=== PATIENT | female | born 1940 | race Caucasian/White ===

== ENCOUNTER 2017-12-20 03:45 | Observation (INO) | payer MEDICARE, SELFPAY ==
[2017-12-20] VITALS (17 sets, daily range): BP systolic 114–174; BP diastolic 56–103; PULSE 55–133; RESP 16–21; TEMP 36.4–36.7; O2SAT 95–98; BMI 27.7; BMI 29.5
--- NOTE | 2017-12-20 03:54 | EKG12_ITS ---
Test Reason : POST CARDIOVERSION Blood Pressure : / mmHG Vent. Rate : 060 BPM Atrial Rate : 060 BPM P-R Int : 174 ms QRS Dur : 098 ms QT Int : 434 ms P-R-T Axes : 046 -29 001 degrees QTc Int : 434 ms Normal sinus rhythm Inferior infarct , age undetermined Anterior infarct , age undetermined Abnormal ECG Confirmed by ROSA MALONE, KATIANA ([id number]), editorial cartoonist GISELL MELGOZA ([id number]) on 12/21/2017 8:36:23 AM Referred By: LANCE Confirmed By:KATIANA LEE MD
[2017-12-20] MEDS: dilTIAZem 25 MG/5 ML Vial 10 MG IV BOLUS (04:13)
[2017-12-20 04:14] LABS: Absolute Lymphocyte Count 3.11 X10^3/ul (0.83-4.51); Basophil# 0.06 X10^3/uL; Basophil% 0.7 % (0-1); Eosinophil# 0.14 X10^3/uL; Eosinophils% 1.7 % (0-5); Hematocrit 41.7 % (37-47); Hemoglobin 13.6 g/dl (12.0-15.0); Lymphocyte # 3.11 X10^3/ul (4.0); Lymphocyte % 38.8 % (19-41); Mean Corp Hgb Conc 32.6 g/gl (32-36); Mean Corpuscular Hgb 28.8 pg (27.0-32.0); Mean Corpuscular Volume 88.3 fL (81-99); Mean Platelet Vol. 9.5 fl (6.2-12.0); Monocyte# 0.73 X10^3/uL; Monocyte% 9.1 % (0-10); Neutrophil # 3.96 X10^3/uL (2.7-7.7); Neutrophil % 49.6 % (47-70); Platelet Count 349 K/mm3 (150-450); RBC Distribution Width CV 13.4 % (11.6-14.6); RBC Distribution Width SD 43.3 fl (35.1-43.9); Red Blood Count 4.72 M/mm3 (4.2-5.4)
[2017-12-20 04:17] LABS: POSITIVE COUNT NO; POSITIVE DIFFERENTIAL NO; POSITIVE MORPHOLOGY NO
[2017-12-20 04:33] LABS: Anion Gap 11 (5-15); BUN 17 mg/dL (7-18); BUN/Creat Ratio 20.4 RATIO (10-20); Calcium,Total 9.5 mg/dL (8.5-10.1); Chloride 105 mmol/L (98-107); Creatinine, Serum 0.83 mg/dL (0.55-1.02); EST Glomerular Filtration Rate 70 mL/min (>60); Est Glom Filt Rate - Afr Amer 85 mL/min (>60); Estimated Creatinine Clearance 52.29 ml/min; Glucose 100 mg/dL (74-106); Magnesium 2.2 mg/dL (1.6-2.6); Sodium Level 142 mmol/L (136-145)
[2017-12-20] MEDS: Midazolam 2 MG/2 ML Syringe IV (05:59)
[2017-12-20] MEDS: fentaNYL 100 MCG/2 ML Ampul 50 MCG IV (05:59)
--- NOTE | 2017-12-20 06:04 | NURSING ---
Called ED rn hemodialysis chargekeegan to send patient to floor
--- NOTE | 2017-12-20 06:08 | ED.VISSUMM ---
- ER Visit Summary Date of Service: 12/20/17 Chief Complaint: Palpitations History of Present Illness: The patient is a 77 F sudden palpitations awakening her at 3 AM. History of paroxysmal atrial fibrillation 2 years ago. Patient is on Eliquis. Rn Critical Care is Dr. Paulson. Denies any cough or recent illness. No recent nausea, vomiting, diarrhea. No chest pains. No lightheaded symptoms. Patient states was taken off metoprolol for which she thinks was for a low heart rate. Patient states she was cardioverted a year ago. No other complaints. Physical Examination: General: Alert and oriented ?3, no acute distress HEENT: Normocephalic, atraumatic. Moist mucosa membranes Neck: supple, nontender. Cardiovascular: Irregular tachycardic and rhythm, no murmurs Respiratory: Normal breath sounds, symmetric, no distress Abdomen: Soft, nontender, nondistended Extremities: Nontender, no edema, pulses intact ?4 Neuro: no focal neurological deficits. Test Results: EKG: A. fib with RVR rate of 141, no ST or T-wave changes. Hemoglobin 13.6. Potassium 4.0. Magnesium 2.2. Troponin negative. Emergency Department Course and Treatment: Patient is on Eliquis and taking her medications. Symptoms started when awakening at 3 AM, less than 1 hour on arrival. I discussed with patient if she would like direct current cardioversion in the ED. She states she would like to avoid that and try medications. Cardizem was given. Heart rate did improve the 120s comparable. I did initially order for Cardizem drip. Labs were stable. I spoke with hospitalist, Dr. Crabtree, who evaluated patient in the ED. patient heart rate was increasing prior to the drip. He we discussed with the patient, she now agreed with cardioversion. He spoke with cardiology, Dr. Mercado who recommended an amnio bolus prior to cardioversion. After medications given, patient was cardioverted after second attempt at 200 J with AP pads. Repeat EKG obtained noting a normal sinus rhythm. Patient admitted to PCU for further management. Treatment Plan: [] Disposition: Admission Impression: 1. Atrial fibrillation with RVR status post direct current cardioversion This note was generated with Vee24ation software. It may contain incorrect words, spelling, and punctuation that were not noted in review of the chart prior to signing ED Disposition - Plan for ED Patient: Disposition: Acute Care Hospital [facility] Chief Complaint: Palpitations Diagnosis: Atrial fibrillation with RVR, Direct current cardioversion
--- NOTE | 2017-12-20 06:15 | ED.DCSUM_ITS ---
- ER Visit Summary Date of Service: 12/20/17 Chief Complaint: Palpitations History of Present Illness: The patient is a 77 F sudden palpitations awakening her at 3 AM. History of paroxysmal atrial fibrillation 2 years ago. Patient is on Eliquis. Webfocus Developer is Dr. Paulson. Denies any cough or recent illness. No recent nausea, vomiting, diarrhea. No chest pains. No lightheaded symptoms. Patient states was taken off metoprolol for which she thinks was for a low heart rate. Patient states she was cardioverted a year ago. No other complaints. Physical Examination: General: Alert and oriented ?3, no acute distress HEENT: Normocephalic, atraumatic. Moist mucosa membranes Neck: supple, nontender. Cardiovascular: Irregular tachycardic and rhythm, no murmurs Respiratory: Normal breath sounds, symmetric, no distress Abdomen: Soft, nontender, nondistended Extremities: Nontender, no edema, pulses intact ?4 Neuro: no focal neurological deficits. Test Results: EKG: A. fib with RVR rate of 141, no ST or T-wave changes. Hemoglobin 13.6. Potassium 4.0. Magnesium 2.2. Troponin negative. Emergency Department Course and Treatment: Patient is on Eliquis and taking her medications. Symptoms started when awakening at 3 AM, less than 1 hour on arrival. I discussed with patient if she would like direct current cardioversion in the ED. She states she would like to avoid that and try medications. Cardizem was given. Heart rate did improve the 120s comparable. I did initially order for Cardizem drip. Labs were stable. I spoke with hospitalist, Dr. Crabtree, who evaluated patient in the ED. patient heart rate was increasing prior to the drip. He we discussed with the patient, she now agreed with cardioversion. He spoke with cardiology, Dr. Mercado who recommended an amnio bolus prior to cardioversion. After medications given, patient was cardioverted after second attempt at 200 J with AP pads. Repeat EKG obtained noting a normal sinus rhythm. Patient admitted to PCU for further management. Treatment Plan: [] Disposition: Admission Impression: 1. Atrial fibrillation with RVR status post direct current cardioversion This note was generated with Daixeation software. It may contain incorrect words, spelling, and punctuation that were not noted in review of the chart prior to signing ED Disposition - Plan for ED Patient: Disposition: Acute Care Hospital [facility] Chief Complaint: Palpitations Diagnosis: Atrial fibrillation with RVR, Direct current cardioversion
--- NOTE | 2017-12-20 06:19 | PCM.HP.STD ---
Problem List (1) Rapid heartbeat Status: Acute History of Present Illness Date of Admission: 12/20/17 Chief Complaint: Rapid heartbeat The patient is a 77 year old F was seen in the emergency room at [facility] with a chief complaint of rapid heartbeat. Patient states when she went to bed on the evening of 12/19/17, she did not feel right, she went to sleep and awoke at 3 AM with a rapid heartbeat. Patient has a history of paroxysmal atrial fibrillation and had been taken off rate limiting agents the latter part of 2017 due to hypotension. Patient has remained in sinus rhythm as far she knows and has been taking Eliquis for approximately [address] Paulson for cardiology. Evaluation in the ER included an EKG which showed atrial fibrillation with a rapid ventricular response at approximately 141 bpm, labs obtained were unremarkable. Patient was given Cardizem IV and this lowered her heart rate somewhat but she remained rapid. I talked with the patient during my examination, initially she had refused cardioversion by the emergency room physician but after discussing this with her further she agreed to cardioversion. I contacted who is on-call for cardiology and he advised IV amiodarone bolus with no drip following the cardioversion. Patient was cardioverted twice with return to sinus bradycardia at 60, there were no complications. Patient will be admitted to PCU and she will be seen in consultation by cardiology, I will not cycle her cardiac enzymes. Past Medical History Past Medical History (Chronic Problems): Chronic Problems (Last Reviewed 07/20/17 @ 14:11 by Kike Paulson MD) Paroxysmal atrial fibrillation (Chronic) Anemia (Chronic) Hypothyroidism (Chronic) History of rheumatic fever (Chronic) GERD (gastroesophageal reflux disease) (Chronic) Gastric ulcer (Chronic) Hypertension (Chronic) Medical History: Medical History (Last Reviewed 07/20/17 @ 14:11 by Kike Paulson MD) Paroxysmal atrial fibrillation (Chronic) I48.0 Anemia (Chronic) D64.9 Hypothyroidism (Chronic) E03.9 History of rheumatic fever (Chronic) Z86.79 GERD (gastroesophageal reflux disease) (Chronic) K21.9 Gastric ulcer (Chronic) K25.9 Hypertension (Chronic) I10 Allergies metoprolol Adverse Reaction (Verified 12/20/17 03:46) Symptomatic Bradycardia Home Medications: Ambulatory Orders Medication Instructions Recorded Levothyroxine [Synthroid] 25 mcg PO DAILY@0600 #30 tab 03/13/16 amlodipine 5 mg tablet 5 mg PO DAILY #90 tab 12/10/17 apixaban 5 mg tablet 5 mg PO BID #180 tab 12/10/17 Surgical History: Surgical History (Last Reviewed 07/20/17 @ 14:11 by Kike Paulson MD) History of hysterectomy Z98.890, Z90.710 Surgical History: hysterectomy Psychiatric History: No pertinent psych hx 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 Denies: Anorexia, Chills, Fever, Night Sweats, Malaise, Weight Change Eyes: Denies: Cataracts, Conjunctivae Inflammation, Double vision, Drainage HEENT: Denies: Difficulty Swallowing, Dysphasia, Ear Pain, Eye Pain, Hearing Changes, Nasal bleeding, Nasal Congestion, Post Nasal Drip Cardiovascular: Reports: Palpitations. Denies: Chest Pain, Claudication, Chest Pressure, Chest Tightness, Edema, Heaviness Respiratory: Denies: Cough, Hemoptysis, Pleuritic Pain, Shortness of Breath, Shortness of breath at rest, Shortness of breath upon exertion, Sputum production, Wheezing Gastrointestinal: Denies: Abdominal Pain, Constipation, Diarrhea, Hematemesis, Hematochezia, Nausea, Melena, Vomiting Genitourinary: Denies: Dysuria, Frequency, Hematuria, Hesitancy, Incontinence, Nocturia, Urgency Gynecological: Denies: Breast symptoms Musculoskeletal: Denies: Foot Pain, Hand Pain, Joint Pain, Joint stiffness, Joint swelling, Joint Tenderness, Leg Pain Skin: Denies: Dryness, Jaundice, Pruritis, Rash Neurological: Denies: Blurred vision, Double vision, Slurred speech, Difficulty swallowing, Focal weakness, Headaches, Incoordination, Numbness, Tingling Psychiatric: Denies: Anxiety, Depression, Homicidal Ideations, Suicidal Ideations Endocrine: Denies: Change in Body Habitus, Heat/ Cold Intolerance, Polydipsia, Polyuria Hematologic/ Lymphatic: Denies: Adenopathy, Anemia, Easy Bruising, Easy Bleeding, Petechiae, Purpura VTE Information - Inpt Only VTE Present on Admission: No VTE Mechan Device Prophylaxis: None VTE Pharm Prophylaxis ordered?: No Reason prophylaxis not ordered:: Medical Contraindication - on Eliquis Patient Problems: Active and Suspected Problems (Last Reviewed 07/20/17 @ 14:11 by Kike Paulson MD) Atrial fibrillation with RVR (Acute) Rapid heartbeat (Acute) - Physical Exam General: Alert, Oriented x3, Cooperative, No apparent distress, Well developed, Well nourished HEENT: Atraumatic, PERRLA, EOMI, Normocephalic Oral: Moist Mucosa Neck: Supple, No JVD, Negative Carotid Bruits, No Nuchal Rigidity, Trachea Midline, Thyroid Normal Size and Texture Lungs: Clear to auscultation, Normal air movement, No rhonchi, No wheeze, No rales Cardiovascular: Regular rate, No murmurs, PMI Normal, No rub noted, Tachycardic Abdomen: Bowel Sounds Present, Soft, Non Tender, Non-Distended, No hernias noted Extremities: No clubbing, No cyanosis, No edema, Capillary Refill Less than 3 Seconds Skin: No rashes, No breakdown Musculoskeletal: No Tenderness to Palpation of Joints or Extremities Neurological: Cranial nerves II-XII grossly intact, Neuro grossly intact, Sensory exam intact to light touch and pain, Coordination normal Psych/Mental Status: Normal Affect, Appropriate, Alert and oriented to time, place, person, mood and affect Vital Signs Temp Pulse Resp BP Pulse Ox 98.0 F 61 18 129/67 H 96 12/20/17 03:48 12/20/17 06:16 12/20/17 06:16 12/20/17 06:16 12/20/17 06:16 Oxygen Flow Rate (L/min) 2 Oxygen Delivery Method [1 ( Nasal Cannula Initial Baseline)] Oxygen Delivery Method Nasal Cannula Assessment/Plan All Active Problems (Last Reviewed 07/20/17 @ 14:11 by Kike Paulson MD) Atrial fibrillation with RVR (Acute) Rapid heartbeat (Acute) #1 atrial fibrillation with rapid ventricular response-now returned to sinus bradycardia at 60 following cardioversion ?2 in the emergency room-patient will be admitted to PCU, she will be monitored and seen in consultation by cardiology #2 hypertension-patient will remain on her current medication #3 hypothyroidism Code Visit Inpatient E&M: 23724 Init Hosp L3
--- NOTE | 2017-12-20 06:27 | HP.PCM_ITS ---
Problem List (1) Rapid heartbeat Status: Acute History of Present Illness Date of Admission: 12/20/17 Chief Complaint: Rapid heartbeat The patient is a 77 year old F was seen in the emergency room at [facility] with a chief complaint of rapid heartbeat. Patient states when she went to bed on the evening of 12/19/17, she did not feel right, she went to sleep and awoke at 3 AM with a rapid heartbeat. Patient has a history of paroxysmal atrial fibrillation and had been taken off rate limiting agents the latter part of 2017 due to hypotension. Patient has remained in sinus rhythm as far she knows and has been taking Eliquis for approximately [address] Paulson for cardiology. Evaluation in the ER included an EKG which showed atrial fibrillation with a rapid ventricular response at approximately 141 bpm, labs obtained were unremarkable. Patient was given Cardizem IV and this lowered her heart rate somewhat but she remained rapid. I talked with the patient during my examination, initially she had refused cardioversion by the emergency room physician but after discussing this with her further she agreed to cardioversion. I contacted who is on-call for cardiology and he advised IV amiodarone bolus with no drip following the cardioversion. Patient was cardioverted twice with return to sinus bradycardia at 60, there were no complications. Patient will be admitted to PCU and she will be seen in consultation by cardiology, I will not cycle her cardiac enzymes. Past Medical History Past Medical History (Chronic Problems): Chronic Problems (Last Reviewed 07/20/17 @ 14:11 by Kike Paulson MD) Paroxysmal atrial fibrillation (Chronic) Anemia (Chronic) Hypothyroidism (Chronic) History of rheumatic fever (Chronic) GERD (gastroesophageal reflux disease) (Chronic) Gastric ulcer (Chronic) Hypertension (Chronic) Medical History: Medical History (Last Reviewed 07/20/17 @ 14:11 by Kike Paulson MD) Paroxysmal atrial fibrillation (Chronic) I48.0 Anemia (Chronic) D64.9 Hypothyroidism (Chronic) E03.9 History of rheumatic fever (Chronic) Z86.79 GERD (gastroesophageal reflux disease) (Chronic) K21.9 Gastric ulcer (Chronic) K25.9 Hypertension (Chronic) I10 Allergies metoprolol Adverse Reaction (Verified 12/20/17 03:46) Symptomatic Bradycardia Home Medications: Ambulatory Orders Medication Instructions Recorded Levothyroxine [Synthroid] 25 mcg PO DAILY@0600 #30 tab 03/13/16 amlodipine 5 mg tablet 5 mg PO DAILY #90 tab 12/10/17 apixaban 5 mg tablet 5 mg PO BID #180 tab 12/10/17 Surgical History: Surgical History (Last Reviewed 07/20/17 @ 14:11 by Kike Paulson MD) History of hysterectomy Z98.890, Z90.710 Surgical History: hysterectomy Psychiatric History: No pertinent psych hx 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 Denies: Anorexia, Chills, Fever, Night Sweats, Malaise, Weight Change Eyes: Denies: Cataracts, Conjunctivae Inflammation, Double vision, Drainage HEENT: Denies: Difficulty Swallowing, Dysphasia, Ear Pain, Eye Pain, Hearing Changes, Nasal bleeding, Nasal Congestion, Post Nasal Drip Cardiovascular: Reports: Palpitations. Denies: Chest Pain, Claudication, Chest Pressure, Chest Tightness, Edema, Heaviness Respiratory: Denies: Cough, Hemoptysis, Pleuritic Pain, Shortness of Breath, Shortness of breath at rest, Shortness of breath upon exertion, Sputum production, Wheezing Gastrointestinal: Denies: Abdominal Pain, Constipation, Diarrhea, Hematemesis, Hematochezia, Nausea, Melena, Vomiting Genitourinary: Denies: Dysuria, Frequency, Hematuria, Hesitancy, Incontinence, Nocturia, Urgency Gynecological: Denies: Breast symptoms Musculoskeletal: Denies: Foot Pain, Hand Pain, Joint Pain, Joint stiffness, Joint swelling, Joint Tenderness, Leg Pain Skin: Denies: Dryness, Jaundice, Pruritis, Rash Neurological: Denies: Blurred vision, Double vision, Slurred speech, Difficulty swallowing, Focal weakness, Headaches, Incoordination, Numbness, Tingling Psychiatric: Denies: Anxiety, Depression, Homicidal Ideations, Suicidal Ideations Endocrine: Denies: Change in Body Habitus, Heat/ Cold Intolerance, Polydipsia, Polyuria Hematologic/ Lymphatic: Denies: Adenopathy, Anemia, Easy Bruising, Easy Bleeding , Petechiae, Purpura VTE Information - Inpt Only VTE Present on Admission: No VTE Mechan Device Prophylaxis: None VTE Pharm Prophylaxis ordered?: No Reason prophylaxis not ordered:: Medical Contraindication - on Eliquis Patient Problems: Active and Suspected Problems (Last Reviewed 07/20/17 @ 14:11 by Kike Paulson MD ) Atrial fibrillation with RVR (Acute) Rapid heartbeat (Acute) - Physical Exam General: Alert, Oriented x3, Cooperative, No apparent distress, Well developed, Well nourished HEENT: Atraumatic, PERRLA, EOMI, Normocephalic Oral: Moist Mucosa Neck: Supple, No JVD, Negative Carotid Bruits, No Nuchal Rigidity, Trachea Midline, Thyroid Normal Size and Texture Lungs: Clear to auscultation, Normal air movement, No rhonchi, No wheeze, No rales Cardiovascular: Regular rate, No murmurs, PMI Normal, No rub noted, Tachycardic Abdomen: Bowel Sounds Present, Soft, Non Tender, Non-Distended, No hernias noted Extremities: No clubbing, No cyanosis, No edema, Capillary Refill Less than 3 Seconds Skin: No rashes, No breakdown Musculoskeletal: No Tenderness to Palpation of Joints or Extremities Neurological: Cranial nerves II-XII grossly intact, Neuro grossly intact, Sensory exam intact to light touch and pain, Coordination normal Psych/Mental Status: Normal Affect, Appropriate, Alert and oriented to time, place, person, mood and affect Vital Signs Temp Pulse Resp BP Pulse Ox 98.0 F 61 18 129/67 H 96 12/20/17 03:48 12/20/17 06:16 12/20/17 06:16 12/20/17 06:16 12/20/17 06:16 Oxygen Flow Rate (L/min) 2 Oxygen Delivery Method [1 ( Nasal Cannula Initial Baseline)] Oxygen Delivery Method Nasal Cannula Assessment/Plan All Active Problems (Last Reviewed 07/20/17 @ 14:11 by Kike Paulson MD) Atrial fibrillation with RVR (Acute) Rapid heartbeat (Acute) #1 atrial fibrillation with rapid ventricular response-now returned to sinus bradycardia at 60 following cardioversion ?2 in the emergency room-patient will be admitted to PCU, she will be monitored and seen in consultation by cardiology #2 hypertension-patient will remain on her current medication #3 hypothyroidism Code Visit Inpatient E&M: 41766 Init Hosp L3
[2017-12-20] MEDS: Levothyroxine 25 MCG TABLET PO (08:00)
[2017-12-20] MEDS: APIXABAN 5 MG TABLET PO (09:42)
[2017-12-20] MEDS: amLODIPine 5 MG Tablet PO (09:42)
[2017-12-20 10:38] LABS: Thyroid Stim Hormone (TSH) 7.14 uIU/mL (0.358-3.74)
--- NOTE | 2017-12-20 13:27 | PCM.CONS.C ---
Reason for Consult Date of Consultation: 12/20/17 Reason for Consultation: Fast heart rate. History of Present Illness: YOSHI MARTINS, is a 77 F who presents to the emergency room yesterday with palpitations. She was noted to be in atrial fibrillation with rapid ventricular response rate.. She is a pleasant lady with a history of paroxysmal atrial fibrillation hypertension diabetes mellitus . Since her last visit in November she has been doing quite well from the cardiac standpoint she has not had any more episodes of atrial fibrillation. She however has had some heartburn and has been taking pantoprazole with some relief. She is also taking some other antacid. She says she cannot remember the last time she underwent an upper GI evaluation. She has had no dizziness or diaphoresis no near syncope or syncope no neck arm or jaw discomfort suggest angina. You do remember that her last echocardiogram had demonstrated ejection fraction of 60%. The heartburn does not appear to occur with exertion either. In the emergency room she was noted to be in atrial for ablation with rapid ventricular response rate she was given a bolus of intravenous amiodarone and then underwent DC cardioversion. She was admitted to the telemetry unit for further evaluation. She appears to be doing well at this time and has not had any neck arm or jaw discomfort suggest angina. Past Medical History Allergies/Adverse Reactions: Allergies metoprolol Adverse Reaction (Verified 12/20/17 03:46) Symptomatic Bradycardia Home Medications: Ambulatory Orders Medication Instructions Recorded Levothyroxine [Synthroid] 25 mcg PO DAILY@0600 #30 tab 03/13/16 amlodipine 5 mg tablet 5 mg PO DAILY #90 tab 12/10/17 apixaban 5 mg tablet 5 mg PO BID #180 tab 12/10/17 Past Medical History (Chronic Problems): Chronic Problems (Last Reviewed 07/20/17 @ 14:11 by Kike Paulson MD) Paroxysmal atrial fibrillation (Chronic) Anemia (Chronic) Hypothyroidism (Chronic) History of rheumatic fever (Chronic) GERD (gastroesophageal reflux disease) (Chronic) Gastric ulcer (Chronic) Hypertension (Chronic) Surgical History: hysterectomy Psychiatric History: No pertinent psych hx 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 Denies: Chest Discomfort, Shortness of Breath, Orthopnea, PND, Peripheral Edema, Lightheadedness, Dizziness, Near Syncope, Syncope Respiratory: Denies: Cough, Sputum Production, Hemoptysis Gastrointestinal: Denies: Hematemesis, Hematochezia, Melena Genitourinary: Denies: Dysuria, Hematuria Skin: Denies: Rash Subjectve: Pleasant lady in no distress. Objective: Vital Signs Temp Pulse Resp BP Pulse Ox 97.5 F L 55 L 18 126/73 H 95 12/20/17 09:45 12/20/17 11:06 12/20/17 09:45 12/20/17 09:45 12/20/17 12:55 Oxygen Flow Rate (L/min) 2 Oxygen Delivery Method [1 ( Nasal Cannula Initial Baseline)] Oxygen Delivery Method Room Air Weight: 183 lb 13.848 oz Body Mass Index (BMI) 29.5 Intake and Output for Last 24 Hours 12/18/17 12/19/17 12/20/17 23:59 23:59 23:59 Intake Total 150 / 150 Balance 150 / 150 General: Awake, Alert, Oriented x 3 HEENT: PERRL, EOMI, Sclera Non Icteric Neck: Supple, Good ROM, No Lymph Node Enlargement Lungs: Clear to auscultation Cardiovascular: Regular Rhythm, Normal S1, Normal S2, No Murmurs, No Rubs, No Gallops Vascular: No Carotid Bruits, Normal Femoral Pulses, Normal Radial Pulses, Normal Dorsalis Pedal Pulse, Normal Posterior Tibial Pulses Abdomen: Bowel Sounds Present, Soft, Non Tender, No HSM, No Organomegaly Extremities: No Cyanosis, No Clubbing, No edema Neurological: No Focal Motor or Sensory Deficit Rhythm: EKG: Normal sinus rhythm with no acute changes. Assessment/Plan 1. Paroxysmal atrial fibrillation. The patient presents with a paroxysmal atrial fibrillation. My recommendation at this time as she has been cardioverted is to continue with anticoagulation and to place her on a beta-lance as well as daily 200 mg dose of amiodarone. She can be seen in the office for follow-up visit within the next 2-4 weeks. 2. Hypertension Patient is noted to be hypertensive on amlodipine. But with a history of paroxysmal atrial fibrillation it may be prudent to discontinue the above and use a beta-lance instead. Thank you for allowing me to participate in the care of your patient. Please don't hesitate to call if any issues arise
[2017-12-20 13:58] LABS: T4 Free Direct 1.23 ng/dL (0.76-1.46)
[2017-12-20 14:08] LABS: Free T3 2.3 pg/mL (2.18-3.98)
--- NOTE | 2017-12-20 14:59 | PCM.DC ---
- Discharge Diagnoses Current Active Problems: Current Active and Chronic Problems (Last Reviewed 07/20/17 @ 14:11 by Kike Paulson MD) Atrial fibrillation with RVR (Acute) Rapid heartbeat (Acute) You will use the following diet at home:: Cardiac Your food should be the consistency of: Regular Your liquids should be the consistency of: Regular/Thin Discharge Activity: Return to Normal Activity Allergies/Adverse Reactions: Allergies metoprolol Adverse Reaction (Verified 12/20/17 03:46) Symptomatic Bradycardia Medications to take at Discharge Levothyroxine [Synthroid] 25 mcg PO DAILY@0600 #30 tab 03/13/16 apixaban 5 mg tablet 5 mg PO BID #180 tab 12/10/17 Amiodarone HCl [Cordarone] 200 mg PO DAILY #30 tab 12/20/17 Metoprolol(XL)Succ [Toprol Xl (Beta Nusrat)] 50 mg PO DAILY #30 tab 12/20/17 The following prescriptions were given: Amiodarone HCl [Cordarone] 200 mg PO DAILY #30 tab Metoprolol(XL)Succ [Toprol Xl (Beta Nusrat)] 50 mg PO DAILY #30 tab Primary Care Physician: Veronika Paiz DO [Primary Care Provider] - Please follow up with your Primary Care Physician in: 2 weeks Please Follow Up With: Kike Paulson MD When: 2-4 weeks Proposed Discharge Date: 12/20/17
--- NOTE | 2017-12-20 15:00 | PCM.DC.SUM ---
<Chente Redding - Last Filed: 12/20/17 15:00> Discharge Date and Diagnosis - Problem List Patient Problems: Active and Suspected Problems (Last Reviewed 07/20/17 @ 14:11 by Kike Paulson MD) Atrial fibrillation with RVR (Acute) Rapid heartbeat (Acute) Date of Admission: 12/20/17 Date of Discharge: 12/20/17 - Primary Discharge Diagnosis Active and Suspected Problems (Last Reviewed 07/20/17 @ 14:11 by Kike Paulson MD) Paroxysmal Atrial fibrillation with RVR (Acute) HTN Hypothyroidism GERD Gastric ulcer Sciatica - Secondary Discharge Diagnosis Chronic Problems (Last Reviewed 07/20/17 @ 14:11 by Kike Paulson MD) Paroxysmal atrial fibrillation (Chronic) Anemia (Chronic) Hypothyroidism (Chronic) History of rheumatic fever (Chronic) GERD (gastroesophageal reflux disease) (Chronic) Gastric ulcer (Chronic) Hypertension (Chronic) Hospital Course and Treatment Consults: Khurram -cardiology Operations: None Procedures: None Summary of Care Provided: Physical exam on day of discharge: General: Resting comfortably NAD Psych: A/Ox3 normal affect HEENT: PEARRLA AT NC Neck: Supple NT CV: RRR no m/t/r/g/h Resp: CTA Abd: [id number] Soft NT no guarding or rigidity Ext: DP2+= no edema Skin: W/D normal turgor Lymph/Heme: No active bleeding or adenopathy Neuro: CN2-12 intact Hospital course: The patient is a 77 year old F who presented to the emergency room with rapid heart rate and not feeling well. She has a history of paroxysmal atrial fibrillation for which she follows Dr. Paulson and is on Eliquis. She is found to be in A. fib with RVR and was given a Cardizem bolus and then subsequently was cardioverted twice in the emergency room with success on the second attempt. Her blood work was unremarkable except for a somewhat elevated TSH however T4 and T3 were normal. She was placed in the PCU on telemetry overnight and remained stable. She was seen by her melter helper Dr. Paulson in the morning. He recommended no further intervention. Her Norvasc was discontinued and she was started on once daily metoprolol and amiodarone for better rate control. She was advised to continue Eliquis. Also of note the patient admitted that she has been taking heavy doses of Aleve for her sciatica despite her concurrent Eliquis therapy and despite having a history of acid reflux and peptic ulcer. I advised strict discontinuation of these. She is following Dr. Cota as an outpatient for this. She has no black stools and no decrease in her hemoglobin. I advised her to discuss alternative pain options for sciatica with her PCP at follow up. Please follow-up with your PCP in 1-2 weeks, and with cardiology in 2-4 weeks. This patient was seen by Chente Redding PA-C under the supervision of Doctor Hussain. [] Discharge Diet: Low fat/ Low Cholesterol, 4000 mg Sodium Diet Discharge Activity: Return to Normal Activity Home Medications: Medications to take at Discharge Levothyroxine [Synthroid] 25 mcg PO DAILY@0600 #30 tab 03/13/16 apixaban 5 mg tablet 5 mg PO BID #180 tab 12/10/17 Amiodarone HCl [Cordarone] 200 mg PO DAILY #30 tab 12/20/17 Metoprolol(XL)Succ [Toprol Xl (Beta Nusrat)] 50 mg PO DAILY #30 tab 12/20/17 Following Prescrptions Were Given to Patient: Amiodarone HCl [Cordarone] 200 mg PO DAILY #30 tab Metoprolol(XL)Succ [Toprol Xl (Beta Nusrat)] 50 mg PO DAILY #30 tab Primary Care Physician: Veronika Paiz DO [Primary Care Provider] - Please follow up with your Primary Care Physician in: 2 weeks Please Follow Up With: Kike Paulson MD When: 2-4 weeks Disposition: Home Minutes spent on discharge:: 35 Patient Condition:: Stable Medical Necessity - Tobacco Use Smoking Status: Never smoker Tobacco Use: Non-smoker Meaningful Use Info Meaningful Use Diagnoses (Choose all that apply): None applicable <Kem Nixon - Last Filed: 12/20/17 15:23> Discharge Date and Diagnosis - Primary Discharge Diagnosis Active and Suspected Problems (Last Reviewed 07/20/17 @ 14:11 by Kike Paulson MD) Atrial fibrillation with RVR (Acute) Rapid heartbeat (Acute) - Secondary Discharge Diagnosis Chronic Problems (Last Reviewed 07/20/17 @ 14:11 by Kike Paulson MD) Paroxysmal atrial fibrillation (Chronic) Anemia (Chronic) Hypothyroidism (Chronic) History of rheumatic fever (Chronic) GERD (gastroesophageal reflux disease) (Chronic) Gastric ulcer (Chronic) Hypertension (Chronic) Hospital Course and Treatment Operations: None Procedures: None Summary of Care Provided: Patient seen and examined independently. Data reviewed. I agree with the above note by the physician embroidery assistant. The patient is a 77 year old F patient was found to be in atrial fibrillation with RVR. Patient was started on Cardizem and cardioverted twice. Patient remained stable. Patient was started on metoprolol as well. Patient will follow up with cardiology as outpatient. [] Discharge Diet: Low fat/ Low Cholesterol, 4000 mg Sodium Diet Discharge Activity: Return to Normal Activity Disposition: Home Minutes spent on discharge:: 35 Patient Condition:: Stable Meaningful Use Info Meaningful Use Diagnoses (Choose all that apply): None applicable Code Visit OBSV E&M: 56991 Observation care discharge
--- NOTE | 2017-12-20 15:06 | DS.PCM_ITS ---
<Chente Redding - Last Filed: 12/20/17 15:00> Discharge Date and Diagnosis - Problem List Patient Problems: Active and Suspected Problems (Last Reviewed 07/20/17 @ 14:11 by Kike Paulson MD ) Atrial fibrillation with RVR (Acute) Rapid heartbeat (Acute) Date of Admission: 12/20/17 Date of Discharge: 12/20/17 - Primary Discharge Diagnosis Active and Suspected Problems (Last Reviewed 07/20/17 @ 14:11 by Kike Paulson MD ) Paroxysmal Atrial fibrillation with RVR (Acute) HTN Hypothyroidism GERD Gastric ulcer Sciatica - Secondary Discharge Diagnosis Chronic Problems (Last Reviewed 07/20/17 @ 14:11 by Kike Paulson MD) Paroxysmal atrial fibrillation (Chronic) Anemia (Chronic) Hypothyroidism (Chronic) History of rheumatic fever (Chronic) GERD (gastroesophageal reflux disease) (Chronic) Gastric ulcer (Chronic) Hypertension (Chronic) Hospital Course and Treatment Consults: Khurram -cardiology Operations: None Procedures: None Summary of Care Provided: Physical exam on day of discharge: General: Resting comfortably NAD Psych: A/Ox3 normal affect HEENT: PEARRLA AT NC Neck: Supple NT CV: RRR no m/t/r/g/h Resp: CTA Abd: [id number] Soft NT no guarding or rigidity Ext: DP2+= no edema Skin: W/D normal turgor Lymph/Heme: No active bleeding or adenopathy Neuro: CN2-12 intact Hospital course: The patient is a 77 year old F who presented to the emergency room with rapid heart rate and not feeling well. She has a history of paroxysmal atrial fibrillation for which she follows Dr. Paulson and is on Eliquis. She is found to be in A. fib with RVR and was given a Cardizem bolus and then subsequently was cardioverted twice in the emergency room with success on the second attempt. Her blood work was unremarkable except for a somewhat elevated TSH however T4 and T3 were normal. She was placed in the PCU on telemetry overnight and remained stable. She was seen by her family resource management professor Dr. Paulson in the morning. He recommended no further intervention. Her Norvasc was discontinued and she was started on once daily metoprolol and amiodarone for better rate control. She was advised to continue Eliquis. Also of note the patient admitted that she has been taking heavy doses of Aleve for her sciatica despite her concurrent Eliquis therapy and despite having a history of acid reflux and peptic ulcer. I advised strict discontinuation of these. She is following Dr. Cota as an outpatient for this. She has no black stools and no decrease in her hemoglobin. I advised her to discuss alternative pain options for sciatica with her PCP at follow up. Please follow-up with your PCP in 1-2 weeks, and with cardiology in 2-4 weeks. This patient was seen by Chente Redding PA-C under the supervision of Doctor Hussain. [] Discharge Diet: Low fat/ Low Cholesterol, 4000 mg Sodium Diet Discharge Activity: Return to Normal Activity Home Medications: Medications to take at Discharge Levothyroxine [Synthroid] 25 mcg PO DAILY@0600 #30 tab 03/13/16 apixaban 5 mg tablet 5 mg PO BID #180 tab 12/10/17 Amiodarone HCl [Cordarone] 200 mg PO DAILY #30 tab 12/20/17 Metoprolol(XL)Succ [Toprol Xl (Beta Nusrat)] 50 mg PO DAILY #30 tab 12/20/17 Following Prescrptions Were Given to Patient: Amiodarone HCl [Cordarone] 200 mg PO DAILY #30 tab Metoprolol(XL)Succ [Toprol Xl (Beta Nusrat)] 50 mg PO DAILY #30 tab Primary Care Physician: Veronika Paiz DO [Primary Care Provider] - Please follow up with your Primary Care Physician in: 2 weeks Please Follow Up With: Kike Paulson MD When: 2-4 weeks Disposition: Home Minutes spent on discharge:: 35 Patient Condition:: Stable Medical Necessity - Tobacco Use Smoking Status: Never smoker Tobacco Use: Non-smoker Meaningful Use Info Meaningful Use Diagnoses (Choose all that apply): None applicable <Kem Nixon - Last Filed: 12/20/17 15:23> Discharge Date and Diagnosis - Primary Discharge Diagnosis Active and Suspected Problems (Last Reviewed 07/20/17 @ 14:11 by Kike Paulson MD ) Atrial fibrillation with RVR (Acute) Rapid heartbeat (Acute) - Secondary Discharge Diagnosis Chronic Problems (Last Reviewed 07/20/17 @ 14:11 by Kike Paulson MD) Paroxysmal atrial fibrillation (Chronic) Anemia (Chronic) Hypothyroidism (Chronic) History of rheumatic fever (Chronic) GERD (gastroesophageal reflux disease) (Chronic) Gastric ulcer (Chronic) Hypertension (Chronic) Hospital Course and Treatment Operations: None Procedures: None Summary of Care Provided: Patient seen and examined independently. Data reviewed. I agree with the above note by the physician certified pathology assistant. The patient is a 77 year old F patient was found to be in atrial fibrillation with RVR. Patient was started on Cardizem and cardioverted twice. Patient remained stable. Patient was started on metoprolol as well. Patient will follow up with cardiology as outpatient. [] Discharge Diet: Low fat/ Low Cholesterol, 4000 mg Sodium Diet Discharge Activity: Return to Normal Activity Disposition: Home Minutes spent on discharge:: 35 Patient Condition:: Stable Meaningful Use Info Meaningful Use Diagnoses (Choose all that apply): None applicable Code Visit OBSV E&M: 40585 Observation care discharge
== END 2017-12-20 18:14 | disposition home or self-care (01) ==
LOC: ED 04:11 → PCU 06:06
PROVIDERS: Physician Assistant; Admitting Provider Internal Medicine; Emergency Provider Emergency Medicine; Family Provider Internal Medicine; PCP Internal Medicine
DX: I48.0 Paroxysmal atrial fibrillation (principal); I10 Essential (primary) hypertension; E03.9 Hypothyroidism, unspecified; K21.9 Gastro-esophageal reflux disease without esophagitis; Z87.11 Personal history of peptic ulcer disease; Z79.899 Other long term (current) drug therapy; Z79.01 Long term (current) use of anticoagulants; M54.30 Sciatica, unspecified side; E11.9 Type 2 diabetes mellitus without complications
CPT/HCPCS: 80048; 83735; 84439; 84443; 84481; 84484; 85025; 92960; 93005; 96374; 96375; 97161; 99218; 99284; J7030; A4216; G0378; G8978; G8979; G8980

== ENCOUNTER → 2018-01-17 14:12 | Outpatient (CLI) | payer MEDICARE, SELFPAY ==
--- NOTE | 2018-01-17 14:15 | RAD_ITS ---
STUDY: X-RAY CHEST REASON FOR EXAM: Female, 77 years old. Persistent cough TECHNIQUE: PA and lateral views of the chest. COMPARISON: 12/04/2016 FINDINGS: The lungs are clear and expanded. There is no demonstrated pleural abnormality. Normal size heart. Normal mediastinum and moi. Normal visualized pulmonary arteries. Normal visualized aortic arch and descending thoracic aorta. There are diffuse degenerative changes of the visualized thoracic spine. Normal visualized ribs, clavicles, and shoulders. There is no demonstrated abnormality of the visualized soft tissue structures of the upper abdomen. RAD/Chest PA and Lateral IMPRESSION: No acute pulmonary process Electronically Signed: Suraj Chávez MD at 15:20 EDT , Service support ,
== END ==
PROVIDERS: Family Provider Internal Medicine; PCP Internal Medicine; Visit Provider Internal Medicine
DX: R05 Cough (principal)
CPT/HCPCS: 71046

== ENCOUNTER → 2018-07-16 15:15 | Outpatient (CLI) | payer MEDICARE, SELFPAY ==
[2018-07-16 14:19] VITALS: BMI 28.8
--- NOTE | 2018-07-16 15:33 | CT_ITS ---
STUDY: CT BRAIN WITHOUT CONTRAST REASON FOR EXAM: Female, 77 years old. Injury to the back of the head following a fall. RADIATION DOSAGE (If Supplied By Facility): CTDIvol = ( 60.81 ) mGy, DLP = ( 1044.28 ) mGycm TECHNIQUE: Transaxial CT imaging of the brain was performed without administration of intravenous contrast material. Individualized dose optimization techniques were used for this CT. COMPARISON: None. FINDINGS: Small scalp hematoma overlying the posterior medial aspect of the left parietal occipital bone. Normal calvarium. There is mild cerebral atrophy with widening of the extra-axial spaces and ventricular dilatation. Normal white matter tracts of the cerebral hemispheres. Normal basal ganglia and thalami. Normal brainstem. Normal cerebellum. There is no intracranial hemorrhage. There are no findings of an acute ischemic infarction. Normal visualized paranasal sinuses. CT/Brain/Head without Contrast IMPRESSION: Chronic involutional changes of the brain. Small scalp hematoma overlying the medial posterior aspect of the left parietal occipital bone. Electronically Signed: Alexis Hickman MD at 16:00 EST Tel [phone], Service support ,
--- OUTSIDE RECORDS SUMMARY | 2018-09-17 21:32 | XMS RPT_ITS ---
:1940 Author Organization OHIP Care Team Providers Name Role Phone Veronika Paiz DO Attending Unavailable Izabel Veronika CASTAÑEDA Referring Unavailable Izabel DOVeronika Consulting Unavailable Khurram, Kike Attending Unavailable Izabel, Veronika Referring Unavailable Khurram, Battiest Attending Unavailable Khurram, Kike Referring Unavailable Izabel, Veronika Primary Care Unavailable Izabel, Veronika Primary Care Unavailable IkeeletsJulio C leonardo Admitting Unavailable Kem Nixon Attending Unavailable Khurram, Kike Consulting Unavailable Ikeeletsky, Julio C Admitting Unavailable Bro Julio C Attending Unavailable Izabel, Veronika Primary Care Unavailable Julio C Crabtree Consulting Unavailable Khurram, Kike Attending Unavailable Izabel, Veronika Referring Unavailable Izabel, Veronika Primary Care Unavailable IzabelAnkitaVeronika Attending Unavailable Izabel, Veronika Referring Unavailable Veronika Paiz Primary Care Unavailable Jefferson Batista Attending Unavailable Izabel Veronika Referring Unavailable Kike Paulson Attending Unavailable Kem Nixon Referring Unavailable PROBLEMS PROBLEMS DATE TYPE CONDITION / CODE ATTENDING STATUS SOURCE 07/16/2018 Unknown I48.0 - Paroxysmal Khurram, Kike Active [place] [facility] fibrillation / Hospital I48.0(ICD-10) Repository 07/16/2018 Unknown I10 - Essential Khurram, Kike Active [facility] ([facility] hypertension / Hospital I10(ICD-10) Repository 12/28/2017 Unknown D64.9 - Anemia, Khurram, Kike Active [place] unspecified / Community D64.9(ICD-10) Hospital Repository 12/28/2017 Unknown E03.9 - Khurram, Kike Active [place] Hypothyroidism, [facility] unspecified / Hospital E03.9(ICD-10) Repository PROCEDURES PROCEDURES No Procedure Records FoundRESULTS RESULTS BRAIN/HEAD WITHOUT Observed: 07/16/2018 Status: F Source: [place] CONTRAST 3:34 PM [facility] REPOSITORY [facility] Imaging Services [address] [place] [address] Brain/Head without Contrast MR#: [id number] Acct: [id number] Name: LIZA MARTINS Rep #: [id number] : 1940 F 77 From: Alexis Hickman MD PCP: Veronika Paiz DO Status: REG CLI Study: Brain/Head without Contrast Date of Exam: 07/16/18 Exam# [id number] Ordering Dr: Kike Paulson MD STUDY: CT BRAIN WITHOUT CONTRAST REASON FOR EXAM: Female, 77 years old. Injury to the back of the head following a fall. RADIATION DOSAGE (If Supplied By Facility): CTDIvol = ( 60.81 ) mGy, DLP = ( 1044.28 ) mGycm TECHNIQUE: Transaxial CT imaging of the brain was performed without administration of intravenous contrast material. Individualized dose optimization techniques were used for this CT. COMPARISON: None. FINDINGS: Small scalp hematoma overlying the posterior medial aspect of the left parietal occipital bone. Normal calvarium. There is mild cerebral atrophy with widening of the extra- axial spaces and ventricular dilatation. Normal white matter tracts of the cerebral hemispheres. Normal basal ganglia and thalami. Normal brainstem. Normal cerebellum. There is no intracranial hemorrhage. There are no findings of an acute ischemic infarction. Normal visualized paranasal sinuses. CT/Brain/Head without Contrast IMPRESSION: Chronic involutional changes of the brain. Small scalp hematoma overlying the medial posterior aspect of the left parietal occipital bone. Electronically Signed: Alexis Hickman MD at 16:00 EST Tel [phone], Service support , CC: Kike Paulson MD; Veronika Paiz DO Solar Sales Specialist: Signed CARDIOLOGY VISIT Observed: 07/16/2018 Status: F Source: [place] REPORT 2:51 PM [facility] REPOSITORY [facility] [place] [address] OFFICE VISIT Date of Service: 07/16/18 MR#: [id number] Acct: [id number] Name: LIZA MARTINS Rep #: [id number] : 1940 Provider: Kike Paulson MD Age/Sex: 77/F Location: [facility] Status: Signed HPI HPI Chief Complaint: Follow up Details: LIZA MARTINS, is a 77 F who presents to the office today for a follow-up visit. She is a lady with a history of paroxysmal atrial fibrillation, status post DC cardioversion in November 2017. She also has a history of hypertension and diabetes mellitus. She says that a few days ago she was going out in the snow she thinks she slipped and fell and hit the back of her head. She did not go to the emergency room. She has not had any chest pain or paroxysmal nocturnal dyspnea, palpitations lightheadedness near syncope or syncope. She has not had any orthopnea. She has been compliant with all her medications. Her physical exam today demonstrates clear lung weaver regular rate and rhythm with occasional irregularities and no pedal edema. You do remember her last echocardiogram had demonstrated preserved ejection fraction of 60%. Intake Vital Signs07/16/18 Height 5 ft 6 in 07/16/18 Weight: 179 lb 07/16/18 Body Mass Index (BMI) 28.8 07/16/18 Blood Pressure 128/80 H 07/16/18 Blood Pressure Location Lt brachial Intake Visit Reasons: 6 M FU Letter Carrier Required: No Is patient in pain?: No Allergies metoprolol Adverse Reaction (Verified 07/16/18 14:19) Symptomatic Bradycardia Medications apixaban 5 mg tablet 5 mg PO BID #180 tab 12/10/17 [Rx Confirmed 07/16/18] amlodipine 2.5 mg tablet 2.5 mg PO QDAY #30 tab 12/31/17 [Rx Confirmed 07/16/18] sucralfate 1 gram tablet 1 g PO BID tab 01/21/18 [History Confirmed 07/16/18] levothyroxine 25 mcg tablet 50 mcg PO DAILY@0600 tab 07/16/18 [History] [facility] Medical History Atrial fibrillation with RVR (Acute) Rapid heartbeat (Acute) Fatigue (Chronic) Paroxysmal atrial fibrillation (Chronic) Anemia (Chronic) Hypothyroidism (Chronic) History of rheumatic fever (Chronic) GERD (gastroesophageal reflux disease) (Chronic) Gastric ulcer (Chronic) Hypertension (Chronic) History of hysterectomy (Chronic) Social History Smoking Status: Never smoker ROS Const Const: Negative for fatigue, weakness, night sweats, excessive sweating, frequent falls, headache(s) or daytime sleepiness Eyes Eyes: Negative for loss of peripheral vision, transient loss of vision, blind spots, double vision or blurry vision ENT ENT: Negative for headache(s), dizziness, balance problems, Nosebleed/epistaxis, tongue swelling or lip swelling Cardio Chest Pain: No Palpitations: No Edema: None Muscle aches with walking: None Resp Respiratory: Negative for SOB at rest, SOB orthopnea\SOB lying down, Cough, paroxysmal nocturnal dyspnea or SOB with activity GI GI: Negative nausea, vomiting, heartburn, black,tarry stools or bright, red blood in stools : Negative for hematuria Musc Musc: Negative for balance problems, muscle aches/ myalgia, muscle weakness or joint pain Skin Skin: Negative non-healing lesions, unusual bruising or rash Neuro Neuro: Negative for weakness, frequent falls, headache(s), double vision, dizziness, lightheadedness, orthostatic symptoms, blurry vision or lack of coordination Joseluis Hematologic/Lymphatic: Negative for easy bruising or easy bleeding Endo Endo: Negative for fatigue, excessive sweating, cold intolerance, heat intolerance, increased thirst/drinking or hair loss Psych Psych: Negative for anxiety or depression Allergy Allergy/Immunology: Negative for throat swelling, Negative for tongue swelling, Negative for hives, Negative for rash, Negative for lip swelling Cardiology Exam Const Appearance: cooperative, healthy appearing, well developed, well groomed and no acute distress Nutritional Appearance: well nourished and average body habitus Orientation: alert, awake and oriented x3 Head Head: normal to inspection, normocephalic and atraumatic Ears: hearing grossly normal bilaterally and external ears normal Nose: external nose normal, nasal mucous membranes and turbinates normal, nares normal, septum normal, no nasal discharge Face and Sinus: face symmetric Mouth: oral mucosae normal, tongue normal, oropharynx normal and moist mucous membranes Teeth and gingiva: dentition normal Throat: posterior oropharynx normal, tonsils normal and uvula midline Eyes General: appearance normal, both eyes and all related structures Eyelids: eyelids normal Conjunctivae: conjunctivae normal Pupils: PERRL, normal by confrontation and accommodation normal EOM: EOM intact bilaterally Neck Neck: normal visual inspection, trachea midline and no JVD JVD: +5 Carotids: normal carotid upstroke and bounding pulses Chest Chest inspection: normal inspection of the chest, symmetric chest movement and normal respiratory effort Auscultation: Bilateral: Clear to Auscultation Cardio Palpation: normal PMI Rate: regular rate Rhythm: regular rhythm Heart sounds: S1 normal, S2 normal and normal, physiologic split S2; negative rub, gallop or murmur GI GI: normal to inspection, soft, no hepatosplenomegaly and bowel sounds present Neuro General: alert, awake, oriented x3, no focal sensory deficit, gait normal and moves all extremities Skin Skin: no rashes or lesions noted Extremities Pulses: Normal: Right Femoral Pulse, Left Femoral Pulse, Right Dorsalis Pedis Pulse, Left Dorsalis Pedis Pulse, Right Posterior Tibial Pulse, Left Posterior Tibial Pulse, Right Radial Pulse, Left Radial Pulse Lower Extremity Edema: None: Bilateral Musculoskel Musculoskeletal: No joint tenderness Psych Psychological: normal affect Assessment AND Plan 1. Paroxysmal atrial fibrillation I48.0 Plan She does have a history of paroxysmal atrial fibrillation and is maintaining sinus rhythm at this time she is on apixaban and with her recent fall I would recommend that we obtain a CAT scan of the head to make sure that there is been no internal bleeding. Even though she feels well. Depending on the findings further recommendations will be made. Orders Orders: 2. Essential hypertension I10 Plan Her blood pressure is under good control on the current medical therapy I would not recommend that we make any changes. Her last echocardiogram was as noted above. Thank you for allowing me to participate in the care of your patient. Please don't hesitate to call if any issues arise Plan Detail Follow Up 6 Months (mmm) Coding Level of Care Code Off vis,est,level 3 Diagnoses Paroxysmal atrial fibrillation I48.0 Essential hypertension I10 Hypertension type: essential hypertension Coding Level of Care Code Off vis,est,level 3 Diagnoses Paroxysmal atrial fibrillation I48.0 Essential hypertension I10 Hypertension type: essential hypertension Supplemental Info Supplemental Information Labs LDL Cholesterol 109 mg/dL (0-130) 03/12/16 HDL Cholesterol 61 mg/dL (40-) 03/12/16 Triglycerides 274 mg/dL (-199) H 03/12/16 VLDL Cholesterol 55 mg/dL (5-40) H 03/12/16 Diagnostics Electrocardiogram 12/20/17 Chest X-Ray 01/17/18 07/16/18 1451 <Electronically signed by Kike Paulson MD> Date Kike Paulson MD Cosigner Signature: Date (if applicable) CC: Veronika Paiz DO CARDIOLOGY VISIT Observed: 01/23/2018 Status: F Source: [place] REPORT 4:34 PM [facility] REPOSIT[facility] [address] [place] [address] [address] [place] [address] OFFICE VISIT Date of Service: 01/21/18 MR#: [id number] Acct: [id number] Name: LIZA MARTINS Rep #: [id number] : 1940 Provider: EMILY Batista Age/Sex: 77/F Location: [facility] Status: Signed HPI HPI Details: LIZA MARTINS, is a 77 F who presents to the office today for [place] a cardiovascular outpatient follow-up. She has a history of paroxysmal atrial fibrillation status post DCCV in November 2017, hypertension, and diabetes mellitus. She presented to [facility] emergency department in November 2017 with palpitations. She was noted to be in atrial fibrillation with rapid ventricular response rate. She was given a bolus of intravenous amiodarone and underwent a DC cardioversion. She was started on oral amiodarone and beta-nusrat and discharged home. Pt denies chest, arm, jaw, or neck discomfort. Her exercise tolerance is stable. Pt denies symptoms of palpitations, lightheadedness, near syncopal or syncopal episodes. Pt denies edema or claudication issues. Pt. denies orthopnea, PND, fever, chills, blood in urine, blood in stool, myalgia, or unexplainable fatigue. Pt. states feeling fatigued and moments of dizziness. She states having some congestion that was relieved with antibiotic. She states her breathing is improving. She recently stating sucralfate by Dr. Cota. Intake Vital Signs01/21/18 Height 5 ft 6 in 01/21/18 Blood Pressure 142/72 01/21/18 Blood Pressure Location Lt brachial Intake Visit Reasons: 6 M FU Letter Carrier Required: No Is patient in pain?: No Allergies metoprolol Adverse Reaction (Verified 01/21/18 09:29) Symptomatic Bradycardia Medications Levothyroxine [Synthroid] 25 mcg PO DAILY@0600 #30 tab 03/13/16 [Rx Confirmed 01/21/18] apixaban 5 mg tablet 5 mg PO BID #180 tab 12/10/17 [Rx Confirmed 01/21/18] amlodipine 2.5 mg tablet 2.5 mg PO QDAY #30 tab 12/31/17 [Rx Confirmed 01/21/18] sucralfate 1 gram tablet 1 g PO BID tab 01/21/18 [History Confirmed 01/21/18] Ejection fraction %: 60 to 64 [facility] Medical History Atrial fibrillation with RVR (Acute) Rapid heartbeat (Acute) Fatigue (Chronic) Paroxysmal atrial fibrillation (Chronic) Anemia (Chronic) Hypothyroidism (Chronic) History of rheumatic fever (Chronic) GERD (gastroesophageal reflux disease) (Chronic) Gastric ulcer (Chronic) Hypertension (Chronic) Surgical History History of hysterectomy (Chronic) Social History Smoking Status: Never smoker ROS Const Const: Negative for weakness, body ache, fever(s), chills or fatigue ENT ENT: Negative for dizziness Cardio Chest Pain: No Palpitations: No Edema: None Muscle aches with walking: None Resp Respiratory: Negative for SOB with activity, SOB at rest, SOB orthopnea\SOB lying down or paroxysmal nocturnal dyspnea GI GI: Negative nausea, black,tarry stools, bright, red blood in stools or vomiting blood/hematemesis : Negative for hematuria or frequent nighttime urination/ nocturia Musc Musc: Negative for muscle aches/ myalgia Skin Skin: Negative non-healing lesions or rash Neuro Neuro: Negative for lightheadedness, near syncope, syncope, orthostatic symptoms, weakness or dizziness Endo Endo: Negative for fatigue Allergy Allergy/Immunology: Negative for rash Cardiology Exam Const Appearance: cooperative, healthy appearing, well developed, well groomed and no acute distress Nutritional Appearance: well nourished and average body habitus Orientation: alert, awake and oriented x3 Head Head: normal to inspection, normocephalic and atraumatic Ears: hearing grossly normal bilaterally and external ears normal Nose: external nose normal, nasal mucous membranes and turbinates normal, nares normal, septum normal, no nasal discharge Face and Sinus: face symmetric Mouth: oral mucosae normal, tongue normal, oropharynx normal and moist mucous membranes Teeth and gingiva: dentition normal Throat: posterior oropharynx normal, tonsils normal and uvula midline Eyes General: appearance normal, both eyes and all related structures Eyelids: eyelids normal Conjunctivae: conjunctivae normal Pupils: PERRL, normal by confrontation and accommodation normal EOM: EOM intact bilaterally Neck Neck: normal visual inspection, trachea midline and no JVD JVD: +5 Carotids: normal carotid upstroke and bounding pulses Chest Chest inspection: normal inspection of the chest, symmetric chest movement and normal respiratory effort Auscultation: Bilateral: Clear to Auscultation Cardio Palpation: normal PMI Rate: regular rate Rhythm: regular rhythm Heart sounds: S1 normal, S2 normal and normal, physiologic split S2; negative rub, gallop or murmur GI GI: normal to inspection, soft, no hepatosplenomegaly and bowel sounds present Neuro General: alert, awake, oriented x3, no focal sensory deficit, gait normal and moves all extremities Skin Skin: no rashes or lesions noted Extremities Pulses: Normal: Right Femoral Pulse, Left Femoral Pulse, Right Dorsalis Pedis Pulse, Left Dorsalis Pedis Pulse, Right Posterior Tibial Pulse, Left Posterior Tibial Pulse, Right Radial Pulse, Left Radial Pulse Lower Extremity Edema: None: Bilateral Musculoskel Musculoskeletal: No joint tenderness Psych Psychological: normal affect Supplemental Info Echocardiogram from February 2016 showed normal LV size, mild concentric LVH, estimated ejection fraction of 60%, and structurally normal valves. Assessment AND Plan 1. Paroxysmal atrial fibrillation I48.0 Plan - ADWOA De La Rosa Patient appears to maintain regular rhythm. She states she has been off of amiodarone for some time now. Her heart rate is well-controlled. Her beta-nusrat is being discontinued due to low heart rate and fatigue. She will continue with factor Xa inhibitor. 2. Fatigue R53.83 Plan - ADWOA De La Rosa This is patient's main concern. Her beta-nusrat will be discontinued due to heart rate being 40 in our office and patient claiming that it has been in the 30s at home. She understands that this may increase her risk of atrial fibrillation with RVR. Her TSH was noted to be elevated during her most recent hospitalization. She does not believe this was addressed with primary care physician. Dr. Paiz's office was contacted regarding this and the report was faxed to their office. It is possible that her hypothyroidism may be causing her to feel fatigued. If this is the cause, perhaps she is able to reinitiate beta nusrat. 3. Essential hypertension I10 Plan - ADWOA De La Rosa Patient's blood pressure is slightly elevated today in office. She states she has not taken her blood pressure medication yet. She will continue with low-dose amlodipine and we will continue to monitor. Plan Detail Additional Comments - ADWOA De La Rosa Discussed the above patient with Dr. Paulson, he agrees with the plan of care. Thank you for allowing us to participate in the patients plan of care, if you have any questions please do not hesitate to call. This note was generated using a voice recognition system and there may be incorrect words, spelling or punctuation that were not noted when reviewing the office note prior to saving. 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) Coding Level of Care Code Off vis,est,level 3 Diagnoses Paroxysmal atrial fibrillation I48.0 Fatigue R53.83 Essential hypertension I10 Hypertension type: essential hypertension Coding Level of Care Code Off vis,est,level 3 Diagnoses Paroxysmal atrial fibrillation I48.0 Fatigue R53.83 Essential hypertension I10 Hypertension type: essential hypertension 01/21/18 1546 <Electronically signed by Jefferson Batista AWS DEVELOPER-C> Date Jefferson Batista AWS DEVELOPER-C 01/23/18 1634<Electronically signed by Kike Paulson MD> Cosigner Signature: Date (if applicable) Kike Paulson MD CC: Veronika Paiz DO CHEST PA AND LATERAL Observed: 01/17/2018 Status: F Source: [place] 2:15 PM [facility] REPOSITORY [facility] Imaging Services [address] [place] [id number] Chest PA and Lateral MR#: [id number] Acct: [id number] Name: LIZA MARTINS Rep #: [id number] : 1940 F 77 From: Christiano Chávez MD PCP: Veronika Paiz DO Status: REG CLI Study: Chest PA and Lateral Date of Exam: 01/17/18 Exam# [id number] Ordering Dr: Veronika Paiz DO STUDY: X-RAY CHEST REASON FOR EXAM: Female, 77 years old. Persistent cough TECHNIQUE: PA and lateral views of the chest. COMPARISON: 12/04/2016 FINDINGS: The lungs are clear and expanded. There is no demonstrated pleural abnormality. Normal size heart. Normal mediastinum and moi. Normal visualized pulmonary arteries. Normal visualized aortic arch and descending thoracic aorta. There are diffuse degenerative changes of the visualized thoracic spine. Normal visualized ribs, clavicles, and shoulders. There is no demonstrated abnormality of the visualized soft tissue structures of the upper abdomen. RAD/Chest PA and Lateral IMPRESSION: No acute pulmonary process Electronically Signed: Suraj Chávez MD at 15:20 EDT , Service support , CC: Veronika Paiz DO Solar Sales Specialist: Signed CONSULTATION Observed: 12/21/2017 Status: F Source: IRV[place] 4:14 PM [facility] REPOSITORY [facility] Medical Records Department [address] [place] [id number] Consultation 12/20/17 1327 MR#: [id number] Acct: [id number] Name: LIZA MARTINS Rep #: [id number] : 1940 77 From: Kike Paulson MD PCP: Veronika Paiz DO Status: DIS MARYBETH Y Location: [place] [address] Reason for Consult Date of Consultation: 12/20/17 Reason for Consultation: Fast heart rate. History of Present Illness: LIZA MARTINS, is a 77 F who presents to the emergency room yesterday with palpitations. She was noted to be in atrial fibrillation with rapid ventricular response rate.. She is a pleasant lady with a history of paroxysmal atrial fibrillation hypertension diabetes mellitus . Since her last visit in November she has been doing quite well from the cardiac standpoint she has not had any more episodes of atrial fibrillation. She however has had some heartburn and has been taking pantoprazole with some relief. She is also taking some other antacid. She says she cannot remember the last time she underwent an upper GI evaluation. She has had no dizziness or diaphoresis no near syncope or syncope no neck arm or jaw discomfort suggest angina. You do remember that her last echocardiogram had demonstrated ejection fraction of 60%. The heartburn does not appear to occur with exertion either. In the emergency room she was noted to be in atrial for ablation with rapid ventricular response rate she was given a bolus of intravenous amiodarone and then underwent DC cardioversion. She was admitted to the telemetry unit for further evaluation. She appears to be doing well at this time and has not had any neck arm or jaw discomfort suggest angina. Past Medical History Allergies/Adverse Reactions: Allergies metoprolol Adverse Reaction (Verified 12/20/17 03:46) Symptomatic Bradycardia Home Medications: Ambulatory Orders Medication Instructions Recorded Past Medical History (Chronic Problems): Chronic Problems (Last Reviewed 07/20/17 @ 14:11 by Kike Paulson MD) Paroxysmal atrial fibrillation (Chronic) Anemia (Chronic) Hypothyroidism (Chronic) History of rheumatic fever (Chronic) GERD (gastroesophageal reflux disease) (Chronic) Gastric ulcer (Chronic) Hypertension (Chronic) Surgical History: hysterectomy Psychiatric History: No pertinent psych hx REMOVABLE PROSTHODONTIST History: No pertinent REMOVABLE PROSTHODONTIST 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 Denies: Chest Discomfort, Shortness of Breath, Orthopnea, PND, Peripheral Edema, Lightheadedness, Dizziness, Near Syncope, Syncope Respiratory: Denies: Cough, Sputum Production, Hemoptysis Gastrointestinal: Denies: Hematemesis, Hematochezia, Melena Genitourinary: Denies: Dysuria, Hematuria Skin: Denies: Rash Subjectve: Pleasant lady in no distress. Objective: Vital Signs Temp Pulse Resp BP Pulse Ox 97.5 F L 55 L 18 126/73 H 95 12/20/17 09:45 12/20/17 11:06 12/20/17 09:45 12/20/17 09:45 12/20/17 12:55 Oxygen Flow Rate (L/min) 2 Oxygen Delivery Method [1 ( Nasal Cannula Initial Baseline)] Oxygen Delivery Method Room Air Weight: 183 lb 13.848 oz Body Mass Index (BMI) 29.5 Intake and Output for Last 24 Hours Intake Total 150 / 150 Balance 150 / 150 General: Awake, Alert, Oriented x 3 HEENT: PERRL, EOMI, Sclera Non Icteric Neck: Supple, Good ROM, No Lymph Node Enlargement Lungs: Clear to auscultation Cardiovascular: Regular Rhythm, Normal S1, Normal S2, No Murmurs, No Rubs, No Gallops Vascular: No Carotid Bruits, Normal Femoral Pulses, Normal Radial Pulses, Normal Dorsalis Pedal Pulse, Normal Posterior Tibial Pulses Abdomen: Bowel Sounds Present, Soft, Non Tender, No HSM, No Organomegaly Extremities: No Cyanosis, No Clubbing, No edema Neurological: No Focal Motor or Sensory Deficit Rhythm: EKG: Normal sinus rhythm with no acute changes. Assessment/Plan 1. Paroxysmal atrial fibrillation. The patient presents with a paroxysmal atrial fibrillation. My recommendation at this time as she has been cardioverted is to continue with anticoagulation and to place her on a beta-nusrat as well as daily 200 mg dose of amiodarone. She can be seen in the office for follow-up visit within the next 2-4 weeks. 2. Hypertension Patient is noted to be hypertensive on amlodipine. But with a history of paroxysmal atrial fibrillation it may be prudent to discontinue the above and use a beta-nusrat instead. Thank you for allowing me to participate in the care of your patient. Please don't hesitate to call if any issues arise 12/21/17 1614 <Electronically signed by Kike Paulson MD> Date Kike Paulson MD Cosigner Signature (if applicable): Date CC: Kike Paulson MD; Veronika Paiz DO Signed 12 LEAD ELECTROCARDIOGRAM Observed: 12/21/2017 Status: F Source: [place] 8:36 AM [facility] Cardiovascular Services [address] [place] [address] 12 Lead EKG 12/20/17 0617 MR#: [id number] Acct: [id number] Name: LIZA MARTINS Rep #: [id number] : 1940 77 From: iKke Paulson MD Attending Dr: Kem Nixon DO Status: DIS MARYBETH Ordering Dr: Lm Dixon DO Date: 12/20/17 Location: [facility] Sex: F C Admitted: 12/20/17 Test Reason : POST CARDIOVERSION Blood Pressure : / mmHG Vent. Rate : 060 BPM Atrial Rate : 060 BPM P-R Int : 174 ms QRS Dur : 098 ms QT Int : 434 ms P-R-T Axes : 046 -29 001 degrees QTc Int : 434 ms Normal sinus rhythm Inferior infarct , age undetermined Anterior infarct , age undetermined Abnormal ECG Confirmed by KIKE PAULSON MD ([id number]), acquisition editor GISELL MELGOZA ([id number]) on 12/21/2017 8:36:23 AM Referred By: LANCE Confirmed By:KIKE PAULSON MD 12/21/17 0836 Date Kike Paulson MD CC: Kem Nixon DO; Veronika Paiz DO; Lm Dixon Signed DISCHARGE SUMMARY Observed: 12/20/2017 Status: F Source: [place] 3:24 PM [facility] REPOSITORY [facility] Medical Records Department [address] [place] [address] Discharge Summary 12/20/17 1500 MR#: [id number] Acct: [id number] Name: LIZA MARTINS Amina Rep #: [id number] : 1940 77 From: Chente SELF PCP: Veronika Paiz DO Status: ADM MARYBETH Y Location: [place] [address]-1 <Chente Redding - Last Filed: 12/20/17 15:00> Discharge Date and Diagnosis - Problem List Patient Problems: Active and Suspected Problems (Last Reviewed 07/20/17 @ 14:11 by Kike Paulson MD) Atrial fibrillation with RVR (Acute) Rapid heartbeat (Acute) Date of Admission: 12/20/17 Date of Discharge: 12/20/17 - Primary Discharge Diagnosis Active and Suspected Problems (Last Reviewed 07/20/17 @ 14:11 by Kike Paulson MD) Paroxysmal Atrial fibrillation with RVR (Acute) HTN Hypothyroidism GERD Gastric ulcer Sciatica - Secondary Discharge Diagnosis Chronic Problems (Last Reviewed 07/20/17 @ 14:11 by Kike Paulson MD) Paroxysmal atrial fibrillation (Chronic) Anemia (Chronic) Hypothyroidism (Chronic) History of rheumatic fever (Chronic) GERD (gastroesophageal reflux disease) (Chronic) Gastric ulcer (Chronic) Hypertension (Chronic) Hospital Course and Treatment Consults: Khurram -cardiology Operations: None Procedures: None Summary of Care Provided: Physical exam on day of discharge: General: Resting comfortably NAD Psych: A/Ox3 normal affect HEENT: PEARRLA AT NC Neck: Supple NT CV: RRR no m/t/r/g/h Resp: CTA Abd: [id number] Soft NT no guarding or rigidity Ext: DP2+= no edema Skin: W/D normal turgor Lymph/Heme: No active bleeding or adenopathy Neuro: CN2-12 intact Hospital course: The patient is a 77 year old F who presented to the emergency room with rapid heart rate and not feeling well. She has a history of paroxysmal atrial fibrillation for which she follows Dr. Paulson and is on Eliquis. She is found to be in A. fib with RVR and was given a Cardizem bolus and then subsequently was cardioverted twice in the emergency room with success on the second attempt. Her blood work was unremarkable except for a somewhat elevated TSH however T4 and T3 were normal. She was placed in the PCU on telemetry overnight and remained stable. She was seen by her road machinery inspector Dr. Paulson in the morning. He recommended no further intervention. Her Norvasc was discontinued and she was started on once daily metoprolol and amiodarone for better rate control. She was advised to continue Eliquis. Also of note the patient admitted that she has been taking heavy doses of Aleve for her sciatica despite her concurrent Eliquis therapy and despite having a history of acid reflux and peptic ulcer. I advised strict discontinuation of these. She is following Dr. Cota as an outpatient for this. She has no black stools and no decrease in her hemoglobin. I advised her to discuss alternative pain options for sciatica with her PCP at follow up. Please follow- up with your PCP in 1-2 weeks, and with cardiology in 2-4 weeks. This patient was seen by Chente Redding PA-C under the supervision of Doctor Hussain. [] Discharge Diet: Low fat/ Low Cholesterol, 4000 mg Sodium Diet Discharge Activity: Return to Normal Activity Home Medications: Medications to take at Discharge Levothyroxine [Synthroid] 25 mcg PO DAILY@0600 #30 tab 03/13/16 apixaban 5 mg tablet 5 mg PO BID #180 tab 12/10/17 Amiodarone HCl [Cordarone] 200 mg PO DAILY #30 tab 12/20/17 Metoprolol(XL)Succ [Toprol Xl (Beta Nusrat)] 50 mg PO DAILY #30 tab 12/20/17 Following Prescrptions Were Given to Patient: Amiodarone HCl [Cordarone] 200 mg PO DAILY #30 tab Metoprolol(XL)Succ [Toprol Xl (Beta Nusrat)] 50 mg PO DAILY #30 tab Primary Care Physician: Veronika Paiz DO [Primary Care Provider] - Please follow up with your Primary Care Physician in: 2 weeks Please Follow Up With: Kike Paulson MD When: 2-4 weeks Disposition: Home Minutes spent on discharge:: 35 Patient Condition:: Stable Medical Necessity - Tobacco Use Smoking Status: Never smoker Tobacco Use: Non-smoker Meaningful Use Info Meaningful Use Diagnoses (Choose all that apply): None applicable <Kem Nixon - Last Filed: 12/20/17 15:23> Discharge Date and Diagnosis - Primary Discharge Diagnosis Active and Suspected Problems (Last Reviewed 07/20/17 @ 14:11 by Kike Paulson MD) Atrial fibrillation with RVR (Acute) Rapid heartbeat (Acute) - Secondary Discharge Diagnosis Chronic Problems (Last Reviewed 07/20/17 @ 14:11 by Kike Paulson MD) Paroxysmal atrial fibrillation (Chronic) Anemia (Chronic) Hypothyroidism (Chronic) History of rheumatic fever (Chronic) GERD (gastroesophageal reflux disease) (Chronic) Gastric ulcer (Chronic) Hypertension (Chronic) Hospital Course and Treatment Operations: None Procedures: None Summary of Care Provided: Patient seen and examined independently. Data reviewed. I agree with the above note by the physician residential assistant. The patient is a 77 year old F patient was found to be in atrial fibrillation with RVR. Patient was started on Cardizem and cardioverted twice. Patient remained stable. Patient was started on metoprolol as well. Patient will follow up with cardiology as outpatient. [] Discharge Diet: Low fat/ Low Cholesterol, 4000 mg Sodium Diet Discharge Activity: Return to Normal Activity Disposition: Home Minutes spent on discharge:: 35 Patient Condition:: Stable Meaningful Use Info Meaningful Use Diagnoses (Choose all that apply): None applicable Code Visit OBSV E AND M: 46026 Observation care discharge 12/20/17 1506 <Electronically signed by Chente SELF> Date Chente SELF 12/20/17 1524<Electronically signed by Kem Nixon DO> Cosigner Signature (if applicable): Date Kem Nixon DO CC: ARAMIS Redding; Kem Nixon DO; Veronika Paiz DO; Cesia Benson MD Signed DISCHARGE INSTRUCTION Observed: 12/20/2017 Status: F Source: [place] 3:00 PM [facility] Medical Records Department [address] [place] [address] Instructions for Home/Discharge Instructions 12/20/17 1459 MR#: [id number] Acct: [id number] Name: LIZA MARTINS Rep #: [id number] : 1940 77 From: Chente SELF PCP: Veronika Paiz DO Status: ADM IN - Discharge Diagnoses Current Active Problems: Current Active and Chronic Problems (Last Reviewed 07/20/17 @ 14:11 by Kike Paulson MD) Atrial fibrillation with RVR (Acute) Rapid heartbeat (Acute) You will use the following diet at home:: Cardiac Your food should be the consistency of: Regular Your liquids should be the consistency of: Regular/Thin Discharge Activity: Return to Normal Activity Allergies/Adverse Reactions: Allergies metoprolol Adverse Reaction (Verified 12/20/17 03:46) Symptomatic Bradycardia Medications to take at Discharge Levothyroxine [Synthroid] 25 mcg PO DAILY@0600 #30 tab 03/13/16 apixaban 5 mg tablet 5 mg PO BID #180 tab 12/10/17 Amiodarone HCl [Cordarone] 200 mg PO DAILY #30 tab 12/20/17 Metoprolol(XL)Succ [Toprol Xl (Beta Nusrat)] 50 mg PO DAILY #30 tab 12/20/17 The following prescriptions were given: Amiodarone HCl [Cordarone] 200 mg PO DAILY #30 tab Metoprolol(XL)Succ [Toprol Xl (Beta Nusrat)] 50 mg PO DAILY #30 tab Primary Care Physician: Veronika Paiz DO [Primary Care Provider] - Please follow up with your Primary Care Physician in: 2 weeks Please Follow Up With: Kike Paulson MD When: 2-4 weeks Proposed Discharge Date: 12/20/17 12/20/17 1500 <Electronically signed by Chente SELF> Date Chente SELF CC: Kike Paulson MD; Veronika Paiz DO EMERGENCY DEPARTMENT Observed: 12/20/2017 Status: F Source: [place] SUMMARY 7:46 AM [facility] Medical Records Department [address] [place] [address] Emergency Department Summary 12/20/17 0608 MR#: [id number] Acct: [id number] Name: LIZA MARTINS Rep #: [id number] : 1940 77 From: Lm Saavedra PCP: Veronika Paiz DO Status: ADM IN - ER Visit Summary Date of Service: 12/20/17 Chief Complaint: Palpitations History of Present Illness: The patient is a 77 F sudden palpitations awakening her at 3 AM. History of paroxysmal atrial fibrillation 2 years ago. Patient is on Eliquis. 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 Denies any cough or recent illness. No recent nausea, vomiting, diarrhea. No chest pains. No lightheaded symptoms. Patient states was taken off metoprolol for which she thinks was for a low heart rate. Patient states she was cardioverted a year ago. No other complaints. Physical Examination: General: Alert and oriented 3, no acute distress HEENT: Normocephalic, atraumatic. Moist mucosa membranes Neck: supple, nontender. Cardiovascular: Irregular tachycardic and rhythm, no murmurs Respiratory: Normal breath sounds, symmetric, no distress Abdomen: Soft, nontender, nondistended Extremities: Nontender, no edema, pulses intact 4 Neuro: no focal neurological deficits. Test Results: EKG: A. fib with RVR rate of 141, no ST or T- wave changes. Hemoglobin 13.6. Potassium 4.0. Magnesium 2.2. Troponin negative. Emergency Department Course and Treatment: Patient is on Eliquis and taking her medications. Symptoms started when awakening at 3 AM, less than 1 hour on arrival. I discussed with patient if she would like direct current cardioversion in the ED. She states she would like to avoid that and try medications. Cardizem was given. Heart rate did improve the 120s comparable. I did initially order for Cardizem drip. Labs were stable. I spoke with hospitalist, Dr. Crabtree, who evaluated patient in the ED. patient heart rate was increasing prior to the drip. He we discussed with the patient, she now agreed with cardioversion. He spoke with cardiology, Dr. Mercado who recommended an amnio bolus prior to cardioversion. After medications given, patient was cardioverted after second attempt at 200 J with AP pads. Repeat EKG obtained noting a normal sinus rhythm. Patient admitted to PCU for further management. Treatment Plan: [] Disposition: Admission Impression: 1. Atrial fibrillation with RVR status post direct current cardioversion This note was generated with [employer] dictation software. It may contain incorrect words, spelling, and punctuation that were not noted in review of the chart prior to signing ED Disposition - Plan for ED Patient: Disposition: Acute Care Hospital [facility] Chief Complaint: Palpitations Diagnosis: Atrial fibrillation with RVR, Direct current cardioversion What to do if you have Problems For any increased pain, shortness of breath, bleeding, nausea or vomiting, chest pain, or any unexpected problems, contact your Primary Care Provider. Call [employer] [facility] ([phone]) or report to the closest Emergency Room. Call 911 if necessary. 12/20/17 7844 <Electronically signed by Lm Saavedra> Date Lm Saavedra Cosigner Signature (If Indicated): Date CC: Veronika Paiz DO HISTORY AND PHYSICAL Observed: 12/20/2017 Status: F Source: [place] EXAM 6:27 AM [facility] Medical Records Department [address] [place] [address] History and Physical 12/20/1719 MR#: [id number] Acct: [id number] Name: LIZA MARTINS Rep #: [id number] : 1940 77 From: Julio C Crabtree DO PCP: Veronika Paiz DO Status: ADM IN Y Location: [facility] [id number] Problem List (1) Rapid heartbeat Status: Acute History of Present Illness Date of Admission: 12/20/17 Chief Complaint: Rapid heartbeat The patient is a 77 year old F was seen in the emergency room at [facility] with a chief complaint of rapid heartbeat. Patient states when she went to bed on the evening of 12/19/17, she did not feel right, she went to sleep and awoke at 3 AM with a rapid heartbeat. Patient has a history of paroxysmal atrial fibrillation and had been taken off rate limiting agents the latter part of 2016 due to hypotension. Patient has remained in sinus rhythm as far she knows and has been taking Eliquis for approximately [address] Paulson for cardiology. Evaluation in the ER included an EKG which showed atrial fibrillation with a rapid ventricular response at approximately 141 bpm, labs obtained were unremarkable. Patient was given Cardizem IV and this lowered her heart rate somewhat but she remained rapid. I talked with the patient during my examination, initially she had refused cardioversion by the emergency room physician but after discussing this with her further she agreed to cardioversion. I contacted who is on-call for cardiology and he advised IV amiodarone bolus with no drip following the cardioversion. Patient was cardioverted twice with return to sinus bradycardia at 60, there were no complications. Patient will be admitted to PCU and she will be seen in consultation by cardiology, I will not cycle her cardiac enzymes. Past Medical History Past Medical History (Chronic Problems): Chronic Problems (Last Reviewed 07/20/17 @ 14:11 by Kike Paulson MD) Paroxysmal atrial fibrillation (Chronic) Anemia (Chronic) Hypothyroidism (Chronic) History of rheumatic fever (Chronic) GERD (gastroesophageal reflux disease) (Chronic) Gastric ulcer (Chronic) Hypertension (Chronic) Medical History: Medical History (Last Reviewed 07/20/17 @ 14:11 by Kike Paulson MD) Paroxysmal atrial fibrillation (Chronic) I48.0 Anemia (Chronic) D64.9 Hypothyroidism (Chronic) E03.9 History of rheumatic fever (Chronic) Z86.79 GERD (gastroesophageal reflux disease) (Chronic) K21.9 Gastric ulcer (Chronic) K25.9 Hypertension (Chronic) I10 Allergies metoprolol Adverse Reaction (Verified 12/20/17 03:46) Symptomatic Bradycardia Home Medications: Ambulatory Orders Medication Instructions Recorded Surgical History: Surgical History (Last Reviewed 07/20/17 @ 14:11 by Kike Paulson MD) History of hysterectomy Z98.890, Z90.710 Surgical History: hysterectomy Psychiatric History: No pertinent psych hx 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 Denies: Anorexia, Chills, Fever, Night Sweats, Malaise, Weight Change Eyes: Denies: Cataracts, Conjunctivae Inflammation, Double vision, Drainage HEENT: Denies: Difficulty Swallowing, Dysphasia, Ear Pain, Eye Pain, Hearing Changes, Nasal bleeding, Nasal Congestion, Post Nasal Drip Cardiovascular: Reports: Palpitations. Denies: Chest Pain, Claudication, Chest Pressure, Chest Tightness, Edema, Heaviness Respiratory: Denies: Cough, Hemoptysis, Pleuritic Pain, Shortness of Breath, Shortness of breath at rest, Shortness of breath upon exertion, Sputum production, Wheezing Gastrointestinal: Denies: Abdominal Pain, Constipation, Diarrhea, Hematemesis, Hematochezia, Nausea, Melena, Vomiting Genitourinary: Denies: Dysuria, Frequency, Hematuria, Hesitancy, Incontinence, Nocturia, Urgency Gynecological: Denies: Breast symptoms Musculoskeletal: Denies: Foot Pain, Hand Pain, Joint Pain, Joint stiffness, Joint swelling, Joint Tenderness, Leg Pain Skin: Denies: Dryness, Jaundice, Pruritis, Rash Neurological: Denies: Blurred vision, Double vision, Slurred speech, Difficulty swallowing, Focal weakness, Headaches, Incoordination, Numbness, Tingling Psychiatric: Denies: Anxiety, Depression, Homicidal Ideations, Suicidal Ideations Endocrine: Denies: Change in Body Habitus, Heat/ Cold Intolerance, Polydipsia, Polyuria Hematologic/ Lymphatic: Denies: Adenopathy, Anemia, Easy Bruising, Easy Bleeding, Petechiae, Purpura VTE Information - Inpt Only VTE Present on Admission: No VTE Mechan Device Prophylaxis: None VTE Pharm Prophylaxis ordered?: No Reason prophylaxis not ordered:: Medical Contraindication - on Eliquis Patient Problems: Active and Suspected Problems (Last Reviewed 07/20/17 @ 14:11 by Kike Paulson MD) Atrial fibrillation with RVR (Acute) Rapid heartbeat (Acute) - Physical Exam General: Alert, Oriented x3, Cooperative, No apparent distress, Well developed, Well nourished HEENT: Atraumatic, PERRLA, EOMI, Normocephalic Oral: Moist Mucosa Neck: Supple, No JVD, Negative Carotid Bruits, No Nuchal Rigidity, Trachea Midline, Thyroid Normal Size and Texture Lungs: Clear to auscultation, Normal air movement, No rhonchi, No wheeze, No rales Cardiovascular: Regular rate, No murmurs, PMI Normal, No rub noted, Tachycardic Abdomen: Bowel Sounds Present, Soft, Non Tender, Non-Distended, No hernias noted Extremities: No clubbing, No cyanosis, No edema, Capillary Refill Less than 3 Seconds Skin: No rashes, No breakdown Musculoskeletal: No Tenderness to Palpation of Joints or Extremities Neurological: Cranial nerves II-XII grossly intact, Neuro grossly intact, Sensory exam intact to light touch and pain, Coordination normal Psych/Mental Status: Normal Affect, Appropriate, Alert and oriented to time, place, person, mood and affect Vital Signs Temp Pulse Resp BP Pulse Ox 98.0 F 61 18 129/67 H 96 12/20/17 03:48 12/20/17 06:16 12/20/17 06:16 12/20/17 06:16 12/20/17 06:16 Oxygen Flow Rate (L/min) 2 Oxygen Delivery Method [1 ( Nasal Cannula Initial Baseline)] Oxygen Delivery Method Nasal Cannula Assessment/Plan All Active Problems (Last Reviewed 07/20/17 @ 14:11 by Kike Paulson MD) Atrial fibrillation with RVR (Acute) Rapid heartbeat (Acute) #1 atrial fibrillation with rapid ventricular response-now returned to sinus bradycardia at 60 following cardioversion 2 in the emergency room-patient will be admitted to PCU, she will be monitored and seen in consultation by cardiology #2 hypertension-patient will remain on her current medication #3 hypothyroidism Code Visit Inpatient E AND M: 77534 Init Hosp L3 12/20/17626 <Electronically signed by Julio C Crabtree DO> Date Julio C Crabtree DO Cosigner Signature: Date (if applicable) CC: Veronika Paiz DO; Julio C Crabtree DO Signed CBC W/DIFF, AUTOMATED Collected: 12/20/2017 Status: F Source: [place] 3:50 AM [facility] REPOSITORY TYPE CODE TESTS RESULT OUT OF RANGE REFERENCE UNITS LAB L100.1000 4.4-11.0 K/mm3 Normal WBC 8.0 LAB L100.1200 4.2-5.4 M/mm3 Normal RBC 4.72 LAB L100.1300 12.0-15.0 g/dl Normal HGB 13.6 LAB L100.1400 37-47 % Normal HCT 41.7 LAB L100.1500 81-99 fL Normal MCV 88.3 LAB L100.1600 27.0-32.0 pg Normal MCH 28.8 LAB L100.1700 32-36 g/gl Normal MCHC 32.6 LAB L100.1810 11.6-14.6 % Normal RDW CV 13.4 LAB L100.1820 35.1-43.9 fl Normal RDW SD 43.3 LAB L100.1900 150-450 K/mm3 Normal PLT 349 LAB L100.2000 6.2-12.0 fl Normal MPV 9.5 LAB L100.2100 47-70 % Normal NEUT% 49.6 LAB L100.2200 19-41 % Normal LY% 38.8 LAB L100.2300 0-10 % Normal MONO% 9.1 LAB L100.2400 0-5 % Normal EO% 1.7 LAB L100.2500 0-1 % Normal BASO% 0.7 LAB L100.2550 0.0-0.9 % Normal IM GRAN % 0.100 Result Comment: IG% - Immature Granulocytes (promyelocytes, myelocytes and metamyelocytes) > 1% indicates that a LEFT SHIFT is Present. LAB L100.2620 2.0-7.7 X10 3/uL Normal Absolute Neut 4.0 LAB L100.2720 0.83-4.51 X10 3/ul Normal Absolute Lymph 3.11 Performed By: #### L100.0100 #### [facility] [address] [place], [place], [address] BASIC METABOLIC Collected: 12/20/2017 Status: F Source: [place] PROFILE (BMP) 3:50 AM [facility] REPOSITORY TYPE CODE TESTS RESULT OUT OF RANGE REFERENCE UNITS LAB L501.0100 74-106 mg/dL Normal GLU 100 Result Comment: Fasting Glucose result from 100 to 125 mg/dL suggests IMPAIRED HOMEOSTASIS per A.D.A. criteria. Please note revised GLUCOSE reference range effective 2017. LAB L501.1000 7-18 mg/dL Normal BUN 17 LAB L501.1100 0.55-1.02 mg/dL Normal CREAT,SERUM 0.83 Result Comment: The validity of the calculated GFR AND GFRAA in patients over 70 years has not been determined. Clinical correlation is essential. LAB L501.1110 >60 mL/min Normal EST GFR 70 Result Comment: Non- GFR Calc LAB L501.1115 >60 mL/min Normal EST GFR - AA 85 Result Comment: GFR Calc LAB L501.1255 ml/min Normal Estimated CRCL 52.29 LAB L501.1300 10-20 RATIO High BUN/CRE 20.4 LAB L501.2200 8.5-10 mg/dL Normal .1 CA 9.5 LAB L501.5300 136-14 mmol/L Normal 5 NA 142 LAB L501.5600 3.5-5. mmol/L Normal 1 K 4.0 Result Comment: Slight Hemolysis, Result may be falsely increased. LAB L501.5900 98-107 mmol/L Normal CL 105 LAB L501.6100 21.0-32.0 mmol/L Normal CO2 26.0 LAB L501.6200 5-15 Normal GAP 11 Performed By: #### L500.2500, L501.4010, L501.5200 #### [facility] [address] [facility] [address] [place], [address] TROPONIN-I Collected: 12/20/2017 Status: F Source: [place] 3:50 AM [facility] REPOSITORY TYPE CODE TESTS RESULT OUT OF RANGE REFERENCE UNITS LAB L501.4010 <0.045 ng/mL Normal < 0.015 TROPONIN-I Result Comment: TROPONIN-I EXPECTED VALUES <0.045 Negative 0.045 - 0.590 Consistent with Cardiac Damage > OR = 0.600 Critical Value Not every elevated troponin is indicative of MT. These values should be used with clinical judgement in examining the patient's clinical picture for diagnosis. To establish a diagnosis of MT versus myocardial injury, there must be a demonstrated rise and/or fall in the troponin values, in addition to ischemic symptoms, EKG changes, new regional wall motion abnormality, and/or angiographical evidence. PLEASE NOTE: REFERENCE RANGES EDITED 17 Performed By: #### L500.2500, L501.4010, L501.5200 #### [facility] [address] [facility] [address] [place], [place], [id number] MAGNESIUM Collected: 12/20/2017 Status: F Source: [place] 3:50 AM [facility] REPOSITORY TYPE CODE TESTS RESULT OUT OF RANGE REFERENCE UNITS LAB L501.5200 1.6-2.6 mg/dL Normal MG 2.2 Result Comment: Slight Hemolysis, Result may be falsely increased. Performed By: #### L500.2500, L501.4010, L501.5200 #### [facility] [address] [place], [address] THYROID STIM HORMONE Collected: 12/20/2017 Status: F Source: [place] (TSH) 3:50 AM [facility] REPOSITORY Order Comment: Comments: ok to add on TYPE CODE TESTS RESULT OUT OF RANGE REFERENCE UNITS LAB L501.9520 0.358-3.74 uIU/mL High TSH 7.14 Performed By: #### L501.9520 #### [facility] [address] [place], [address] T4 FREE DIRECT Collected: 12/20/2017 Status: F Source: [place] 3:50 AM [facility] REPOSITORY Order Comment: Comments: ok to add on TYPE CODE TESTS RESULT OUT OF RANGE REFERENCE UNITS LAB L506.0400 0.76-1.46 ng/dL Normal T4 FREE 1.23 DIRECT Performed By: #### L506.0400 #### [facility] [address] [place], [address] FREE T3 Collected: 12/20/2017 Status: F Source: [place] 3:50 AM [facility] REPOSITORY TYPE CODE TESTS RESULT OUT OF RANGE REFERENCE UNITS LAB [id number] 2.18-3.98 pg/mL Normal FREE T3 2.3 Performed By: #### L501.81256 #### [facility] [address] [place], [address] ALLERGIES ALLERGIES DATE TYPE / CODE NAME / CODE REACTION SEVERITY SOURCE 07/16/2018 Drug metoprolol/ Symptomatic Unknown [facility] Allergy/4160 [id number]( [facility] 11163(SNOMED RXNORM) Repository CT) ENCOUNTERS ENCOUNTERS ADMIT/DISCHARGE ACCOUNT ADMITTING ENCOUNTER LOCATION SOURCE NUMBER CLASS 07/16/2018 [id number] Ambulatory [place] [address] [facility] ing:CT Repository 07/16/2018/ [id number] Ambulatory BMSBuilding:B [place] 9 7 [facility] Repository 06/27/2018 2593 Ambulatory Building:[facility] Repository 01/21/2018/ [id number] Ambulatory BMSBuilding:B [place] 8 3 MS.[facility] Repository 01/17/2018 [id number] Ambulatory [place] [address] [facility] ing:HPRAD Repository 12/27/2017/ [id number] Ambulatory BMSBuilding:B [place] 8 3 [facility] Repository 12/20/2017/ [id number] Tereletsky, Ambulatory [place] [address] [facility] ing:PCURoom: Repository [id number]: 1 12/20/2017 [id number] Tere[place]sky, Ambulatory BMSBuilding:B [place] 4 Julio C MS.[facility] Repository 12/20/2017/ [id number] Ambulatory BMSBuilding:W [place] 8 5 [facility] Repository PAYERS PAYERS ENCOUNTER GUARANTOR PAYER SUBSCRIBER SOURCE 07/16/2018 LIZA A Primary LIZA A [place] [id number] [facility] [place] [facility] Number: [id number] Health/[id number] Repository [address]Pir: (330) Date:9181-93-65NS [phone] () [place], [place] [address]IN: 07/16/2018 Secondary NOT GIVENUNK [place] Insurance:SELF PAY [facility] Number: Effective Repository Date:2018-07-16 07/16/2018 LIZA A Primary LIZA A [place] [id number] Insurance:[facility] [place]: [facility], [facility] Number: [id number] Health/[id number] Repository [address]Uup: (330) Date:3180-60-74SB [phone] () [place], [place] [address]MJ: 07/16/2018 Secondary NOT GIVENUNK [place] Insurance:SELF PAY [facility] Number: Effective Repository Date:2018-07-15 06/27/2018 Liza A Primary Liza A OHIP Practices SmuckerDOB: Insurance:[employer] SmuckerDOB: Repository [id number] Ins/MedicarePolicy [id number] [place] Number: [address] [place], [place] [id number] [place], [place] [address]Cqj: (330) Date:7340-16-82Swyh 397[address]Xtm: (HP) Name: [phone] () [place] [phone]: 06/27/2018 Secondary Liza A OHIP Practices Insurance:Medical SmuckerDOB: Repository [facility] [id number] Number: [address] [id number] [place] Date:2003-06-[birth year] - [address]Udn: (330) 0312-72-64Aspu [phone] (HP) Name:[address], [place] [phone]: 01/21/2018 LIZA A Primary LIZA A [place] [id number] Insurance:AETNA SMUCKERDOB: [facility] Number: [id number] [id number] Repository [address]Dld: (330) Date:6331-63-59CD [phone] (HP) [place], [place] [address]OY: 01/21/2018 Secondary NOT GIVENUNK [place] Insurance:SELF PAY [facility] Number: Effective Repository Date:2018-01-21 01/17/2018 LIZA A Primary LIZA A [place] [id number] Insurance:AETNA SMUCKERDOB: [facility] SCHELLIN [facility] Number: [id number] [place], [place] [id number] Repository [address]Dyn: (330) Date:7568-46-52XM [phone] (HP) [id number] [facility] [place] [address]OX: 01/17/2018 Secondary NOT GIVENUNK [place] Insurance:SELF PAY [facility] Number: Effective Repository Date:2018-01-17 12/27/2017 LIZA A Primary LIZA A [place] [id number] Insurance:AETNA SMUCKERDOB: Community [place]LL[place] MCRPolicy Number: [id number] [place], [place] [id number] Repository [address]Rzh: (330) Date:4908-33-31YM [phone] (HP) [id number] [facility] [place] [address]SN: 12/27/2017 Secondary NOT GIVENUNK [place] Insurance:SELF PAY [facility] Number: Effective Repository Date:2017-12-27 12/20/2017 LIZA A Primary LIZA A [place] [id number] Insurance:AETNA SMUCKERDOB: Community [facility]IN [facility] Number: [id number] [place], [place] [id number] Repository [address]Oyt: (330) Date:5856-64-56MS [phone] (HP) [id number] [facility] [place] [address]DE: 12/20/2017 Secondary NOT GIVENUNK [place] Insurance:SELF PAY [facility] Number: Effective Repository Date:2017-12-20 12/20/2017 LIZA A Primary LIZA A [place] [id number] Insurance:AETNA SMUCKERDOB: Community SCHELL[place] MCRPolicy Number: [id number] [place] [id number] Repository [address]Qpx: (330) Date:5034-52-91RV [phone] (HP) [id number] [facility] [place] [address]YS: 12/20/2017 Secondary NOT GIVENUNK [place] Insurance:SELF PAY [facility] Number: Effective Repository Date:2017-12-20 12/20/2017 LIZA A Primary LIZA A [place] [id number] Insurance:KAMILA SAGASTUMEB: [facility] Number: [id number] [place], [place] [id number] Repository [address]Sbd: 330) Date:1120-15-39OA [phone] (LF) [id number] TALA VILLATORO [address]ZO: 12/20/2017 Secondary NOT GIVENUNK [place] Insurance:SELF PAY [facility] Number: Effective Repository Date:2017-12-20
== END ==
PROVIDERS: Family Provider Internal Medicine; PCP Internal Medicine; Referring Provider Internal Medicine Cardiovascular Disease; Visit Provider Internal Medicine Cardiovascular Disease
DX: I48.0 Paroxysmal atrial fibrillation (principal)
CPT/HCPCS: 70450

== ENCOUNTER → 2018-11-13 | Outpatient (CLI) | payer MEDICARE, SELFPAY ==
[2018-07-16 14:19] VITALS: BMI 28.8
--- NOTE | 2018-11-13 08:52 | US_ITS ---
HISTORY: BILIRUBINURIA BURNING AND PAIN IN ABDOMEN TECHNIQUE: Transabdominal ultrasound was performed with real-time and static wang-scale imaging. COMPARISON: None FINDINGS: # of images incl. paperwork: 180 Liver: There is normal echogenicity of the liver. The bile ducts are within normal limits. There is no demonstrated mass lesion. Gallbladder: Solitary mobile gallbladder stone, 2.6 cm in greatest dimension. The gallbladder wall measures 2 mm. There is a negative sonographic Pierce's sign. There is no pericholecystic fluid. Common Bile Duct: The common bile duct measures 4 mm. Spleen: Normal size of the spleen. The spleen measures 9.9 cm. Pancreas: There is normal echogenicity of the pancreas. There is no demonstrated pancreatic mass or cyst. Right Kidney: Normal size of the right kidney. The right kidney measures 11.0 x 6.7 x 4.8 cm. Normal renal cortex. Several renal pelvis cysts. There is no right hydronephrosis. Left Kidney: Normal size of the left kidney. The left kidney measures 11.0 x 5.2 x 5.3 cm. Normal renal cortex. Several renal pelvis cysts. There is no left hydronephrosis. Aorta: Normal caliber. IVC: The IVC is patent. There is no ascites. US/Abdomen Complete IMPRESSION: No acute findings. Single mobile 2.6 cm diameter gallstone in the gallbladder. Bilateral renal pelvic cysts. at 0850 Reported and signed by: Karan Ac MD Electronically Signed: Karan Ac, at 4:27 EDT Tel , Service support ,
== END | disposition home or self-care (01) ==
LOC: US 08:49
PROVIDERS: Family Provider Internal Medicine; PCP Internal Medicine; Referring Provider Nurse Practitioner; Visit Provider Nurse Practitioner
DX: R82.2 Biliuria (principal)
CPT/HCPCS: 76700

== ENCOUNTER → 2018-12-04 12:01 | Outpatient (CLI) | payer MEDICARE, SELFPAY ==
[2018-12-04 11:43] VITALS: BMI 28.8
[2018-12-04 13:46] LABS: T4 Total, Thyroxin 11.5 ug/dL (4.8-13.9); Thyroid Stim Hormone (TSH) 3.08 uIU/mL (0.358-3.74)
== END ==
PROVIDERS: Family Provider Internal Medicine; PCP Internal Medicine; Referring Provider Internal Medicine Cardiovascular Disease; Visit Provider Internal Medicine Cardiovascular Disease
DX: I10 Essential (primary) hypertension (principal)
CPT/HCPCS: 36415; 84436; 84443

== ENCOUNTER → 2019-02-21 16:12 | Outpatient (CLI) | payer MEDICARE, SELFPAY ==
[2019-01-13 09:34] VITALS: BMI 29.3
[2019-02-21 17:04] LABS: Hematocrit 37.4 % (37-47); Mean Corp Hgb Conc 32.1 g/dL (32-36); Mean Corpuscular Hgb 29.2 pg (27.0-32.0); Mean Platelet Vol. 9.8 fl (6.2-12.0); Platelet Count 337 K/mm3 (150-450); RBC Distribution Width CV 13.5 % (11.6-14.6); RBC Distribution Width SD 45.5 fl (35.1-43.9); Red Blood Count 4.11 M/mm3 (4.2-5.4); White Blood Count 7.3 K/mm3 (4.4-11.0)
[2019-02-21 17:53] LABS: BNP,B-Type NATRIURETIC PEPTIDE 62.5 pg/mL (0-100)
== END ==
PROVIDERS: Family Provider Internal Medicine; PCP Internal Medicine; Referring Provider Internal Medicine Cardiovascular Disease; Visit Provider Internal Medicine Cardiovascular Disease
DX: I48.91 Unspecified atrial fibrillation (principal); I50.9 Heart failure, unspecified
CPT/HCPCS: 36415; 83880; 85027

== ENCOUNTER → 2019-03-25 16:05 | Outpatient (CLI) | payer MEDICARE, SELFPAY ==
[2019-01-13 09:34] VITALS: BMI 29.3
--- NOTE | 2019-03-25 16:19 | CT_ITS ---
STUDY: CT ABDOMEN AND PELVIS WITH CONTRAST REASON FOR EXAM: Female, 78 years old. Pain RADIATION DOSAGE (If Supplied By Facility): DLP = ( 954.63 ) mGycm TECHNIQUE: Transaxial images were obtained from the dome of the diaphragm to the symphysis pubis with oral contrast. 100 ml of Isovue 300 contrast was administered. Sagittal and coronal images were reconstructed. Individualized dose optimization techniques were used for this CT. COMPARISON: None. FINDINGS: The visualized lung bases are clear. The visualized portions of the heart and pericardium are within normal limits. There are no calcified gallstones present. The liver is within normal limits. There are no suspicious hepatic lesions. The spleen is normal in size. The pancreas is within normal limits. The adrenal glands are within normal limits. There are no obstructing renal stones. Mild bilateral hydronephrosis is present. There are no focal renal lesions. Normal visualized stomach. There is prominent thickening of the mid sigmoid colon in a region of multiple colonic diverticula. There are adjacent inflammatory changes of the fat with trace free fluid. There is no free air to suggest perforation. There is no evidence of bowel obstruction. The aorta is normal in caliber. There is no abdominal or pelvic free air, fluid collection or lymphadenopathy. There are no destructive osseous lesions. CT/Abdomen/Pelvis WITH Contrast IMPRESSION: Acute sigmoid colonic diverticulitis. Sigmoidoscopy/colonoscopy is recommended following acute episode to exclude underlying lesion. Mild bilateral hydronephrosis. Electronically Signed: Dejuan Ascencio, at 18:51 EDT Tel , Service support ,
--- NOTE | 2019-03-25 16:19 | RAD_ITS ---
HISTORY: LOW BACK PAIN, SCIATICA TECHNIQUE: Lumbar spine 5 views Number of images including paperwork: 5 COMPARISON: None FINDINGS: VERTEBRAE: No acute fracture. VERTEBRAL ALIGNMENT: No traumatic subluxation. Mild left convex scoliosis of the thoracolumbar junction. Approximate 4 mm of retrolisthesis of L5 on S1. DISKS AND JOINTS: Multilevel moderate to severe severe discogenic degenerative changes with disc space narrowing, endplate sclerosis and osteophyte formation. Facet arthropathy. SOFT TISSUES: Vascular calcifications. RAD/L/S Spine Min 4 Views IMPRESSION: 1. No acute findings. 2. Lumbar spondylosis. at 2235 Reported and signed by: Kat Pitts MD Electronically Signed: Kat Pitts MD at 22:35 EDT Tel , Service support ,
[2019-03-25 16:29] LABS: Absolute Lymphocyte Count 1.51 X10^3/uL (0.83-4.51); Absolute Neutrophil Count 9.4 X10^3/uL (2.0-7.7); Basophil# 0.06 X10^3/uL; Basophil% 0.5 % (0-1); Eosinophil# 0.03 X10^3/uL; Eosinophils% 0.3 % (0-5); Hematocrit 40.8 % (37-47); Hemoglobin 12.9 g/dL (12.0-15.0); Lymphocyte # 1.51 X10^3/ul (4.0); Lymphocyte % 12.6 % (19-41); Mean Corp Hgb Conc 31.6 g/dL (32-36); Mean Corpuscular Volume 88.7 fL (81-99); Mean Platelet Vol. 9.5 fl (6.2-12.0); Monocyte% 7.5 % (0-10); NRBC Flagged by Analyzer 0 % (0-5); Neutrophil # 9.44 X10^3/uL (2.7-7.7); Neutrophil % 78.8 % (47-70); Platelet Count 364 K/mm3 (150-450); RBC Distribution Width CV 13.5 % (11.6-14.6); RBC Distribution Width SD 43.8 fl (35.1-43.9)
[2019-03-25 16:53] LABS: ALB/GLOB Ratio 0.9 RATIO (0.9-2.4); AST(SGOT) 12 U/L (15-37); Alanine Aminotransfer ALT/SGPT 17 U/L (13-56); Albumin, Serum 3.5 g/dL (3.2-5.0); Alkaline Phosphatase 81 U/L (45-117); Anion Gap 9 (5-15); BUN 17 mg/dL (7-18); BUN/Creat Ratio 19.1 RATIO (10-20); Calcium,Total 9.1 mg/dL (8.5-10.1); Chloride 106 mmol/L (98-107); Creatinine, Serum 0.89 mg/dL (0.55-1.02); EST Glomerular Filtration Rate 65 mL/min (>60); Est Glom Filt Rate - Afr Amer 79 mL/min (>60); Globulin 3.7 g/dL (2.2-4.2); Glucose 105 mg/dL (74-106); Protein, Total 7.2 g/dL (6.4-8.2); Sodium Level 139 mmol/L (136-145)
== END ==
PROVIDERS: Family Provider Internal Medicine; PCP Internal Medicine; Referring Provider Nurse Practitioner; Visit Provider Nurse Practitioner
DX: M54.5 Low back pain (principal); R10.9 Unspecified abdominal pain; R10.30 Lower abdominal pain, unspecified
CPT/HCPCS: 36415; 72110; 74177; 80053; 85025; 87086; 87088; Q9967

== ENCOUNTER → 2019-04-21 11:51 | Outpatient (CLI) | payer MEDICARE, SELFPAY ==
[2019-01-13 09:34] VITALS: BMI 29.3
[2019-04-21 12:20] LABS: Erythrocyte Sedimentation Rate 32 mm/hr (0-30)
[2019-04-21 12:24] LABS: Absolute Lymphocyte Count 1.64 X10^3/uL (0.83-4.51); Absolute Neutrophil Count 5.1 X10^3/uL (2.0-7.7); Basophil# 0.09 X10^3/uL; Basophil% 1.2 % (0-1); Eosinophil# 0.08 X10^3/uL; Eosinophils% 1.1 % (0-5); Hematocrit 41.1 % (37-47); Hemoglobin 13.1 g/dL (12.0-15.0); Lymphocyte # 1.64 X10^3/ul (4.0); Lymphocyte % 21.9 % (19-41); Mean Corp Hgb Conc 31.9 g/dL (32-36); Mean Corpuscular Hgb 28.4 pg (27.0-32.0); Mean Platelet Vol. 9.6 fl (6.2-12.0); Monocyte# 0.49 X10^3/uL; Monocyte% 6.6 % (0-10); NRBC Flagged by Analyzer 0 % (0-5); Neutrophil # 5.14 X10^3/uL (2.7-7.7); Neutrophil % 68.7 % (47-70); Platelet Count 360 K/mm3 (150-450); RBC Distribution Width CV 14.2 % (11.6-14.6); RBC Distribution Width SD 46.3 fl (35.1-43.9); Red Blood Count 4.62 M/mm3 (4.2-5.4); White Blood Count 7.5 K/mm3 (4.4-11.0)
== END ==
PROVIDERS: Family Provider Internal Medicine; PCP Internal Medicine; Referring Provider Surgery; Visit Provider Surgery
DX: R10.9 Unspecified abdominal pain (principal)
CPT/HCPCS: 36415; 85025; 85652

== ENCOUNTER 2019-05-02 05:25 | Day surgery (SDC) | payer MEDICARE, SELFPAY ==
--- NOTE | 2019-04-29 06:08 | HP_ITS ---
Intake Vital Signs 04/29/19 Body Mass Index (BMI) 29.3 04/29/19 Height 5 ft 6 in 04/29/19 Weight: 170 lb 04/29/19 Body Mass Index (BMI) 27.4 04/29/19 Blood Pressure 150/71 H 04/29/19 Blood Pressure Location Rt brachial 04/29/19 Blood Pressure Position Sitting 04/29/19 Respiratory Rate 16 04/29/19 Pulse Rate 58 L 04/29/19 Pulse Source Monitor 04/29/19 Temperature 98.5 F 04/29/19 Temperature Source Oral 04/29/19 Pulse Ox 96 04/29/19 Oxygen Delivery Method room air Intake Visit Reasons: discuss colectomy Desk Assistant Required: No Is patient in pain?: No (LLQ abdomen ) Allergies metoprolol Adverse Reaction (Verified 04/29/19 14:44) Symptomatic Bradycardia Medications apixaban 5 mg tablet See Rx Instructions .ROUTE .COMPLEX #180 tablet 12/12/18 [Rx Confirmed 04/29/19] diltiazem CD 240 mg capsule,extended release 24 hr 240 mg PO DAILY #90 cap 01/13/19 [Rx Confirmed 04/29/19] ciprofloxacin 500 mg tablet 500 mg PO BID #28 tab 04/21/19 [Rx Confirmed 04/29/19] metronidazole 500 mg tablet 500 mg PO TID 14 Days #42 tab 04/21/19 [Rx Confirmed 04/29/19] levothyroxine 50 mcg tablet 50 mcg PO DAILY 04/29/19 [History Confirmed 04/29/19] PFSH Medical History History of rheumatic fever (Resolved) Gastric ulcer (Chronic) GERD (gastroesophageal reflux disease) (Chronic) Hypothyroidism (Chronic) Anemia (Chronic) Essential (primary) hypertension (Resolved) Paroxysmal atrial fibrillation (Chronic) Atrial fibrillation with RVR (Resolved) Fatigue (Inactive) Rapid heartbeat (Inactive) Surgical History Hx of tonsillectomy (Acute) Hx of colonoscopy (Acute) History of cardioversion (Resolved 11/2017) History of hysterectomy (Chronic) Family History Mother Hypertension Father Colon cancer Social History (Updated 04/29/19 @ 18:14 by Jm Jett MD) Smoking Status: Never smoker second hand exposure: No alcohol intake: current alcohol intake frequency: holidays/special occasions only substance use type: does not use caffeine: Yes what type of physical activity do you participate in: none frequency: does not exercise HPI HPI HPI: YOSHI MARTINS is a 78 F who presents to the office today for HPI HPI Surgical H&P: Yes HPI: YOSHI MARTINS is a 78 F who presents to the office today for surgical consultation regarding abdominal pain. The patient is referred by BHUPENDRA Myers and a written copy of my surgical consult recommendations will be returned to her. This actually is a very complex patient. She presented with complaint of burning throughout her mid abdomen. She states that she thinks her father had colon cancer. She has had her screening/surveillance colonoscopies performed by Dr. Eyal Cota. She states she had one done just a couple months ago demonstrating benign colon polyps. At that time however there was concern regarding recurrent sigmoid diverticulitis. It was offered to the patient for consideration of a sigmoid colectomy and was recommended to her that she be referred out to [facility]. The patient is unclear as to exactly how many bouts of sigmoid diverticulitis she has had. I have evidence in 2014 of sigmoid diverticulitis. Her most recent CT scan performed at the [facility] on March 25, 2019 demonstrates multiple findings. There is prominent thickening of the mid sigmoid colon and a region of multiple colonic diverticula with adjacent inflammatory changes with fat and free fluid. There may actually be a perforation in this area. There is no free air however in the pelvis. There is mild bilateral hydronephrosis. No gallstones are identified however on a previous ultrasound that was performed at the [facility] on November 13, 2018 because of bilirubinuria and burning pain in the abdomen a 2.6 cm diameter mobile gallbladder gallstone was identified. As of March 25, 2019 her white blood cell count was 12 with a hemoglobin 12.9 40.8 platelet count 364,000. As of April 21, 2019 white blood cell count was 7.5 with a hemo-13.1 hematocrit 41.1 and platelet count of 360,000. The patient went through 2 courses of metronidazole and ciprofloxacin. It is pertinent that despite treatment now for a month she still has soreness in the left lower quadrant and feeling unwell. In addition she has a diffuse burning sensation throughout her abdomen. She states that she takes Tums and large quantity to try to help with the burning sensation. She has been on Nexium in the past. She does not think that any if this resolves her issue. Upon further discussing features with her at its apparent that she has had a remote history of peptic ulcer disease with H. pylori. She thinks that she was treated for H. pylori but does not recall that she was ever checked to see if it resolved. She denies bright red blood per rectum or melena. She currently has pre-much resumed her normal diet. It is pertinent that she has had a remote total abdominal hysterectomy for benign disease ROS General General: Yes fatigue; no weight change, appetite, colon cancer, breast cancer or weakness HEENT HEENT: No difficulty swallowing, eye injury, eye surgery, swollen glands or hoarseness Endo Endocrine: Yes thyroid disease; no diabetes mellitus, thyroid cancer, Hair loss, heat intolerance or cold intolerance Skin Skin: No rash or changing moles Musc Musculoskeletal: No back problems, arthritis, rheumatoid arthritis, gout or joint pain Cardio Cardiovascular: Yes murmur, atrial fibrillation and high blood pressure; no pacemaker, heart disease, heart attack, heart stent, palpitations, shortness of breat with exertion or chest pain Psych Psychiatric: No depression, anxiety or hearing voices Resp Respiratory: No shortness of breath, No sleep apnea, No cough, No COPD, No asthma, No emphysema, No wheezing Gastro Gastrointestinal: Yes abdominal pain, No nausea or vomiting, No diarrhea, No constipation, No blood in stool, No acid reflux, No hemorrhoids, No ulcers, No gallbladder problem, No black,tarry stools Joseluis Hematologic: Yes blood thinners, No blood disorders, No bleeding, Yes anemia, No blood clots Neuro Neurologic: No system reviewed and no additional complaints, except as docu, No as per HPI, No abnormal walking, No abnormal hearing, No abnormal movements, No abnormal speech, No behavioral changes, No burning sensations, No confusion, No seizure-like activity, No unsteadiness, No dizziness, No localized weakness, No frequent falls, No headache(s), No lack of coordination, No loss of vision, No memory loss, No numbness, No other visual disturbances, No radiating pain, No restless legs, No sensory deficit, No fainting, No tingling, No tremor(s), No weakness, No other Exam Const General: cooperative, healthy appearing, comfortable, no acute distress Nutritional Appearance: overweight Orientation: alert, awake [facility] Head: normal to inspection Eyes General: appearance normal, both eyes and all related structures Chest Chest palpation & inspection: normal inspection of the chest Resp Effort & Inspection: normal respiratory effort Auscultation: clear to auscultation bilaterally Cardio Rate: regular rate Rhythm: regular rhythm Heart Sounds: murmur Other: 2/6 systolic ejection murmur GI Other: Small incisional umbilical hernia related to what appears to be tubal ligation site. Fibrofatty tissue tender to palpation. Partially reducible. Mild tenderness palpation left lower quadrant without mass rebound or guarding Normal bowel sounds Well-healed Pfannenstiel incision Skin General: no rashes or lesions noted Neuro Cognition: normal cognition Extrem General: no calf tenderness bilaterally Psych Affect: normal affect Assessment & Plan Problems 1. Sigmoid diverticulitis K57.32 2. Generalized abdominal pain R10.84 3. Ventral incisional hernia without obstruction or gangrene K43.2 4. 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 History of Helicobacter pylori infection Z86.19 6. Hydronephrosis, unspecified hydronephrosis type N13.30 7. Paroxysmal atrial fibrillation I48.0 8. Chronic anticoagulation Z79.01 Plan 78-year-old female who still has complaints of soreness in the left lower quadrant is tender on exam. On my personal review of her CT scan of March 25 there is significant pericolonic inflammation and I suspect that she likely had a localized perforation at that site. She clearly has not resolved despite 2 courses of antibiotics. In detail with her Mr. Monroe I have recommended to the patient a laparoscopic sigmoid colectomy. The patient has a previous Pfannenstiel incision and hopefully can utilize that. They are aware of the potential need to convert to a hand-assisted or open approach. They are aware of the potential need for diverting colostomy. The patient has mild bilateral hydronephrosis. I recommend a left ureteral catheter be placed at surgery. I recommend preoperative consultation with Dr. Kwong urology because of the hydronephrosis. The patient and are aware of the technique, benefits, risks and alternatives. No guarantees of success were offered. Because of the patient's burning abdominal pain and history of H. pylori. The is convinced she has active peptic ulcer disease. I recommend a esophagogastroduodenoscopy with anticipated biopsy. She is also aware of the technique, benefits, risks, alternatives. Because the patient has paroxysmal atrial fibrillation is on chronic anticoagulation the anticoagulation Eliquis will need to be held prior to her upper endoscopy and prior to her laparoscopic sigmoid colectomy She has a ventral incisional hernia located at the umbilicus related to a previous tubal ligation incision. I do not anticipate repairing that at this time unless an incision ends up in that area and that I would anticipate a suture repair The patient's symptoms are very difficult to decipher and she may very well have a component of chronic cholecystitis cholelithiasis. She certainly has a very large gallstone. I have offered the patient that if the laparoscopic sigmoid colectomy proceeds without difficulty to consider at the same setting adding what ever additional port sites are required and performing a laparoscopic cholecystectomy at the same setting. The patient and are aware that if the lap scopic sigmoid colectomy is complicated then the cholecystectomy would not be pursued. They have had an opportunity to ask and have questions answered. Clearly she is a more complex patient. I believe that her surgical care can be well managed locally. I appreciate the opportunity of assisting with her surgical care. CC: Courtney Vivas, ADY Jett M.D., F.A.C.S. Orders Referrals: Urology N13.30 Coding Level of Care Code Comprehensive,High Diagnoses Sigmoid diverticulitis K57.32 Generalized abdominal pain R10.84 ??Abdominal location: generalized Ventral incisional hernia without obstruction or gangrene K43.2 Calculus of gallbladder with chronic cholecystitis without obstruction K80.10 ??Cholelithiasis location: gallbladder ??Biliary obstruction: without biliary obstruction History of Helicobacter pylori infection Z86.19 Hydronephrosis, unspecified hydronephrosis type N13.30 ??Hydronephrosis type: unspecified Paroxysmal atrial fibrillation I48.0 Chronic anticoagulation Z79.01 Time Spent (min) 70 04/29/19 1026 <Electronically signed by Jm castanon MD> Date _ Jm Jett MD I have re-examined the patient. There are no clinical changes since date of exam.
[2019-04-29 14:47] VITALS: BMI 29.3
[2019-05-02] VITALS (11 sets, daily range): BP systolic 137–181; BP diastolic 62–86; PULSE 48–58; RESP 16; TEMP 36.4–36.7; O2SAT 97–100; BMI 25.8
--- NOTE | 2019-05-02 | IMM_PTH ---
PATIENT: YOSHI CAROLINA LOC: EN U#:[id number] AGE/SX: 78/F ROOM: RE05/02/[address]: Dr. Jm Jett MD : 1940 BED: DIS: 05/02/2019 SPEC #: [id number] RECD: 05/05/19 12:58 STATUS: AMANDA REQ #: [id number] DEL: 05/02/19 00:[address]: Jm Jett DEPT: IMMUNOHISTOCHEMISTRY RECD BY: Paula Roth ENTERED: 05/05/19 12:58 SP TYPE: IMMUNO OTHR DR: Courtney Vivas, SCIENCE LIAISON-C Tissues: B - Stomach, NOS Procedures: H Pylori (initial) PHYSICIAN & INSTITUTION [place] [address] SPECIMEN INFORMATION: Tissue Source: B - Antrum biopsy Clinical Info: Abdomen pain Specimen Number: [id number] CPT code: 10757 METHODOLOGY: Deparaffinized sections of prefer/formalin-fixed tissue or PAP/DQ stained slides are incubated with monoclonal/polyclonal antibodies/oligonucleotide probes. Localization is made via biotin free immunoperoxidase method. Appropriate controls are performed and reacted as expected. Results on target cell population are indicated in the following table: RESULTS: ANTIBODY / CLONE RESULT Block B H Pylori (polyclonal) negative These tests were developed and their performance characteristics determined by [facility]. They may not have been cleared or approved by the U.S. Food and Drug Administration. The FDA has determined that such clearance or approval is not necessary. The above immunohistochemical/dualISH markers are ordered and reviewed by the Pathologist. INTERPRETATION: B. Antrum biopsy: Negative for Helicobacter pylori organisms. SJ:fernando 05/06/19
--- NOTE | 2019-05-02 06:30 | EGD_PTH ---
PATIENT: YOSHI CAROLINA LOC: EN U#:[id number] AGE/SX: 78/F ROOM: RE05/02/[address]: Dr. Jm Jett MD : 1940 BED: DIS: 05/02/2019 SPEC #: [id number] RECD: 05/02/19 10:08 STATUS: AMANDA MANJINDER #: [id number] DEL: 05/02/19 06:[address]: Jm Jett DEPT: SURGICAL PATHOLOGY RECD BY: Santiago Rodarte ENTERED: 05/02/19 11:38 SP TYPE: EGD BIOPSY OTHR DR: Courtney Vivas, ADWOA Tissues: A - Duodenum, NOS B - Gastric mucous membrane C - Esophageal mucous membrane D - Esophageal mucous membrane Procedures: Special Stain Group II Surgery Specimen Level IV Alcian Blue/PAS (control) HEADER OPERATION: EGD (MOD) PRE-OP DIAGNOSIS: Abdomen pain TISSUE SUBMITTED: A - Duodenum biopsy, B - Antrum biopsy, C - Distal esophagus biopsy, D - Mid esophagus biopsy MICROSCOPIC DIAGNOSIS A. Duodenum biopsy: Fragments of small intestinal mucosa, no pathologic diagnosis. B. Antrum biopsy: Mild gastritis. See microscopic description and comment. C. Distal esophagus, biopsy: A fragments of gastroesophageal mucosa with mild to moderate chronic inflammation. Intestinal metaplasia (goblet cell metaplasia) is not identified. See comment. D. Mid esophagus, biopsy: Fragments of squamous epithelium with minimal chronic inflammation and congestion. SJ:fernando 05/05/19 COMMENT B. The results of immunohistochemistry for Helicobacter pylori will be reported separately ([id number]). C. Alcian blue/PAS stain with matched control is used in the evaluation of the specimen. The specimen predominantly consists of squamous mucosa. MICROSCOPIC DESCRIPTION Slides are reviewed. GROSS DESCRIPTION A - Received in fixative is one container labeled with the patient's name and designated duodenum biopsy. The specimen consists of multiple irregular fragments of light hunt soft tissue that in aggregate measure 0.6 x 0.2 x 0.1 cm. The specimen is totally submitted in one cassette. B - Received in fixative is one container labeled with the patient's name and designated antrum biopsy. The specimen consists of one irregular fragment of light hunt soft tissue that measures 0.3 x 0.3 x 0.1 cm. The specimen is totally submitted in one cassette. C - Received in fixative is one container labeled with the patient's name and designated distal esophagus biopsy. The specimen consists of one irregular fragment of light hunt soft tissue that measures 0.6 x 0.3 x 0.1 cm. The specimen is totally submitted in one cassette. D - Received in fixative is one container labeled with the patient's name and designated mid esophagus biopsy. The specimen consists of two irregular fragments of light hunt soft tissue that in aggregate measure 0.5 x 0.3 x 0.1 cm. The specimen is totally submitted in one cassette. / SJ:rg 05/02/19 TC:3 CPT: 30571 x4, 38178
--- NOTE | 2019-05-02 08:44 | OP.EGD_ITS ---
Patient Name: Liza Monroe Procedure Date: 05/02/2019 6:06 AM Date of : 1940 Age: 78 Procedure: Upper GI endoscopy Indications: Epigastric abdominal pain Providers: Jm Jett MD Medicines: Midazolam 3 mg IV, Meperidine 75 mg IV Complications: No immediate complications. Procedure: Pre-Anesthesia Assessment: - Prior to the procedure, a History and Physical was performed, and patient medications and allergies were reviewed. The patient's tolerance of previous anesthesia was also reviewed. The risks and benefits of the procedure and the sedation options and risks were discussed with the patient. All questions were answered, and informed consent was obtained. Prior Anticoagulants: The patient has taken Eliquis (apixaban), last dose was 1 day prior to procedure. ASA Grade Assessment: II - A patient with mild systemic disease. After reviewing the risks and benefits, the patient was deemed in satisfactory condition to undergo the procedure. After obtaining informed consent, the endoscope was passed under direct vision. Throughout the procedure, the patient's blood pressure, pulse, and oxygen saturations were monitored continuously. The gastroscope was introduced through the mouth, and advanced to the second part of duodenum. The upper GI endoscopy was accomplished without difficulty. The patient tolerated the procedure well. Moderate Sedation: Moderate (conscious) sedation was personally administered by the endoscopist. The following parameters were monitored: oxygen saturation, heart rate, blood pressure, and response to care. Total physician intraservice time was 11 minutes. Scope In: 6:34:36 AM Scope Out: 6:39:29 AM Total Procedure Duration Time 0 hours 4 minutes 53 seconds Findings: The Z-line was variable and was found 42 cm from the incisors. A small hiatal hernia was present. Biopsies were taken with a cold forceps for histology of the GE junction Mid esophagus normal, biopsies obtained Diffuse minimal inflammation characterized by erythema was found in the gastric antrum. Biopsies were taken with a cold forceps for histology. The examined duodenum was normal. Biopsies were taken with a cold forceps for histology. Impression: - Z-line variable, 42 cm from the incisors. - Small hiatal hernia. Biopsied at GE junction Mid esophagus normal, Biopsied - Chronic gastritis. Biopsied. - Normal examined duodenum. Biopsied. Recommendation: - Discharge patient to home. - Resume previous diet. - Continue present medications. - Use Prilosec (omeprazole) 40 mg PO daily. - Telephone my office for pathology results in 1 week. Procedure Code(s): --- Professional --- 45525, Esophagogastroduodenoscopy, flexible, transoral; with biopsy, single or multiple 03666, 59, Moderate sedation services provided by the same physician or other qualified health care mgr performing the diagnostic or therapeutic service that the sedation supports, requiring the presence of an independent trained observer to assist in the monitoring of the patient's level of consciousness and physiological status; initial 15 minutes of intraservice time, patient age 5 years or older Diagnosis Code(s): --- Professional --- K22.8, Other specified diseases of esophagus K44.9, Diaphragmatic hernia without obstruction or gangrene R10.13, Epigastric pain CPT copyright 2017 [employer]. All rights reserved. The codes documented in this report are preliminary and upon icd 9 coder review may be revised to meet current compliance requirements. Jm Jett MD 05/02/2019 6:48:37 AM This report has been signed electronically. Number of Addenda: 0 Note Initiated On: 05/02/2019 6:06 AM
== END 2019-05-02 08:20 | disposition home or self-care (01) ==
LOC: EN 05:27 → AC 05:29
PROVIDERS: Family Provider Nurse Practitioner; PCP Nurse Practitioner; Referring Provider Nurse Practitioner; Visit Provider Surgery
PROC: (CPT 43239; principal; 2019-05-02 06:25)
DX: K22.8 Other specified diseases of esophagus (principal); K44.9 Diaphragmatic hernia without obstruction or gangrene; R10.13 Epigastric pain; K29.50 Unspecified chronic gastritis without bleeding; E03.9 Hypothyroidism, unspecified; I48.0 Paroxysmal atrial fibrillation; Z79.01 Long term (current) use of anticoagulants; Z80.0 Family history of malignant neoplasm of digestive organs; Z86.19 Personal history of other infectious and parasitic diseases; Z87.11 Personal history of peptic ulcer disease; Z98.51 Tubal ligation status; K57.32 Diverticulitis of large intestine without perforation or abscess without bleeding; K43.2 Incisional hernia without obstruction or gangrene; K80.10 Calculus of gallbladder with chronic cholecystitis without obstruction; N13.30 Unspecified hydronephrosis
CPT/HCPCS: 43239; 88305; 88313; 88342; 99152; 99153; J7120

== ENCOUNTER 2019-05-26 05:25 | Inpatient (IN) | payer MEDICARE, SELFPAY ==
--- NOTE | 2019-04-29 06:08 | HP_ITS ---
Intake Vital Signs 04/29/19 Body Mass Index (BMI) 29.3 04/29/19 Height 5 ft 6 in 04/29/19 Weight: 170 lb 04/29/19 Body Mass Index (BMI) 27.4 04/29/19 Blood Pressure 150/71 H 04/29/19 Blood Pressure Location Rt brachial 04/29/19 Blood Pressure Position Sitting 04/29/19 Respiratory Rate 16 04/29/19 Pulse Rate 58 L 04/29/19 Pulse Source Monitor 04/29/19 Temperature 98.5 F 04/29/19 Temperature Source Oral 04/29/19 Pulse Ox 96 04/29/19 Oxygen Delivery Method room air Intake Visit Reasons: discuss colectomy Band Sawyer Required: No Is patient in pain?: No (LLQ abdomen ) Allergies metoprolol Adverse Reaction (Verified 04/29/19 14:44) Symptomatic Bradycardia Medications apixaban 5 mg tablet See Rx Instructions .ROUTE .COMPLEX #180 tablet 12/12/18 [Rx Confirmed 04/29/19] diltiazem CD 240 mg capsule,extended release 24 hr 240 mg PO DAILY #90 cap 01/13/19 [Rx Confirmed 04/29/19] ciprofloxacin 500 mg tablet 500 mg PO BID #28 tab 04/21/19 [Rx Confirmed 04/29/19] metronidazole 500 mg tablet 500 mg PO TID 14 Days #42 tab 04/21/19 [Rx Confirmed 04/29/19] levothyroxine 50 mcg tablet 50 mcg PO DAILY 04/29/19 [History Confirmed 04/29/19] PFSH Medical History History of rheumatic fever (Resolved) Gastric ulcer (Chronic) GERD (gastroesophageal reflux disease) (Chronic) Hypothyroidism (Chronic) Anemia (Chronic) Essential (primary) hypertension (Resolved) Paroxysmal atrial fibrillation (Chronic) Atrial fibrillation with RVR (Resolved) Fatigue (Inactive) Rapid heartbeat (Inactive) Surgical History Hx of tonsillectomy (Acute) Hx of colonoscopy (Acute) History of cardioversion (Resolved 11/2017) History of hysterectomy (Chronic) Family History Mother Hypertension Father Colon cancer Social History (Updated 04/29/19 @ 18:14 by Jm Jett MD) Smoking Status: Never smoker second hand exposure: No alcohol intake: current alcohol intake frequency: holidays/special occasions only substance use type: does not use caffeine: Yes what type of physical activity do you participate in: none frequency: does not exercise HPI HPI Surgical H&P: Yes HPI: YOSHI MARTINS, is a 78 F who presents to the office today for surgical consultation regarding abdominal pain. The patient is referred by BHUPENDRA Myers and a written copy of my surgical consult recommendations will be returned to her. This actually is a very complex patient. She presented with complaint of burning throughout her mid abdomen. She states that she thinks her father had colon cancer. She has had her screening/surveillance colonoscopies performed by Dr. Eyal Cota. She states she had one done just a couple months ago demonstrating benign colon polyps. At that time however there was concern regarding recurrent sigmoid diverticulitis. It was offered to the patient for consideration of a sigmoid colectomy and was recommended to her that she be referred out to [facility]. The patient is unclear as to exactly how many bouts of sigmoid diverticulitis she has had. I have evidence in 2014 of sigmoid diverticulitis. Her most recent CT scan performed at the [facility] on March 25, 2019 demonstrates multiple findings. There is prominent thickening of the mid sigmoid colon and a region of multiple colonic diverticula with adjacent inflammatory changes with fat and free fluid. There may actually be a perforation in this area. There is no free air however in the pelvis. There is mild bilateral hydronephrosis. No gallstones are identified however on a previous ultrasound that was performed at the [facility] on November 13, 2018 because of bilirubinuria and burning pain in the abdomen a 2.6 cm diameter mobile gallbladder gallstone was identified. As of March 25, 2019 her white blood cell count was 12 with a hemoglobin 12.9 40.8 platelet count 364,000. As of April 21, 2019 white blood cell count was 7.5 with a hemo-13.1 hematocrit 41.1 and platelet count of 360,000. The patient went through 2 courses of metronidazole and ciprofloxacin. It is pertinent that despite treatment now for a month she still has soreness in the left lower quadrant and feeling unwell. In addition she has a diffuse burning sensation throughout her abdomen. She states that she takes Tums and large quantity to try to help with the burning sensation. She has been on Nexium in the past. She does not think that any if this resolves her issue. Upon further discussing features with her at its apparent that she has had a remote history of peptic ulcer disease with H. pylori. She thinks that she was treated for H. pylori but does not recall that she was ever checked to see if it resolved. She denies bright red blood per rectum or melena. She currently has pre-much resumed her normal diet. It is pertinent that she has had a remote total abdominal hysterectomy for benign disease ROS General General: Yes fatigue; no weight change, appetite, colon cancer, breast cancer or weakness HEENT HEENT: No difficulty swallowing, eye injury, eye surgery, swollen glands or hoarseness Endo Endocrine: Yes thyroid disease; no diabetes mellitus, thyroid cancer, Hair loss, heat intolerance or cold intolerance Skin Skin: No rash or changing moles Musc Musculoskeletal: No back problems, arthritis, rheumatoid arthritis, gout or joint pain Cardio Cardiovascular: Yes murmur, atrial fibrillation and high blood pressure; no pacemaker, heart disease, heart attack, heart stent, palpitations, shortness of breat with exertion or chest pain Psych Psychiatric: No depression, anxiety or hearing voices Resp Respiratory: No shortness of breath, No sleep apnea, No cough, No COPD, No asthma, No emphysema, No wheezing Gastro Gastrointestinal: Yes abdominal pain, No nausea or vomiting, No diarrhea, No constipation, No blood in stool, No acid reflux, No hemorrhoids, No ulcers, No gallbladder problem, No black,tarry stools Joseluis Hematologic: Yes blood thinners, No blood disorders, No bleeding, Yes anemia, No blood clots Neuro Neurologic: No system reviewed and no additional complaints, except as docu, No as per HPI, No abnormal walking, No abnormal hearing, No abnormal movements, No abnormal speech, No behavioral changes, No burning sensations, No confusion, No seizure-like activity, No unsteadiness, No dizziness, No localized weakness, No frequent falls, No headache(s), No lack of coordination, No loss of vision, No memory loss, No numbness, No other visual disturbances, No radiating pain, No restless legs, No sensory deficit, No fainting, No tingling, No tremor(s), No weakness, No other Exam Const General: cooperative, healthy appearing, comfortable, no acute distress Nutritional Appearance: overweight Orientation: alert, awake [facility] Head: normal to inspection Eyes General: appearance normal, both eyes and all related structures Chest Chest palpation & inspection: normal inspection of the chest Resp Effort & Inspection: normal respiratory effort Auscultation: clear to auscultation bilaterally Cardio Rate: regular rate Rhythm: regular rhythm Heart Sounds: murmur Other: 2/6 systolic ejection murmur GI Other: Small incisional umbilical hernia related to what appears to be tubal ligation site. Fibrofatty tissue tender to palpation. Partially reducible. Mild tenderness palpation left lower quadrant without mass rebound or guarding Normal bowel sounds Well-healed Pfannenstiel incision Skin General: no rashes or lesions noted Neuro Cognition: normal cognition Extrem General: no calf tenderness bilaterally Psych Affect: normal affect Assessment & Plan Problems 1. Sigmoid diverticulitis K57.32 2. Generalized abdominal pain R10.84 3. Ventral incisional hernia without obstruction or gangrene K43.2 4. 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 History of Helicobacter pylori infection Z86.19 6. Hydronephrosis, unspecified hydronephrosis type N13.30 7. Paroxysmal atrial fibrillation I48.0 8. Chronic anticoagulation Z79.01 Plan 78-year-old female who still has complaints of soreness in the left lower quadrant is tender on exam. On my personal review of her CT scan of March 25 there is significant pericolonic inflammation and I suspect that she likely had a localized perforation at that site. She clearly has not resolved despite 2 courses of antibiotics. In detail with her Mr. Monroe I have recommended to the patient a laparoscopic sigmoid colectomy. The patient has a previous Pfannenstiel incision and hopefully can utilize that. They are aware of the potential need to convert to a hand-assisted or open approach. They are aware of the potential need for diverting colostomy. The patient has mild bilateral hydronephrosis. I recommend a left ureteral catheter be placed at surgery. I recommend preoperative consultation with Dr. Kwong urology because of the hydronephrosis. The patient and are aware of the technique, benefits, risks and alternatives. No guarantees of success were offered. Because of the patient's burning abdominal pain and history of H. pylori. The is convinced she has active peptic ulcer disease. I recommend a esophagogastroduodenoscopy with anticipated biopsy. She is also aware of the technique, benefits, risks, alternatives. Because the patient has paroxysmal atrial fibrillation is on chronic anticoagulation the anticoagulation Eliquis will need to be held prior to her upper endoscopy and prior to her laparoscopic sigmoid colectomy She has a ventral incisional hernia located at the umbilicus related to a previous tubal ligation incision. I do not anticipate repairing that at this time unless an incision ends up in that area and that I would anticipate a suture repair The patient's symptoms are very difficult to decipher and she may very well have a component of chronic cholecystitis cholelithiasis. She certainly has a very large gallstone. I have offered the patient that if the laparoscopic sigmoid colectomy proceeds without difficulty to consider at the same setting adding what ever additional port sites are required and performing a laparoscopic cholecystectomy at the same setting. The patient and are aware that if the lap scopic sigmoid colectomy is complicated then the cholecystectomy would not be pursued. They have had an opportunity to ask and have questions answered. Clearly she is a more complex patient. I believe that her surgical care can be well managed locally. I appreciate the opportunity of assisting with her surgical care. CC: Courtney Vivas, ADY Jett M.D., F.A.C.S. Orders Referrals: Urology N13.30 Coding Level of Care Code Comprehensive,High Diagnoses Sigmoid diverticulitis K57.32 Generalized abdominal pain R10.84 ??Abdominal location: generalized Ventral incisional hernia without obstruction or gangrene K43.2 Calculus of gallbladder with chronic cholecystitis without obstruction K80.10 ??Cholelithiasis location: gallbladder ??Biliary obstruction: without biliary obstruction History of Helicobacter pylori infection Z86.19 Hydronephrosis, unspecified hydronephrosis type N13.30 ??Hydronephrosis type: unspecified Paroxysmal atrial fibrillation I48.0 Chronic anticoagulation Z79.01 Time Spent (min) 70 04/29/19 5895 <Electronically signed by Jm castanon MD> Date _ Jm Jett MD I have re-examined the patient. There are no clinical changes since date of exam.
[2019-05-02 05:58] VITALS: BMI 25.8
[2019-05-19 15:20] VITALS: BP 131/54; PULSE 53; RESP 17; TEMP 37; O2SAT 96; BMI 28.3
[2019-05-19 16:15] LABS: Hematocrit 39.3 % (37-47); Hemoglobin 12.6 g/dL (12.0-15.0); Mean Corp Hgb Conc 32.1 g/dL (32-36); Mean Corpuscular Hgb 28.5 pg (27.0-32.0); Mean Corpuscular Volume 88.9 fL (81-99); Mean Platelet Vol. 9.4 fl (6.2-12.0); Platelet Count 356 K/mm3 (150-450); RBC Distribution Width CV 14.1 % (11.6-14.6); Red Blood Count 4.42 M/mm3 (4.2-5.4); White Blood Count 6.8 K/mm3 (4.4-11.0)
[2019-05-19 16:42] LABS: Anion Gap 6 (5-15); BUN 20 mg/dL (7-18); BUN/Creat Ratio 22.8 RATIO (10-20); Calcium,Total 9.7 mg/dL (8.5-10.1); Chloride 107 mmol/L (98-107); Creatinine, Serum 0.88 mg/dL (0.55-1.02); EST Glomerular Filtration Rate 66 mL/min (>60); Est Glom Filt Rate - Afr Amer 80 mL/min (>60); Estimated Creatinine Clearance 48.53 ml/min; Glucose 98 mg/dL (74-106); Potassium 4.2 mmol/L (3.5-5.1); Sodium Level 139 mmol/L (136-145); Thyroid Stim Hormone (TSH) 2.29 uIU/mL (0.358-3.74)
[2019-05-26] VITALS (13 sets, daily range): BP systolic 118–154; BP diastolic 55–76; PULSE 46–98; RESP 14–16; TEMP 36.4–36.9; O2SAT 93–100; BMI 28.0; BMI 28.6
[2019-05-26] MEDS: Lactated Ringers 1,000 ML 40 ML IV ×3 (06:18→17:22)
[2019-05-26] MEDS: Magnesium Sulfate 4gm/100mL 4 GM/100 ML IV.SOLN. IV (06:19)
[2019-05-26] MEDS: Acetaminophen 500 MG Tablet 1000 MG PO ×3 (06:39→19:05)
[2019-05-26] MEDS: Gabapentin 600 MG Tablet PO (06:39)
[2019-05-26 06:41] LABS: Bedside Glucose 98 mg/dL (70-110)
--- NOTE | 2019-05-26 07:15 | COL_PTH ---
PATIENT: YOSHI CAROLINA LOC: MS3 U#:[id number] AGE/SX: 78/F ROOM: MS314 RE05/26/[address]: Dr. Joby Kwong MD : 1940 BED: 1 DIS: 05/30/2019 SPEC #: [id number] RECD: 05/26/19 13:22 STATUS: AMANDA MANJINDER #: [id number] DEL: 05/26/19 07:[address]: Joby Kwong DEPT: SURGICAL PATHOLOGY RECD BY: Santiago Rodarte ENTERED: 05/26/19 13:56 SP TYPE: COLON OTHR DR: MD Courtney Morris, WHITE KID BUFFER-C Tissues: A - Colon, NOS B - Sigmoid colon biopsy C - Sigmoid colon biopsy D - Gallbladder, NOS Procedures: Surgery Specimen Level III Surgery Specimen Level V HEADER OPERATION: ERAS, laparoscopic sigmoid colectomy PRE-OP DIAGNOSIS: Sigmoid diverticulitis; generalized abdominal pain TISSUE SUBMITTED: A - Sigmoid colon, B - Distal sigmoid colon, C - Proximal sigmoid colon, D - Gallbladder MICROSCOPIC DIAGNOSIS A. Sigmoid colon, segmental colectomy: Diverticular disease. Margins of excision with no pathologic change. Two out of two lymph nodes with no pathologic change. B. Distal sigmoid colon, biopsy: Fragment of colonic mucosa with no pathologic change. C. Proximal sigmoid colon, biopsy: Fragment of colonic mucosa with no pathologic change. D. Gallbladder, cholecystectomy: Chronic cholecystitis and cholelithiasis. AM:fernando 05/28/19 MICROSCOPIC DESCRIPTION Slides are reviewed. GROSS DESCRIPTION A - Received in fixative is one container labeled with the patient's name and designated sigmoid colon. The specimen consists of a segment of colon measuring 16.5 cm in length with attached pericolonic adipose tissue. One resection margin has a staple line and one resection margin is opened. No mucosal lesion is identified. Sections reveal multiple diverticula. There is a small amount of fecal material. More dictation will follow after overnight fixation. / SJ:fernando 05/26/19 Sections do not reveal any obviously ruptured diverticula. Sections of the pericolonic adipose tissue do?not reveal any obviously enlarged lymph node. [employer] sections are submitted in five cassettes as follows: 1 - resection margin is stapled, resection margin is inked black, 2-4 - diverticula, 5??pericolonic adipose tissue. / SJ:fernando 05/27/19 B - Received in fixative is one container labeled with the patient's name and designated distal sigmoid colon. The specimen consists of a donut-shaped piece of colonic tissue measuring 2.5 x 2 x 1 cm. Sections reveal unremarkable cut surfaces. [employer] sections are submitted in one cassette. / SJ:fernando 05/26/19 C - Received in fixative is one container labeled with the patient's name and designated proximal sigmoid colon. The specimen consists of a donut-shaped piece of colonic tissue measuring 2 x 1.5 x 1 cm. Multiple sutures are noted. [employer] sections are submitted in one cassette. / SJ: 05/26/19 D - Received is one container labeled with the patient's name and designated gallbladder. The specimen consists of a gallbladder measuring 12 cm in length and 6 cm in diameter. The external surface is pink-hunt, smooth and glistening for the most part. Focally it is granular, hemorrhagic and contains cautery artifact. The gallbladder contains green-yellow mucoid bile and one ovoid hutn-brown stone measuring 3 x 2.5 x 2 cm. The mucosa is bile-stained and without any mass lesions. The gallbladder wall measures up to 0.2 cm in thickness. [employer] sections from the gallbladder and the cystic duct are submitted in one cassette. / SJ:fernando 05/26/19 TC:3 CPT: 82512, 23802 x3
--- NOTE | 2019-05-26 07:22 | PCM.DC.GS ---
Discharge Diet: Light diet - advance as tolerated - if you have questions about your diet instructions, please talk to you doctor. Discharge Activity: May Not Drive - for 3-5 days or while taking narcotic pain medicine. May shower in (days): 0 - Shower now Lifting Restrictions: 10 pounds Call your doctor if your incision/area has: Continuous Slow Oozing, Sudden Increased Bleeding, Increased Pain/ Swelling, Increased Redness, Foul Smelling Discharge Call your doctor if you observe: Fever of 101 or Higher Suture Line Care: Avoid Pulling/Pushing, Avoid Pinching/Bending Additional Dressing/Incision Instructions:: Change or remove dressing in 2 days. Leave steri-strips in place for 1 week. Additional Instructions: You may resume your Eliquis today Acetaminophen or Tylenol is the safest pain medication and you may use as needed. Please continue with your omeprazole therapy When you have your office surgical follow-up we will then assure that you have an additional planned visit with Dr. Lm Zuleta for removal of your biliary stent Allergies/Adverse Reactions: Allergies metoprolol Adverse Reaction (Verified 05/26/19 06:03) Symptomatic Bradycardia Medications to take at Discharge levothyroxine 50 mcg tablet 50 mcg PO DAILY 04/29/19 Apixaban [Eliquis] 1 tab PO BID 05/19/19 Diltiazem HCl [Diltiazem 24Hr ER (Cd)] 240 mg PO DAILY 05/19/19 Omeprazole 40 mg PO DAILY 05/19/19 neomycin 500 mg tablet 500 mg PO .COMPLEX #6 tab 05/21/19 Metronidazole 500 mg PO .COMPLEX 05/26/19 Hydrocodone Bitart/Apap 5-325 [Moosic 5MG-325MG] 1 tab PO Q6H PRN PRN 2 Days #5 tab 05/30/19 The following prescriptions were given: Hydrocodone Bitart/Apap 5-325 [Moosic 5MG-325MG] 1 tab PO Q6H PRN PRN 2 Days #5 tab PRN Reason: Pain Transmission Status: Sent to [facility] Primary Care Physician: Courtney Vivas NP-C [Primary Care Provider] - Test Results: Test results from this visit will be discussed in further detail at your follow-up appointment, if applicable. Please Follow Up With: Jm Jett MD - [phone] When: Call to make an appointment to be seen in about 10 days.
--- NOTE | 2019-05-26 07:46 | PCM.OPRPT ---
Report of Operation Date of Procedure: 05/26/19 Pre-Operative Diagnosis: Recurrent sigmoid diverticulitis Post-Operative Diagnosis: The same, surgeon requested stent ureteral catheter. Surgery/Procedure Performed:: Cystoscopy and insertion of left ureteral catheter Description of Surgical Findings:: 78-year-old female was taken back to the operating room after smooth induction of general anesthesia she was placed supine on the table in dorsolithotomy position, urethra vaginal area prepped and draped in usual sterile fashion, went to the urethra with a 21 English rigid cystourethroscope, the urethra was normal, the bladder was slightly tilted with slight cystocele, the left and right ureter orifice were little difficult to see behind a ridge in the trigone but is able to identify these I think cannulated the left ureteral orifice with a Glidewire and a Pollack catheter but I then advanced the Pollack catheter all the way up into the kidney is a 5 English open-ended catheter. Rest of the bladder was normal normal no tumors stones seen within the bladder I left the ureteral catheter in place in the left ureter drained the bladder and the put a catheter into the bladder. Patient was then turned over to continue with his surgical procedure. Type of Anesthesia:: General Drains: 5 fr u cath - Admit VTE Documentation VTE Present on Admission: No VTE Mechan Device Prophylaxis: SCD's
[2019-05-26] MEDS: BUPIVACAINE LIPOSOME/PF 20 ML VIAL OPERA.SITE (08:37)
[2019-05-26] MEDS: Lubricating Jelly 60 GM Tube 30 GM TOPICAL (08:37)
[2019-05-26] MEDS: Bupivacaine 0.25% 30 ML Vial (08:38)
[2019-05-26] MEDS: 0.9% Normal Saline (Pres. free 10 ML Vial (08:39)
--- NOTE | 2019-05-26 11:56 | PCM.OPRPT ---
Problem List (1) Cholelithiasis with chronic cholecystitis Status: Chronic Qualifiers: Cholelithiasis location: gallbladder Biliary obstruction: without biliary obstruction Qualified Code(s): K80.10 - Calculus of gallbladder with chronic cholecystitis without obstruction (2) Sigmoid diverticulitis Status: Acute Report of Operation Date of Procedure: 05/26/19 Pre-Operative Diagnosis: Chronic sigmoid diverticulitis, chronic cholecystitis cholelithiasis Post-Operative Diagnosis: Same Surgery/Procedure Performed:: Laparoscopic sigmoid colectomy, laparoscopic cholecystectomy, bilateral tap block Description of Surgical Findings:: Timeout and informed consent was obtained. 78-year-old female was taken the operative placement table underwent general tracheal intubation anesthesia. She was placed on a beanbag in a low lithotomy position. She was carefully padded and the beanbag was inflated. The beanbag was carefully secured to the table. Dr. Kwong performed a cystoscopy and left ureteral stent placement. Subsequently the abdomen and perineum were sterilely prepped and draped. To the right of the umbilicus I used a 5 mm Visiport technology to gain access to the abdomen. This was achieved safely. The abdomen was insufflated with CO2 to a pressure of 10 minutes mercury pressure. 5 Park port was placed in the right lower quadrant 5 Park port was placed in the right anterior iliac crest area and then additional right 5 Park port was placed laterally when it became apparent that the small bowel had to be retracted. Having achieved port placements inspected the abdomen there were adhesions of omentum to the gallbladder the gallbladder appeared distended. The sigmoid was densely adherent to the left pelvic sidewall and appeared indurated consistent with chronic inflammation. The small bowel was evacuated from the pelvis adhesions to the left pelvic sidewall were carefully dissected free using the Enseal device blunt dissection sharp dissection and aqua dissection. Having achieved that it was apparent at the sigmoid mesentery is markedly indurated beneath that area of inflammation. I used the Enseal device to tediously and carefully transected the mid sigmoid distally down to the pelvic reflection. I then was able to get cervical control of the distal sigmoid at that location I switched of 5 Park port in the right lower quadrant to a telemeter port and inserted a 60 mm Buchtel gold load. I then transected the distal sigmoid at the peritoneal reflection with one smooth staple line. I further freed up the white line of Toldt to allow for mobilization of the sigmoid colon. Noted small transverse supra pubic incision. Because of location of previous Pfannenstiel incision I had to go several centimeters more distally to get exposure to the degree that I wanted. Made a small 5 cm incision dissected down through the subcutaneous fat. Then identified the rectus fascia incised transversely elevated the fascia split the muscles vertically gain access to the peritoneum for the small wound protector. Sigmoid colon was exited through that wound and finished transecting the mesentery using the Enseal device and 4-0 silk suture ligature for hemostasis. I placed a Little across the mid to proximal sigmoid transected it sharply and then placed a whip suture of 2-0 Prolene. I placed a 33 mm circular anastomotic anvil and secured the pursestring. I dabbed that with sterile Betadine drop that back within the abdomen. The rectum was irrigated with dilute Betadine solution. Then dilators were gently inserted. The 33 mm circular anastomotic stapler was inserted and upon manipulating it became apparent that the staple line had rotated somewhat more posteriorly and it was good to get the stapler exactly at the location so I elected to come out anteriorly several centimeters back from the staple line. Exited a true trocar then needed that with the handle approximately 2 making sure there is no fibrofatty tissue in between. The device was secured and it was fired there was removed the donuts were inspected noted to be completely intact. Rigid sigmoidoscopy was performed demonstrating absolutely airtight seal. The pelvis was irrigated and aspirated free. There is small bit of mesenteric oozing secured with a hemo-lock clip I placed powdered snow simply on that keeping the snow away from the anastomosis. Having achieved that I now placed the patient in reverse Trendelenburg position. The gallbladder had multiple adhesions of omentum these were transected using the Enseal I then bluntly dissected free the cystic duct cystic artery until clearly had the cystic duct and cystic artery identified the critical view. I placed 2 hemo-lock clips more proximally on the cystic duct one distally prior to transecting it I secured the cystic artery proximally distally with hemo-lock clip I transected the very base of the gallbladder with the Enseal device and took the remainder of the gallbladder off the liver bed with electrocautery and a hook. Further achieved hemostasis with electrocautery and I did put the powdered snow in the liver bed area as well. This is because the patient is on chronic anticoagulation for atrial fibrillation. The right upper quadrant was irrigated free of excess fluid. Both sites were inspected the subhepatic space and the pelvic space both appear to be nicely intact. The gallbladder was placed in a retrieval bag. I then placed the patient again in reverse Trendelenburg position and a bilateral tap block was performed using lap scopic visualization I used a mixture of 20 cc of Exparel mixed with 40 cc of 0.25% Marcaine with saline 200 cc. This was injected in the transabdominal plane. This was performed bilaterally. I felt that I had good injection. I then did was reserve some of local for the Pfannenstiel type incision. Hemostasis nicely intact the greater omentum was placed overlying the small bowel trochars removed. The peritoneum at the suprapubic site was closed with a running 0 Vicryl. The fascia was closed with a running #1 PDS. Skin edges approximated with interrupted or running septic or 4-0 Monocryl. Steri-Strips Telfa and OpSite dressings applied. Sponge and instrument and needle counts reported the surgeon be correct. Blood loss 100 cc. Specimen sigmoid colon and gallbladder. Drains none. Blood loss 100 cc. The patient was taken to the recovery area in satisfactory condition without apparent complication Jm Jett M.D., F.A.C.S. Type of Anesthesia:: General Anesthesiologist: Bobby Maki
--- NOTE | 2019-05-26 15:21 | NURSING ---
pt to room and drowsy. awakens to verbal stimuli. eras protocol of o2 mask dc'd and pt placed on 2l d/t drowsiness.
--- NOTE | 2019-05-26 18:28 | PCM.PN.BLA ---
Progress Note Pt is lethargic but otherwise comfortable Urinary stent with some hematuria Will supplement with IV bolus and mobilize pt. STROKE Vital Signs/Narrative: Vital Signs Temp Pulse Resp BP Pulse Ox 05/26/19 17:05 97.9 F 61 16 154/76 H 100 05/26/19 15:05 97.6 F L 58 L 16 153/69 H 98
[2019-05-26] MEDS: Pantoprazole Sodium 40 MG Tablet PO (20:13)
[2019-05-26] MEDS: oxyCODONE 5 MG Tablet PO (20:27)
[2019-05-26] MEDS: Docusate Sodium 100 MG Capsule PO (22:23)
[2019-05-27] VITALS (7 sets, daily range): BP systolic 128–144; BP diastolic 54–68; PULSE 63–66; RESP 16–18; TEMP 36.7–37.4; O2SAT 90–99
[2019-05-27] MEDS: Acetaminophen 500 MG Tablet 1000 MG PO ×3 (00:12→18:22)
--- NOTE | 2019-05-27 06:01 | PCM.PN.SRG ---
Subjective: Pt feeling better than last night, sore on right. No nausea, no flatus - Physical Exam Vitals/I&O's: Vital Signs Temp Pulse Resp BP Pulse Ox 98.1 F 66 18 138/59 H 93 05/27/19 03:35 05/27/19 03:35 05/27/19 03:35 05/27/19 03:35 05/27/19 03:35 Oxygen Flow Rate (L/min) 2 Oxygen Delivery Method Room Air Weight: 177 lb 8.061 oz Body Mass Index (BMI) 28.6 Intake and Output for Last 24 Hours 05/25/19 05/26/19 05/27/19 23:59 23:59 23:59 Intake Total 2507.388 / 2507.388 150 / 150 Output Total 770 / 770 175 / 175 Balance 1737.388 / 1737.388 -25 / -25 Lungs: Clear to auscultation, - - diminished in bases Abdomen: Soft, Hypoactive Bowel Sounds - dressing clean and dry, - - mild tenderness Laboratory Results 05/26/19 06:29: POC Glucose 98 Current Medications Acetaminophen (Tylenol) 1,000 mg PO Q6 [facility] Last Admin: 05/27/19 00:12 Dose: 1,000 mg Documented by: Diltiazem HCl (Cardizem Cd) 240 mg PO DAILY [facility] Docusate Sodium (Colace) 100 mg PO BID [facility] Last Admin: 05/26/19 22:23 Dose: 100 mg Documented by: Enoxaparin Sodium (Lovenox) 40 mg SC DAILY [facility] Hydromorphone HCl (Dilaudid Inj) 0.5 mg IV Q3H PRN PRN PRN Reason: Pain Score 6-10/10 Lactated Ringer's () 1,000 mls @ 40 mls/hr IV .Q25H [facility] Last Infusion: 05/26/19 20:55 Dose: 40 mls/hr Documented by: Influenza Virus Vaccine Quadrival (Flucelvax /Fluzone ) 0.5 ml IM .ONCE ONE Stop: 05/27/19 10:01 Levothyroxine Sodium (Synthroid) 50 mcg PO DAILY@0600 [facility] Magnesium Oxide (Mag-Ox 400) 400 mg PO DAILY PRN PRN PRN Reason: Constipation Nutritional Formula (Lactose Free) (Ensure Enlive) 120 ml PO 4X/DAY [facility] Last Admin: 05/26/19 22:23 Dose: Not Given Documented by: Ondansetron HCl (Zofran Odt) 4 mg PO Q6H PRN PRN PRN Reason: NAUSEA Ondansetron HCl (Zofran) 4 mg IV Q8H PRN PRN PRN Reason: nausea Oxycodone HCl (Oxyir) 5 mg PO Q6H PRN PRN PRN Reason: Pain Score 6-10/10 Last Admin: 05/26/19 20:27 Dose: 5 mg Documented by: Pantoprazole Sodium (Protonix) 40 mg PO DAILY [facility] Last Admin: 05/26/19 20:13 Dose: 40 mg Documented by: Sodium Chloride () 10 - 40 ml IV UD PRN PRN Reason: SALINE FLUSH Medical Necessity - Tobacco Use Smoking Status: Never smoker Assessment/Plan All Active Problems (Last Reviewed 04/29/19 @ 14:38 by Jackie Mayo) Hydronephrosis (Acute) History of Helicobacter pylori infection (Acute) Ventral incisional hernia without obstruction or gangrene (Acute) Abdominal pain (Acute) Sigmoid diverticulitis (Acute) Hx of tonsillectomy (Acute) Hx of colonoscopy (Acute) History of cardioversion (Resolved 11/2017) History of rheumatic fever (Resolved) Essential (primary) hypertension (Resolved) Atrial fibrillation with RVR (Resolved) Mobilize pt DC keller
[2019-05-27] MEDS: Levothyroxine 50 MCG Tablet PO (06:21)
[2019-05-27 06:56] LABS: Hematocrit 33.9 % (37-47); Hemoglobin 10.7 g/dL (12.0-15.0); Mean Corp Hgb Conc 31.6 g/dL (32-36); Mean Corpuscular Hgb 28.5 pg (27.0-32.0); Mean Corpuscular Volume 90.2 fL (81-99); Mean Platelet Vol. 9.9 fl (6.2-12.0); Platelet Count 311 K/mm3 (150-450); RBC Distribution Width CV 14.6 % (11.6-14.6); RBC Distribution Width SD 48.4 fl (35.1-43.9); Red Blood Count 3.76 M/mm3 (4.2-5.4); White Blood Count 8.5 K/mm3 (4.4-11.0)
[2019-05-27 08:13] LABS: Anion Gap 5 (5-15); BUN 10 mg/dL (7-18); BUN/Creat Ratio 11.7 RATIO (10-20); Calcium,Total 8.3 mg/dL (8.5-10.1); Chloride 106 mmol/L (98-107); Creatinine, Serum 0.85 mg/dL (0.55-1.02); EST Glomerular Filtration Rate 68 mL/min (>60); Est Glom Filt Rate - Afr Amer 82 mL/min (>60); Estimated Creatinine Clearance 50.24 ml/min; Glucose 97 mg/dL (74-106); Potassium 3.8 mmol/L (3.5-5.1); Sodium Level 139 mmol/L (136-145)
[2019-05-27] MEDS: Ondansetron ODT 4 MG Tablet PO ×2 (09:50→16:30)
[2019-05-27] MEDS: Enoxaparin 40 MG/0.4 ML Syringe SC (09:59)
[2019-05-27] MEDS: dilTIAZem CD 240 MG Capsule PO (10:00)
[2019-05-27] MEDS: Docusate Sodium 100 MG Capsule PO ×2 (10:01→21:08)
[2019-05-27] MEDS: Pantoprazole Sodium 40 MG Tablet PO (10:01)
[2019-05-27] MEDS: oxyCODONE 5 MG Tablet PO ×2 (10:34→18:22)
--- NOTE | 2019-05-27 12:17 | CASEMGMT ---
RN CM Assessment Patient sleeping, ,easily aroused to verbal stimuli. Introduced role of RN CM to patient.? Patient is alert, oriented and able?to participate in RN CM Assessment. ?Care providers, pharmacy, and demographics verified. Presentation: Scheduled surgery for sigmoid diverticulitis, chronic cholecystitis, cholelithiasis. POD#1 Lap sigmoid colectomy, lap cholecystectomy, Bilt tap block. Admit Dx: Sigmoid Diverticulitis, Chronic Cholecystitis, Cholelithiasis Re-Admit: No Barriers/Issues: None, states just wants pain to be controlled and get better, stay another day before returning home. PCP: Courtney Vivas Specialists: None Preferred Pharmacy: [facility] Insurance: [employer] Rx Benefit:?Yes ?LNOK: Saravanan Monroe LW/HPOA: None, declines offered information or services on this admission. Made aware can return as an outpatient to complete with dept. Living Arrangements:?Lives with her in a [facility], 1 step to enter home. ADL?s: Independent with ambulation and ADLs Transportation: Both patient and drive, denies any transportation issues. DME: None HHC: None SNF: None Goal: Return home after feeling better, does not think will have any needs. Denies any issues, concerns, or questions with DC planning at this time. Aware CM remains available for any emerging needs. DC PLAN: Home with no anticipated needs identified at this time. CELSA Soto
[2019-05-27] MEDS: Ensure Clear 120 ML Liquid PO (15:10)
--- NOTE | 2019-05-27 19:42 | PCM.PN.BLA ---
Progress Note c/o soreness RLQ c/o nausea no flatus voiding without keller Encouragement given
[2019-05-28] MEDS: Acetaminophen 500 MG Tablet 1000 MG PO ×3 (00:25→17:59)
[2019-05-28] MEDS: oxyCODONE 5 MG Tablet PO ×3 (00:25→18:03)
[2019-05-28] MEDS: Ondansetron 4 MG/2 ML Vial IV (00:25)
[2019-05-28] MEDS: Ibuprofen 600 MG Tablet PO (02:23)
[2019-05-28 03:30] VITALS: BP 152/85; PULSE 84; RESP 16; TEMP 36.9; O2SAT 95
--- NOTE | 2019-05-28 05:52 | RAD_ITS ---
STUDY: X-RAY - ABDOMEN/PELVIS REASON FOR EXAM: Female, 78 years old. Postop. Abdominal distention. TECHNIQUE: AP supine and upright views of the abdomen and pelvis. COMPARISON: CT scan abdomen and pelvis 03/25/2019. FINDINGS: Normal visualized lung bases. There is prominent large and small bowel gas. There is no significant paucity of gas in the rectum. Air fluid levels are seen on the erect view without a stairstep pattern. These findings suggest ileus rather than mechanical bowel obstruction. There is no demonstrated free abdominal air. The visualized liver, spleen and kidneys are grossly normal in size and morphology. Normal soft tissue structures. There are diffuse degenerative changes of the visualized lumbar spine. RAD/Abd Inc Decub and/or Erect IMPRESSION: Large and small bowel ileus. Electronically Signed: Dell Petty MD at 7:18 EST , Service support ,
--- NOTE | 2019-05-28 05:56 | PCM.PN.SRG ---
Subjective: Pt poor night, nausea, felt very hot, pain RUQ and RLQ, sweaty - Physical Exam Vitals/I&O's: Vital Signs Temp Pulse Resp BP Pulse Ox 98.4 F 84 16 152/85 H 95 05/28/19 03:30 05/28/19 03:30 05/28/19 03:30 05/28/19 03:30 05/28/19 03:30 Oxygen Flow Rate (L/min) 2 Oxygen Delivery Method Room Air Weight: 177 lb 8.061 oz Body Mass Index (BMI) 28.6 Intake and Output for Last 24 Hours 05/26/19 05/27/19 05/28/19 23:59 23:59 23:59 Intake Total 2507.388 / 2507.388 2723 / 2748 175 / 175 Output Total 770 / 770 1585 / 1585 150 / 150 Balance 1737.388 / 9590.313 1931 / 1163 25 / 25 Lungs: Clear to auscultation, - - diminished in bases Abdomen: Bowel Sounds Not Present, Distended, Tender Laboratory Results 05/27/19 05:45: Sodium 139, Potassium 3.8, Chloride 106, Carbon Dioxide 28.0, Anion Gap 5, BUN 10, Creatinine 0.85, Estim Creat Clear Calc 50.24, Est GFR (MDRD) Af Amer 82, Est GFR (MDRD) Non-Af 68, BUN/Creatinine Ratio 11.7, Glucose 97, Calcium 8.3 L 05/27/19 05:45: WBC 8.5, RBC 3.76 L, Hgb 10.7 L, Hct 33.9 L, MCV 90.2, MCH 28.5, MCHC 31.6 L, RDW Std Deviation 48.4 H, RDW Coeff of Loan 14.6, Plt Count 311, MPV 9.9 Current Medications Acetaminophen (Tylenol) 1,000 mg PO Q6 [facility] Last Admin: 05/28/19 00:25 Dose: 1,000 mg Documented by: Diltiazem HCl (Cardizem Cd) 240 mg PO DAILY [facility] Last Admin: 05/27/19 10:00 Dose: 240 mg Documented by: Docusate Sodium (Colace) 100 mg PO BID [facility] Last Admin: 05/27/19 21:08 Dose: 100 mg Documented by: Enoxaparin Sodium (Lovenox) 40 mg SC DAILY [facility] Last Admin: 05/27/19 09:59 Dose: 40 mg Documented by: Hydromorphone HCl (Dilaudid Inj) 0.5 mg IV Q3H PRN PRN PRN Reason: Pain Score 6-10/10 Lactated Ringer's () 1,000 mls @ 80 mls/hr IV .[id number] [facility] Last Infusion: 05/27/19 21:10 Dose: Infused Documented by: Ibuprofen (Motrin) 600 mg PO Q8H PRN PRN Reason: Pain Score 1-10/10 Last Admin: 05/28/19 02:23 Dose: 600 mg Documented by: Levothyroxine Sodium (Synthroid) 50 mcg PO DAILY@0600 [facility] Last Admin: 05/27/19 06:21 Dose: 50 mcg Documented by: Magnesium Oxide (Mag-Ox 400) 400 mg PO DAILY PRN PRN PRN Reason: Constipation Nutritional Formula (Lactose Free) (Ensure Clear) 120 ml PO 4X/DAY [facility] Last Admin: 05/27/19 21:08 Dose: Not Given Documented by: Ondansetron HCl (Zofran Odt) 4 mg PO Q6H PRN PRN PRN Reason: NAUSEA Last Admin: 05/27/19 16:30 Dose: 4 mg Documented by: Ondansetron HCl (Zofran) 4 mg IV Q8H PRN PRN PRN Reason: nausea Last Admin: 05/28/19 00:25 Dose: 4 mg Documented by: Oxycodone HCl (Oxyir) 5 mg PO Q6H PRN PRN PRN Reason: Pain Score 6-10/10 Last Admin: 05/28/19 00:25 Dose: 5 mg Documented by: Pantoprazole Sodium (Protonix) 40 mg PO DAILY [facility] Last Admin: 05/27/19 10:01 Dose: 40 mg Documented by: Sodium Chloride () 10 - 40 ml IV UD PRN PRN Reason: SALINE FLUSH Medical Necessity - Tobacco Use Smoking Status: Never smoker Assessment/Plan All Active Problems (Last Reviewed 04/29/19 @ 14:38 by Jackie Mayo) Hydronephrosis (Acute) History of Helicobacter pylori infection (Acute) Ventral incisional hernia without obstruction or gangrene (Acute) Abdominal pain (Acute) Sigmoid diverticulitis (Acute) Hx of tonsillectomy (Acute) Hx of colonoscopy (Acute) History of cardioversion (Resolved 11/2017) History of rheumatic fever (Resolved) Essential (primary) hypertension (Resolved) Atrial fibrillation with RVR (Resolved) Ileus, distention, tender Make npo Check labs and AXR Source of distention not clear at this time
[2019-05-28 06:24] LABS: Absolute Lymphocyte Count 1.23 X10^3/uL (0.83-4.51); Absolute Neutrophil Count 8.6 X10^3/uL (2.0-7.7); Basophil# 0.06 X10^3/uL; Basophil% 0.6 % (0-1); Eosinophil# 0.04 X10^3/uL; Eosinophils% 0.4 % (0-5); Hematocrit 38.9 % (37-47); Hemoglobin 12.3 g/dL (12.0-15.0); Lymphocyte # 1.23 X10^3/ul (4.0); Lymphocyte % 11.5 % (19-41); Mean Corp Hgb Conc 31.6 g/dL (32-36); Mean Corpuscular Hgb 28.5 pg (27.0-32.0); Mean Corpuscular Volume 90.3 fL (81-99); Mean Platelet Vol. 9.7 fl (6.2-12.0); Monocyte# 0.73 X10^3/uL; Monocyte% 6.8 % (0-10); NRBC Flagged by Analyzer 0 % (0-5); Neutrophil # 8.58 X10^3/uL (2.7-7.7); Neutrophil % 80.1 % (47-70); Platelet Count 365 K/mm3 (150-450); RBC Distribution Width CV 14.3 % (11.6-14.6); Red Blood Count 4.31 M/mm3 (4.2-5.4); White Blood Count 10.7 K/mm3 (4.4-11.0)
[2019-05-28] MEDS: Levothyroxine 50 MCG Tablet PO (06:24)
[2019-05-28 07:07] LABS: ALB/GLOB Ratio 0.8 RATIO (0.9-2.4); AST(SGOT) 19 U/L (15-37); Alanine Aminotransfer ALT/SGPT 24 U/L (13-56); Albumin, Serum 2.9 g/dL (3.2-5.0); Alkaline Phosphatase 63 U/L (45-117); Anion Gap 5 (5-15); BUN 12 mg/dL (7-18); BUN/Creat Ratio 16.1 RATIO (10-20); Calcium,Total 8.9 mg/dL (8.5-10.1); Chloride 105 mmol/L (98-107); Creatinine, Serum 0.75 mg/dL (0.55-1.02); EST Glomerular Filtration Rate 80 mL/min (>60); Est Glom Filt Rate - Afr Amer 96 mL/min (>60); Globulin 3.5 g/dL (2.2-4.2); Glucose 122 mg/dL (74-106); Potassium 3.9 mmol/L (3.5-5.1); Protein, Total 6.4 g/dL (6.4-8.2); Sodium Level 137 mmol/L (136-145)
[2019-05-28 07:30] VITALS: O2SAT 96
[2019-05-28] MEDS: Lactated Ringers 1,000 ML 80 ML IV ×2 (09:00→20:05)
[2019-05-28 09:14] VITALS: BP 126/74; PULSE 57; RESP 16; TEMP 36.7; O2SAT 94
[2019-05-28] MEDS: Enoxaparin 40 MG/0.4 ML Syringe SC (11:01)
[2019-05-28] MEDS: Docusate Sodium 100 MG Capsule PO (11:02)
[2019-05-28] MEDS: dilTIAZem CD 240 MG Capsule PO (11:02)
[2019-05-28] MEDS: Ondansetron ODT 4 MG Tablet PO ×2 (11:07→18:06)
[2019-05-28] MEDS: Pantoprazole Sodium 40 MG Tablet PO (11:09)
[2019-05-28] MEDS: HYDROmorphone 0.5 MG/0.5 ML SYRINGE IV ×2 (12:41→20:22)
--- NOTE | 2019-05-28 13:26 | CT_ITS ---
STUDY: CT ABDOMEN AND PELVIS WITH CONTRAST REASON FOR EXAM: Female, 78 years old. Abdominal pain. Status post recent cholecystectomy and partial resection of the colon. RADIATION DOSAGE (If Supplied By Facility): CTDIvol = ( 17.08 ) mGy, DLP = ( 1113.35 ) mGycm TECHNIQUE: Transaxial images were obtained from the dome of the diaphragm to the symphysis pubis without oral contrast. was administered. Sagittal and coronal images were reconstructed. Individualized dose optimization techniques were used for this CT. COMPARISON: Comparison is made with prior study dated March 25, 2019. FINDINGS: Mild degree of bibasilar atelectasis. Coronary artery calcification. Small amount of perihepatic fluid. Diffuse fatty infiltration of the liver. Stable 1.2 cm cyst in the anterior medial aspect of the right lobe of the liver. Status post cholecystectomy with postoperative changes at the level of the gallbladder fossa. Normal spleen. Small amount of perisplenic fluid. Normal pancreas. Normal bilateral adrenal glands. Stable bilateral parapelvic renal cysts. Normal visualized stomach. Minimally dilated fluid-filled small bowel bowel loops There is evidence of surgical anastomosis at the sigmoid rectal junction. The appendix is visualized and appears normal. There is diffuse atherosclerotic calcification of the abdominal aorta, without a demonstrated aneurysm. Normal inferior vena cava. Normal retroperitoneum. A small amount of air is seen within the urinary bladder most likely secondary to recent Allen catheterization. Evidence of free fluid in the pelvis. The patient is status post cholecystectomy. Normal abdominal wall. There are diffuse degenerative changes of the visualized lumbar spine. CT/Abdomen/Pelvis W IV Cont ONLY IMPRESSION: Small amount of perihepatic and perisplenic fluid as well as small to moderate amount of pelvic fluid. Status post resection in the lower sigmoid colon. Status post cholecystectomy with postoperative changes. Mildly dilated fluid-filled small bowel loops. Gas and fecal material are seen in the colon. Electronically Signed: Alexis Hickman, at 14:54 EST , Service support ,
[2019-05-28 13:28] VITALS: BP 155/72; PULSE 73; RESP 18; TEMP 37.1; O2SAT 94
--- NOTE | 2019-05-28 13:31 | NURSING ---
dr gibbs called and updated him on pt's pain to the right side- pt was able to have another small soft stool and no bleeding noticed- vs obtained pt in bed and says pain is at 7 - less intense-
[2019-05-28] MEDS: 0.9% Saline Lock 10 ML Syringe IV ×2 (15:26→22:17)
[2019-05-28 16:29] VITALS: BP 148/72; PULSE 62; RESP 16; TEMP 37.1; O2SAT 94
[2019-05-28 17:05] LABS: Absolute Lymphocyte Count 1.28 X10^3/uL (0.83-4.51); Basophil# 0.05 X10^3/uL; Basophil% 0.5 % (0-1); Eosinophil# 0.04 X10^3/uL; Eosinophils% 0.4 % (0-5); Hematocrit 36.2 % (37-47); Hemoglobin 11.5 g/dL (12.0-15.0); Lymphocyte # 1.28 X10^3/ul (4.0); Lymphocyte % 12.6 % (19-41); Mean Corp Hgb Conc 31.8 g/dL (32-36); Mean Corpuscular Hgb 28.6 pg (27.0-32.0); Mean Platelet Vol. 9.7 fl (6.2-12.0); Monocyte# 0.78 X10^3/uL; Monocyte% 7.7 % (0-10); NRBC Flagged by Analyzer 0 % (0-5); Neutrophil # 7.98 X10^3/uL (2.7-7.7); Neutrophil % 78.4 % (47-70); Platelet Count 333 K/mm3 (150-450); RBC Distribution Width CV 14.1 % (11.6-14.6); RBC Distribution Width SD 46.3 fl (35.1-43.9); Red Blood Count 4.02 M/mm3 (4.2-5.4); White Blood Count 10.2 K/mm3 (4.4-11.0)
[2019-05-28 17:17] LABS: AST(SGOT) 18 U/L (15-37); Alanine Aminotransfer ALT/SGPT 20 U/L (13-56); Albumin, Serum 2.8 g/dL (3.2-5.0); Alkaline Phosphatase 63 U/L (45-117); Bilirubin, Direct 0.14 mg/dL (0.00-0.30); Globulin 3.2 g/dL (2.2-4.2)
--- NOTE | 2019-05-28 17:40 | NURSING ---
LAB RESULTS CALLED TO DR ROMERO IN OR - NO NEW ORDERS
[2019-05-28 20:00] VITALS: BP 161/74; PULSE 65; RESP 18; TEMP 36.8; O2SAT 93
--- NOTE | 2019-05-28 20:37 | PN_ITS ---
Progress Note Throughout the day several phone calls have been made to nursing staff. I made a separate additional visit to the patient and we performed a clinical examination. Although the patient was slightly tender in the right mid abdomen I did not find peritoneal signs. Bowel sounds very hypoactive. Laboratory again repeated with bilirubin in the morning 0 point 4 in the evening 0.[address] scan shows fluid above the right lobe of the liver the spleen and in the pelvis. But this is very much consistent with the amount of irrigation that was used during the procedure to do a leak test in the pelvis. The patient is still complaining of right flank pain. The etiology to this remains obscure. If this process persists then I will obtain a hepatobiliary scan tomorrow morning looking for possible duct of Luschka leak. I must admit that her presentation is perplexing. She has no leukocytosis. No fever. I do not b elieve that this is an anastomotic issue. Jm Jett M.D., F.A.C.S. STROKE Vital Signs/Narrative: Vital Signs Temp Pulse Resp BP Pulse Ox 05/28/19 20:00 98.3 F 65 18 161/74 H 93
[2019-05-29] VITALS (10 sets, daily range): BP systolic 133–171; BP diastolic 52–71; PULSE 62–103; RESP 16–24; TEMP 36.6–37.3; O2SAT 92–98; BMI 28.6
[2019-05-29] MEDS: Acetaminophen 500 MG Tablet 1000 MG PO ×3 (01:20→17:09)
[2019-05-29] MEDS: Ibuprofen 600 MG Tablet PO (01:33)
--- NOTE | 2019-05-29 05:00 | NM_ITS ---
STUDY: HEPATOBILARY SCINTGRAPHY REASON FOR EXAM: Female, 78 years old. Status post cholecystectomy, abdominal pain. COMPARISON STUDIES : NM - None. CR - Not available for review at this time. CT - 05/28/2019 MR - Not available for review at this time. Technique: After the administration of 5.0 mCi of technetium 99m Choletec intravenously, multiple scintigraphic images of the abdomen were obtained.. Findings: Homogeneous uptake of radiopharmaceutical throughout the hepatic parenchyma. Prompt excretion into the biliary tree first seen on the 10 minute image.. Passage of radiopharmaceutical from the biliary tree into the small bowel ensuring patency of the common bile duct. However, there is gradual accumulation of radiopharmaceutical in the linear fashion along the inferior margin of the liver worrisome for bile leak.. NM/Hepatobilliary Imaging IMPRESSION: Suspect bile leak after cholecystectomy. Electronically Signed: Ash Funes MD at 11:02 EST Tel , Service support ,
--- NOTE | 2019-05-29 05:31 | PCM.PN.SRG ---
Subjective: Patient was found resting comfortably in bed. She states that when she is lying supine she is completely comfortable with no pain. It is when she moves that she has discomfort. Although yesterday she certainly was diaphoretic and complaining of this discomfort the CT scan did not demonstrate anything but some fluid above the liver and the spleen in the pelvis but that would be consistent with the irrigation used not only for the cholecystectomy but also the colectomy. Laboratory has not been eventful. No other acute findings. - Physical Exam Vitals/I&O's: Vital Signs Temp Pulse Resp BP Pulse Ox 98.1 F 63 18 141/71 H 95 05/29/19 01:23 05/29/19 01:23 05/29/19 01:23 05/29/19 01:23 05/29/19 01:23 Oxygen Flow Rate (L/min) 2 Oxygen Delivery Method Room Air Weight: 177 lb 8.048 oz Body Mass Index (BMI) 28.6 Intake and Output for Last 24 Hours 05/27/19 05/28/19 05/29/19 23:59 23:59 23:59 Intake Total 2723 / 2748 1311.67 / 1311.67 50 / 50 Output Total 1585 / 1585 1400 / 1400 200 / 200 Balance 1138 / 1163 -88.33 / -88.33 -150 / -150 Lungs: Clear to auscultation Abdomen: Bowel Sounds Present, Soft, - - Mild tenderness right mid abdomen, softer than yesterday Laboratory Results 05/28/19 05:54: WBC 10.7, RBC 4.31, Hgb 12.3, Hct 38.9, MCV 90.3, MCH 28.5, MCHC 31.6 L, RDW Std Deviation 47.0 H, RDW Coeff of Loan 14.3, Plt Count 365, MPV 9.7, Immature Gran % (Auto) 0.600, Neut % (Auto) 80.1 H, Lymph % (Auto) 11.5 L, [place] % (Auto) 6.8, Eos % (Auto) 0.4, Baso % (Auto) 0.6, Absolute Neuts (auto) 8.6 H, Absolute Lymphs (auto) 1.23, Nucleated RBC % 0 05/28/19 05:54: Sodium 137, Potassium 3.9, Chloride 105, Carbon Dioxide 27.0, Anion Gap 5, BUN 12, Creatinine 0.75, Estim Creat Clear Calc 42.70, Est GFR (MDRD) Af Amer 96, Est GFR (MDRD) Non-Af 80, BUN/Creatinine Ratio 16.1, Glucose 122 H, Calcium 8.9, Total Bilirubin 0.40, AST 19, ALT 24, Alkaline Phosphatase 63, Total Protein 6.4, Albumin 2.9 L, Globulin 3.5, Albumin/Globulin Ratio 0.8 L 05/28/19 16:35: WBC 10.2, RBC 4.02 L, Hgb 11.5 L, Hct 36.2 L, MCV 90.0, MCH 28.6, MCHC 31.8 L, RDW Std Deviation 46.3 H, RDW Coeff of Loan 14.1, Plt Count 333, MPV 9.7, Immature Gran % (Auto) 0.400, Neut % (Auto) 78.4 H, Lymph % (Auto) 12.6 L, [place] % (Auto) 7.7, Eos % (Auto) 0.4, Baso % (Auto) 0.5, Absolute Neuts (auto) 8.0 H, Absolute Lymphs (auto) 1.28, Nucleated RBC % 0 05/28/19 16:35: Total Bilirubin 0.50, Direct Bilirubin 0.14, AST 18, ALT 20, Alkaline Phosphatase 63, Total Protein 6.0 L, Albumin 2.8 L, Globulin 3.2 Current Medications Acetaminophen (Tylenol) 1,000 mg PO Q6 [facility] Last Admin: 05/29/19 01:20 Dose: 1,000 mg Documented by: Diltiazem HCl (Cardizem Cd) 240 mg PO DAILY [facility] Last Admin: 05/28/19 11:02 Dose: 240 mg Documented by: Docusate Sodium (Colace) 100 mg PO BID [facility] Last Admin: 05/28/19 22:40 Dose: Not Given Documented by: Enoxaparin Sodium (Lovenox) 40 mg SC DAILY [facility] Last Admin: 05/28/19 11:01 Dose: 40 mg Documented by: Hydromorphone HCl (Dilaudid Inj) 0.5 mg IV Q3H PRN PRN PRN Reason: Pain Score 6-10/10 Last Admin: 05/28/19 20:22 Dose: 0.5 mg Documented by: Lactated Ringer's () 1,000 mls @ 80 mls/hr IV .[id number] [facility] Last Admin: 05/28/19 20:05 Dose: 80 mls/hr Documented by: Ibuprofen (Motrin) 600 mg PO Q8H PRN PRN Reason: Pain Score 1-10/10 Last Admin: 05/29/19 01:33 Dose: 600 mg Documented by: Levothyroxine Sodium (Synthroid) 50 mcg PO DAILY@0600 [facility] Last Admin: 05/28/19 06:24 Dose: 50 mcg Documented by: Magnesium Oxide (Mag-Ox 400) 400 mg PO DAILY PRN PRN PRN Reason: Constipation Nutritional Formula (Lactose Free) (Ensure Clear) 120 ml PO 4X/DAY [facility] Last Admin: 05/28/19 21:31 Dose: Not Given Documented by: Ondansetron HCl (Zofran Odt) 4 mg PO Q6H PRN PRN PRN Reason: NAUSEA Last Admin: 05/28/19 18:06 Dose: 4 mg Documented by: Ondansetron HCl (Zofran) 4 mg IV Q8H PRN PRN PRN Reason: nausea Last Admin: 05/28/19 00:25 Dose: 4 mg Documented by: Oxycodone HCl (Oxyir) 5 mg PO Q6H PRN PRN PRN Reason: Pain Score 6-10/10 Last Admin: 05/28/19 18:03 Dose: 5 mg Documented by: Pantoprazole Sodium (Protonix) 40 mg PO DAILY [facility] Last Admin: 05/28/19 11:09 Dose: 40 mg Documented by: Sodium Chloride () 10 - 40 ml IV UD PRN PRN Reason: SALINE FLUSH Last Admin: 05/28/19 22:17 Dose: 10 ml Documented by: Medical Necessity - Tobacco Use Smoking Status: Never smoker Assessment/Plan All Active Problems (Last Reviewed 04/29/19 @ 14:38 by Jackie Mayo) Hydronephrosis (Acute) History of Helicobacter pylori infection (Acute) Ventral incisional hernia without obstruction or gangrene (Acute) Abdominal pain (Acute) Sigmoid diverticulitis (Acute) Hx of tonsillectomy (Acute) Hx of colonoscopy (Acute) History of cardioversion (Resolved 11/2017) History of rheumatic fever (Resolved) Essential (primary) hypertension (Resolved) Atrial fibrillation with RVR (Resolved) Labs are pending. Because of the fluid I will vernell a HIDA scan. If that is not remarkable then I will initiate a diet. My current suspicion is that her discomfort is a combination of ileus and pneumoperitoneum muscular stretch. I have again been encouraging the patient that I am not detecting a significant adverse event. After the HIDA scan hopefully be able to start advance the diet and move towards discharge possibly later today. Jm Jett M.D., F.A.C.S.
[2019-05-29] MEDS: Levothyroxine 50 MCG Tablet PO (05:47)
[2019-05-29 06:17] LABS: Basophil# 0.05 X10^3/uL; Basophil% 0.5 % (0-1); Hematocrit 35.7 % (37-47); Hemoglobin 11.4 g/dL (12.0-15.0); Lymphocyte % 9.2 % (19-41); Mean Corp Hgb Conc 31.9 g/dL (32-36); Mean Corpuscular Hgb 28.8 pg (27.0-32.0); Mean Corpuscular Volume 90.2 fL (81-99); Mean Platelet Vol. 9.6 fl (6.2-12.0); Monocyte% 7.2 % (0-10); NRBC Flagged by Analyzer 0 % (0-5); Neutrophil # 7.99 X10^3/uL (2.7-7.7); Neutrophil % 81.8 % (47-70); Platelet Count 315 K/mm3 (150-450); RBC Distribution Width CV 14.3 % (11.6-14.6); RBC Distribution Width SD 47.5 fl (35.1-43.9); Red Blood Count 3.96 M/mm3 (4.2-5.4); White Blood Count 9.8 K/mm3 (4.4-11.0)
[2019-05-29 06:47] LABS: ALB/GLOB Ratio 0.8 RATIO (0.9-2.4); AST(SGOT) 20 U/L (15-37); Alanine Aminotransfer ALT/SGPT 21 U/L (13-56); Albumin, Serum 2.8 g/dL (3.2-5.0); Alkaline Phosphatase 84 U/L (45-117); Anion Gap 8 (5-15); BUN 11 mg/dL (7-18); BUN/Creat Ratio 20.7 RATIO (10-20); Calcium,Total 8.9 mg/dL (8.5-10.1); Chloride 108 mmol/L (98-107); Creatinine, Serum 0.53 mg/dL (0.55-1.02); EST Glomerular Filtration Rate 118 mL/min (>60); Est Glom Filt Rate - Afr Amer 142 mL/min (>60); Globulin 3.4 g/dL (2.2-4.2); Glucose 87 mg/dL (74-106); Potassium 3.7 mmol/L (3.5-5.1); Protein, Total 6.2 g/dL (6.4-8.2); Sodium Level 140 mmol/L (136-145)
[2019-05-29] MEDS: Pantoprazole Sodium 40 MG Tablet PO (10:58)
[2019-05-29] MEDS: dilTIAZem CD 240 MG Capsule PO (10:58)
[2019-05-29] MEDS: Enoxaparin 40 MG/0.4 ML Syringe SC (10:58)
[2019-05-29] MEDS: Docusate Sodium 100 MG Capsule PO ×2 (10:58→22:32)
[2019-05-29] MEDS: Lactated Ringers 1,000 ML 80 ML IV ×2 (11:06→17:07)
--- NOTE | 2019-05-29 15:03 | PCM.PN.SRG ---
Subjective: Complaining of right upper abdominal pain - Physical Exam Vitals/I&O's: Vital Signs Temp Pulse Resp BP Pulse Ox 98.7 F 68 16 151/65 H 94 05/29/19 14:45 05/29/19 14:45 05/29/19 14:45 05/29/19 14:45 05/29/19 14:45 Oxygen Flow Rate (L/min) 2 Oxygen Delivery Method Room Air Weight: 177 lb 7.907 oz Body Mass Index (BMI) 28.6 Intake and Output for Last 24 Hours 05/27/19 05/28/19 05/29/19 23:59 23:59 23:59 Intake Total 2723 / 2748 1311.67 / 1311.67 1340.67 / 1340.67 Output Total 1585 / 1585 1400 / 1400 525 / 525 Balance 1138 / 1163 -88.33 / -88.33 815.67 / 815.67 General: Alert, Oriented x3 Lungs: Normal air movement Cardiovascular: Regular rate, Regular Rhythm Abdomen: Soft, Non-Distended, Tender Laboratory Results 05/28/19 16:35: WBC 10.2, RBC 4.02 L, Hgb 11.5 L, Hct 36.2 L, MCV 90.0, MCH 28.6, MCHC 31.8 L, RDW Std Deviation 46.3 H, RDW Coeff of Loan 14.1, Plt Count 333, MPV 9.7, Immature Gran % (Auto) 0.400, Neut % (Auto) 78.4 H, Lymph % (Auto) 12.6 L, [place] % (Auto) 7.7, Eos % (Auto) 0.4, Baso % (Auto) 0.5, Absolute Neuts (auto) 8.0 H, Absolute Lymphs (auto) 1.28, Nucleated RBC % 0 05/28/19 16:35: Total Bilirubin 0.50, Direct Bilirubin 0.14, AST 18, ALT 20, Alkaline Phosphatase 63, Total Protein 6.0 L, Albumin 2.8 L, Globulin 3.2 05/29/19 05:58: WBC 9.8, RBC 3.96 L, Hgb 11.4 L, Hct 35.7 L, MCV 90.2, MCH 28.8, MCHC 31.9 L, RDW Std Deviation 47.5 H, RDW Coeff of Loan 14.3, Plt Count 315, MPV 9.6, Immature Gran % (Auto) 0.300, Neut % (Auto) 81.8 H, Lymph % (Auto) 9.2 L, [place] % (Auto) 7.2, Eos % (Auto) 1.0, Baso % (Auto) 0.5, Absolute Neuts (auto) 8.0 H, Absolute Lymphs (auto) 0.90, Nucleated RBC % 0 05/29/19 05:58: Sodium 140, Potassium 3.7, Chloride 108 H, Carbon Dioxide 24.0, Anion Gap 8, BUN 11, Creatinine 0.53 L, Estim Creat Clear Calc 42.70, Est GFR (MDRD) Af Amer 142, Est GFR (MDRD) Non-Af 118, BUN/Creatinine Ratio 20.7 H, Glucose 87, Calcium 8.9, Total Bilirubin 0.70, AST 20, ALT 21, Alkaline Phosphatase 84, Total Protein 6.2 L, Albumin 2.8 L, Globulin 3.4, Albumin/Globulin Ratio 0.8 L Current Medications Acetaminophen (Tylenol) 1,000 mg PO Q6 [facility] Last Admin: 05/29/19 11:53 Dose: Not Given Documented by: Diltiazem HCl (Cardizem Cd) 240 mg PO DAILY [facility] Last Admin: 05/29/19 10:58 Dose: 240 mg Documented by: Docusate Sodium (Colace) 100 mg PO BID [facility] Last Admin: 05/29/19 10:58 Dose: 100 mg Documented by: Enoxaparin Sodium (Lovenox) 40 mg SC DAILY [facility] Last Admin: 05/29/19 10:58 Dose: 40 mg Documented by: Hydromorphone HCl (Dilaudid Inj) 0.5 mg IV Q3H PRN PRN PRN Reason: Pain Score 6-04/03 Last Admin: 05/28/19 20:22 Dose: 0.5 mg Documented by: Lactated Ringer's () 1,000 mls @ 80 mls/hr IV .[id number] [facility] Last Infusion: 05/29/19 14:44 Dose: 0 mls/hr Documented by: Ibuprofen (Motrin) 600 mg PO Q8H PRN PRN Reason: Pain Score 1-04/03 Last Admin: 05/29/19 01:33 Dose: 600 mg Documented by: Levothyroxine Sodium (Synthroid) 50 mcg PO DAILY@0600 [facility] Last Admin: 05/29/19 05:47 Dose: 50 mcg Documented by: Magnesium Oxide (Mag-Ox 400) 400 mg PO DAILY PRN PRN PRN Reason: Constipation Nutritional Formula (Lactose Free) (Ensure Clear) 120 ml PO 4X/DAY [facility] Last Admin: 05/29/19 12:43 Dose: Not Given Documented by: Ondansetron HCl (Zofran Odt) 4 mg PO Q6H PRN PRN PRN Reason: NAUSEA Last Admin: 05/28/19 18:06 Dose: 4 mg Documented by: Ondansetron HCl (Zofran) 4 mg IV Q8H PRN PRN PRN Reason: nausea Last Admin: 05/28/19 00:25 Dose: 4 mg Documented by: Oxycodone HCl (Oxyir) 5 mg PO Q6H PRN PRN PRN Reason: Pain Score 6-10/10 Last Admin: 05/28/19 18:03 Dose: 5 mg Documented by: Pantoprazole Sodium (Protonix) 40 mg PO DAILY [facility] Last Admin: 05/29/19 10:58 Dose: 40 mg Documented by: Sodium Chloride () 10 - 40 ml IV UD PRN PRN Reason: SALINE FLUSH Last Admin: 05/28/19 22:17 Dose: 10 ml Documented by: Medical Necessity - Tobacco Use Smoking Status: Never smoker Assessment/Plan All Active Problems (Last Reviewed 04/29/19 @ 14:38 by Jackie Mayo) Hydronephrosis (Acute) History of Helicobacter pylori infection (Acute) Ventral incisional hernia without obstruction or gangrene (Acute) Abdominal pain (Acute) Sigmoid diverticulitis (Acute) Hx of tonsillectomy (Acute) Hx of colonoscopy (Acute) History of cardioversion (Resolved 11/2017) History of rheumatic fever (Resolved) Essential (primary) hypertension (Resolved) Atrial fibrillation with RVR (Resolved) 78-year-old female with possible bile leak 1. Patient had laparoscopic sigmoid colectomy and laparoscopic cholecystectomy 3 days ago. She was doing well and then developed right upper quadrant pain today. She had a HIDA scan which showed possible bile leak. I was consulted for ERCP and stent placement. 2. I discussed ERCP with the patient in detail. I discussed stent placement as well. I discussed the risks including but not limited to bleeding, infection, perforation of the bile duct or bowel, pancreatitis. I discussed that a repeat ERCP would be necessary to remove the stent in the future. Patient understands all the risks and is willing to proceed. Sergio Zuleta MD Pager: [facility] [address] [place] [address] [address] [place] [address] Office:
--- NOTE | 2019-05-29 15:25 | RAD_ITS ---
Fluoroscopic guided ERCP INDICATION: Abdominal pain TECHNIQUE: 4 fluoroscopic guided images were obtained during the exam in the anterior projection. 17 mL 72.9 seconds of fluoroscopic time utilized during the exam. DLP was 19.49 FINDINGS: Fluoroscopic guided ERCP was performed in the usual fashion with 4 fluoroscopic guided images obtained to document the procedure.. For more complete information recommend correlation with surgical notes IMPRESSION: Fluoroscopic guided ERCP Electronically Signed: Dejuan Zamarripa MD at 16:02 EST , Service support , RAD/ERCP Biliary/Pancreas
--- NOTE | 2019-05-29 15:55 | OP.ERCP_ITS ---
Patient Name: Liza Monroe Procedure Date: 05/29/2019 3:13 PM Date of : 1940 Age: 78 Procedure: ERCP Indications: Bile leak Providers: Sergio Zuleta MD Referring MD: Joby Kwong Medicines: General Anesthesia Patient Profile: This is a 78 year old female. Refer to note in patient chart for documentation of history and physical. Complications: No immediate complications. Procedure: Pre-Anesthesia Assessment: - Prior to the procedure, a History and Physical was performed, and patient medications and allergies were reviewed. The patient's tolerance of previous anesthesia was also reviewed. The risks and benefits of the procedure and the sedation options and risks were discussed with the patient. All questions were answered, and informed consent was obtained. Prior Anticoagulants: The patient has taken no previous anticoagulant or antiplatelet agents. After reviewing the risks and benefits, the patient was deemed in satisfactory condition to undergo the procedure. After obtaining informed consent, the scope was passed under direct vision. Throughout the procedure, the patient's blood pressure, pulse, and oxygen saturations were monitored continuously. The duodenoscope was introduced through the mouth, and advanced to the duodenum and used to inject contrast into the bile duct. The ERCP was accomplished without difficulty. The patient tolerated the procedure well. Scope In: 3:34:54 PM Scope Out: 3:42:15 PM Total Procedure Duration Time 0 hours 7 minutes 21 seconds Findings: The major papilla was normal. A 0.035 inch x 260 cm straight Dreamwire was passed into the biliary tree. The sphincterotome was passed over the guidewire and the bile duct was then deeply cannulated. Contrast was injected. I personally interpreted the bile duct images. There was brisk flow of contrast through the ducts. Extravasation of contrast originating from the gallbladder fossa was observed. Biliary sphincterotomy was made with a sphincterotome using ERBE electrocautery. There was no post-sphincterotomy bleeding. One 10 Fr by 5 cm plastic stent with a single external flap and a single internal flap was placed into the common bile duct. Bile flowed through the stent. The stent was in good position. Impression: - The major papilla appeared normal. - A bile leak was found. - A biliary sphincterotomy was performed. - One plastic stent was placed into the common bile duct. Recommendation: - Return patient to [facility] for ongoing care. Procedure Code(s): --- Professional --- 20978, Endoscopic retrograde cholangiopancreatography (ERCP); with placement of endoscopic stent into biliary or pancreatic duct, including pre- and post-dilation and guide wire passage, when performed, including sphincterotomy, when performed, each stent Diagnosis Code(s): --- Professional --- K83.9, Disease of biliary tract, unspecified K83.8, Other specified diseases of biliary tract CPT copyright 2017 [employer]. All rights reserved. The codes documented in this report are preliminary and upon practical nursing instructor review may be revised to meet current compliance requirements. Sergio Zuleta MD 05/29/2019 3:54:53 PM This report has been signed electronically. Number of Addenda: 0 Note Initiated On: 05/29/2019 3:13 PM
[2019-05-29 16:46] LABS: Bedside Glucose 72 mg/dL (70-110)
--- NOTE | 2019-05-29 18:41 | NURSING ---
pt ambulated in [place] for about 20 ft. pt became dizzy and was returned to her room.
[2019-05-30] MEDS: Acetaminophen 500 MG Tablet 1000 MG PO ×3 (00:01→11:26)
[2019-05-30 02:43] VITALS: BP 137/47; PULSE 62; RESP 20; TEMP 37; O2SAT 98
[2019-05-30] MEDS: Lactated Ringers 1,000 ML 80 ML IV (05:57)
[2019-05-30] MEDS: Levothyroxine 50 MCG Tablet PO (05:57)
[2019-05-30] MEDS: Ibuprofen 600 MG Tablet PO (05:58)
--- NOTE | 2019-05-30 06:08 | PN.SURG_ITS ---
Subjective: Appreciate Dr Zuleta's assistance with controlling duct of Jacqueline cookk, pt much more comfortable Path noted - Physical Exam Vitals/I&O's: Vital Signs Temp Pulse Resp BP Pulse Ox 98.6 F 62 20 H 137/47 H 98 05/30/19 02:43 05/30/19 02:43 05/30/19 02:43 05/30/19 02:43 05/30/19 02:43 Oxygen Flow Rate (L/min) 2 Oxygen Delivery Method Room Air Weight: 177 lb 7.907 oz Body Mass Index (BMI) 28.6 Intake and Output for Last 24 Hours 05/28/19 05/29/19 05/30/19 23:59 23:59 23:59 Intake Total 1311.67 / 1311.67 1772.00 / 1772.00 1150 / 1150 Output Total 1400 / 1400 525 / 525 225 / 225 Balance -88.33 / -88.33 1247.00 / 1247.00 925 / 925 Lungs: Clear to auscultation Abdomen: Bowel Sounds Present, Soft, Non Tender Laboratory Results 05/29/19 05:58: WBC 9.8, RBC 3.96 L, Hgb 11.4 L, Hct 35.7 L, MCV 90.2, MCH 28.8, MCHC 31.9 L, RDW Std Deviation 47.5 H, RDW Coeff of Loan 14.3, Plt Count 315, MPV 9.6, Immature Gran % (Auto) 0.300, Neut % (Auto) 81.8 H, Lymph % (Auto) 9.2 L, [place] % (Auto) 7.2, Eos % (Auto) 1.0, Baso % (Auto) 0.5, Absolute Neuts (auto) 8.0 H, Absolute Lymphs (auto) 0.90, Nucleated RBC % 0 05/29/19 05:58: Sodium 140, Potassium 3.7, Chloride 108 H, Carbon Dioxide 24.0, Anion Gap 8, BUN 11, Creatinine 0.53 L, Estim Creat Clear Calc 42.70, Est GFR (MDRD) Af Amer 142, Est GFR (MDRD) Non-Af 118, BUN/Creatinine Ratio 20.7 H, Glucose 87, Calcium 8.9, Total Bilirubin 0.70, AST 20, ALT 21, Alkaline Phosphatase 84, Total Protein 6.2 L, Albumin 2.8 L, Globulin 3.4, Albumin/Globulin Ratio 0.8 L 05/29/19 16:40: POC Glucose 72 Current Medications Acetaminophen (Tylenol) 1,000 mg PO Q6 [facility] Last Admin: 05/30/19 05:57 Dose: 1,000 mg Documented by: Diltiazem HCl (Cardizem Cd) 240 mg PO DAILY [facility] Last Admin: 05/29/19 10:58 Dose: 240 mg Documented by: Docusate Sodium (Colace) 100 mg PO BID [facility] Last Admin: 05/29/19 22:32 Dose: 100 mg Documented by: Enoxaparin Sodium (Lovenox) 40 mg SC DAILY [facility] Last Admin: 05/29/19 10:58 Dose: 40 mg Documented by: Hydromorphone HCl (Dilaudid Inj) 0.5 mg IV Q3H PRN PRN PRN Reason: Pain Score 6-10/10 Last Admin: 05/28/19 20:22 Dose: 0.5 mg Documented by: Ibuprofen (Motrin) 600 mg PO Q8H PRN PRN Reason: Pain Score 1-10/10 Last Admin: 05/30/19 05:58 Dose: 600 mg Documented by: Levothyroxine Sodium (Synthroid) 50 mcg PO DAILY@0600 [facility] Last Admin: 05/30/19 05:57 Dose: 50 mcg Documented by: Magnesium Oxide (Mag-Ox 400) 400 mg PO DAILY PRN PRN PRN Reason: Constipation Nutritional Formula (Lactose Free) (Ensure Enlive) 120 ml PO 4X/DAY [facility] Last Admin: 05/29/19 22:32 Dose: 120 ml Documented by: Ondansetron HCl (Zofran Odt) 4 mg PO Q6H PRN PRN PRN Reason: NAUSEA Last Admin: 05/28/19 18:06 Dose: 4 mg Documented by: Ondansetron HCl (Zofran) 4 mg IV Q8H PRN PRN PRN Reason: nausea Last Admin: 05/28/19 00:25 Dose: 4 mg Documented by: Oxycodone HCl (Oxyir) 5 mg PO Q6H PRN PRN PRN Reason: Pain Score 6-10/10 Last Admin: 05/28/19 18:03 Dose: 5 mg Documented by: Pantoprazole Sodium (Protonix) 40 mg PO DAILY [facility] Last Admin: 05/29/19 10:58 Dose: 40 mg Documented by: Sodium Chloride () 10 - 40 ml IV UD PRN PRN Reason: SALINE FLUSH Last Admin: 05/28/19 22:17 Dose: 10 ml Documented by: Medical Necessity - Tobacco Use Smoking Status: Never smoker Assessment/Plan All Active Problems (Last Reviewed 04/29/19 @ 14:38 by Jackie Mayo) Hydronephrosis (Acute) History of Helicobacter pylori infection (Acute) Ventral incisional hernia without obstruction or gangrene (Acute) Abdominal pain (Acute) Sigmoid diverticulitis (Acute) Hx of tonsillectomy (Acute) Hx of colonoscopy (Acute) History of cardioversion (Resolved 11/2017) History of rheumatic fever (Resolved) Essential (primary) hypertension (Resolved) Atrial fibrillation with RVR (Resolved) Will alllow reg diet and discharge today
[2019-05-30 09:45] VITALS: BP 130/66; PULSE 64; RESP 16; TEMP 36.6; O2SAT 96
[2019-05-30] MEDS: Pantoprazole Sodium 40 MG Tablet PO (09:46)
[2019-05-30] MEDS: dilTIAZem CD 240 MG Capsule PO (09:49)
--- NOTE | 2019-06-02 11:40 | PCM.DC.SUM ---
Discharge Date and Diagnosis Date of Admission: 05/26/19 Date of Discharge: 05/30/19 - Primary Discharge Diagnosis Recurrent diverticulitis Chronic cholecystitis with cholelithiasis - Secondary Discharge Diagnosis Chronic Problems (Last Reviewed 04/29/19 @ 14:38 by Jackie Mayo) Chronic anticoagulation (Chronic) Cholelithiasis with chronic cholecystitis (Chronic) Gastric ulcer (Chronic) GERD (gastroesophageal reflux disease) (Chronic) Hypothyroidism (Chronic) Anemia (Chronic) History of hysterectomy (Chronic) Paroxysmal atrial fibrillation (Chronic) Hospital Course and Treatment Operations: cholecystecomy, colectomy, ERCP Summary of Care Provided: The patient is a 78 year old F who presented for an elective sigmoidectomy and cholecystectomy for recurrent diverticulitis and chronic cholecystitis. Dr. Jett performed Laparoscopic sigmoid colectomy, laparoscopic cholecystectomy, bilateral tap block in conjunction with Dr. Kwong who performed a left urethral stent placement on 05/26/2019. Patient tolerated the procedure well. Patient developed right sided/flank pain on POD #2. CT scan of the abdomen/pelvis was ordered and demonstrated Small amount of perihepatic and perisplenic fluid as well as small to moderate amount of pelvic fluid. Status post resection in the lower sigmoid colon. Status post cholecystectomy with postoperative changes. Mildly dilated fluid-filled small bowel loops. Gas and fecal material are seen in the colon. Patient had a HIDA scan on 05/29 which demonstrated a bile leak. Dr. Zuleta performed an ERCP with stent placement. Upon discharge, patient was tolerating a diet well. Pain was better controlled. Positive flatus and BM. She was urinating well. - Physical Exam Vitals/I&O's: Vital Signs Temp Pulse Resp BP Pulse Ox 97.9 F 64 16 130/66 H 96 05/30/19 09:45 05/30/19 09:45 05/30/19 09:45 05/30/19 09:45 05/30/19 09:45 Oxygen Flow Rate (L/min) 2 Oxygen Delivery Method Room Air Weight: 177 lb 7.907 oz Body Mass Index (BMI) 28.6 General: Alert, Oriented x3, Cooperative Abdomen: Bowel Sounds Present, Soft, Non Tender, - - Incisions c/d/i. No erythema or infection noted Discharge Diet: Light diet - advance as tolerated - if you have questions about your diet instructions, please talk to you doctor. Discharge Activity: May Not Drive - for 3-5 days or while taking narcotic pain medicine. May shower in (days): 0 - Shower now Call your doctor if your incision/area has: Continuous Slow Oozing, Sudden Increased Bleeding, Increased Pain/ Swelling, Increased Redness, Foul Smelling Discharge Call your doctor if you observe: Fever of 101 or Higher Suture Line Care: Avoid Pulling/Pushing, Avoid Pinching/Bending Additional Dressing/Incision Instructions:: Change or remove dressing in 2 days. Leave steri-strips in place for 1 week. Home Medications: Medications to take at Discharge levothyroxine 50 mcg tablet 50 mcg PO DAILY 04/29/19 Apixaban [Eliquis] 1 tab PO BID 05/19/19 Diltiazem HCl [Diltiazem 24Hr ER (Cd)] 240 mg PO DAILY 05/19/19 Omeprazole 40 mg PO DAILY 05/19/19 neomycin 500 mg tablet 500 mg PO .COMPLEX #6 tab 05/21/19 Metronidazole 500 mg PO .COMPLEX 05/26/19 Hydrocodone Bitart/Apap 5-325 [[place] 5MG-325MG] 1 tab PO Q6H PRN PRN 2 Days #5 tab 05/30/19 Following Prescrptions Were Given to Patient: Hydrocodone Bitart/Apap 5-325 [[place] 5MG-325MG] 1 tab PO Q6H PRN PRN 2 Days #5 tab PRN Reason: Pain Transmission Status: Received by [id number] Primary Care Physician: Courtney Vivas, EMILY-C [Primary Care Provider] - Please Follow Up With: Jm Jett MD - [phone] When: Call to make an appointment to be seen in about 10 days. Additional Instructions: You may resume your Eliquis today Acetaminophen or Tylenol is the safest pain medication and you may use as needed. Please continue with your omeprazole therapy When you have your office surgical follow-up we will then assure that you have an additional planned visit with Dr. Lm Zuleta for removal of your biliary stent Disposition: Home Patient Condition:: Stable Medical Necessity - Tobacco Use Smoking Status: Never smoker Meaningful Use Info Meaningful Use Diagnoses (Choose all that apply): None applicable
--- NOTE | 2019-06-02 16:29 | CASEMGMT ---
Case Management DC F/u Call: DC Date: 05/30/19 DC Diagnosis: Recurrent diverticulitis, Chronic cholecystitis with cholelithiasis DC Disposition: Home Lace/Strata: 02/25 Called patient on her home phone listed in demographics, answered and this keno writer/runner introduced self and role. Patient states that she is in pain and not healing as quickly as anticipated. States has not tried to take pain medication yet and was told by the doctor that it may slow her healing down and she just wanted to heal quicker so has not taken anything. Confirmed did fill her pain medication upon DC. This keno writer/runner advised her to try and take something for pain, as noted in [facility] can take Tylenol Prn as well as her rx [place]. This keno writer/runner did educated and discuss watching daily tylenol intake and patient stated understanding. States plans to call Dr Jett's office tomorrow to schedule a f/u visit. Denies any further concerns, issues or questions with [facility], medications or f/u. Educated on s/s infection and advised to call Dr Jett's office to get in sooner if pain gets worse or develops any other symptoms. Thanked patient for choosing [facility] for her care and ended conversation. Anuradha Abad, YENICM
== END 2019-05-30 12:35 | disposition home or self-care (01) | DRG 330 ==
LOC: ACINP 05:51 → MS3 13:33
PROVIDERS: Anesthesiology; Physician Assistant; Surgery; Admitting Provider Surgery; Family Provider Nurse Practitioner; PCP Nurse Practitioner; Referring Provider Urology; Visit Provider Urology
PROC: 0T778DZ Dilation of Left Ureter with Intraluminal Device, Via Natural or Artificial Opening Endoscopic (ICD-10-PCS; CPT 50575; principal; 2019-05-26 06:50)
PROC: 0DTN0ZZ Resection of Sigmoid Colon, Open Approach (ICD-10-PCS; CPT 44204; 2019-05-26 06:50)
PROC: 0DTN4ZZ Resection of Sigmoid Colon, Percutaneous Endoscopic Approach (ICD-10-PCS; CPT 47610; 2019-05-26 06:50)
PROC: 0F798DZ Dilation of Common Bile Duct with Intraluminal Device, Via Natural or Artificial Opening Endoscopic (ICD-10-PCS; CPT 43260; principal; 2019-05-29 14:45)
DX: K57.32 Diverticulitis of large intestine without perforation or abscess without bleeding (principal); K91.89 Other postprocedural complications and disorders of digestive system; K80.10 Calculus of gallbladder with chronic cholecystitis without obstruction; K56.7 Ileus, unspecified; N13.30 Unspecified hydronephrosis; K21.9 Gastro-esophageal reflux disease without esophagitis; E03.9 Hypothyroidism, unspecified; I48.0 Paroxysmal atrial fibrillation; K43.2 Incisional hernia without obstruction or gangrene; Y83.8 Other surgical procedures as the cause of abnormal reaction of the patient, or of later complication, without mention of misadventure at the time of the procedure; Z90.710 Acquired absence of both cervix and uterus; Z79.01 Long term (current) use of anticoagulants; D64.9 Anemia, unspecified
CPT/HCPCS: 36415; 74019; 74177; 74330; 76000; 78226; 80048; 80053; 80076; 82962; 84443; 85025; 85027; 88304; 88305; 88307; 94762; 97116; 97162; 97530; 99251; A9537; J7040; J7050; J7120; Q9967; A4216; C1760; C1769; G0463; J2405; J3490

== ENCOUNTER 2019-07-24 06:28 | Day surgery (SDC) | payer MEDICARE, SELFPAY ==
[2019-05-29 14:45] VITALS: BMI 28.6
[2019-07-07 13:40] VITALS: BMI 28.0
--- NOTE | 2019-07-24 06:35 | EKG12_ITS ---
Test Reason : PREOP Blood Pressure : / mmHG Vent. Rate : 053 BPM Atrial Rate : 053 BPM P-R Int : 190 ms QRS Dur : 098 ms QT Int : 448 ms P-R-T Axes : 012 -28 010 degrees QTc Int : 420 ms Sinus bradycardia Otherwise normal ECG Confirmed by ROSA MALONE, KATIANA ([id number]), photographic editor MARY RUVALCABA ([id number]) on 07/29/2019 8:59:47 AM Referred By: Courtney Vivas Confirmed By:KATIANA LEE MD
--- NOTE | 2019-07-24 06:48 | HP.PCM_ITS ---
Problem List (1) Bile leak, postoperative Status: Acute History of Present Illness Date of Admission: 07/24/19 The patient is a 78 year old F who had a bile leak after her laparoscopic cholecystectomy in early May. She underwent ERCP with stent placement. She is here today for stent removal. She has had no changes. She experiences no pain at this time. Past Medical History Past Medical History (Chronic Problems): Chronic Problems (Last Reviewed 07/07/19 @ 13:42 by Yadira Diaz) Chronic anticoagulation (Chronic) Cholelithiasis with chronic cholecystitis (Chronic) Gastric ulcer (Chronic) GERD (gastroesophageal reflux disease) (Chronic) Hypothyroidism (Chronic) Anemia (Chronic) Paroxysmal atrial fibrillation (Chronic) Medical History: Medical History (Last Reviewed 07/07/19 @ 13:42 by Yadira Diaz) Chronic anticoagulation (Chronic) Z79.01 Hydronephrosis (Acute) N13.30 Cholelithiasis with chronic cholecystitis (Chronic) K80.10 Ventral incisional hernia without obstruction or gangrene (Acute) K43.2 Abdominal pain (Acute) R10.9 Sigmoid diverticulitis (Acute) K57.32 Gastric ulcer (Chronic) K25.9 GERD (gastroesophageal reflux disease) (Chronic) K21.9 Hypothyroidism (Chronic) E03.9 Anemia (Chronic) D64.9 Essential (primary) hypertension (Resolved) I10 Paroxysmal atrial fibrillation (Chronic) I48.0 History of Helicobacter pylori infection Z86.19 Atrial fibrillation with RVR (Resolved) I48.91 History of rheumatic fever Z86.79 Fatigue (Inactive) R53.83 Rapid heartbeat (Inactive) R00.0 Allergies metoprolol Adverse Reaction (Verified 07/07/19 13:40) Symptomatic Bradycardia Home Medications: Ambulatory Orders Medication Instructions Recorded levothyroxine 50 mcg tablet 50 mcg PO DAILY 04/29/19 Apixaban [Eliquis] 1 tab PO BID 05/19/19 Diltiazem HCl [Diltiazem 24Hr ER 240 mg PO DAILY 05/19/19 (Cd)] Surgical History: Surgical History (Last Reviewed 07/07/19 @ 13:42 by Yadira Diaz) History of cardioversion (Resolved) Onset Date: 11/2017 Z98.890 In ER 11/2017 History of cholecystectomy Onset Date: ~05/2019 Z90.49 History of hysterectomy Z98.890, Z90.710 History of partial colectomy Onset Date: ~05/2019 Z90.49 Hx of colonoscopy Z98.890 2019 Hx of tonsillectomy Z90.89 Surgical History: hysterectomy Psychiatric History: No pertinent psych hx APPLIED BEHAVIOR SCIENCE SPECIALIST History: No pertinent APPLIED BEHAVIOR SCIENCE SPECIALIST history Smoking Status: Never smoker Tobacco Use: Non-smoker - *Family History Maternal Family History: Family History (Last Reviewed 07/07/19 @ 13:42 by Yadira Diaz) Mother Hypertension Father Colon cancer History Items: Hypertension Paternal Family History: Family History (Last Reviewed 07/07/19 @ 13:42 by Yadira Diaz) Mother Hypertension Father Colon cancer History Items: Cancer - Colon CA Review of Systems Constitutional: Denies: Anorexia, Fever HEENT: Denies: Difficulty Swallowing Cardiovascular: Denies: Chest Pain Respiratory: Denies: Cough, Shortness of Breath Gastrointestinal: Denies: Abdominal Pain Musculoskeletal: Denies: Leg Pain Skin: Denies: Dryness, Jaundice Psychiatric: Denies: Anxiety Hematologic/ Lymphatic: Denies: Anemia VTE Information - Inpt Only VTE Present on Admission: No VTE Mechan Device Prophylaxis: SCD's Patient Problems: Active and Suspected Problems (Last Reviewed 07/07/19 @ 13:42 by Yadira Diaz) Bile leak, postoperative (Acute) - Physical Exam Vitals/I&O's: Body Mass Index (BMI) 28.0 General: Alert, Oriented x3 Lungs: Normal air movement Cardiovascular: Regular rate, Regular Rhythm Abdomen: Soft, Non Tender, Non-Distended Assessment/Plan All Active Problems (Last Reviewed 07/07/19 @ 13:42 by Yadira Diaz) Bile leak, postoperative (Acute) Hydronephrosis (Acute) Ventral incisional hernia without obstruction or gangrene (Acute) Abdominal pain (Acute) Sigmoid diverticulitis (Acute) History of cardioversion (Resolved 11/2017) Essential (primary) hypertension (Resolved) Atrial fibrillation with RVR (Resolved) 78-year-old female here for biliary stent removal 1. Plan for ERCP and stent removal with cholangiogram. If cholangiogram reveals persistent leak a new stent will be placed. Patient understands. ERCP was discussed in detail including the risks of bleeding, infection, perforation of bile duct or bowel, pancreatitis. Sergio Zuleta MD Pager: [facility] [address] [place] [address], [address] [place] [address] Office:
[2019-07-24 06:55] VITALS: BP 176/73; PULSE 51; RESP 16; TEMP 37.1; O2SAT 100; BMI 28.1
[2019-07-24] MEDS: Lactated Ringers 1,000 ML 100 ML IV (07:17)
--- NOTE | 2019-07-24 07:30 | RAD_ITS ---
STUDY: ERCP REASON FOR EXAM: Female, 78 years old. BILE LEAK. ERCP - CONTRAST INJECTION, BALLOON SWEEPS. 3 IMAGES FLUOROSCOPY TIME (if supplied): ( 82.5 seconds ) minutes/seconds. 3 images were obtained. TECHNIQUE: An ERCP was performed by the surgeon. Imaging was submitted. COMPARISON: None. FINDINGS: The common bile duct is not dilated. A balloon catheter is seen in its distal portion. RAD/ERCP Biliary Only IMPRESSION: No intraluminal filling defect is seen. Electronically Signed: Alexis Hickman, at 9:04 EST , Service support ,
--- NOTE | 2019-07-24 08:07 | OP.ERCP_ITS ---
Patient Name: Liza Monroe Procedure Date: 07/24/2019 7:05 AM Date of : 1940 Age: 78 Procedure: ERCP Indications: Bile leak Providers: Sergio Zuleta MD Referring MD: Courtney Vivas NP Medicines: General Anesthesia Patient Profile: This is a 78 year old female. Refer to note in patient chart for documentation of history and physical. Complications: No immediate complications. Estimated blood loss: Minimal. Procedure: Pre-Anesthesia Assessment: - Prior to the procedure, a History and Physical was performed, and patient medications and allergies were reviewed. The patient's tolerance of previous anesthesia was also reviewed. The risks and benefits of the procedure and the sedation options and risks were discussed with the patient. All questions were answered, and informed consent was obtained. Prior Anticoagulants: The patient has taken no previous anticoagulant or antiplatelet agents. After reviewing the risks and benefits, the patient was deemed in satisfactory condition to undergo the procedure. After obtaining informed consent, the scope was passed under direct vision. Throughout the procedure, the patient's blood pressure, pulse, and oxygen saturations were monitored continuously. The [id number]/n [id number] endoscope was introduced through the mouth, and advanced to the duodenum and used to inject contrast into the bile duct. The ERCP was accomplished without difficulty. The patient tolerated the procedure well. Scope In: 7:48:38 AM Scope Out: 7:54:34 AM Total Procedure Duration Time 0 hours 5 minutes 56 seconds Findings: One stent was removed from the biliary tree using a snare. A 0.035 inch x 260 cm straight Dreamwire was passed into the biliary tree. 12 mm balloon was placed over wire and biliary tree swept for debris. Balloon cholangiogram performed confirming leak has resolved. Wire and balloon were removed from the bile duct Impression: - One stent was removed from the biliary tree. Recommendation: - Discharge patient to home. - Resume previous diet. - Watch for pancreatitis, bleeding, perforation, and cholangitis. Procedure Code(s): --- Professional --- 49227, Endoscopic retrograde cholangiopancreatography (ERCP); with removal of foreign body(s) or stent(s) from biliary/pancreatic duct(s) Diagnosis Code(s): --- Professional --- Z46.59, Encounter for fitting and adjustment of other gastrointestinal appliance and device K83.8, Other specified diseases of biliary tract CPT copyright 2017 [employer]. All rights reserved. The codes documented in this report are preliminary and upon bowling ball grader and marker review may be revised to meet current compliance requirements. Sergio Zuleta MD 07/24/2019 8:06:58 AM This report has been signed electronically. Number of Addenda: 0 Note Initiated On: 07/24/2019 7:05 AM
--- NOTE | 2019-07-24 08:07 | OP.CCLET_ITS ---
07/24/2019 Jm Jett MD [facility] [address] [place] [address] Re : ERCP procedure for Liza Monroe Dear Dr. Jett This procedure was performed on June. My impressions and recommendations are as follows: Impressions : - One stent was removed from the biliary tree. Recommendations : - Discharge patient to home. - Resume previous diet. - Watch for pancreatitis, bleeding, perforation, and cholangitis. My findings are described in the full procedure note, which is enclosed. If I can be of further assistance, please feel free to contact me at Doctor phone number(s): , Work: . Sincerely, Sergio Zuleta MD 07/24/2019 8:06:58 AM This report has been signed electronically.
[2019-07-24 08:12] VITALS: BP 163/91; BP 176/73; PULSE 82; RESP 16; TEMP 36.4; O2SAT 94
[2019-07-24 08:15] VITALS: BP 166/75; BP 176/73; PULSE 78; RESP 16; O2SAT 96
[2019-07-24 08:30] VITALS: BP 167/72; BP 176/73; PULSE 68; RESP 16; O2SAT 93
[2019-07-24 08:35] VITALS: BP 154/65; BP 176/73; PULSE 67; RESP 16; TEMP 36.8; O2SAT 94
[2019-07-24 09:37] VITALS: BP 172/95; BP 176/73; PULSE 62; RESP 16; O2SAT 95
== END 2019-07-24 09:39 | disposition home or self-care (01) ==
LOC: EN 06:29 → AC 06:33
PROVIDERS: Family Provider Nurse Practitioner; PCP Nurse Practitioner; Referring Provider Nurse Practitioner; Visit Provider Surgery
PROC: (CPT 43260; principal; 2019-07-24 07:00)
DX: Z46.59 Encounter for fitting and adjustment of other gastrointestinal appliance and device (principal); K91.89 Other postprocedural complications and disorders of digestive system; K83.8 Other specified diseases of biliary tract; Z79.01 Long term (current) use of anticoagulants; I48.0 Paroxysmal atrial fibrillation; K21.9 Gastro-esophageal reflux disease without esophagitis; E03.9 Hypothyroidism, unspecified; Z82.49 Family history of ischemic heart disease and other diseases of the circulatory system; Z87.19 Personal history of other diseases of the digestive system; Z90.710 Acquired absence of both cervix and uterus
CPT/HCPCS: 43275; 74328; 76000; 93005; J7120; J2405

== ENCOUNTER → 2019-11-11 09:01 | Outpatient (CLI) | payer MEDICARE, SELFPAY ==
--- NOTE | 2019-11-11 09:08 | RAD_ITS ---
STUDY: X-RAY - UNILATERAL RIBS ( LEFT ) WITH CHEST REASON FOR EXAM: Female, 79 years old. Fall. Mid to lateral left rib pain. TECHNIQUE - RIBS: 2 view(s) of the ribs. TECHNIQUE - CHEST: Single PA view of the chest. COMPARISON: January 17, 2018. FINDINGS - RIBS: Normal visualized ribs without a demonstrated fracture. FINDINGS - CHEST: The lungs are clear and expanded. No infiltrate or mass. No pneumothorax. There is no demonstrated pleural abnormality. The heart is stable in size Normal mediastinum and moi. Normal visualized pulmonary arteries. There is atherosclerotic calcification of the aortic arch with tortuosity. There are diffuse degenerative changes of the visualized thoracic spine. There is degenerative osteoarthritis of the bilateral shoulders. There is no demonstrated abnormality of the visualized soft tissue structures of the upper abdomen. RAD/Ribs Uni Min 3V w/PA Chest IMPRESSION: RIBS: Normal x-ray examination of the ribs. CHEST: No acute cardiopulmonary disease or major interval change. Electronically Signed: Gene Ramesh DO at 16:29 EDT Tel [phone], Service support ,
== END ==
PROVIDERS: PCP Nurse Practitioner; Referring Provider Nurse Practitioner; Visit Provider Nurse Practitioner
DX: R07.81 Pleurodynia (principal)
CPT/HCPCS: 71101

== ENCOUNTER → 2020-01-26 08:00 | Outpatient (CLI) | payer MEDICARE, SELFPAY ==
[2020-01-23 15:26] VITALS: BMI 28.0
[2020-01-26 08:09] LABS: Mucous, Urine 0 SEEN /hpf (<or=2+)
[2020-01-26 08:42] LABS: Erythrocyte Sedimentation Rate 16 mm/hr (0-30)
[2020-01-26 08:43] LABS: Absolute Lymphocyte Count 1.69 X10^3/uL (0.83-4.51); Absolute Neutrophil Count 3.3 X10^3/uL (2.0-7.7); Basophil# 0.05 X10^3/uL; Basophil% 0.9 % (0-1); Eosinophil# 0.16 X10^3/uL; Eosinophils% 2.8 % (0-5); Hematocrit 38.8 % (37-47); Lymphocyte # 1.69 X10^3/ul (4.0); Lymphocyte % 29.9 % (19-41); Mean Corp Hgb Conc 30.9 g/dL (32-36); Mean Corpuscular Volume 87.4 fL (81-99); Mean Platelet Vol. 9.7 fl (6.2-12.0); Monocyte# 0.47 X10^3/uL; Monocyte% 8.3 % (0-10); NRBC Flagged by Analyzer 0 % (0-5); Neutrophil # 3.26 X10^3/uL (2.7-7.7); Neutrophil % 57.7 % (47-70); Platelet Count 370 K/mm3 (150-450); RBC Distribution Width CV 14.7 % (11.6-14.6); RBC Distribution Width SD 47.3 fl (35.1-43.9); Red Blood Count 4.44 M/mm3 (4.2-5.4); White Blood Count 5.7 K/mm3 (4.4-11.0)
[2020-01-26 08:49] LABS: Color, Urine Yellow (Yellow); Glucose, Dipstick Normal (Normal); Ketone-Dipstick Negative (Negative); Leukocyte Esterase-Dipstick 25 /ul (Negative); Nitrite-Dipstick Negative (Negative); Occult Blood-Urine 10 /ul (Negative); Protein-Dipstick Negative (Negative); Urine Bilirubin Dipstick Negative (Negative); Urine Clarity Sl. Cloudy (Clear); Urine Urobilinogen Normal (Normal)
[2020-01-26 08:58] LABS: AST(SGOT) 13 U/L (15-37); Alanine Aminotransfer ALT/SGPT 17 U/L (13-56); Albumin, Serum 3.5 g/dL (3.2-5.0); Alkaline Phosphatase 77 U/L (45-117); Amylase 59 U/L (25-115); Anion Gap 5 (5-15); BUN 14 mg/dL (7-18); BUN/Creat Ratio 19.5 RATIO (10-20); Bacteria 1+ /hpf (None Seen); Calcium,Total 9.3 mg/dL (8.5-10.1); Chloride 104 mmol/L (98-107); Creatinine, Serum 0.72 mg/dL (0.55-1.02); EST Glomerular Filtration Rate 83 mL/min (>60); Est Glom Filt Rate - Afr Amer 101 mL/min (>60); Globulin 3.6 g/dL (2.2-4.2); Glucose 101 mg/dL (74-106); Lipase 155 U/L (73-393); Protein, Total 7.1 g/dL (6.4-8.2); Red Blood Cells-Urine 0-5 SEEN /hpf (0-5); Sodium Level 138 mmol/L (136-145); Squamous Epithelial Cells - UA 0-5 SEEN /hpf (5-10); White Blood Cells 0-5 SEEN /hpf (0-5)
== END ==
PROVIDERS: PCP Nurse Practitioner; Referring Provider Surgery; Visit Provider Surgery
DX: R10.9 Unspecified abdominal pain (principal); R82.90 Unspecified abnormal findings in urine; R10.32 Left lower quadrant pain
CPT/HCPCS: 36415; 80053; 81001; 82150; 83690; 85025; 85652; 87086; 87088

== ENCOUNTER → 2020-02-10 08:00 | Outpatient (CLI) | payer MEDICARE, SELFPAY ==
[2020-01-30 06:16] VITALS: BMI 28.1
--- NOTE | 2020-02-10 08:01 | CT_ITS ---
STUDY: CT ABDOMEN AND PELVIS WITH CONTRAST REASON FOR EXAM: Female, 79 years old. LT SIDED PAIN, HX-DIVERTICULITIS, PARTIAL COLECTOMY RADIATION DOSAGE (If Supplied By Facility): CTDIvol = ( 16.33 ) mGy, DLP = ( 1701.68 ) mGycm TECHNIQUE: Transaxial images were obtained from the dome of the diaphragm to the symphysis pubis with oral contrast. Oral and amp; IV Readi-CAT and amp; 100mL Isovue-300 was administered. Sagittal and coronal images were reconstructed. Individualized dose optimization techniques were used for this CT. COMPARISON: 05/28/2019 FINDINGS: The visualized lung bases are unremarkable. The visualized portions of the heart are within normal limits. Stable 1 cm left hepatic lobe cyst. Normal gallbladder and extrahepatic biliary system. Normal spleen. Normal pancreas. Normal bilateral adrenal glands. Bilateral peripelvic renal cysts. Normal visualized stomach. Normal small intestine. Distal colon anastomosis. The appendix is visualized and appears normal. Normal abdominal aorta. Normal inferior vena cava. Normal retroperitoneum. Normal urinary bladder. Normal abdominal wall. There are diffuse degenerative changes of the visualized lumbar spine. Stable sacral bone island. CT/Abdomen/Pelvis WITH Contrast IMPRESSION: No evidence of appendicitis, acute intestinal pathology, or acute obstructive uropathy. Electronically Signed: Gurdeep Tripp MD at 17:14 EDT Tel , Service support ,
== END ==
PROVIDERS: PCP Nurse Practitioner; Referring Provider Surgery; Visit Provider Surgery
DX: R10.9 Unspecified abdominal pain (principal)
CPT/HCPCS: 74177; Q9967

== ENCOUNTER → 2020-03-04 17:50 | Outpatient (CLI) | payer MEDICARE, SELFPAY ==
[2020-03-04 11:33] VITALS: BMI 27.2
== END ==
PROVIDERS: PCP Nurse Practitioner; Referring Provider Nurse Practitioner Family; Visit Provider Nurse Practitioner Family
DX: Z20.828 Contact with and (suspected) exposure to other viral communicable diseases (principal)
CPT/HCPCS: 87635; U0003

== ENCOUNTER → 2020-03-12 10:49 | Outpatient (CLI) | payer MEDICARE, SELFPAY ==
[2020-03-04 11:33] VITALS: BMI 27.2
--- NOTE | 2020-03-12 10:50 | ECHOCS_ITS ---
Reason For Study: AFib/Flutter Procedure This was a 2D Doppler, Color Flow transthoracic echocardiogram. The study was technically difficult. Contrast injection was performed. Exam performed in department. Left Ventricle Normal LV size. Left ventricular systolic function is normal. The estimated ejection fraction is 65 %. Diastolic function is indeterminate. No regional wall motion abnormalities noted. Right Ventricle Normal RV size. Normal systolic function. Atria The left atrium is mildly enlarged. The right atrium is mildly enlarged. No doppler evidence for ASD. Mitral Valve There is no mitral annular calcification. Normal mitral valve. Trivial mitral valve insufficiency. Tricuspid Valve Normal tricuspid valve. Trivial tricuspid valve insufficiency. Unable to estimate RV systolic pressure/pulmonary artery pressure due to technically difficult study. Aortic Valve Trisinus/trileaflet aortic valve. Normal aortic valve. Pulmonic Valve The pulmonic valve is not well visualized. Great Vessels The aortic root is not well visualized. Pericardium/Pleural No pericardial effusion. Medication 22 gauge I.V. with prn adaptor inserted into right arm. Diluted definity 2ml given slow IV push to enhance endocardial definition. MMode/2D Measurements & Calculations LVIDd: 5.1 cm IVSd: 1.3 cm LA dimension: 3.5 cm LVIDs: 2.8 cm LVPWd: 1.2 cm RVDd: 3.2 cm FS: 45.8 % LAV(MOD-bp): 54.7 ml LA A4 area: 21.3 cm2 RA A4 area: 21.5 cm2 LAV(MOD-bp) Indexed: 29.0 ml/m2 LAV(MOD-sp2): 45.8 ml LAV(MOD-sp4): 61.9 ml Time Measurements MV dec time: 0.31 sec Doppler Measurements & Calculations MV E max kenrick: 82.5 cm/sec Lat Peak E' Kenrick: 4.6 cm/sec Med Peak E' Kenrick: 7.4 cm/sec MV A max kenrick: 98.7 cm/sec E/E' lat: 17.8 E/E' med: 11.2 MV E/A: 0.84 MV V2 max: 92.1 cm/sec MV P1/2t max kenrick: 82.3 cm/sec Ao V2 max: 164.0 cm/sec MV max P.4 mmHg MV P1/2t: 104.7 msec Ao max P.8 mmHg MV V2 mean: 44.2 cm/sec MV dec slope: 230.2 cm/sec2 MV mean P.99 mmHg MV V2 VTI: 35.6 cm MVA(P1/2t): 2.1 cm2 LV V1 max: 137.8 cm/sec PA V2 max: 86.7 cm/sec LV V1 max P.6 mmHg Interpretation Summary The study was technically difficult. Contrast injection was performed. Left ventricular systolic function is normal. The estimated ejection fraction is 65 %. The left atrium is mildly enlarged. The right atrium is mildly enlarged. Trivial mitral valve insufficiency. Trivial tricuspid valve insufficiency. Unable to estimate RV systolic pressure/pulmonary artery pressure due to technically difficult study. Diastolic function is indeterminate. Ordering Physician: Jefferson Batista Referring Physician: Courtney Vivas Performed By: Jacky Daniel RCS
== END ==
PROVIDERS: PCP Nurse Practitioner; Referring Provider Nurse Practitioner Family; Visit Provider Nurse Practitioner Family
DX: I48.0 Paroxysmal atrial fibrillation (principal); I10 Essential (primary) hypertension; Z79.890 Hormone replacement therapy
CPT/HCPCS: 93225; 93226; 93306; Q9957; A4216; C8929

== ENCOUNTER → 2020-04-29 14:29 | Outpatient (CLI) | payer MEDICARE, SELFPAY ==
[2020-04-29 13:13] VITALS: BMI 26.7
[2020-04-29 15:30] LABS: Basophil# 0.01 X10^3/uL; Basophil% 0.2 % (0-1); Hematocrit 41.2 % (37-47); Hemoglobin 12.7 g/dL (12.0-15.0); Lymphocyte % 19.5 % (19-41); Mean Corp Hgb Conc 30.8 g/dL (32-36); Mean Corpuscular Hgb 26.8 pg (27.0-32.0); Mean Corpuscular Volume 86.9 fL (81-99); Monocyte# 0.34 X10^3/uL; Monocyte% 8.3 % (0-10); NRBC Flagged by Analyzer 0 % (0-5); Neutrophil # 2.95 X10^3/uL (2.7-7.7); Neutrophil % 71.8 % (47-70); Platelet Count 247 K/mm3 (150-450); RBC Distribution Width CV 14.5 % (11.6-14.6); RBC Distribution Width SD 46.8 fl (35.1-43.9); Red Blood Count 4.74 M/mm3 (4.2-5.4); White Blood Count 4.1 K/mm3 (4.4-11.0)
[2020-04-29 16:23] LABS: ALB/GLOB Ratio 0.9 RATIO (0.9-2.4); AST(SGOT) 22 U/L (15-37); Alanine Aminotransfer ALT/SGPT 23 U/L (13-56); Albumin, Serum 3.5 g/dL (3.2-5.0); Alkaline Phosphatase 81 U/L (45-117); Anion Gap 6 (5-15); BUN 15 mg/dL (7-18); BUN/Creat Ratio 18.5 RATIO (10-20); Calcium,Total 9.2 mg/dL (8.5-10.1); Chloride 107 mmol/L (98-107); Creatinine, Serum 0.81 mg/dL (0.55-1.02); EST Glomerular Filtration Rate 72 mL/min (>60); Est Glom Filt Rate - Afr Amer 87 mL/min (>60); Free T3 1.9 pg/mL (2.18-3.98); Glucose 93 mg/dL (74-106); Protein, Total 7.5 g/dL (6.4-8.2); Sodium Level 139 mmol/L (136-145); T4 Free Direct 1.09 ng/dL (0.76-1.46); Thyroid Stim Hormone (TSH) 2.08 uIU/mL (0.358-3.74)
== END ==
PROVIDERS: PCP Internal Medicine; Referring Provider Internal Medicine; Visit Provider Internal Medicine
DX: E03.9 Hypothyroidism, unspecified (principal); I10 Essential (primary) hypertension; K21.9 Gastro-esophageal reflux disease without esophagitis
CPT/HCPCS: 36415; 80053; 84439; 84443; 84481; 85025

== ENCOUNTER → 2020-06-01 12:04 | Outpatient (CLI) | payer MEDICARE, SELFPAY ==
--- NOTE | 2020-06-01 12:28 | RAD_ITS ---
STUDY: X-RAY CHEST REASON FOR EXAM: Female, 79 years old. ANTERIOR AND POSTERIOR CHEST PAIN, FATIGUE, COUGH, TIGHTNESS, 2 NEG COVID TESTS TECHNIQUE: PA and lateral views of the chest. COMPARISON: 11/11/2019 FINDINGS: The lungs are clear and expanded. There is no demonstrated pleural abnormality. Normal size heart. Normal mediastinum and moi. Normal visualized pulmonary arteries. There is atherosclerotic tortuosity of the aortic arch and descending thoracic aorta. Normal visualized thoracic spine. Normal visualized ribs, clavicles, and shoulders. There is no demonstrated abnormality of the visualized soft tissue structures of the upper abdomen. RAD/Chest PA and Lateral IMPRESSION: No active disease. Electronically Signed: Ash Funes MD at 17:16 EST Tel , Service support ,
--- NOTE | 2020-06-01 12:30 | EKG12_ITS ---
Test Reason : ROUTINE Blood Pressure : / mmHG Vent. Rate : 051 BPM Atrial Rate : 051 BPM P-R Int : 188 ms QRS Dur : 086 ms QT Int : 452 ms P-R-T Axes : 064 -40 024 degrees QTc Int : 416 ms Sinus bradycardia Left axis deviation Low voltage QRS Inferior infarct , age undetermined , cannot be excluded Poor R wave progression Anterior VA, age undetermined, cannot be excluded Abnormal ECG Confirmed by CHU MALONE, JULIETA ([id number]), technical writer and editor MARY RUVALCABA ([id number]) on 06/02/2020 1:08:47 PM Referred By: Wendy Arguello Confirmed By:JULIETA SAGE MD
[2020-06-01 12:56] LABS: Anion Gap 5 (5-15); BUN 15 mg/dL (7-18); BUN/Creat Ratio 20.1 RATIO (10-20); Calcium,Total 9.7 mg/dL (8.5-10.1); Chloride 107 mmol/L (98-107); Creatinine, Serum 0.75 mg/dL (0.55-1.02); EST Glomerular Filtration Rate 79 mL/min (>60); Est Glom Filt Rate - Afr Amer 96 mL/min (>60); Glucose 77 mg/dL (74-106); Magnesium 2.3 mg/dL (1.6-2.6); Potassium 4.3 mmol/L (3.5-5.1); Sodium Level 139 mmol/L (136-145)
== END ==
PROVIDERS: PCP Internal Medicine; Referring Provider Internal Medicine; Visit Provider Internal Medicine
DX: R05 Cough (principal); R53.83 Other fatigue; R00.1 Bradycardia, unspecified
CPT/HCPCS: 36415; 71046; 80048; 83735; 87635; 93005; C9803; U0003

== ENCOUNTER 2020-08-15 02:29 | Emergency (ER) | payer MEDICARE, SELFPAY ==
[2020-08-15 02:30] VITALS: BP 188/107; PULSE 116; RESP 16; TEMP 36.8; O2SAT 95; BMI 26.9
--- NOTE | 2020-08-15 02:50 | EKG12_ITS ---
Test Reason : A-FIB Blood Pressure : / mmHG Vent. Rate : 119 BPM Atrial Rate : 098 BPM P-R Int : 000 ms QRS Dur : 088 ms QT Int : 330 ms P-R-T Axes : 000 -32 111 degrees QTc Int : 464 ms Atrial fibrillation with rapid ventricular response Left axis deviation Inferior infarct , age undetermined Anterior infarct , age undetermined Abnormal ECG Confirmed by ROSA MALONE, KATIANA ([id number]), managing editor MARY RUVALCABA ([id number]) on 08/17/2020 11:28:56 AM Referred By: BARBARA Confirmed By:KATIANA LEE MD
--- NOTE | 2020-08-15 02:52 | ED.DCSUM_ITS ---
History of Present Illness Chief Complaint: Palpitations Informant: Patient Onset: Today Current Severity: Mild Maximum Severity: Mild Narrative: Patient woke from sleep this morning feeling like she is in A. fib. She denies chest pain but does have palpitations. She has a history of paroxysmal A. fib. Patient states often she will take an extra dose of her medication and lie down to get her palpitations to stop. She previously had done this with metoprolol but found that she would become too bradycardic with that. - Past Medical History (1) GERD (gastroesophageal reflux disease) Status: Chronic (2) Hypothyroidism Status: Chronic (3) Paroxysmal atrial fibrillation Status: Chronic Comment: DCCV on 12/20/2017 in [facility] ER; (4) Essential (primary) hypertension Status: Chronic Past Medical History - Allergies and Home Meds Allergies/Adverse Reactions: Allergies metoprolol Adverse Reaction (Verified 08/15/20 02:40) Symptomatic Bradycardia only with certain doses Primary Care Physician: Wendy Arguello MD [Primary Care Provider] - Prior records reviewed: Yes Surgical History: hysterectomy Lives: Spouse/ Significant Other Smoking Status: Never smoker - Family History Maternal Family History: Family History (Last Reviewed 01/30/20 @ 14:14 by Noelle Hu) Mother Hypertension Father Colon cancer Family History: Reports: Hypertension Paternal Family History: Family History (Last Reviewed 01/30/20 @ 14:14 by Noelle Hu) Mother Hypertension Father Colon cancer Family History: Reports: Cancer - Colon CA Review of Systems General: Denies: Chills, Fever Eyes: Denies: Visual changes - bilaterally ENT: Denies: Bilateral ear pain Cardiovascular: Reports: Palpitations, Heart racing. Denies: Chest pain Respiratory: Denies: Dyspnea, Cough Gastrointestinal: Denies: Abdominal pain, Nausea, Vomiting, Diarrhea Genitourinary: Denies: Dysuria Musculoskeletal: Denies: Swelling, Extremity Pain Skin: Denies: Rash Neurological: Denies: Headache Hematologic: Denies: Easy bruising, Easy bleeding Allergy: Denies: Uticaria Physical Exam Vital Signs/Narrative: Vital Signs Temp Pulse Resp BP Pulse Ox 08/15/20 02:30 98.2 F 116 H 16 188/107 H 95 Inital Vital Signs reviewed: Yes General: Well nourished, Well developed Head: Normocephalic ENT: Moist mucous membranes Neck: Supple Cardiovascular: Irregular Respiratory: No distress, CTA bilaterally Abdomen: Soft, Nontender Extremities: Nontender Skin: Normal color Neurological: Alert, Oriented x3 Psychological: Normal affect Diagnostic/Tx/Re-eval Chest X-Ray - ED: 1 View, Read by ED Physician, Chronic Changes Impressions Chest X-Ray 08/15/20 03:15 IMPRESSION: No acute cardiopulmonary disease Electronically Signed: Jaleel Mccord MD at 3:32 EST Tel , Service support , 08/15/20 03:15 Chest 1 View (Portable) [RAD] Stat Laboratory Results 08/15/20 08/15/20 02:45 02:45 WBC 5.1 RBC 4.64 Hgb 12.7 Hct 41.5 MCV 89.4 MCH 27.4 MCHC 30.6 L RDW Std Deviation 46.9 H RDW Coeff of Loan 14.5 Plt Count 360 MPV 9.4 Immature Gran % (Auto) 0.200 Neut % (Auto) 45.7 L Lymph % (Auto) 40.2 [place] % (Auto) 8.9 Eos % (Auto) 3.4 Baso % (Auto) 1.6 H Absolute Neuts (auto) 2.3 Absolute Lymphs (auto) 2.03 Nucleated RBC % 0 Sodium 141 Potassium 3.6 Chloride 108 H Carbon Dioxide 26.0 Anion Gap 7 BUN 15 Creatinine 0.80 Estim Creat Clear Calc 54.54 Est GFR (MDRD) Af Amer 89 Est GFR (MDRD) Non-Af 73 BUN/Creatinine Ratio 18.8 Glucose 111 H Calcium 9.5 Troponin I < 0.015 TSH 5.56 H - EKG Initial EKG Interpretation: Atrial Fibrillation - A. fib at 119. No acute ST change. - Medical Decision Making Patient's heart rate was ranging between 100-120 on arrival. She was given 10 mg of IV Cardizem. Heart rate has now been in the 60s and 70s but does remain in atrial fibrillation. Portable chest x-ray per my interpretation shows chronic changes only. Blood work is largely unremarkable. TSH is slightly elevated. On repeat evaluation patient reports symptoms are improving. Heart rate is in the 60s. We discussed the possibility of cardioversion, discharge to home with monitoring of her symptoms as she is on anticoagulants and rate control, or admission to the hospital for further evaluation and cardioversion if she does not convert on her own. After discussion with her they both feel comfortable going home and watching her symptoms at home. It sounds like she has been in and out of A. fib frequently and knows how to monitor her symptoms. She does understand that if her symptoms worsen in any way she is welcome to return at any time. ED Disposition - Plan for ED Patient: Disposition: Home or Assisted Living Diagnosis: Atrial fibrillation Instructions: ED AFIB Referrals: Jarvis Yanez MD [STAFF PHYSICIAN] - 1-2 Days if not improving
[2020-08-15 02:56] LABS: Absolute Lymphocyte Count 2.03 X10^3/uL (0.83-4.51); Absolute Neutrophil Count 2.3 X10^3/uL (2.0-7.7); Basophil# 0.08 X10^3/uL; Basophil% 1.6 % (0-1); Eosinophil# 0.17 X10^3/uL; Eosinophils% 3.4 % (0-5); Hematocrit 41.5 % (37-47); Hemoglobin 12.7 g/dL (12.0-15.0); Lymphocyte # 2.03 X10^3/ul (4.0); Lymphocyte % 40.2 % (19-41); Mean Corp Hgb Conc 30.6 g/dL (32-36); Mean Corpuscular Hgb 27.4 pg (27.0-32.0); Mean Corpuscular Volume 89.4 fL (81-99); Mean Platelet Vol. 9.4 fl (6.2-12.0); Monocyte# 0.45 X10^3/uL; Monocyte% 8.9 % (0-10); NRBC Flagged by Analyzer 0 % (0-5); Neutrophil # 2.31 X10^3/uL (2.7-7.7); Neutrophil % 45.7 % (47-70); Platelet Count 360 K/mm3 (150-450); RBC Distribution Width CV 14.5 % (11.6-14.6); RBC Distribution Width SD 46.9 fl (35.1-43.9); Red Blood Count 4.64 M/mm3 (4.2-5.4); White Blood Count 5.1 K/mm3 (4.4-11.0)
[2020-08-15] MEDS: dilTIAZem 25 MG/5 ML Vial 10 MG IV BOLUS (02:57)
[2020-08-15 03:15] VITALS: BP 162/80; PULSE 66; RESP 18; O2SAT 95
--- NOTE | 2020-08-15 03:15 | RAD_ITS ---
STUDY: X-RAY CHEST REASON FOR EXAM: Female, 79 years old. Heart palpitations and tachycardia TECHNIQUE: Single AP portable view of the chest. COMPARISON: 06/01/2020 FINDINGS: The lungs are clear and expanded. There is no demonstrated pleural abnormality. Borderline cardiomegaly, unchanged. Normal mediastinum and moi. Normal visualized pulmonary arteries. There is atherosclerotic calcification of the aortic arch with tortuosity. There are moderate diffuse degenerative changes of the visualized thoracic spine. Normal visualized ribs, clavicles, and shoulders. There is no demonstrated abnormality of the visualized soft tissue structures of the upper abdomen. RAD/Chest 1 View (Portable) IMPRESSION: No acute cardiopulmonary disease Electronically Signed: Jaleel Mccord MD at 3:32 EST Tel , Service support ,
[2020-08-15 03:16] LABS: Anion Gap 7 (5-15); BUN 15 mg/dL (7-18); BUN/Creat Ratio 18.8 RATIO (10-20); Calcium,Total 9.5 mg/dL (8.5-10.1); Chloride 108 mmol/L (98-107); EST Glomerular Filtration Rate 73 mL/min (>60); Est Glom Filt Rate - Afr Amer 89 mL/min (>60); Estimated Creatinine Clearance 54.54 ml/min; Glucose 111 mg/dL (74-106); Potassium 3.6 mmol/L (3.5-5.1); Sodium Level 141 mmol/L (136-145); Thyroid Stim Hormone (TSH) 5.56 uIU/mL (0.358-3.74)
[2020-08-15 04:10] VITALS: BP 121/75; PULSE 68; RESP 16; O2SAT 96
== END 2020-08-15 04:23 | disposition home or self-care (01) ==
PROVIDERS: Emergency Provider Emergency Medicine; PCP Internal Medicine
DX: I48.0 Paroxysmal atrial fibrillation (principal); E03.9 Hypothyroidism, unspecified; I10 Essential (primary) hypertension; K21.9 Gastro-esophageal reflux disease without esophagitis; Z82.49 Family history of ischemic heart disease and other diseases of the circulatory system; Z90.710 Acquired absence of both cervix and uterus
CPT/HCPCS: 71045; 80048; 84443; 84484; 85025; 93005; 99284; A4216

== ENCOUNTER → 2020-08-31 09:46 | Outpatient (CLI) | payer MEDICARE, SELFPAY ==
[2020-08-31 08:57] VITALS: BMI 26.6
[2020-08-31 11:15] LABS: Anion Gap 4 (5-15); BUN 15 mg/dL (7-18); BUN/Creat Ratio 20.4 RATIO (10-20); Calcium,Total 9.4 mg/dL (8.5-10.1); Chloride 105 mmol/L (98-107); Creatinine, Serum 0.73 mg/dL (0.55-1.02); EST Glomerular Filtration Rate 81 mL/min (>60); Est Glom Filt Rate - Afr Amer 98 mL/min (>60); Glucose 67 mg/dL (74-106); Potassium 4.1 mmol/L (3.5-5.1); Sodium Level 139 mmol/L (136-145)
== END ==
PROVIDERS: PCP Internal Medicine; Referring Provider Nurse Practitioner Family; Visit Provider Nurse Practitioner Family
DX: I10 Essential (primary) hypertension (principal); Z51.81 Encounter for therapeutic drug level monitoring; Z79.899 Other long term (current) drug therapy
CPT/HCPCS: 36415; 80048

== ENCOUNTER → 2020-09-27 11:35 | Outpatient (CLI) | payer MEDICARE, SELFPAY ==
[2020-08-31 08:57] VITALS: BMI 26.6
[2020-09-27 14:06] LABS: Free T3 2.3 pg/mL (2.18-3.98); T4 Free Direct 1.27 ng/dL (0.76-1.46)
== END ==
PROVIDERS: PCP Internal Medicine; Referring Provider Internal Medicine; Visit Provider Internal Medicine
DX: E03.9 Hypothyroidism, unspecified (principal)
CPT/HCPCS: 36415; 84439; 84443; 84481

== ENCOUNTER → 2020-10-11 10:24 | Outpatient (CLI) | payer MEDICARE, SELFPAY ==
[2020-08-31 08:57] VITALS: BMI 26.6
[2020-10-11 09:26] VITALS: BMI 26.2
== END ==
PROVIDERS: PCP Internal Medicine; Referring Provider Nurse Practitioner Family; Visit Provider Nurse Practitioner Family
DX: I48.0 Paroxysmal atrial fibrillation (principal); R00.2 Palpitations
CPT/HCPCS: 93225; 93226

== ENCOUNTER → 2020-11-24 11:19 | Outpatient (CLI) | payer MEDICARE, SELFPAY ==
[2020-11-24 10:06] VITALS: BMI 26.3
[2020-11-24 11:21] LABS: Bacteria 0 SEEN /hpf (None Seen); Mucous, Urine 0 SEEN /hpf (<or=2+); Red Blood Cells-Urine 0 SEEN /hpf (0-5); White Blood Cells 0 SEEN /hpf (0-5)
[2020-11-24 12:09] LABS: Color, Urine Yellow (Yellow); Glucose, Dipstick Normal (Normal); Ketone-Dipstick Negative (Negative); Leukocyte Esterase-Dipstick Negative /ul (Negative); Nitrite-Dipstick Negative (Negative); Occult Blood-Urine 10 /ul (Negative); Protein-Dipstick Negative (Negative); Urine Bilirubin Dipstick Negative (Negative); Urine Clarity Clear (Clear); Urine Urobilinogen Normal (Normal)
[2020-11-24 12:15] LABS: Squamous Epithelial Cells - UA 0-5 SEEN /hpf (5-10)
== END ==
PROVIDERS: Physician Assistant; PCP Internal Medicine; Visit Provider Internal Medicine
DX: R30.0 Dysuria (principal)
CPT/HCPCS: 81001; 87086; 87088

== ENCOUNTER → 2020-12-31 12:11 | Outpatient (CLI) | payer MEDICARE, SELFPAY ==
[2020-12-22 11:10] VITALS: BMI 26.6
--- NOTE | 2020-12-31 12:13 | CDU_ITS ---
Rt. Velocities/BP Lt. Velocities/BP Prox CCA 89.5/8.6 cm/sec. Prox CCA 69.5/15.5 cm/sec. Mid CCA 69.9/13.8 cm/sec. Mid CCA 73.2/17.9 cm/sec. Dist CCA 76.4/15.1 cm/sec. Dist CCA 65.8/19.2 cm/sec. Prox ICA 69.9/19.0 cm/sec. Prox ICA 78.1/21.6 cm/sec. Mid ICA 84.5/17.8 cm/sec. Mid ICA 102.6/22.3 cm/sec. Dist ICA 97.3/22.3 cm/sec. Dist ICA 175.1/40.4 cm/sec. Rt. ICA/CCA = 97.3/69.9=1.4. Lt. ICA/CCA = 175.1/73.2=2.4. Prox ECA 77.7/0.0 cm/sec. Prox ECA 85.5/9.3 cm/sec. Rt. Vert. 52.4/13.2 cm/sec. Lt. Vert. 44.6/9.7 cm/sec. Right Extracranial There is intimal thickening but no significant atherosclerotic plaque noted in the right common carotid artery. There is heterogeneous, irregular atherosclerotic plaque noted in the right internal carotid artery. The tortuous nature of the right internal carotid artery may result in flow velocities overestimating the degree of stenosis. There is heterogeneous, irregular atherosclerotic plaque noted in the right external carotid artery. Antegrade flow is noted in the right vertebral artery. Left Extracranial There is intimal thickening but no significant atherosclerotic plaque noted in the left common carotid artery. There is heterogeneous, irregular atherosclerotic plaque noted in the left internal carotid artery. The tortuous nature of the left internal carotid artery may result in flow velocities overestimating the degree of stenosis. There is homogeneous, smooth atherosclerotic plaque noted in the left external carotid artery. Antegrade flow is noted in the left vertebral artery. There is heterogeneous, irregular atherosclerotic plaque noted in the left bulb. VL/Carotid Duplex Ultrasound Interpretation Summary Mild (<50%) stenosis right extracranial internal carotid. Moderate (50-69%) rashawn nosis left extracranial internal carotid. Flow within the vertebral arteries is antegrade bilaterally. Ordering Physician: Jarvis Yanez Referring Physician: Wendy Arguello Performed By: Janette Cerna RVT, RDCS and Student
== END ==
PROVIDERS: PCP Internal Medicine; Referring Provider Internal Medicine Cardiovascular Disease; Visit Provider Internal Medicine Cardiovascular Disease
DX: I65.23 Occlusion and stenosis of bilateral carotid arteries (principal)
CPT/HCPCS: 93880

== ENCOUNTER → 2021-02-23 14:19 | Outpatient (CLI) | payer MEDICARE, SELFPAY ==
[2021-02-23 14:20] LABS: Bacteria 0 SEEN /hpf (None Seen); Mucous, Urine 0 SEEN /hpf (<or=2+); Red Blood Cells-Urine 0 SEEN /hpf (0-5); Squamous Epithelial Cells - UA 0 SEEN /hpf (5-10); White Blood Cells 0 SEEN /hpf (0-5)
[2021-02-23 15:05] LABS: Color, Urine Yellow (Yellow); Glucose, Dipstick Normal (Normal); Ketone-Dipstick 5 mg/dl (Negative); Leukocyte Esterase-Dipstick 25 /ul (Negative); Nitrite-Dipstick Negative (Negative); Occult Blood-Urine 10 /ul (Negative); Protein-Dipstick 15 mg/dl (Negative); Specific Gravity, Urine 1.015 (1.002-1.030); Urine Bilirubin Dipstick Negative (Negative); Urine Clarity Clear (Clear); Urine Urobilinogen 1 mg/dl (Normal)
[2021-02-23 15:14] LABS: Calcium Oxalate Crystals Ur 1+ /hpf (<or=2+)
== END ==
PROVIDERS: PCP Internal Medicine; Referring Provider Nurse Practitioner Family; Visit Provider Nurse Practitioner Family
DX: R10.84 Generalized abdominal pain (principal); R30.0 Dysuria
CPT/HCPCS: 81001; 87086; 87088

== ENCOUNTER → 2021-03-22 09:27 | Outpatient (CLI) | payer MEDICARE, SELFPAY ==
[2021-03-22 11:06] LABS: Absolute Lymphocyte Count 1.78 X10^3/uL (0.83-4.51); Absolute Neutrophil Count 4.4 X10^3/uL (2.0-7.7); Basophil# 0.08 X10^3/uL; Basophil% 1.1 % (0-1); Eosinophil# 0.13 X10^3/uL; Eosinophils% 1.9 % (0-5); Hematocrit 37.3 % (37-47); Hemoglobin 11.8 g/dL (12.0-15.0); Lymphocyte # 1.78 X10^3/ul (0.83-4.51); Lymphocyte % 25.5 % (19-41); Mean Corp Hgb Conc 31.6 g/dL (32-36); Mean Corpuscular Volume 91.6 fL (81-99); Mean Platelet Vol. 10.2 fl (6.2-12.0); Monocyte# 0.55 X10^3/uL; Monocyte% 7.9 % (0-10); NRBC Flagged by Analyzer 0 % (0-5); Neutrophil # 4.43 X10^3/uL (2.7-7.7); Neutrophil % 63.3 % (47-70); Platelet Count 369 K/mm3 (150-450); RBC Distribution Width CV 14.4 % (11.6-14.6); RBC Distribution Width SD 48.9 fl (35.1-43.9); Red Blood Count 4.07 M/mm3 (4.2-5.4)
[2021-03-22 11:44] LABS: ALB/GLOB Ratio 0.9 RATIO (0.9-2.4); AST(SGOT) 13 U/L (15-37); Alanine Aminotransfer ALT/SGPT 14 U/L (13-56); Albumin, Serum 3.3 g/dL (3.2-5.0); Alkaline Phosphatase 68 U/L (45-117); Anion Gap 7 (5-15); BUN 27 mg/dL (7-18); BUN/Creat Ratio 33.5 RATIO (10-20); Calcium,Total 9.2 mg/dL (8.5-10.1); Chloride 104 mmol/L (98-107); Cholesterol 215 mg/dL (200); Creatinine, Serum 0.81 mg/dL (0.55-1.02); EST Glomerular Filtration Rate 72 mL/min (>60); Est Glom Filt Rate - Afr Amer 88 mL/min (>60); Free T3 2.3 pg/mL (2.18-3.98); Globulin 3.5 g/dL (2.2-4.2); Glucose 99 mg/dL (74-106); High Density Lipoprotein 81 mg/dL; Potassium 4.5 mmol/L (3.5-5.1); Protein, Total 6.8 g/dL (6.4-8.2); Sodium Level 140 mmol/L (136-145); Thyroid Stim Hormone (TSH) 2.08 uIU/mL (0.358-3.74); Triglycerides 97 mg/dL; Very Low Density Lipoprotein 19 mg/dL (5-40)
[2021-03-22 13:42] LABS: Vitamin D,25 Hydroxy 37.3 ng/mL
[2021-03-23 18:51] LABS: H.Pylori Breath Test Negative (Negative)
== END ==
PROVIDERS: PCP Internal Medicine; Visit Provider Internal Medicine
DX: E55.9 Vitamin D deficiency, unspecified (principal); R10.9 Unspecified abdominal pain; K21.9 Gastro-esophageal reflux disease without esophagitis; I48.0 Paroxysmal atrial fibrillation; E03.9 Hypothyroidism, unspecified; D64.9 Anemia, unspecified; I10 Essential (primary) hypertension; Z79.01 Long term (current) use of anticoagulants
CPT/HCPCS: 36415; 80053; 80061; 82306; 83013; 84439; 84443; 84481; 85025

== ENCOUNTER 2021-06-28 15:33 | Outpatient (CLI) | payer MEDICARE, SELFPAY | END 2021-06-28 23:59 | disposition short-term general hospital (02) | LOC: LABSPEC 15:35 | PROVIDERS: PCP Internal Medicine; Referring Provider Internal Medicine; Visit Provider Internal Medicine | DX: Z11.52 Encounter for screening for COVID-19 (principal) | CPT/HCPCS: 87635; U0003; U0005 ==

== ENCOUNTER 2021-08-30 14:08 | Outpatient (CLI) | payer MEDICARE, SELFPAY ==
--- NOTE | 2021-08-30 14:23 | CT_ITS ---
STUDY: CT BRAIN WITHOUT CONTRAST REASON FOR EXAM: Female, 80 years old. Fall with blunt head traumata, REINA, chronic anticoag RADIATION DOSAGE (If Supplied By Facility): CTDIvol = ( 44.99 ) mGy, DLP = ( 829.85 ) mGycm TECHNIQUE: Transaxial CT imaging of the brain was performed without administration of intravenous contrast material. Individualized dose optimization techniques were used for this CT. COMPARISON: Comparison is made with prior study dated 07/16/2018. FINDINGS: Normal soft tissue structures. Normal calvarium. There is mild cerebral atrophy with widening of the extra-axial spaces and ventricular dilatation. Normal white matter tracts of the cerebral hemispheres. Normal basal ganglia and thalami. Normal brainstem. Normal cerebellum. There is no intracranial hemorrhage. There are no findings of an acute ischemic infarction. Atherosclerotic calcification of the cavernous portions of the internal carotid arteries bilaterally. Normal visualized paranasal sinuses. CT/Brain/Head without Contrast IMPRESSION: Chronic involutional changes of the brain. Electronically Signed: Alexis Hickman MD at 14:47 EST ,
== END 2021-08-30 23:59 | disposition home or self-care (01) ==
LOC: CT 14:10
PROVIDERS: PCP Internal Medicine; Referring Provider Internal Medicine; Visit Provider Internal Medicine
DX: R51.9 Headache, unspecified (principal); S09.8XXA Other specified injuries of head, initial encounter; W19.XXXA Unspecified fall, initial encounter
CPT/HCPCS: 70450

== ENCOUNTER 2021-09-27 11:01 | Outpatient (CLI) | payer MEDICARE, SELFPAY ==
[2021-09-27 12:16] LABS: Absolute Lymphocyte Count 1.63 X10^3/uL (0.83-4.51); Absolute Neutrophil Count 3.3 X10^3/uL (2.0-7.7); Basophil# 0.09 X10^3/uL; Basophil% 1.6 % (0-1); Eosinophils% 1.8 % (0-5); Hematocrit 38.8 % (37-47); Hemoglobin 12.4 g/dL (12.0-15.0); Lymphocyte # 1.63 X10^3/ul (0.83-4.51); Mean Corpuscular Volume 90.9 fL (81-99); Mean Platelet Vol. 9.7 fl (6.2-12.0); Monocyte% 8.9 % (0-10); NRBC Flagged by Analyzer 0 % (0-5); Neutrophil % 58.5 % (47-70); Platelet Count 350 K/mm3 (150-450); RBC Distribution Width CV 13.3 % (11.6-14.6); RBC Distribution Width SD 44.7 fl (35.1-43.9); Red Blood Count 4.27 M/mm3 (4.2-5.4); White Blood Count 5.6 K/mm3 (4.4-11.0)
[2021-09-27 12:33] LABS: Vitamin B12 320 pg/mL (211-911); Vitamin D,25 Hydroxy 41.1 ng/mL
[2021-09-27 12:45] LABS: ALB/GLOB Ratio 1.1 RATIO (0.9-2.4); AST(SGOT) 11 U/L (15-37); Alanine Aminotransfer ALT/SGPT 14 U/L (13-56); Albumin, Serum 3.6 g/dL (3.2-5.0); Alkaline Phosphatase 81 U/L (45-117); Anion Gap 2 (5-15); BUN 17 mg/dL (7-18); BUN/Creat Ratio 22.4 RATIO (10-20); Calcium,Total 9.7 mg/dL (8.5-10.1); Chloride 107 mmol/L (98-107); Creatinine, Serum 0.76 mg/dL (0.55-1.02); EST Glomerular Filtration Rate 78 mL/min (>60); Est Glom Filt Rate - Afr Amer 94 mL/min (>60); Free T3 2.2 pg/mL (2.18-3.98); Globulin 3.4 g/dL (2.2-4.2); Glucose 99 mg/dL (74-106); Iron 101 ug/dL (50-170); Iron Binding Capacity,Total 330 ug/dL (250-450); PERCENT IRON SATURATION 30.6 % (15.0-55.0); Potassium 4.5 mmol/L (3.5-5.1); Sodium Level 136 mmol/L (136-145); Thyroid Stim Hormone (TSH) 1.33 uIU/mL (0.358-3.74)
== END 2021-09-27 23:59 | disposition home or self-care (01) ==
LOC: BIMLAB 11:02
PROVIDERS: PCP Internal Medicine; Referring Provider Internal Medicine; Visit Provider Internal Medicine
DX: E55.9 Vitamin D deficiency, unspecified (principal); R53.83 Other fatigue; E03.9 Hypothyroidism, unspecified; D64.9 Anemia, unspecified; E61.1 Iron deficiency
CPT/HCPCS: 36415; 80053; 82306; 82607; 83540; 83550; 83735; 84439; 84443; 84481; 85025

== ENCOUNTER → 2021-12-08 | Outpatient (CLI) | payer MEDICARE, SELFPAY ==
--- NOTE | 2021-12-08 16:15 | RAD_ITS ---
STUDY: X-RAY - CERVICAL SPINE REASON FOR EXAM: Female, 81 years old. PAIN TECHNIQUE: XR Spine Cervical 2 or 3 Views COMPARISON: None FINDINGS: Normal anterior atlantoaxial articulation. The odontoid process is obscured by the overlying hard palate on the open mouth view. Therefore, it is not fully evaluated by plain film. There is straightening of the normal cervical lordosis. There is multi-level endplate spondylosis. There is multi-level degenerative disc disease with multilevel disc space narrowing. There is multi-level osseous foraminal stenosis. The soft tissue structures are unremarkable. RAD/Cerv Spine 2 or 3 Views IMPRESSION: There are degenerative changes as noted above. The odontoid process is obscured by the overlying hard palate on the open mouth view. Therefore, it is not fully evaluated by plain film. Electronically Signed: Jose Monsivais MD at 17:49 EDT ,
== END | disposition home or self-care (01) ==
LOC: MTRAD 16:09
PROVIDERS: PCP Internal Medicine; Referring Provider Chiropractor Orthopedic; Visit Provider Chiropractor Orthopedic
DX: M54.12 Radiculopathy, cervical region (principal)
CPT/HCPCS: 72040

== ENCOUNTER → 2022-02-07 | Outpatient (CLI) | payer MEDICARE, SELFPAY ==
[2022-02-07 13:01] LABS: Hematocrit 42.1 % (37-47); Hemoglobin 13.3 g/dL (12.0-15.0); Mean Corp Hgb Conc 31.6 g/dL (32-36); Mean Corpuscular Volume 91.7 fL (81-99); Mean Platelet Vol. 9.7 fl (6.2-12.0); Platelet Count 387 K/mm3 (150-450); RBC Distribution Width CV 13.5 % (11.6-14.6); RBC Distribution Width SD 45.8 fl (35.1-43.9); Red Blood Count 4.59 M/mm3 (4.2-5.4); White Blood Count 7.9 K/mm3 (4.4-11.0)
[2022-02-07 13:56] LABS: Anion Gap 4 (5-15); BUN 14 mg/dL (7-18); BUN/Creat Ratio 16.6 RATIO (10-20); Chloride 105 mmol/L (98-107); Creatinine, Serum 0.84 mg/dL (0.55-1.02); EST Glomerular Filtration Rate 69 mL/min (>60); Est Glom Filt Rate - Afr Amer 83 mL/min (>60); Glucose 91 mg/dL (74-106); Magnesium 2.3 mg/dL (1.6-2.6); Potassium 4.2 mmol/L (3.5-5.1); Sodium Level 139 mmol/L (136-145); Thyroid Stim Hormone (TSH) 4.27 uIU/mL (0.358-3.74)
== END | disposition home or self-care (01) ==
LOC: LAB 12:37
PROVIDERS: PCP Internal Medicine; Referring Provider Internal Medicine Cardiovascular Disease; Visit Provider Internal Medicine Cardiovascular Disease
DX: R00.0 Tachycardia, unspecified (principal); I48.0 Paroxysmal atrial fibrillation; R53.83 Other fatigue
CPT/HCPCS: 36415; 80048; 83735; 84443; 85027

== ENCOUNTER → 2022-06-20 | Outpatient (CLI) | payer MEDICARE, SELFPAY | END | disposition home or self-care (01) | PROVIDERS: PCP Internal Medicine; Referring Provider Internal Medicine; Visit Provider Internal Medicine | DX: K25.9 Gastric ulcer, unspecified as acute or chronic, without hemorrhage or perforation (principal); D64.9 Anemia, unspecified | CPT/HCPCS: 82274 ==

== ENCOUNTER → 2022-07-03 | Outpatient (CLI) | payer MEDICARE, SELFPAY ==
--- NOTE | 2022-07-03 07:23 | CT_ITS ---
STUDY: CT ABDOMEN AND PELVIS WITH CONTRAST REASON FOR EXAM: Female, 81 years old. abdominal pain DIFFUSE ABD PAIN, HX: FILIBERTO,PARTIAL COLECTOMY D/T DIVER, MYRNA/BSO,HTN RADIATION DOSAGE (If Supplied By Facility): CTDIvol = ( 22.74 ) mGy, DLP = ( 867.48 ) mGycm TECHNIQUE: Transaxial images were obtained from the dome of the diaphragm to the symphysis pubis with oral contrast. IV 100mL Isovue-300 was administered. Sagittal and coronal images were reconstructed. Individualized dose optimization techniques were used for this CT. COMPARISON: CT of abdomen and pelvis dated February 10, 2020 FINDINGS: The visualized lung bases are unremarkable. The visualized portions of the heart are within normal limits. Normal liver. Small cyst at the anterior subcapsular region medial aspect of the right lobe of the liver noted which is of no clinical significance. There is non-visualization of the gallbladder, which may be secondary to either contraction or a prior cholecystectomy. Normal spleen. Normal pancreas. Normal bilateral adrenal glands. Redemonstration of multiple bilateral parapelvic cysts of the kidneys. A 4 mm calyceal stone is present in the lower pole of the left kidney. No hydronephrosis is present. Numerous tiny cysts are scattered throughout both kidneys. No demonstrated hydroureter. Normal visualized stomach. Normal small intestine. Normal colon. The colon is stool-filled. Prior surgical resection in the rectosigmoid region with suture material seen at the anastomosis. The appendix is visualized and appears normal. No visualized bowel dilatation or obstruction. No free air or free fluid is seen. There is diffuse atherosclerotic calcification of the abdominal aorta, without a demonstrated aneurysm. Normal inferior vena cava. Normal retroperitoneum. Normal urinary bladder. There is absence of the uterus consistent with a prior hysterectomy. Normal abdominal wall. There are diffuse degenerative changes of the visualized lumbar spine. CT/Abdomen/Pelvis WITH Contrast IMPRESSION: 1. 4 mm nonobstructing left kidney stone 2. The colon is stool-filled. Prior surgical resection in the rectosigmoid region with suture material seen at the anastomosis. 3. No visualized bowel dilatation or obstruction. No free air or free fluid is seen. Electronically Signed: Donny العلي MD at 8:47 EST ,
[2022-07-03 07:55] LABS: CREATININE FINGERSTICK < 0.9 mg/dL (0.55-1.02); EGFR FINGERSTICK > 60.0000 mL/min (>60)
== END | disposition home or self-care (01) ==
LOC: CT 07:22
PROVIDERS: PCP Internal Medicine; Visit Provider Physician Assistant
DX: N20.0 Calculus of kidney (principal); I70.0 Atherosclerosis of aorta; N28.1 Cyst of kidney, acquired; R10.9 Unspecified abdominal pain
CPT/HCPCS: 74177; Q9967

== ENCOUNTER 2022-07-04 08:13 | Day surgery (SDC) | payer MEDICARE, SELFPAY ==
[2022-07-04] VITALS (8 sets, daily range): BP systolic 118–137; BP diastolic 57–61; PULSE 47–57; RESP 15–16; TEMP 36.6–36.7; O2SAT 99–100; BMI 27.7
--- NOTE | 2022-07-04 08:30 | PCM.HP.BLA ---
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 Is patient in pain?: No Allergies metoprolol Adverse Reaction (Verified 06/27/22 13:29) Symptomatic Bradycardia Medications cholecalciferol (vitamin D3) 25 mcg (1,000 unit) capsule 25 mcg PO DAILY 03/04/20 [History Confirmed 06/27/22] losartan 25 mg tablet 25 mg PO DAILY #90 tabs 11/07/21 [Rx Confirmed 06/27/22] levothyroxine 75 mcg tablet (Euthyrox) 75 mcg PO DAILY 01/31/22 [History Confirmed 06/27/22] diltiazem HCl 120 mg capsule,24 hr,extended release 120 mg PO BID #180 caps 02/07/22 [Rx Confirmed 06/27/22] apixaban 5 mg tablet (Eliquis) See Rx Instructions .Route .COMPLEX #180 tabs 06/07/22 [Rx Confirmed 06/27/22] omeprazole 40 mg capsule,delayed release 40 mg PO BID PRN Reflux #60 caps 06/12/22 [Rx Confirmed 06/27/22] sucralfate 1 gram tablet (Carafate) 1 g PO QACHS #40 tabs 06/12/22 [Rx Confirmed 06/27/22] PFSH Medical History? Abdominal pain Anemia Atrial fibrillation with RVR Carotid artery disease Cholelithiasis with chronic cholecystitis Chronic anticoagulation Essential (primary) hypertension Fatigue Gastric ulcer GERD (gastroesophageal reflux disease) GERD (gastroesophageal reflux disease) History of Helicobacter pylori infection History of rheumatic fever Hydronephrosis Hypothyroidism Paroxysmal atrial fibrillation Poison segundo dermatitis Rapid heartbeat Sigmoid diverticulitis Ventral incisional hernia without obstruction or gangrene Surgical History? History of cardioversion (11/2017) History of cholecystectomy (~05/2019) History of hysterectomy History of partial colectomy (~05/2019) Hx of colonoscopy Hx of tonsillectomy Family History? Mother HypertensionFather Colon cancer Social History? Smoking Status:? Never smoker second hand exposure:? No alcohol intake:? current alcohol intake frequency: holidays/special occasions only substance use type:? does not use caffeine:? Yes what type of physical activity do you participate in:? none frequency:? does not exercise HPI HPI Surgical H&P: Yes HPI: Patient is an 81 y/o F I am seeing for change in bowel habits, abdominal pain and melanotic stools. Patient states approximately 1-2 months ago she noted darker stools. She described the stools as tarry in character. Patient had also noted around that time she had developed abdominal discomfort worse in the left lower quadrant. She described the discomfort as burning and cramping and could be felt all over her abdomen and into her back. She notes over the last week she has had very small amount of bright red blood per rectum with bowel movements. Patient notes her bowel movements have been regular up until 2 months ago when her current symptoms started. She is not noting a fluctuation between normal stools and constipation. Patient had a sigmoid colectomy and cholecystectomy [place] [address] Jett. Patient states she has not had a colonoscopy since the colectomy. Her most recent was in [address] Cota. Patient had an upper scope with Dr. Jett on 05/02/19 which demonstrated small hiatal hernia, chronic gastritis. Patient is currently on Eliquis for A fib. Patient has recently decreased her Eliquis to once a day instead of twice daily due to her recent melena. Patient follows with Dr. Yanez. Her last visit on 06/[address] Arguello there was discussion of a low heart rate. Patient notes her heart rate has been 50-60's range. She has noted increased fatigue, tiredness, and dizziness. She attributes these symptoms to stress she has encountered over the last year with her going through prostate cancer treatment. Per Dr. Arguello, patient may have an underlying degree of sick sinus syndrome. Patient is concerned her blood pressure medication may be the cause. Patient is concerned that her heart rate is this low. Patient is aware that stress may have been causing her symptoms as well, however would like to make sure this is not her heart. ROS General General: No weight change, appetite, fatigue, colon cancer, breast cancer or weakness HEENT HEENT: No difficulty swallowing, eye injury, eye surgery, swollen glands or hoarseness Endo Endocrine: No thyroid disease, diabetes mellitus, thyroid cancer, Hair loss, heat intolerance or cold intolerance Skin Skin: No rash or changing moles Breast Breast: No left breast lump, right breast lump, nipple discharge, breast pain, abnormal mammogram, abnormal US or breast enlargement Musc Musculoskeletal: Yes back problems and arthritis; No rheumatoid arthritis, gout or joint pain Cardio Cardiovascular: Yes murmur, atrial fibrillation and high blood pressure; No pacemaker, heart disease, heart attack, heart stent, palpitations, shortness of breat with exertion or chest pain Psych Psychiatric: Yes depression and anxiety; No hearing voices Resp Respiratory: No shortness of breath, No sleep apnea, No cough, No COPD, No asthma, No emphysema and No wheezing Gastro Gastrointestinal: Yes abdominal pain, No nausea or vomiting, No diarrhea, No constipation, Yes blood in stool, Yes acid reflux, No hemorrhoids, No ulcers, Yes gallbladder problem and Yes black,tarry stools Joseluis Hematologic: Yes blood thinners, No blood disorders, No bleeding, No anemia and No blood clots Neuro Neurologic: No system reviewed and no additional complaints, except as documented, No as per HPI, No abnormal gait, No abnormal hearing, No abnormal movements, No abnormal speech, No behavioral changes, No burning sensations, No confusion, No convulsions, No disequilibrium, No dizziness, No localized weakness, No frequent falls, No headache(s), No lack of coordination, No loss of vision, No memory loss, No numbness, No other visual disturbances, No radicular pain, No restless legs, No sensory deficit, No syncope, No tingling, No tremor(s), No weakness and No other Exam Const General: cooperative, healthy appearing, comfortable and no acute distress [facility] Head: normal to inspection Eyes General: appearance normal, both eyes and all related structures Neck Neck: normal visual inspection Neck mass: No Resp Effort & Inspection: normal respiratory effort Auscultation: clear to auscultation bilaterally Cardio Rate: bradycardic Heart Sounds: murmur GI Inspection: normal to inspection and scar Palpation: soft and tender in the LLQ Auscultation: hypoactive bowel sounds Skin General: no rashes or lesions noted Neuro General: no focal motor deficits Extrem General: normal to inspection Psych Appearance: grossly normal Affect: normal affect Assessment and Plan Assessment and Plan (1) Anemia: ?Status:?Acute ?Plan: Discussed patient with Dr. Jett. Recommend CBC and CMP and CT scan of the ab/pel due to acute anemia and abdominal pain. Dr. Jett will plan to perform an upper and lower scope with MAC. Procedure details, risks and benefits have been explained. Patient has had the opportunity to ask and have questions answered. Our office will attempt to schedule an appointment with cardiology to further evaluate her recent bradycardia with associated fatigue, lightheadedness and dizziness prior to proceeding with an EGD and colonoscopy. We will have her hold her Eliquis for 3 days prior to the procedure.? Orders: Orders Comprehensive Metabolic Profil 06/27/22 D64.9 - Anemia, unspecified ? Abdomen/Pelvis WITH Contrast 06/27/22 R10.9 - Unspecified abdominal pain ? CBC W/Diff, Automated 06/27/22 D64.9 - Anemia, unspecified ? Colonoscopy 07/04/22 ? ? EGD 07/04/22 ? ? Coding Level of Care Code Off vis,est,level 4 Rosalina SELF PA-C July 03, 2022 STUDY:? CT ABDOMEN AND PELVIS WITH CONTRAST REASON FOR EXAM: ? Female, 81 years old.? abdominal pain DIFFUSE ABD PAIN, HX: FILIBERTO,PARTIAL COLECTOMY D/T DIVER, MYRNA/BSO,HTN RADIATION DOSAGE (If Supplied By Facility):? CTDIvol = ( 22.74 ) mGy, DLP = ( 867.48 ) mGycm TECHNIQUE: ? Transaxial images were obtained from the dome of the diaphragm to the symphysis pubis with oral contrast. IV 100mL Isovue-300 was administered.? Sagittal and coronal images were reconstructed. Individualized dose optimization techniques were used for this CT. COMPARISON: ? CT of abdomen and pelvis dated February 10, 2020 FINDINGS: The visualized lung bases are unremarkable.? The visualized portions of the heart are within normal limits. Normal liver.? Small cyst at the anterior subcapsular region medial aspect of the right lobe of the liver noted which is of no clinical significance. There is non-visualization of the gallbladder, which may be secondary to either contraction or a prior cholecystectomy. Normal spleen.? Normal pancreas. Normal bilateral adrenal glands. Redemonstration of multiple bilateral parapelvic cysts of the kidneys.? A 4 mm calyceal stone is present in the lower pole of the left kidney.? No hydronephrosis is present.? Numerous tiny cysts are scattered throughout both kidneys.? No demonstrated hydroureter. Normal visualized stomach.? Normal small intestine.? Normal colon.? The colon is stool-filled.? Prior surgical resection in the rectosigmoid region with suture material seen at the anastomosis.? The appendix is visualized and appears normal.? No visualized bowel dilatation or obstruction.? No free air or free fluid is seen. There is diffuse atherosclerotic calcification of the abdominal aorta, without a demonstrated aneurysm.? Normal inferior vena cava.? Normal retroperitoneum. Normal urinary bladder.? There is absence of the uterus consistent with a prior hysterectomy. Normal abdominal wall.? There are diffuse degenerative changes of the visualized lumbar spine. CT/Abdomen/Pelvis WITH Contrast IMPRESSION: 1.? 4 mm nonobstructing left kidney stone 2.? The colon is stool-filled.? Prior surgical resection in the rectosigmoid region with suture material seen at the anastomosis. 3.? No visualized bowel dilatation or obstruction.? No free air or free fluid is seen. ? Electronically Signed: Donny العلي MD at 8:47 EST Reading Location ID and State: [facility] / [place] , Service support? , The above CT scan did not demonstrate acute findings that would correlate with the patient's presentation. Jm Jett M.D., F.A.C.S.
[2022-07-04] MEDS: Lactated Ringers 1,000 ML 15 ML IV (08:57)
--- NOTE | 2022-07-04 09:30 | EGD_PTH ---
PATIENT: YOSHI CAROLINA LOC: EN U#:[id number] AGE/SX: 81/F ROOM: RE07/04/[address]: Dr. Jm Jett MD : 1940 BED: DIS: 07/04/2022 SPEC #: [id number] RECD: 07/04/22 14:21 STATUS: AMANDA MANJINDER #: [id number] DEL: 07/04/22 09:[address]: Jm Jett DEPT: SURGICAL PATHOLOGY RECD BY: Asya Rosen ENTERED: 07/05/22 11:01 SP TYPE: EGD BIOPSY [facility] DR: Dr. Wendy Arguello MD Tissues: A - Gastric mucous membrane B - Esophagus, NOS C - Transverse colon D - Sigmoid colon biopsy E - Sigmoid colon biopsy F - Sigmoid colon biopsy Procedures: Surgery Specimen Level IV HEADER OPERATION: Colonoscopy, EGD ([facility] [place]), biopsy, polypectomy PRE-OP DIAGNOSIS: Anemia TISSUE SUBMITTED: A ? Antrum biopsy for histo and H. pylori, B ? Distal esophagus biopsy, C ? Mid transverse polyp, D ? Proximal sigmoid polyp #1 biopsy, E - Proximal sigmoid polyp #2 biopsy, F - Proximal sigmoid polyp #3 biopsy MICROSCOPIC DIAGNOSIS A. Gastric antrum, biopsy: Mild chronic gastritis. See comment. B. Distal esophagus, biopsy: Gastroesophageal junctional mucosa with chronic inflammation. 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 No evidence of dysplasia. See comment. C. Mid transverse colon polyp, biopsy: Fragments of tubular adenoma. D. Proximal sigmoid colon polyp #1, biopsy: Fragments of tubulovillous adenoma. E. Proximal sigmoid colon polyp #2, biopsy: Tubular adenoma. F. Proximal sigmoid colon polyp #3, biopsy: Fragments of benign colonic mucosa. See comment. AM:fernando 07/06/2022 COMMENT A. The results of immunohistochemistry for Helicobacter pylori will be reported separately ([id number]). B. Immunohistochemistry ([id number]) for P53 and Ki-67 will be performed and results will be reported separately. Alcian blue/PAS stain with matched control supports the above diagnosis. F. Neither hyperplastic nor adenomatous change is identified. Clinical correlation is suggested. MICROSCOPIC DESCRIPTION Slides are reviewed. GROSS DESCRIPTION A - Received in fixative is one container labeled with the patient's name and designated antrum biopsy. The specimen consists of one irregular fragment of light hunt soft tissue that measures 0.5 x 0.3 x 0.1 cm. The specimen is totally submitted in one cassette. B - Received in fixative is one container labeled with the patient's name and designated distal esophagus biopsy. The specimen consists of multiple irregular fragments of light hunt soft tissue that in aggregate measure 1.5 x 0.3 x 0.1 cm. The specimen is totally submitted in one cassette. C - Received in fixative is one container labeled with the patient's name and designated mid transverse polyp. The specimen consists of two irregular fragments of light hunt soft tissue that in aggregate measure 0.7 x 0.3 x 0.1 cm. The specimen is totally submitted in one cassette. D - Received in fixative is one container labeled with the patient's name and designated proximal sigmoid polyp #1. The specimen consists of three irregular fragments of light hunt soft tissue that in aggregate measure 1 x 0.3 x 0.1 cm. The specimen is totally submitted in one cassette. E - Received in fixative is one container labeled with the patient's name and designated proximal sigmoid polyp #2. The specimen consists of two irregular fragments of light hunt soft tissue that in aggregate measure 0.8 x 0.5 x 0.1 cm. The specimen is totally submitted in one cassette. F - Received in fixative is one container labeled with the patient's name and designated proximal sigmoid polyp #3. The specimen consists of multiple irregular fragments of light hunt soft tissue that in aggregate measure 0.8 x 0.3 x 0.1 cm. The specimen is totally submitted in one cassette. / AM:fernando 07/05/2022 TC:3 CPT: 86423 x6, 20544
--- NOTE | 2022-07-04 09:30 | IMM_PTH ---
PATIENT: YOSHI CAROLINA LOC: EN U#:[id number] AGE/SX: 81/F ROOM: RE07/04/[address]: Dr. Jm Jett MD : 1940 BED: DIS: 07/04/2022 SPEC #: [id number] RECD: 07/05/22 14:01 STATUS: AMANDA REThomas #: [id number] DEL: 07/04/22 09:[address]: Jm Jett DEPT: IMMUNOHISTOCHEMISTRY RECD BY: Paula Roth ENTERED: 07/05/22 14:02 SP TYPE: IMMUNO OTHR DR: Dr. Wendy Arguello MD Tissues: A - Stomach, NOS B - Esophagus, NOS Procedures: H Pylori (initial) P53 (initial) KI-67 (add) PHYSICIAN & INSTITUTION [place] [id number] SPECIMEN INFORMATION: Tissue Source: A ? Antrum biopsy, B ? Distal esophagus biopsy Clinical Info: Anemia Specimen Number: [id number] A & B CPT code: 62899 x2, 29241 METHODOLOGY: Deparaffinized sections of prefer/formalin-fixed tissue or PAP/DQ stained slides are incubated with monoclonal/polyclonal antibodies/oligonucleotide probes. Localization is made via biotin free immunoperoxidase method. Appropriate controls are performed and reacted as expected. Results on target cell population are indicated in the following table: RESULTS: ANTIBODY / CLONE RESULT Block A H Pylori (polyclonal) negative Block B P53 (DO-7) negative Ki-67 (30-9) positive, very low These tests were developed and their performance characteristics determined by [facility]. They may not have been cleared or approved by the U.S. Food and Drug Administration. The FDA has determined that such clearance or approval is not necessary. The above immunohistochemical/dualISH markers are ordered and reviewed by the Pathologist. INTERPRETATION: A. Antrum, biopsy: Negative for Helicobacter pylori organisms. B. Distal esophagus, biopsy: Negative for dysplasia. SJ:fernando 07/07/2022
--- NOTE | 2022-07-04 10:28 | OP.EGD_ITS ---
Patient Name: Liza Monroe Procedure Date: 07/04/2022 9:42 AM Date of : 1940 Age: 81 Procedure: Upper GI endoscopy Indications: Iron deficiency anemia secondary to chronic blood loss Providers: Jm Jett MD Medicines: See the Anesthesia note for documentation of the administered medications Complications: No immediate complications. Procedure: Pre-Anesthesia Assessment: - Prior to the procedure, a History and Physical was performed, and patient medications and allergies were reviewed. The patient's tolerance of previous anesthesia was also reviewed. The risks and benefits of the procedure and the sedation options and risks were discussed with the patient. All questions were answered, and informed consent was obtained. Prior Anticoagulants: The patient has taken no previous anticoagulant or antiplatelet agents. ASA Grade Assessment: III - A patient with severe systemic disease. After reviewing the risks and benefits, the patient was deemed in satisfactory condition to undergo the procedure. After obtaining informed consent, the endoscope was passed under direct vision. Throughout the procedure, the patient's blood pressure, pulse, and oxygen saturations were monitored continuously. The gastroscope was introduced through the mouth, and advanced to the second part of duodenum. The upper GI endoscopy was accomplished without difficulty. The patient tolerated the procedure well. Scope In: 9:52:49 AM Scope Out: 10:00:11 AM Total Procedure Duration Time 0 hours 7 minutes 22 seconds Findings: There were esophageal mucosal changes suspicious for Dawson's esophagus present in the lower third of the esophagus. The maximum longitudinal extent of these mucosal changes was 1 cm in length. Mucosa was biopsied with a cold forceps for histology in a targeted manner at the gastroesophageal junction. A small hiatal hernia was present. Diffuse mildly erythematous mucosa without bleeding was found in the gastric antrum. Biopsies were taken with a cold forceps for histology. The examined duodenum was normal. 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 Biopsied. - Small hiatal hernia. - Erythematous mucosa in the antrum. Biopsied. - Normal examined duodenum. Recommendation: - Discharge patient to home. - Resume previous diet. - Continue present medications. - Telephone my office for pathology results in 1 week. Procedure Code(s): --- Professional --- 80868, Esophagogastroduodenoscopy, flexible, transoral; with biopsy, single or multiple Diagnosis Code(s): --- Professional --- K22.8, Other specified diseases of esophagus K44.9, Diaphragmatic hernia without obstruction or gangrene K31.89, Other diseases of stomach and duodenum D50.0, Iron deficiency anemia secondary to blood loss (chronic) CPT copyright 2017 [employer]. All rights reserved. The codes documented in this report are preliminary and upon section supervisor review may be revised to meet current compliance requirements. Jm Jett MD 07/04/2022 10:28:11 AM This report has been signed electronically. Number of Addenda: 0 Note Initiated On: 07/04/2022 9:42 AM
--- NOTE | 2022-07-04 10:29 | OP.CCLET_ITS ---
07/04/2022 Wendy Arguello [facility] [address] [place] [address] Re : Upper GI endoscopy procedure for Liza Monroe Dear Dr. Arguello This procedure was performed on Monday, July 04, 2022. 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 Biopsied. - Small hiatal hernia. - Erythematous mucosa in the antrum. Biopsied. - Normal examined duodenum. Recommendations : - Discharge patient to home. - Resume previous diet. - Continue present medications. - Telephone my office for pathology results in 1 week. My findings are described in the full procedure note, which is enclosed. If I can be of further assistance, please feel free to contact me at Doctor phone number(s): Work: . Sincerely, Jm Jett MD 07/04/2022 10:28:11 AM This report has been signed electronically.
--- NOTE | 2022-07-04 10:36 | OP.COLON_ITS ---
Patient Name: Liza Monroe Procedure Date: 07/04/2022 10:00 AM Date of : 1940 Age: 81 Procedure: Colonoscopy Indications: Iron deficiency anemia secondary to chronic blood loss Providers: Jm Jett MD Medicines: See the Anesthesia note for documentation of the administered medications Patient Profile: Last Colonoscopy: date unknown. Complications: No immediate complications. Procedure: Pre-Anesthesia Assessment: - Prior to the procedure, a History and Physical was performed, and patient medications and allergies were reviewed. The patient's tolerance of previous anesthesia was also reviewed. The risks and benefits of the procedure and the sedation options and risks were discussed with the patient. All questions were answered, and informed consent was obtained. Prior Anticoagulants: The patient has taken no previous anticoagulant or antiplatelet agents. ASA Grade Assessment: III - A patient with severe systemic disease. After reviewing the risks and benefits, the patient was deemed in satisfactory condition to undergo the procedure. After I obtained informed consent, the scope was passed under direct vision. Throughout the procedure, the patient's blood pressure, pulse, and oxygen saturations were monitored continuously. The adult colonoscope was introduced through the anus and advanced to the cecum, identified by appendiceal orifice and ileocecal valve. The colonoscopy was performed without difficulty. The patient tolerated the procedure well. The quality of the bowel preparation was good. Scope In: 10:03:29 AM Scope Withdrawal Time 0 hours 16 minutes 50 seconds Scope Out: 10:21:51 AM Total Procedure Duration Time 0 hours 18 minutes 22 seconds Findings: Hemorrhoids were found on perianal exam. A 5 mm polyp was found in the mid transverse colon. The polyp was sessile. The polyp was removed with a hot snare. Resection and retrieval were complete. Three sessile polyps were found in the proximal sigmoid colon. The polyps were 3 to 5 mm in size. These polyps were removed with a cold biopsy forceps. Resection and retrieval were complete. Scattered diverticula were found in the sigmoid colon. There was evidence of a prior end-to-end colo-colonic anastomosis in the distal sigmoid colon. This was patent and was characterized by healthy appearing mucosa. Impression: - Hemorrhoids found on perianal exam. - One 5 mm polyp in the mid transverse colon, removed with a hot snare. Resected and retrieved. - Three 3 to 5 mm polyps in the proximal sigmoid colon, removed with a cold biopsy forceps. Resected and retrieved. - Diverticulosis in the sigmoid colon. Recommendation: - Discharge patient to home. - Resume previous diet. - Continue present medications. - Repeat colonoscopy in 5 years for surveillance based on pathology results. - Telephone my office for pathology results in 1 week. Patient was noted to have a 8 cm area of erythema blanching left buttock area with a central excoriation consistent with localized cellulitis. She would be given a gram of Rocephin IV and prescribed cephalexin 500 g orally 3 times a day for 5 days. The esophagogastroduodenoscopy and colonoscopy today do not demonstrate a source of ongoing bleeding. The patient states that her symptoms of melanotic stools had improved/resolved prior to this investigation. Procedure Code(s): --- Professional --- 42364, Colonoscopy, flexible; with removal of tumor(s), polyp(s), or other lesion(s) by snare technique 62674, 59, Colonoscopy, flexible; with biopsy, single or multiple Diagnosis Code(s): --- Professional --- K64.9, Unspecified hemorrhoids D12.3, Benign neoplasm of transverse colon (hepatic flexure or splenic flexure) D12.5, Benign neoplasm of sigmoid colon D50.0, Iron deficiency anemia secondary to blood loss (chronic) K57.30, Diverticulosis of large intestine without perforation or abscess without bleeding CPT copyright 2017 [employer]. All rights reserved. The codes documented in this report are preliminary and upon computer language coder review may be revised to meet current compliance requirements. Jm Jett MD 07/04/2022 10:35:47 AM This report has been signed electronically. Number of Addenda: 0 Note Initiated On: 07/04/2022 10:00 AM
--- NOTE | 2022-07-04 10:37 | OP.CCLET_ITS ---
07/04/2022 Wendy Arguello [facility] [address] [place] [address] Re : Colonoscopy procedure for Liza Monroe Dear Dr. Arguello This procedure was performed on Monday, July 04, 2022. My impressions and recommendations are as follows: Impressions : - Hemorrhoids found on perianal exam. - One 5 mm polyp in the mid transverse colon, removed with a hot snare. Resected and retrieved. - Three 3 to 5 mm polyps in the proximal sigmoid colon, removed with a cold biopsy forceps. Resected and retrieved. - Diverticulosis in the sigmoid colon. Recommendations : - Discharge patient to home. - Resume previous diet. - Continue present medications. - Repeat colonoscopy in 5 years for surveillance based on pathology results. - Telephone my office for pathology results in 1 week. Patient was noted to have a 8 cm area of erythema blanching left buttock area with a central excoriation consistent with localized cellulitis. She would be given a gram of Rocephin IV and prescribed cephalexin 500 g orally 3 times a day for 5 days. The esophagogastroduodenoscopy and colonoscopy today do not demonstrate a source of ongoing bleeding. The patient states that her symptoms of melanotic stools had improved/resolved prior to this investigation. My findings are described in the full procedure note, which is enclosed. If I can be of further assistance, please feel free to contact me at Doctor phone number(s): Work: . Sincerely, Jm Jett MD 07/04/2022 10:35:47 AM This report has been signed electronically.
[2022-07-04] MEDS: Ceftriaxone 1 GM/50 ML BAG IV (10:39)
--- NOTE | 2022-07-04 14:10 | SUR.PHASEII ---
SPOKE TO DR SANTOS OFFICE REGARDING WHEN PATIENT SHOULD RESUME ELIQUIS. BLOOD WORK WAS ORDERED 06/27/2022 THAT PATIENT HAS NOT COMPLETED YET. DR ROMERO STATES THAT PATIENT NEEDS TO GET BLOOD WORK DONE BEFORE A DETERMINATION CAN BE MADE OF WHEN TO RESTART ELIQUIS. PATIENT CALLED AND INSTRUCTED THAT SHE NEEDS TO GET THE BLOOD WORK DONE AND THEN THE DR CAN DECIDE WHEN TO RESTART THE ELIQUIS. PATIENT STATES SHE WILL GET HER BLOOD WORK DONE TOMORROW AM. AWARE THAT IF SHE DOES NOT HEAR FROM DR SANTOS OFFICE WITHIN 3 DAYS, SHE IS TO CALL HIS OFFICE FOR FURTHER INSTRUCTION. SHE IS TO STAY OFF ELIQUIS UNTIL FURTHER INSTRUCTED.
== END 2022-07-04 11:41 | disposition home or self-care (01) ==
LOC: EN 08:15 → AC 08:16
PROVIDERS: PCP Internal Medicine; Referring Provider Internal Medicine; Visit Provider Surgery
PROC: 0DJD8ZZ Inspection of Lower Intestinal Tract, Via Natural or Artificial Opening Endoscopic (ICD-10-PCS; CPT 45378; principal; 2022-07-04 09:25)
DX: D50.0 Iron deficiency anemia secondary to blood loss (chronic) (principal); I48.91 Unspecified atrial fibrillation; K44.9 Diaphragmatic hernia without obstruction or gangrene; K57.30 Diverticulosis of large intestine without perforation or abscess without bleeding; Z80.0 Family history of malignant neoplasm of digestive organs; Z90.49 Acquired absence of other specified parts of digestive tract; N20.0 Calculus of kidney; Z79.01 Long term (current) use of anticoagulants; K64.9 Unspecified hemorrhoids; K22.89 Other specified disease of esophagus; K31.89 Other diseases of stomach and duodenum
CPT/HCPCS: 43239; 45385; 45380; 88305; 88341; 88342; J7120; J2405

== ENCOUNTER → 2022-07-05 | Outpatient (CLI) | payer MEDICARE, SELFPAY ==
[2022-07-05 08:08] LABS: Absolute Lymphocyte Count 1.21 X10^3/uL (0.83-4.51); Absolute Neutrophil Count 3.8 X10^3/uL (2.0-7.7); Basophil# 0.07 X10^3/uL; Basophil% 1.2 % (0-1); Eosinophil# 0.18 X10^3/uL; Eosinophils% 3.1 % (0-5); Hematocrit 38.8 % (37-47); Lymphocyte # 1.21 X10^3/ul (0.83-4.51); Lymphocyte % 21.1 % (19-41); Mean Corp Hgb Conc 30.9 g/dL (32-36); Mean Corpuscular Hgb 28.6 pg (27.0-32.0); Mean Corpuscular Volume 92.4 fL (81-99); Mean Platelet Vol. 9.8 fl (6.2-12.0); Monocyte# 0.48 X10^3/uL; Monocyte% 8.4 % (0-10); NRBC Flagged by Analyzer 0 % (0-5); Neutrophil # 3.77 X10^3/uL (2.7-7.7); Neutrophil % 65.9 % (47-70); Platelet Count 342 K/mm3 (150-450); RBC Distribution Width CV 13.8 % (11.6-14.6); RBC Distribution Width SD 46.9 fl (35.1-43.9); White Blood Count 5.7 K/mm3 (4.4-11.0)
[2022-07-05 08:39] LABS: ALB/GLOB Ratio 0.9 RATIO (0.9-2.4); AST(SGOT) 6 U/L (15-37); Alanine Aminotransfer ALT/SGPT 16 U/L (13-56); Albumin, Serum 3.2 g/dL (3.2-5.0); Alkaline Phosphatase 72 U/L (45-117); Anion Gap 5 (5-15); BUN 22 mg/dL (7-18); BUN/Creat Ratio 28.3 RATIO (10-20); Calcium,Total 9.7 mg/dL (8.5-10.1); Chloride 109 mmol/L (98-107); Creatinine, Serum 0.78 mg/dL (0.55-1.02); EST Glomerular Filtration Rate 75 mL/min (>60); Est Glom Filt Rate - Afr Amer 91 mL/min (>60); Globulin 3.5 g/dL (2.2-4.2); Glucose 105 mg/dL (74-106); Potassium 4.1 mmol/L (3.5-5.1); Protein, Total 6.7 g/dL (6.4-8.2); Sodium Level 142 mmol/L (136-145)
== END | disposition home or self-care (01) ==
LOC: LAB 07:37
PROVIDERS: PCP Internal Medicine; Referring Provider Physician Assistant; Visit Provider Physician Assistant
DX: D64.9 Anemia, unspecified (principal)
CPT/HCPCS: 36415; 80053; 85025

== ENCOUNTER → 2022-08-31 | Outpatient (CLI) | payer MEDICARE, SELFPAY ==
[2022-08-31 10:33] LABS: Absolute Lymphocyte Count 1.47 X10^3/uL (0.83-4.51); Absolute Neutrophil Count 3.4 X10^3/uL (2.0-7.7); Basophil# 0.09 X10^3/uL; Basophil% 1.6 % (0-1); Eosinophil# 0.14 X10^3/uL; Eosinophils% 2.5 % (0-5); Hematocrit 39.5 % (37-47); Hemoglobin 12.2 g/dL (12.0-15.0); Lymphocyte # 1.47 X10^3/ul (0.83-4.51); Lymphocyte % 26.2 % (19-41); Mean Corp Hgb Conc 30.9 g/dL (32-36); Mean Corpuscular Hgb 28.3 pg (27.0-32.0); Mean Corpuscular Volume 91.6 fL (81-99); Mean Platelet Vol. 9.5 fl (6.2-12.0); Monocyte# 0.47 X10^3/uL; Monocyte% 8.4 % (0-10); NRBC Flagged by Analyzer 0 % (0-5); Neutrophil # 3.44 X10^3/uL (2.7-7.7); Neutrophil % 61.1 % (47-70); Platelet Count 379 K/mm3 (150-450); RBC Distribution Width SD 47.5 fl (35.1-43.9); Red Blood Count 4.31 M/mm3 (4.2-5.4); White Blood Count 5.6 K/mm3 (4.4-11.0)
[2022-08-31 11:34] LABS: AST(SGOT) 20 U/L (15-37); Alanine Aminotransfer ALT/SGPT 28 U/L (13-56); Albumin, Serum 3.6 g/dL (3.2-5.0); Alkaline Phosphatase 87 U/L (45-117); Anion Gap 5 (5-15); BUN 15 mg/dL (7-18); BUN/Creat Ratio 21.2 RATIO (10-20); Calcium,Total 9.6 mg/dL (8.5-10.1); Chloride 106 mmol/L (98-107); Cholesterol 219 mg/dL (200); Creatinine, Serum 0.71 mg/dL (0.55-1.02); EST Glomerular Filtration Rate 84 mL/min (>60); Est Glom Filt Rate - Afr Amer 102 mL/min (>60); Free T3 2.5 pg/mL (2.18-3.98); Globulin 3.7 g/dL (2.2-4.2); Glucose 108 mg/dL (74-106); High Density Lipoprotein 96 mg/dL; Protein, Total 7.3 g/dL (6.4-8.2); Sodium Level 139 mmol/L (136-145); T4 Free Direct 0.92 ng/dL (0.76-1.46); Thyroid Stim Hormone (TSH) 5.08 uIU/mL (0.358-3.74); Triglycerides 92 mg/dL; Very Low Density Lipoprotein 18 mg/dL (5-40)
== END | disposition home or self-care (01) ==
LOC: LAB 10:01
PROVIDERS: PCP Internal Medicine; Visit Provider Internal Medicine
DX: E03.9 Hypothyroidism, unspecified (principal); I48.0 Paroxysmal atrial fibrillation; K21.9 Gastro-esophageal reflux disease without esophagitis; D64.9 Anemia, unspecified; I10 Essential (primary) hypertension; Z13.220 Encounter for screening for lipoid disorders
CPT/HCPCS: 36415; 80053; 80061; 84439; 84443; 84481; 85025

== ENCOUNTER → 2022-09-06 | Outpatient (CLI) | payer MEDICARE, SELFPAY ==
--- NOTE | 2022-09-06 14:17 | STRESSREP_ITS ---
Stress Test Report Date: 09-06-2022 Procedure: Exercise tolerance test/imaging study Indications: Chest pain; paroxysmal atrial fibrillation; status post synchron ized biphasic DC cardioversion Consent: Per the patient Procedure: The patient exercised on a Kalpesh protocol for 5 minutes and 15 seconds completing Stage I and 2 minutes and 15 seconds of Stage II achieving a peak heart rate of 126 bpm (91% predicted maximal heart rate) with resting blood pressure of 158/70 mmHg and a peak blood pressure 194/70 mmHg and a peak MET capacity of 7 METs. The baseline ECG demonstrated sinus bradycardia; anterior NV of indeterminate age cannot be excluded. The peak exercise ECG demonstrated somatic/motion artifact with no obvious ECG changes. There were no cardiac dysrhythmias pretest, during exercise, or recovery. The functional capacity was considered good. There was no complaint of chest discomfort during exercise or recovery. The examination was discontinued secondary to dyspnea. Impression: 1. Technically adequate (percent predicted maximal heart rate greater than 85%) exercise tolerance test 2. Peak exercise ECG with somatic/motion artifact with no obvious ECG changes 3. There were no cardiac dysrhythmias pretest, during exercise, or recovery 4. Nuclear images pending Myocardial perfusion imaging study: Technique: The patient was injected with 11.7 mCi of technetium 99m Cardiolite and subsequently rest SPECT Cardiolite nuclear imaging was obtained in the horizontal long, vertical long, and short axis views. The patient exercised on a Kalpesh protocol for 5 minutes and 15 seconds completing Stage I and 2 minutes and 15 seconds of Stage II achieving a peak heart rate of 126 bpm (91% predicted maximal heart rate) with resting blood pressure of 158/70 mmHg and a peak blood pressure 194/70 mmHg and a peak MET capacity of 7 METs. The patient was injected with 34.2 mCi of technetium 99m Cardiolite and subsequently stress SP ECT Cardiolite nuclear imaging was obtained in the horizontal long, vertical long, and short axis views. A gated Cardiolite study at peak stress was obtained. Interpretation: Rest and stress SPECT Cardiolite nuclear imaging status post realignment, normalization, and attenuation correction, demonstrates the appearance of relative uniform tracer uptake and myocardial perfusion appearing within normal limits. There is end systolic thickening and brightening. The gated Cardiolite study demonstrates myocardial thickening and inward wall motion. The reported LVEF is 84%. Impression: 1. Rest and stress SPECT Cardiolite nuclear imaging demonstrate relative uniform tracer uptake and myocardial perfusion appearing within normal limits. 2. The gated Cardiolite study reports an LVEF of 84%. This note was generated with [employer] software. It may contain incorrect words, spelling, and punctuation that were not noted in checking the note before signing.
== END | disposition home or self-care (01) ==
PROVIDERS: PCP Internal Medicine; Referring Provider Physician Assistant Medical; Visit Provider Physician Assistant Medical
DX: R07.89 Other chest pain (principal)
CPT/HCPCS: 78452; 93017; A9500

== ENCOUNTER → 2022-11-23 | Outpatient (CLI) | payer MEDICARE, SELFPAY ==
[2022-11-23 15:30] LABS: Mucous, Urine 0 SEEN /hpf (<or=2+)
[2022-11-23 15:47] LABS: Absolute Lymphocyte Count 1.71 X10^3/uL (0.83-4.51); Absolute Neutrophil Count 3.7 X10^3/uL (2.0-7.7); Basophil# 0.08 X10^3/uL; Basophil% 1.3 % (0-1); Eosinophil# 0.15 X10^3/uL; Eosinophils% 2.4 % (0-5); Hematocrit 38.6 % (37-47); Hemoglobin 12.3 g/dL (12.0-15.0); Lymphocyte # 1.71 X10^3/ul (0.83-4.51); Lymphocyte % 27.4 % (19-41); Mean Corp Hgb Conc 31.9 g/dL (32-36); Mean Corpuscular Hgb 28.5 pg (27.0-32.0); Mean Corpuscular Volume 89.6 fL (81-99); Mean Platelet Vol. 9.2 fl (6.2-12.0); Monocyte# 0.57 X10^3/uL; Monocyte% 9.1 % (0-10); NRBC Flagged by Analyzer 0 % (0-5); Neutrophil # 3.73 X10^3/uL (2.7-7.7); Neutrophil % 59.6 % (47-70); Platelet Count 343 K/mm3 (150-450); RBC Distribution Width CV 13.6 % (11.6-14.6); RBC Distribution Width SD 44.7 fl (35.1-43.9); Red Blood Count 4.31 M/mm3 (4.2-5.4); White Blood Count 6.3 K/mm3 (4.4-11.0)
[2022-11-23 15:52] LABS: Color, Urine Yellow (Yellow); Glucose, Dipstick Normal (Normal); Ketone-Dipstick 5 mg/dl (Negative); Leukocyte Esterase-Dipstick 25 /ul (Negative); Nitrite-Dipstick Negative (Negative); Occult Blood-Urine 250 /ul (Negative); Protein-Dipstick Negative (Negative); Specific Gravity, Urine 1.025 (1.002-1.030); Urine Bilirubin Dipstick Negative (Negative); Urine Clarity Clear (Clear); Urine Urobilinogen Normal (Normal)
[2022-11-23 16:10] LABS: Red Blood Cells-Urine 50-100 SEEN /hpf (0-5); Squamous Epithelial Cells - UA 0-5 SEEN /hpf (5-10); White Blood Cells 0-5 SEEN /hpf (0-5)
[2022-11-23 16:10] LABS: Anion Gap 4 (5-15); BUN 19 mg/dL (7-18); BUN/Creat Ratio 24.4 RATIO (10-20); Calcium,Total 9.9 mg/dL (8.5-10.1); Chloride 107 mmol/L (98-107); Creatinine, Serum 0.78 mg/dL (0.55-1.02); EST Glomerular Filtration Rate 75 mL/min (>60); Est Glom Filt Rate - Afr Amer 91 mL/min (>60); Glucose 86 mg/dL (74-106); Potassium 4.3 mmol/L (3.5-5.1); Sodium Level 140 mmol/L (136-145)
[2022-11-23 16:11] LABS: Bacteria RARE /hpf (None Seen)
== END | disposition home or self-care (01) ==
LOC: LAB 15:23
PROVIDERS: PCP Internal Medicine; Referring Provider Internal Medicine; Visit Provider Internal Medicine
DX: R30.9 Painful micturition, unspecified (principal); R31.9 Hematuria, unspecified; R68.83 Chills (without fever)
CPT/HCPCS: 36415; 80048; 81001; 85025; 87086; 87088

== ENCOUNTER → 2022-12-04 | Outpatient (CLI) | payer MEDICARE, SELFPAY ==
[2022-12-04 15:11] LABS: Color, Urine Yellow (Yellow); Glucose, Dipstick Normal (Normal); Ketone-Dipstick Negative (Negative); Leukocyte Esterase-Dipstick 25 /ul (Negative); Nitrite-Dipstick Negative (Negative); Occult Blood-Urine 150 /ul (Negative); Protein-Dipstick 15 mg/dl (Negative); Specific Gravity, Urine 1.025 (1.002-1.030); Urine Bilirubin Dipstick Negative (Negative); Urine Clarity Clear (Clear); Urine Urobilinogen Normal (Normal)
[2022-12-04 15:24] LABS: Red Blood Cells-Urine 10-25 SEEN /hpf (0-5)
[2022-12-04 15:25] LABS: Bacteria 1+ /hpf (None Seen); Mucous, Urine 1+ /hpf (<or=2+); Squamous Epithelial Cells - UA 0-5 SEEN /hpf (5-10); White Blood Cells 0-5 SEEN /hpf (0-5)
== END | disposition home or self-care (01) ==
LOC: LAB 14:20
PROVIDERS: PCP Internal Medicine; Referring Provider Internal Medicine; Visit Provider Internal Medicine
DX: R31.9 Hematuria, unspecified (principal)
CPT/HCPCS: 81001

== ENCOUNTER → 2022-12-09 | Outpatient (CLI) | payer MEDICARE, SELFPAY ==
--- NOTE | 2022-12-09 11:17 | US_ITS ---
INDICATION: Hematuria EXAMINATION: Ultrasound US Kidney(s) complete (eg, kidneys and bladder) TECHNIQUE: Parada scale and color doppler images were obtained of the kidneys. COMPARISON: None. FINDINGS: RIGHT KIDNEY: 10.7 x 4.2 x 4.7 cm. There is no hydronephrosis. Multiple parapelvic cysts measure up to 2.0 x 1.4 x 1.4 cm. Technologist suggests 5 mm calculus of the right kidney but this is difficult to appreciate on the images submitted. LEFT KIDNEY: 11.7 x 4.3 x 5.4 cm. There is no hydronephrosis. No shadowing calculus, focal lesion or perinephric collection is demonstrated. URINARY BLADDER: No acute abnormality. US/Kidney and Bladder IMPRESSION: Multiple parapelvic cysts right kidney measuring up to 2.0 x 1.4 x 1.4 cm. If there is clinical concern regarding nephrolithiasis recommend CT abdomen and pelvis of the tract. Electronically Signed: Julio C Ogden MD, STEVE at 13:59 EDT ,
== END | disposition home or self-care (01) ==
LOC: US 11:16
PROVIDERS: PCP Internal Medicine; Referring Provider Internal Medicine; Visit Provider Internal Medicine
DX: R31.9 Hematuria, unspecified (principal)
CPT/HCPCS: 76770

== ENCOUNTER → 2023-02-06 | Outpatient (CLI) | payer MEDICARE, SELFPAY ==
[2023-02-06 16:18] LABS: Mucous, Urine 0 SEEN /hpf (<or=2+)
[2023-02-06 16:39] LABS: Glucose, Dipstick Normal (Normal); Ketone-Dipstick Negative (Negative); Leukocyte Esterase-Dipstick 100 /ul (Negative); Nitrite-Dipstick Positive (Negative); Occult Blood-Urine 150 /ul (Negative); Protein-Dipstick 15 mg/dl (Negative); Specific Gravity, Urine 1.015 (1.002-1.030); Urine Clarity Clear (Clear); Urine Urobilinogen 12 mg/dl (Normal)
[2023-02-06 17:04] LABS: Color, Urine SEE COMMENT BELOW (Yellow); Urine Bilirubin Dipstick 6 mg/dL (Negative)
[2023-02-06 17:13] LABS: Bacteria RARE /hpf (None Seen); Red Blood Cells-Urine 0-5 SEEN /hpf (0-5); Squamous Epithelial Cells - UA 0-5 SEEN /hpf (5-10); White Blood Cells 0-5 SEEN /hpf (0-5)
== END | disposition home or self-care (01) ==
LOC: LAB 15:58
PROVIDERS: PCP Internal Medicine; Referring Provider Physician Assistant; Visit Provider Physician Assistant
DX: R30.0 Dysuria (principal)
CPT/HCPCS: 81001; 87086; 87088

== ENCOUNTER → 2023-05-23 | Outpatient (CLI) | payer MEDICARE, SELFPAY ==
[2023-05-23 10:44] LABS: Absolute Lymphocyte Count 1.69 X10^3/uL (0.83-4.51); Absolute Neutrophil Count 3.9 X10^3/uL (2.0-7.7); Basophil# 0.09 X10^3/uL; Basophil% 1.4 % (0-1); Eosinophil# 0.13 X10^3/uL; Hematocrit 38.7 % (37-47); Hemoglobin 12.1 g/dL (12.0-15.0); Lymphocyte # 1.69 X10^3/ul (0.83-4.51); Lymphocyte % 26.4 % (19-41); Mean Corp Hgb Conc 31.3 g/dL (32-36); Mean Corpuscular Hgb 28.9 pg (27.0-32.0); Mean Corpuscular Volume 92.4 fL (81-99); Mean Platelet Vol. 9.7 fl (6.2-12.0); Monocyte# 0.54 X10^3/uL; Monocyte% 8.4 % (0-10); NRBC Flagged by Analyzer 0 % (0-5); Neutrophil # 3.93 X10^3/uL (2.7-7.7); Neutrophil % 61.5 % (47-70); Platelet Count 383 K/mm3 (150-450); RBC Distribution Width CV 14.1 % (11.6-14.6); RBC Distribution Width SD 47.8 fl (35.1-43.9); Red Blood Count 4.19 M/mm3 (4.2-5.4); White Blood Count 6.4 K/mm3 (4.4-11.0)
[2023-05-23 11:02] LABS: Vitamin B12 670 pg/mL (211-911); Vitamin D,25 Hydroxy 26.5 ng/mL
[2023-05-23 11:13] LABS: AST(SGOT) 10 U/L (15-37); Alanine Aminotransfer ALT/SGPT 16 U/L (13-56); Albumin, Serum 3.6 g/dL (3.2-5.0); Alkaline Phosphatase 71 U/L (45-117); Anion Gap 6 (5-15); BUN 18 mg/dL (7-18); BUN/Creat Ratio 23.5 RATIO (10-20); Calcium,Total 9.2 mg/dL (8.5-10.1); Chloride 106 mmol/L (98-107); Creatinine, Serum 0.77 mg/dL (0.55-1.02); EST Glomerular Filtration Rate 76 mL/min (>60); Est Glom Filt Rate - Afr Amer 93 mL/min (>60); Free T3 2.5 pg/mL (2.18-3.98); Globulin 3.6 g/dL (2.2-4.2); Glucose 98 mg/dL (74-106); Potassium 4.3 mmol/L (3.5-5.1); Protein, Total 7.2 g/dL (6.4-8.2); Sodium Level 139 mmol/L (136-145); T4 Free Direct 1.16 ng/dL (0.76-1.46); Thyroid Stim Hormone (TSH) 2.74 uIU/mL (0.358-3.74)
== END | disposition home or self-care (01) ==
LOC: LAB 09:53
PROVIDERS: PCP Internal Medicine; Visit Provider Internal Medicine
DX: I10 Essential (primary) hypertension (principal); I48.0 Paroxysmal atrial fibrillation; J06.9 Acute upper respiratory infection, unspecified; D64.9 Anemia, unspecified; E03.9 Hypothyroidism, unspecified; E55.9 Vitamin D deficiency, unspecified
CPT/HCPCS: 36415; 80053; 82306; 82607; 84439; 84443; 84481; 85025

== ENCOUNTER → 2023-12-12 | Outpatient (CLI) | payer MEDICARE, SELFPAY ==
--- NOTE | 2023-12-12 12:52 | ECHOD_ITS ---
Reason For Study: Murmur Procedure This was a 2D Doppler, Color Flow transthoracic echocardiogram. Exam performed in department. Left Ventricle Normal LV size. Left ventricular systolic function is normal. The left ventricular ejection fraction is 65 %. Valsalva LV gradient 16 mmHg. Stage 1 diastolic dysfunction. No regional wall motion abnormalities noted. Right Ventricle Normal RV size. Normal systolic function. Atria Normal left atrium. Normal right atrium. Mitral Valve Normal mitral valve. Tricuspid Valve Normal tricuspid valve. Aortic Valve Normal aortic valve. Pulmonic Valve Normal pulmonic valve. Great Vessels Normal aortic root. The pulmonary artery is normal size. Normal inferior vena cava. Pericardium/Pleural No pericardial effusion. MMode/2D Measurements & Calculations LVIDd: 4.7 cm IVSd: 1.1 cm Ao root diam: 3.1 cm LVIDs: 2.7 cm LVPWd: 1.3 cm RVDd: 2.8 cm FS: 43.6 % LAV(MOD-bp): 41.4 ml LVAd ap4: 20.7 cm2 SV(MOD-sp4): 42.5 ml LAV(MOD-bp) Indexed: 22.2 ml/m2 LVLd ap4: 6.5 cm LAV(MOD-sp2): 29.6 ml EDV(MOD-sp4): 56.0 ml LAV(MOD-sp4): 52.8 ml EDV(sp4-el): 55.9 ml LVAs ap4: 9.0 cm2 LVLs ap4: 5.3 cm ESV(MOD-sp4): 13.5 ml ESV(sp4-el): 13.0 ml EF(MOD-sp4): 75.9 % EF(sp4-el): 76.7 % SV(sp4-el): 42.9 ml LA A4 area: 18.8 cm2 LA dimension(2D): 4.6 cm RA A4 area: 11.4 cm2 Time Measurements MV dec time: 0.20 sec Doppler Measurements & Calculations MV E max kenrick: 84.5 cm/sec Lat Peak E' Kenrick: 4.2 cm/sec Med Peak E' Kenrick: 3.9 cm/sec MV A max kenrick: 96.0 cm/sec E/E' lat: 20.3 E/E' med: 21.5 MV E/A: 0.88 Ao V2 max: 191.5 cm/sec LV V1 max: 159.0 cm/sec MV dec slope: 426.9 cm/sec2 Ao max P.7 mmHg LV V1 max P.1 mmHg Ao V2 mean: 132.2 cm/sec Ao mean P.8 mmHg Ao V2 VTI: 42.7 cm PA V2 max: 90.9 cm/sec ECHO/Echo Complete Interpretation Summary Normal LV size. Left ventricular systolic function is normal. The left ventricular ejection fraction is 65 %. Stage 1 diastolic dysfunction. Ordering Physician: Yadira Goldstein Referring Physician: Wendy Arguello Performed By: Terra Batista RVT, RDCS and Student
== END | disposition home or self-care (01) ==
LOC: CVS 12:48
PROVIDERS: PCP Internal Medicine; Referring Provider Physician Assistant Medical; Visit Provider Physician Assistant Medical
DX: R01.1 Cardiac murmur, unspecified (principal)
CPT/HCPCS: 93306

== ENCOUNTER → 2024-04-08 | Outpatient (CLI) | payer MEDICARE, SELFPAY ==
--- NOTE | 2024-04-08 09:36 | CDU_ITS ---
Reason For Study: CAROTID BRUIT Rt. Velocities/BP Lt. Velocities/BP Prox CCA 108.1/9.5 cm/sec. Prox CCA 116.2/21.7 cm/sec. Mid CCA 94.1/13.0 cm/sec. Mid CCA 101.5/18.0 cm/sec. Dist CCA 87.9/10.6 cm/sec. Dist CCA 94.9/16.3 cm/sec. Prox ICA 69.5/15.5 cm/sec. Prox ICA 101.1/24.9 cm/sec. Mid ICA 113.8/27.9 cm/sec. Mid ICA 94.9/18.8 cm/sec. Dist ICA 203.9/45.0 cm/sec. Dist ICA 104.7/20.6 cm/sec. Rt. ICA/CCA = 203.9/94.1=2.2. Lt. ICA/CCA = 104.7/101.5=1.0. Prox ECA 139.4/11.5 cm/sec. Prox ECA 119.5/11.4 cm/sec. Rt. Vert. 109.0/45.3 cm/sec. Lt. Vert. 46.2/11.2 cm/sec. Right Extracranial There is homogeneous, smooth atherosclerotic plaque noted in the right common carotid artery. There is heterogeneous, irregular atherosclerotic plaque noted in the right internal carotid artery. There is heterogeneous, irregular atherosclerotic plaque noted in the right external carotid artery. Antegrade flow is noted in the right vertebral artery. Left Extracranial There is heterogeneous, smooth atherosclerotic plaque noted in the left common carotid artery. There is heterogeneous, irregular atherosclerotic plaque noted in the left internal carotid artery. There is heterogeneous, irregular atherosclerotic plaque noted in the left external carotid artery. Antegrade flow is noted in the left vertebral artery. Procedure Carotid Duplex 77507. This is a Carotid Duplex examination using B-mode, color flow and specral Doppler. The study was technically difficult. Bilateral high bifurcation. Exam performed in department. VL/Carotid Duplex Ultrasound Interpretation Summary Moderate (50-69%) stenosis right extracranial internal carotid. Mild (<50%) stenosis left extracranial internal carotid. Patent and antegrade vertebrals bilaterally. Ordering Physician: Yadira Goldstein Referring Physician: Wendy Arguello Performed By: Janette Cerna RDCS, RVT
== END | disposition home or self-care (01) ==
PROVIDERS: PCP Internal Medicine; Referring Provider Physician Assistant Medical; Visit Provider Physician Assistant Medical
DX: I10 Essential (primary) hypertension (principal); I48.0 Paroxysmal atrial fibrillation; I65.23 Occlusion and stenosis of bilateral carotid arteries; R09.89 Other specified symptoms and signs involving the circulatory and respiratory systems
CPT/HCPCS: 93225; 93226; 93880

== ENCOUNTER → 2024-04-24 | Outpatient (CLI) | payer MEDICARE, SELFPAY ==
[2024-04-24 08:46] LABS: Absolute Lymphocyte Count 1.64 X10^3/uL (0.83-4.51); Absolute Neutrophil Count 3.2 X10^3/uL (2.0-7.7); Basophil# 0.07 X10^3/uL; Basophil% 1.3 % (0-1); Eosinophil# 0.14 X10^3/uL; Eosinophils% 2.6 % (0-5); Hematocrit 36.6 % (37-47); Hemoglobin 11.5 g/dL (12.0-15.0); Lymphocyte # 1.64 X10^3/ul (0.83-4.51); Lymphocyte % 29.9 % (19-41); Mean Corp Hgb Conc 31.4 g/dL (32-36); Mean Corpuscular Hgb 29.2 pg (27.0-32.0); Mean Corpuscular Volume 92.9 fL (81-99); Mean Platelet Vol. 9.6 fl (6.2-12.0); Monocyte# 0.44 X10^3/uL; NRBC Flagged by Analyzer 0 % (0-5); Neutrophil # 3.17 X10^3/uL (2.7-7.7); Neutrophil % 57.8 % (47-70); Platelet Count 328 K/mm3 (150-450); RBC Distribution Width CV 13.2 % (11.6-14.6); RBC Distribution Width SD 45.5 fl (35.1-43.9); Red Blood Count 3.94 M/mm3 (4.2-5.4); White Blood Count 5.5 K/mm3 (4.4-11.0)
[2024-04-24 09:30] LABS: Vitamin B12 509 pg/mL (211-911); Vitamin D,25 Hydroxy 20.7 ng/mL
[2024-04-24 09:43] LABS: AST(SGOT) 11 U/L (15-37); Alanine Aminotransfer ALT/SGPT 12 U/L (13-56); Albumin, Serum 3.4 g/dL (3.2-5.0); Alkaline Phosphatase 70 U/L (45-117); Anion Gap 6 (5-15); BUN 24 mg/dL (7-18); BUN/Creat Ratio 29.9 RATIO (10-20); Calcium,Total 9.7 mg/dL (8.5-10.1); Chloride 107 mmol/L (98-107); Cholesterol 223 mg/dL (200); EST Glomerular Filtration Rate 72 mL/min (>60); Est Glom Filt Rate - Afr Amer 87 mL/min (>60); Free T3 2.3 pg/mL (2.18-3.98); Globulin 3.4 g/dL (2.2-4.2); Glucose 109 mg/dL (74-106); High Density Lipoprotein 90 mg/dL; Magnesium 2.2 mg/dL (1.6-2.6); Potassium 4.1 mmol/L (3.5-5.1); Protein, Total 6.8 g/dL (6.4-8.2); Sodium Level 139 mmol/L (136-145); T4 Free Direct 0.97 ng/dL (0.76-1.46); Triglycerides 95 mg/dL; Very Low Density Lipoprotein 19 mg/dL (5-40)
== END | disposition home or self-care (01) ==
LOC: LAB 08:11
PROVIDERS: PCP Internal Medicine; Referring Provider Physician Assistant Medical; Visit Provider Physician Assistant Medical
DX: K21.9 Gastro-esophageal reflux disease without esophagitis (principal); I48.0 Paroxysmal atrial fibrillation; E03.9 Hypothyroidism, unspecified; Z79.01 Long term (current) use of anticoagulants; I10 Essential (primary) hypertension; Z13.220 Encounter for screening for lipoid disorders; E53.8 Deficiency of other specified B group vitamins; E55.9 Vitamin D deficiency, unspecified
CPT/HCPCS: 80053; 80061; 82306; 82607; 83735; 84439; 84443; 84481; 85025

== ENCOUNTER → 2024-05-14 | Outpatient (CLI) | payer MEDICARE, SELFPAY ==
--- NOTE | 2024-05-14 08:19 | CT_ITS ---
CT LEFT LOWER EXTREMITY WITH 3-D IMAGING CLINICAL INDICATION: Left knee templating. TECHNIQUE: Axial CT images of the left lower extremity (including left hip, left knee, and left ankle) was performed without IV contrast material. Coronal and sagittal reformats were provided. The protocol utilizes one or more of the following dose reduction techniques: automated exposure control, adjustment of mA and/or kV according to patient size, and/or use of iterative reconstruction technique. RADIATION DOSAGE (If Supplied By Facility): CTDIvol = ( 18.76 ) mGy, DLP = ( 1144.37 ) mGycm COMPARISON: No relevant prior comparison study available. FINDINGS: Bones: There is degenerative arthrosis of the left hip joint with joint space narrowing and tiny marginal osteophyte formation. There is mild pubic symphysis arthrosis. There is moderate to severe degenerative arthrosis of the medial and lateral femorotibial compartments of the left knee with joint space narrowing and marginal osteophyte formation. There is mild degenerative arthrosis of the patellofemoral compartment of the left knee. There are small plantar and posterior calcaneal tuberosity spurs. Osseous structures are intact without evidence of fracture or dislocation. No lytic or blastic osseous masses. Soft Tissues: There is a small left knee joint effusion. The deep soft tissue structures are unremarkable. There is mild subcutaneous soft tissue edema along the anterior aspect of the left knee. The superficial soft tissues are otherwise unremarkable without evidence of hematoma or foreign body. 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 Small left knee joint effusion. Electronically Signed: Avel Burden MD at 8:13 EST ,
== END | disposition home or self-care (01) ==
LOC: CT 07:54
PROVIDERS: PCP Internal Medicine; Referring Provider Orthopaedic Surgery; Visit Provider Orthopaedic Surgery
DX: Z01.818 Encounter for other preprocedural examination (principal); M17.12 Unilateral primary osteoarthritis, left knee
CPT/HCPCS: 36415; 73700; 82985; 83036; 83735; 85610; 85730; 86850; 86900; 86901; 87081

== ENCOUNTER 2024-05-19 14:00 | Outpatient (RCR) | payer MEDICARE, SELFPAY | END 2024-05-19 19:00 | disposition home or self-care (01) | LOC: PT 14:00 | PROVIDERS: PCP Internal Medicine; Referring Provider Orthopaedic Surgery; Visit Provider Orthopaedic Surgery | DX: M54.32 Sciatica, left side (principal); M17.12 Unilateral primary osteoarthritis, left knee | CPT/HCPCS: 97110; 97140; 97162; 97530 ==

== ENCOUNTER 2024-05-27 14:18 | Observation (INO) | payer MEDICARE, SELFPAY ==
[2024-05-14 08:58] LABS: International Normalized Ratio 1.4; Prothrombin Time (Protime)PT. 16.8 SECONDS (11.7-14.9)
[2024-05-14 09:50] LABS: Magnesium 2.4 mg/dL (1.6-2.6)
[2024-05-14 10:50] LABS: Hemoglobin A1c 5.9 % (3.8-5.6)
[2024-05-15 05:08] LABS: Fructosamine 220 umol/L (0-285)
[2024-05-27] VITALS (18 sets, daily range): BP systolic 108–173; BP diastolic 65–130; PULSE 53–79; RESP 14–18; TEMP 36.2–37.1; O2SAT 41–99; BMI 30.9
[2024-05-27 10:18] LABS: Bedside Glucose 116 mg/dL (74-106)
[2024-05-27] MEDS: Lactated Ringers 1,000 ML 15 ML IV (10:21)
[2024-05-27] MEDS: Scopolamine 1mg/72hr Patch 1 PATCH TD (10:22)
[2024-05-27] MEDS: Celecoxib 200 MG Capsule 400 MG PO (10:22)
[2024-05-27] MEDS: Magnesium 1 GM over 15 mins IV (10:22)
[2024-05-27] MEDS: Acetaminophen 500 MG Tablet 1000 MG PO ×2 (10:23→22:33)
[2024-05-27] MEDS: Gabapentin 600 MG Tablet PO (10:23)
[2024-05-27 10:42] LABS: Prothrombin Time (Protime)PT. 12.8 SECONDS (11.7-14.9)
--- NOTE | 2024-05-27 10:47 | PCM.PRE.AN2 ---
ASA Classification* ASA Classification ASA Classification: 3 Assessment & Plan Anesthesia* Anesthesia Assessment Anesthesia Assessment: Discussed sedation and/or anesthesia options, risks, benefits, and alternatives with patient/parents/legal guardian/POA. Questions invited. The patient/parents/legal guardian/POA seems to understand and agrees to proceed with anesthesia plan. Reviewed the physical assessment, medical history, allergy history and patient home medications list prior to surgery/procedure/anesthetic and documented any changes. Performed airway and anesthesia risk assessments. Anesthesia Type Anesthesia Type: Spinal and Block (Patient is consented for adductor canal block.) History Source History Obtained from:: Patient and Chart Anesthesia Focused Assessment* Temperature: 98.7 F Pulse Rate: 58 Blood Pressure: 108/65 Respiratory Rate: 18 Pulse Ox: 99 Oxygen Delivery Method: Room Air Airway Assessment Mouth opens: >3 cm Mallampati Score: IV Teeth Condition: Missing (Patient is missing several molars.) and Upper (Patient has right upper implant. It is tight.) Neck Range of motion (ROM): Limited ROM (Slight decrease in extension) Focused Labs Anesthesia Preop lab: CBC WBC 5.5 K/mm3 (4.4-11.0) 04/24/24 08:20 RBC 3.94 M/mm3 (4.2-5.4) L 04/24/24 08:20 Hgb 11.5 g/dL (12.0-15.0) L 04/24/24 08:20 Hct 36.6 % (37-47) L 04/24/24 08:20 Plt Count 328 K/mm3 (150-450) 04/24/24 08:20 CHEMISTRY Potassium 4.1 mmol/L (3.5-5.1) 04/24/24 08:20 Sodium 139 mmol/L (136-145) 04/24/24 08:20 Magnesium 2.4 mg/dL (1.6-2.6) 05/14/24 08:10 BUN 24 mg/dL (7-18) H 04/24/24 08:20 Creatinine 0.80 mg/dL (0.55-1.02) 04/24/24 08:20 Glucose 109 mg/dL (74-106) H 04/24/24 08:20 POC Glucose 116 mg/dL (74-106) H 05/27/24 09:56 TSH 3.910 uIU/mL (0.358-3.740) H 04/24/24 08:20 COAG PT 12.8 SECONDS (11.7-14.9) 05/27/24 10:20 Pre-Assessment Diagnosis/Proposed Procedure Planned Operative Procedure(s): LEFT TOTAL KNEE ARTHROPLASTY Anesthesia History 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 When Was Last Pacemaker Check QUESTION #4 FULL TEXT: You/Your Family Experience fever (hyperthermia) with Anesthesia Last Oral Intake Last Oral intake: Last Oral Intake NPO since 07:45 05/27/24 10:08 Meds taken in AM with sips of Yes 05/27/24 10:08 water? 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 Female Yes 05/13/24 09:28 HX of Motion Sickness No 05/13/24 09:28 HX of N/V After Surgery No 05/13/24 09:28 Non-Smoker Yes 05/13/24 09:28 Duration of Surgery greater Yes 05/13/24 09:28 than 60 minutes Number of Risk Factors 3 05/13/24 09:28 PONV Score Moderate Risk 05/13/24 09:28 Height & Weight Height & Weight: Anesthesia: Height & Weight Height 5 ft 6 in 05/27/24 10:08 Weight: 87 kg 05/27/24 10:08 Body Mass Index (BMI) 30.9 05/27/24 10:08 Respiratory Assessment Respiratory Assessment - squaring machine operator: Respiratory Tract Infection Hx - squaring machine operator Hx Respiratory Tract Infection No 05/13/24 09:28 STOP Sleep Apnea STOP Sleep Apnea - squaring machine operator: STOP Sleep Apnea - squaring machine operator Hx Hypertension Yes: CONTROLLED WITH MEDS 05/13/24 09:28 Hx Sleep Apnea No 05/13/24 09:28 CPAP No 05/22/23 10:16 BIPAP No 05/22/23 10:16 Do you snore loudly (louder No 05/13/24 09:28 than talking or can be heard Do you often feel tired/ No 05/13/24 09:28 fatigued/ sleepy during daytime? Has anyone observed you stop No 05/13/24 09:28 breathing during sleep? STOP Results Negative 05/13/24 09:28 QUESTION #5 FULL TEXT : Do you snore loudly (louder than talking or can be heard through closed doors)? 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 Specify any problems Hx of Preganancy in last 3 No 05/13/24 09:28 Months Nurse Filling Out Transfusion DSCHRIBER 05/13/24 09:28 & Questions: Date: 05/13/24 05/13/24 09:28 Time: 09:31 05/13/24 09:28 Patient unable to answer at this time (ie. 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: /Reproductive Hx- squaring machine operator Hx Now No 05/13/24 09:28 Gestational Age (in weeks): EDC: Hx Hx Para Hx Section SAB No 05/13/24 09:28 Active Medications Active Medications: Current Medications Generic Name Dose Route Start Last Admin Trade Name Freq PRN Reason Stop Dose Admin Acetaminophen 1,000 mg 05/27/24 11:40 05/27/24 10:23 Acetaminophen 500 Mg Tablet PO 05/27/24 11:41 1,000 mg X1 ONE Administration Celecoxib 400 mg 05/27/24 11:40 05/27/24 10:22 Celecoxib 200 Mg Capsule PO 05/27/24 11:41 400 mg X1 ONE Administration Dexamethasone Sodium Phosphate 10 mg 05/27/24 11:40 Dexamethasone 10 Mg/Ml Vial IV 05/27/24 11:41 X1 ONE Gabapentin 600 mg 05/27/24 11:40 05/27/24 10:23 Gabapentin 600 Mg Tablet PO 05/27/24 11:41 600 mg X1 ONE Administration Tranexamic Acid 1,000 mg/ 110 mls @ 660 mls/hr 05/27/24 11:40 Sodium Chloride IV 05/27/24 11:49 X1 ONE Tranexamic Acid 1,000 mg/ 110 mls @ 660 mls/hr 05/27/24 11:40 Sodium Chloride IV 05/27/24 11:49 X1 ONE Lactated Ringer's 1,000 mls @ 125 mls/hr 05/27/24 11:40 IV 05/27/24 19:39 .Q8H ANTHONY Cefazolin Sodium 2 gm/ N/A 20 mls @ 400 mls/hr 05/27/24 11:40 IV 05/27/24 11:42 PREOP ONE Magnesium Sulfate 1 gm/ 102 mls @ 408 mls/hr 05/27/24 11:40 05/27/24 10:22 Dextrose IV 05/27/24 11:54 408 mls/hr X1 ONE Administration Lactated Ringer's 1,000 mls @ 15 mls/hr 05/27/24 09:30 05/27/24 10:21 IV 06/01/24 22:49 15 mls/hr .Q48H ANTHONY Administration Protocol Insulin Human Lispro 1 - 6 unit 05/27/24 11:40 Insulin Lispro 100 Unit/Ml Insuln.Pen SC 05/27/24 18:00 Q4H PRN PRN BG>/= 180, SEE PROTOCOL Protocol Scopolamine HBr 1 patch 05/27/24 11:40 05/27/24 10:22 Scopolamine 1mg/72hr Patch TD 05/27/24 11:41 1 mg X1 ONE Administration PFSH Medical History Alcohol use Back pain History of diverticulitis Shortness of breath on exertion History of pain when walking History of Holter monitoring History of stress test Osteoarthritis Preop exam for internal medicine Right foot sprain Right ankle sprain Contact with and (suspected) exposure to other viral communicable diseases Left chest pressure Cough Wears contact lenses Post-menopausal Anxiety Thyroid disease Arthritis Gastric reflux Non-smoker History of echocardiogram Cardiology follow-up encounter History of atrial fibrillation Poison segundo dermatitis GERD (gastroesophageal reflux disease) Carotid artery disease Chronic anticoagulation Hydronephrosis History of Helicobacter pylori infection Cholelithiasis with chronic cholecystitis Ventral incisional hernia without obstruction or gangrene Abdominal pain Sigmoid diverticulitis History of rheumatic fever Gastric ulcer GERD (gastroesophageal reflux disease) Hypothyroidism Anemia Essential (primary) hypertension Fatigue Rapid heartbeat Atrial fibrillation with RVR Paroxysmal atrial fibrillation Home Medications ?Medication ?Instructions ?Recorded ?Last Taken ?Type apixaban 5 mg tablet (Eliquis) 5 mg PO BID #180 tabs 07/02/23 05/23/24 Rx diltiazem HCl 120 mg capsule,24 120 mg PO BID #180 caps 12/24/23 05/27/24 07:45 Rx hr,extended release hydrochlorothiazide 25 mg tablet 25 mg PO DAILY #90 tabs 03/26/24 05/27/24 07:45 Rx levothyroxine 88 mcg tablet 88 mcg PO DAILY #90 tabs 04/24/24 05/27/24 07:45 Rx ascorbic acid (vitamin C) 1,000 mg 1 g PO DAILY 05/13/24 Unknown History tablet (C-1000) losartan 100 mg tablet 100 mg PO QHS BP 05/13/24 05/26/24 19:00 History Allergy/AdvReac Type Severity Reaction Status Date / Time metoprolol AdvReac Symptomatic Verified 05/27/24 10:05 Bradycardia Family History Mother Hypertension Father Colon cancer Surgical History History of esophagogastroduodenoscopy (EGD) History of cardiac catheterization History of cholecystectomy (~05/2019) History of partial colectomy (~05/2019) Hx of tonsillectomy Hx of colonoscopy History of cardioversion (11/2017) History of hysterectomy Social History Smoking Status: Never smoker second hand exposure: No alcohol intake: current alcohol intake frequency: holidays/special occasions only substance use type: does not use caffeine: Yes what type of physical activity do you participate in: none frequency: does not exercise Review of Systems (Anesthesia) ROS Narrative System reviewed and no additional complaints, except as documented.
--- NOTE | 2024-05-27 10:55 | PCM.HP.BLA ---
History and Physical Date of Admission: 05/27/24 [facility] [address] [place] [address] OFFICE VISIT Date of Service: 04/16/24 MR#: [id number] Acct: [id number] Name: YOSHI CAROLINA Rep #: [id number] : 1940 Provider: Dr. Samson Aguilar DO Age/Sex: 83/F Location: [facility] [place].[facility] Status: Signed Intake Vital Signs 03/26/2410:31 04/16/2409:27 Height 5 ft 6 in 5 ft 6 in Weight: 195 lb BMI 31.4 Intake Visit Reasons: LEFT KNEE Allergies metoprolol Adverse Reaction (Verified 03/26/24 10:28) Symptomatic Bradycardia Have you fallen in the past year?: No PFSH Medical History Right foot sprain Right ankle sprain Contact with and (suspected) exposure to other viral communicable diseases Left chest pressure Cough Wears contact lenses Post-menopausal Anxiety Thyroid disease Arthritis History of diverticulitis Gastric reflux Non-smoker History of echocardiogram Cardiology follow-up encounter History of atrial fibrillation Poison segundo dermatitis GERD (gastroesophageal reflux disease) Carotid artery disease Chronic anticoagulation Hydronephrosis History of Helicobacter pylori infection Cholelithiasis with chronic cholecystitis Ventral incisional hernia without obstruction or gangrene Abdominal pain Sigmoid diverticulitis History of rheumatic fever Gastric ulcer GERD (gastroesophageal reflux disease) Hypothyroidism Anemia Essential (primary) hypertension Fatigue Rapid heartbeat Atrial fibrillation with RVR Paroxysmal atrial fibrillation Surgical History History of cardiac catheterization History of cholecystectomy (~05/2019) History of partial colectomy (~05/2019) Hx of tonsillectomy Hx of colonoscopy History of cardioversion (11/2017) History of hysterectomy Family History Mother HypertensionFather Colon cancer Social History Smoking Status: Never smoker second hand exposure: No alcohol intake: current alcohol intake frequency: holidays/special occasions only substance use type: does not use caffeine: Yes what type of physical activity do you participate in: none frequency: does not exercise HPI LEFT KNEE Details: This documentation accurately reflects the service provided and the decisions made by me, Dr. Samson Aguilar, DO 04/16/24 0808. Part of today?s visit was documented by María DERAS, acting as scribe. YOSHI CAROLINA is a 83 year old F medical comorbidities including but not limited to carotid artery disease, atrial for fibrillation chronic anticoagulation, hydronephrosis , gastric ulcer , history of cardioversion hypothyroidism , diverticulitis here today NEW patient for left knee pain. She states that she has been seeing Dr. Cameron for the knee and has had a couple of injections with him but didn't get much relief with those. Her last injection was in 2015. She is here today for a second opinion and to possibly talk about surgery. She did have a meniscus repair done by Dr. Renee about 20 years ago. She states that she has pain over her medial and lateral knee that radiates up and down her leg. The pain radiates up into her thigh and down into her calf. She does have some sciatica of the left leg that she has had for 10+ years that extends down to her foot. She has done PT in the past for her back which did help. She feels that the knee is weak and when she is standing the knee tends to give out. She does have numbness and tingling. She occasionally take Tylenol for the pain. She did bring xrays on a disc from [facility] that were done on 04/15. Ortho Exam General General: Yes no acute distress Neurologic: Yes alert and Yes oriented x3 Psychologic: Yes reasonable and appropriate Right Knee Patella Translation: 1 Left Knee Skin/Wound: No ecchymosis, No erythema and No swelling Homans Sign: No Knee ROM: Yes ROM-Extension -20 to 0 and Yes ROM-Flexion 0-140 (100) Examination: Yes med jt line tenderness, Yes Lat jt line tenderness and Yes Crepitus Stability: NML: Anterior Drawer, NML: Posterior Drawer, NML: Valgus 0 and NML: Valgus 30 and 1+: Varus 0 (Due to lateral joint space narrowing) and 1+: Varus 30 Patella Translation: 1 Patella Grind: Yes KNEE: no effusion,soft tissue swelling patellagring with crepitation and pain 2mm lateral gapping varus stress mild edema Head: Normocephalic Atraumatic Chest: symmetrical rise, non-labored breathing, no audible wheeze Abdomen: no guarding, non-rigid Supplemental Info 02/20/2024 x-ray on disc from [facility] left knee: Advanced lateral compartment arthritis with valgus deformity moderate patellofemoral arthrosis Coding Level of Care Code Off vis,new,level 3 Diagnoses Essential (primary) hypertension I10 Hydronephrosis, unspecified hydronephrosis type N13.30 Hydronephrosis type: unspecified Sigmoid diverticulitis K57.32 Bilateral carotid artery stenosis I65.23 Carotid artery disease type: stenosis Laterality: bilateral Paroxysmal atrial fibrillation I48.0 Left knee DJD M17.12 Assessment and Plan Assessment and Plan (1) Essential (primary) hypertension: Status: Chronic (2) Hydronephrosis: Status: Resolved Qualifiers: Hydronephrosis type: unspecified Qualified Code(s): N13.30 - Unspecified hydronephrosis (3) Sigmoid diverticulitis: Status: Chronic (4) Carotid artery disease: Status: Chronic Qualifiers: Carotid artery disease type: stenosis Laterality: bilateral Qualified Code(s): I65.23 - Occlusion and stenosis of bilateral carotid arteries (5) Paroxysmal atrial fibrillation: Status: Chronic Comment: DCCV on 12/20/2017 in [facility] ER; (6) Left knee DJD: Status: Acute Plan Educated patient on anatomy and etiology of the left knee. Reviewed with patient and spoke with her that she does have advanced arthritis in the knee more over the lateral compartment which is causing her to have a valgus deformity. I did advised patient that she can take the Tylenol arthritis 1000mg 4 times a day since she is on Eliquis and unable to take NSAIDs. Spoke with patient that her treatment options are do nothing, steroid injections, knee brace, viscosupplementation injections, formal physical therapy, topical anti-inflammatory such as Voltaren, glucosamine chondroitin, or a TKA. Advised patient that with the knee replacement I can correct her deformity but only to a certain degree. Informed patient that the turning out of her foot isn't caused from her knee it would be the hip. Risks, benefits and alternatives of surgery reviewed including but not limited to bleeding, infection, nerve, artery and/or tissue damage, fracture, VTE, mechanical feel of the knee, continued pain, stiffness and expected post-operative course. 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 Spoke with patient that for the first year she will need an antibiotic for the first year. She does states her dentist has her take amoxicillin before her dental appointment as she has a history of rheumatic fever. Spoke with patient that for rehab after surgery she has a few options being outpatient rehab or inpatient rehab. Tentative surgery date 05/27/2024 admission secondary to advanced age anticoagulation atrial fibrillation coronary artery disease hydronephrosis. She does have a couple steps to get into her home. She would like to do some pre-hab as well for range of motion and sciatica she would like to proceed with IOVERA procedure if he insurance covers it. We will also need a medical and cardiac clearance, will need to stop her Eliquis 3 days prior. She will need CT scan as we discussed robotic technology. Clinical Quality Measures Falls Risk Screening/Assistive Devices Have you fallen in the past year?: No 04/16/24 1007 <Electronically signed by Samson Aguilar DO> Date Samson Aguilar DO I have examined the patient and the H&P has been reviewed. There are no clinical changes since date of exam.
[2024-05-27] MEDS: Lactated Ringers 1,000 ML 125 ML IV ×2 (11:40→17:56)
--- NOTE | 2024-05-27 11:40 | KNEE_PTH ---
PATIENT: YOSHI CAROLINA LOC: MS3 U#:[id number] AGE/SX: 83/F ROOM: [facility] [place]05/27/[address]: Dr. Samson Aguilar DO : 1940 BED: 1 DIS: 05/29/2024 SPEC #: [id number] RECD: 05/27/24 17:57 STATUS: AMANDA DUNBAR #: [id number] DEL: 05/27/24 11:[address]: Samson Aguilar DEPT: SURGICAL PATHOLOGY RECD BY: Trenton Anaya ENTERED: 05/28/24 09:24 SP TYPE: TOTAL KNEE OTHR DR: Dr. Wendy Arguello MD Tissues: Knee, NOS Procedures: Decalcification bone/plaque Surgery Specimen Level IV HEADER OPERATION: Left total knee replacement robotic arm assist PRE-OP DIAGNOSIS: Left knee degenerative joint disease TISSUE SUBMITTED: Bone and soft tissue left knee MICROSCOPIC DIAGNOSIS Bone and tissue of left knee, total knee resection: Severe degenerative joint disease. Synovial with mild hyperplasia and associated polarizable crystals consistent with pseudogout. AM: 05/30/2024 MICROSCOPIC DESCRIPTION Slides are reviewed. GROSS DESCRIPTION Received is one container designated bone and soft tissue left knee. The specimen consists of multiple fragments of hunt-yellow bone measuring in aggregate 15.0 x 11.0 x 1.5 cm. Also in the specimen container are multiple fragments of yellow-white soft tissue measuring in aggregate 2.0 x 1.0 x 0.5 cm. A number of bony fragments contain articular surfaces consistent with tibial plateau and femoral condyle and displaying prominent osteophyte formation, eburnation and bone erosion. Project Geophysicist sections are submitted in two cassettes as follows: 1 - soft tissue, 2 - bone after decalcification. / AM. 05/28/2024 TC:5 CPT: 82208, 99466
[2024-05-27] MEDS: TXA 1000mg in NS100 100ml (IVPB at Incision) 660 MG IV (11:49)
[2024-05-27] MEDS: Cefazolin 2 GM in Syringe IV ×2 (12:00→17:57)
[2024-05-27] MEDS: dexAMETHasone 10 MG/ML Vial IV (12:06)
[2024-05-27] MEDS: TXA 1000mg in NS100 100ml (IVPB at Closure) 660 MG IV (12:23)
[2024-05-27] MEDS: 0.9% Normal Saline (Pres. free 10 ML Vial (13:25)
[2024-05-27] MEDS: dexAMETHasone 4 MG/ML Vial (13:25)
[2024-05-27] MEDS: Epinephrine (1 mg/ml) 1 MG/ML VIAL (13:25)
[2024-05-27] MEDS: Bupivacaine 0.5% PF 10 ML VIAL (13:25)
--- NOTE | 2024-05-27 14:22 | PCM.OPRPT ---
Operative Report (Standard) Operative Information Surgery/Procedure Performed: Left total knee arthroplasty Surgeon: Samson Aguilar Date of Procedure: 05/27/24 Procedure Start Time: 12:10 Procedure Stop Time: 14:20 Pre-Operative Diagnosis: Left knee DJD Post-Operative Diagnosis: Same Select all DRAINS/GRAFTS/IMPLANTS that apply: None Type of Anesthesia: Spinal Estimated Blood Loss: 175 Specimen collected: Yes Description of specimen(s) removed: Bone Description of surgery: Preoperative diagnosis: Left knee DJD Postoperative diagnosis: Same Procedure: Left total knee arthroplasty CT guided Robotic Assisted Implant: Raj triathlon cemented, femoral component size 4, tibial baseplate size 4, asymmetric patella size 35, polyethylene X3 size 11 CS Anesthesia: Spinal with adductor canal block Tourniquet time: 12+12 minutes at 300 mmHg Complications: None Condition: Stable to PACU Estimated blood loss: 175 cc Cell Attendant Helper George Frey. My physician assistant family teacher was a vital part of this case. He was important in appropriate retraction during the case, and protection of soft tissues during procedure. His intimate knowledge of the case and my steps aided in safe and expedient completion of the procedure as well as appropriate position of the extremity during the case. He was also vital in assisting with closure under my direct supervision. 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 Risk benefits and alternatives were reviewed including; risk of bleeding, infection, nerve artery and tissue damage, continued pain, postoperative stiffness, venous thromboembolism, need for postoperative rehabilitation, mechanical feel to the knee, and expected postoperative course. The pre- operative CT and templating was performed with component sizing. Procedure: The patient was met in the preoperative holding area. The operative extremity was identified by both patient and physician and was marked. Patient was met by anesthesia. An adductor canal block was placed by anesthesia postoperatively the patient was brought back to the operating room on a wheeled cart and transferred to the operating table in the supine position. Anesthesia was started. A well-padded tourniquet was placed on the operative extremity. The patient was prepped and draped in the usual sterile fashion. A timeout was called to ensure the proper patient procedure and extremity were being contemplated. An esmarch was used to exsanguinate the extremity. The tourniquet was inflated. A 10 blade scalpel was used to make a midline incision down through the skin and subcutaneous tissue. Skin retractors placed. Bovie and Aquamantis were used to perform meticulous hemostasis. full-thickness flaps were elevated medial and lateral along the joint capsule. A deep blade scalpel was used to perform a medial parapatellar arthrotomy. The knee was brought to full extension. A bovie was used to release the soft tissues off the most proximal aspect of the medial tibial plateau, a three-quarter inch curved osteotome was also used in this process. The infrapatellar fat pad was excised. The suprapatellar fat pad was excised partially anteriorolateraly and portion the anterioromedial pad was elevated from the femur. At this point our intra-articular femoral array was placed at a 45 degree angle proximal and posterior to the medial epicondyle. femoral checkpoint was placed at this time. Our tibial array was placed partially intra incisional 1 stab incision was made for the inferior pin with a 15 blade scaple, and pins were placed and attached to the tibial array , tibial checkpoint was placed in the proximal tibial metaphysis. Tourniquet was let down. At this point registration horta were taken throughout the knee . Once the knee was registered we then tensioned the medial and lateral ligaments in extension and 90 degrees of flexion. We then used these numbers to adjust our components within parameters to balance the knee in both flexion and extension once this was done on our monitor we then proceeded with using the robotic arm to make our tibial plateau cut, anterior and posterior chamfer and distal femur cuts. we removed the cut fragments with the use of a bovie and Germán, we did use a lamina training and quality manager to insure we visualized and removed all posterior osteophytes and at this time also used the Aquamantis on the posterior joint capsule. we then trialed and achieved the desired plan with a well-balanced knee. we used the green probe to nenita the corresponding tibial rotation based on our CT template. Lug holes were drilled in the femur the tibia preparation was completed with the appropriate sized base plate pinned based on previous rotation nenita. An appropriate sized fin punch was used on the tibia and 4 corner drill was used for the press fit component and the patella was prepared by first using a caliper to ensure sufficient bone stock and a patellar reamer to remove the desired amount of bone. lug holes drilled for an asymmetric poly. We then brought the knee through range of motion with excellent patellar tracking. We thoroughly irrigated the knee. Trial components were removed a posterior capsular injection was preformed with our standard cocktail. In addition the aqua Mantis was also used to aid in hemostasis. Betadine rinse was allowed to sit and washed out completely. Components were cemented in a standard fashion excess cement was removed with curettes. Aricept rinse was then used followed by several more liters of irrigation after it was allowed to sit. The joint capsule was closed with #1 Ethibond [id number] in the upper part of the arthrotomy and #1 Vicryl in the lower part of the arthrotomy. , Followed by 2-0 Vicryl in the subcutaneous tissues with lydia in the skin. Arrays and checkpoints were removed prior to closure all counts were correct stab incisions were closed with a staple standard dressing in the form of Mepilex AG for the main incision and a small Mepilex over the pin holes. Thigh-high GAVIN hose applied over top of dressing. Patient tolerated the procedure well and was directed to PACU in stable condition . There were no intraoperative complications. Surgical Findings: Advanced knee DJD valgus deformity Leather Currier world geography teacher: Yes [employer] Wireless Manager: George Frey Tasks completed by pharmaceutical assistant: Opening & closing Complications Complications: No
--- NOTE | 2024-05-27 14:27 | PCM.POST.ANE ---
Anesthesia: Postop Eval I Current Vital Signs Temperature: 98.2 F Pulse Rate: 53 Blood Pressure: 122/75 Respiratory Rate: 18 Pulse Ox: 93 Assessment Airway patent: Yes Spontaneous unlabored respirations: Yes nausea: No Vomiting: No Anesthesia Complication: No Fluid Hydration Crystalloid volume administer (ml): 1,000 Total IV fluid infused: 1,000 Progress Note Anesthesia document: Postop Eval 1 completed: Yes
--- NOTE | 2024-05-27 14:35 | RAD_ITS ---
EXAM: XR LEFT KNEE, 1 OR 2 VIEWS CLINICAL INDICATION: post op -- AP and Lateral xray of operative knee in PACU TECHNIQUE: Frontal and/or lateral views of the left knee. COMPARISON: No relevant prior studies available. FINDINGS: BONES/JOINTS: Total knee prosthesis in place in satisfactory position. SOFT TISSUES: Soft tissue gas and anterior skin lydia in place. No radiopaque foreign body. RAD/Knee 1 or 2 Views IMPRESSION: Satisfactory postop changes. Electronically Signed: Jamison Pineda MD at 15:34 EST ,
--- NOTE | 2024-05-27 15:13 | SUR.PHASEI ---
Addendum entered by Jennifer Dye 05/27/24 15:20: UNABLE TO OBTAIN BP AT 1440* Original Note: UNABLE TO OBTAIN BP D/T PATIENT THRASHING IN BED.
--- NOTE | 2024-05-27 17:23 | POSTOPAN2_ITS ---
Anesthesia Postop Eval I Sum Postop Eval Completion status Anesthesia document: Postop Eval 1 completed: Yes Anesthesia Postop Eval I Summary Anesthesia Postop Eval I Summary: Anesthesia Postop Eval I: Assessment Summary Airway patent Yes 05/27/24 14:27 IN STORE REPRESENTATIVE.CSIR Spontaneous unlabored Yes 05/27/24 14:27 IN STORE REPRESENTATIVE.CSIR respirations Mental status nausea No 05/27/24 14:27 IN STORE REPRESENTATIVE.CSIR Vomiting No 05/27/24 14:27 IN STORE REPRESENTATIVE.CSIR Anesthesia Postop Eval I: Fluid Summary Crystalloid volume administer 1,000 05/27/24 14:27 IN STORE REPRESENTATIVE.CSIR (ml) Colloids volume administered ( ml) Blood Product volume administered (ml) Total IV fluid infused 1,000 05/27/24 14:27 IN STORE REPRESENTATIVE.CSIR Anesthesia Postop Eval I: Summary Notes Anesthesia Complication No 05/27/24 14:27 IN STORE REPRESENTATIVE.CSIR Anesthesia Complication Comment: Post-operative progress note Anesthesia: Postop Eval II Evaluation Mental status: Awake and Calm Pain Level: 1 nausea: No Vomiting: No Complications Anesthesia Complication: No
--- NOTE | 2024-05-27 17:23 | PCM.POSTANE2 ---
Anesthesia Postop Eval I Sum Postop Eval Completion status Anesthesia document: Postop Eval 1 completed: Yes Anesthesia Postop Eval I Summary Anesthesia Postop Eval I Summary: Anesthesia Postop Eval I: Assessment Summary Airway patent Yes 05/27/24 14:27 STRATEGIC ACCOUNT DIRECTOR.CSIR Spontaneous unlabored Yes 05/27/24 14:27 STRATEGIC ACCOUNT DIRECTOR.CSIR respirations Mental status nausea No 05/27/24 14:27 STRATEGIC ACCOUNT DIRECTOR.CSIR Vomiting No 05/27/24 14:27 STRATEGIC ACCOUNT DIRECTOR.CSIR Anesthesia Postop Eval I: Fluid Summary Crystalloid volume administer 1,000 05/27/24 14:27 STRATEGIC ACCOUNT DIRECTOR.CSIR (ml) Colloids volume administered ( ml) Blood Product volume administered (ml) Total IV fluid infused 1,000 05/27/24 14:27 STRATEGIC ACCOUNT DIRECTOR.CSIR Anesthesia Postop Eval I: Summary Notes Anesthesia Complication No 05/27/24 14:27 STRATEGIC ACCOUNT DIRECTOR.CSIR Anesthesia Complication Comment: Post-operative progress note Anesthesia: Postop Eval II Evaluation Mental status: Awake and Calm Pain Level: 1 nausea: No Vomiting: No Complications Anesthesia Complication: No
[2024-05-27] MEDS: Losartan Potassium 100 MG Tablet PO (22:33)
[2024-05-27] MEDS: Senna/Docusate Sodium 1 Tablet 2 TABLET PO (22:33)
[2024-05-27] MEDS: dilTIAZem CD 120 MG Capsule PO (22:33)
[2024-05-28] MEDS: Lactated Ringers 1,000 ML 125 ML IV (00:53)
[2024-05-28] MEDS: Cefazolin 2 GM in Syringe IV ×2 (00:53→09:30)
[2024-05-28 00:56] VITALS: BP 136/72; PULSE 62; RESP 18; TEMP 36.6; O2SAT 98
[2024-05-28 05:35] VITALS: BP 157/95; PULSE 95; RESP 18; TEMP 36.6; O2SAT 98
[2024-05-28] MEDS: APIXABAN 2.5 MG TABLET (WCH) PO ×2 (06:00→20:35)
[2024-05-28] MEDS: Levothyroxine 88 MCG Tablet PO (06:00)
[2024-05-28] MEDS: Acetaminophen 500 MG Tablet 1000 MG PO ×3 (06:00→20:35)
[2024-05-28 07:39] LABS: Hematocrit 32.5 % (37-47); Hemoglobin 10.2 g/dL (12.0-15.0); Mean Corp Hgb Conc 31.4 g/dL (32-36); Mean Corpuscular Hgb 29.6 pg (27.0-32.0); Mean Corpuscular Volume 94.2 fL (81-99); Mean Platelet Vol. 10.1 fl (6.2-12.0); Platelet Count 347 K/mm3 (150-450); RBC Distribution Width CV 13.8 % (11.6-14.6); RBC Distribution Width SD 46.8 fl (35.1-43.9); Red Blood Count 3.45 M/mm3 (4.2-5.4); White Blood Count 12.3 K/mm3 (4.4-11.0)
[2024-05-28 08:01] LABS: Anion Gap 7 (5-15); BUN 24 mg/dL (7-18); BUN/Creat Ratio 21.4 RATIO (10-20); Calcium,Total 9.5 mg/dL (8.5-10.1); Chloride 108 mmol/L (98-107); Creatinine, Serum 1.12 mg/dL (0.55-1.02); EST Glomerular Filtration Rate 49 mL/min (>60); Est Glom Filt Rate - Afr Amer 60 mL/min (>60); Estimated Creatinine Clearance 41.54 ml/min; Glucose 144 mg/dL (74-106); Potassium 4.7 mmol/L (3.5-5.1); Sodium Level 138 mmol/L (136-145)
--- NOTE | 2024-05-28 08:55 | CASEMGMT ---
YENI ANDERSON Assessment: Face to Face with pt for initial transition planning/care coordination assessment. YENI ANDERSON introduced self and role at [facility], pt voices understanding and consents to assessment. Pt is A&O x3 and answers all questions appropriately at this time. Pt took extra time to state some thoughts. Care providers, pharmacy, and demographics verified/updated. Admitting Dx: L TKR Strata Score: 2 PCP:Jos Specialists:Lauren, ortho; DIONIG, cardio; Zheng, eyes Preferred Pharmacy: [facility] Insurance: [employer]na [facility] Prescription Benefit: yes LNOK: Gibran Quincy, dtr; Jefferson Mead, son Living Arrangements: Pt lives alone in a single story home with 1 step to enter. Pt reports she was I in ADLs prior to surgery. Pt denies concerns at home. Transportation: Pt drives self and denies concerns with transportation. Pt sons to transport her until she can drive again. DME:wide doorways in the home, cane, shower chair HHC/SNF: Denies hx of Pt states she is interested in going to [facility] TCU, pt denies need for a list of other options. Spoke with PT who states that this would be beneficial for pt but therapy note is not documented yet. Discussed with pt that her insurance will approve this stay and SW will speak with her regarding this. Pt does not have a FWW. Verbally provided pt with a local in network list of DME providers should she dc home, pt chose [employer]. Pt states no further concerns/needs. CM to follow. Advised pt to ask CM if any further question/concerns/needs arise, voices understanding. Pt Goal: [facility] TCU Plan: [facility] TCU pending bed availability and course of hospitalization Ramila JAIME CM
[2024-05-28 09:12] VITALS: BP 134/56; PULSE 74; RESP 18; TEMP 36.9; O2SAT 97
[2024-05-28] MEDS: Senna/Docusate Sodium 1 Tablet 2 TABLET PO ×2 (09:31→20:35)
[2024-05-28] MEDS: Ascorbic Acid 500 MG Tablet 1000 MG PO (09:31)
[2024-05-28] MEDS: 0.9% Saline Lock 10 ML Syringe IV (09:31)
[2024-05-28] MEDS: dilTIAZem CD 120 MG Capsule PO ×2 (09:31→20:34)
[2024-05-28] MEDS: hydroCHLOROthiazide 25 MG Tablet PO (09:31)
--- NOTE | 2024-05-28 10:01 | PN.ORTHO_ITS ---
Subjective Subjective Seen and examined. Pain controlled denies fevers chills nausea vomiting shortness of breath or chest pain she does admit to some dizziness when ambulating. Objective Data Objective Data Vital Signs: Vital Signs Temp Pulse Resp BP Pulse Ox O2 Del Method O2 Flow Rate 98.5 F 74 18 134/56 H 97 Room Air 4 05/28/24 09:12 05/28/24 09:12 05/28/24 09:12 05/28/24 09:12 05/28/24 09:12 05/28/24 09:12 05/27/24 16:15 Oxygen Flow Rate (L/min) 4 Oxygen Delivery Method Room Air Weight: 191 lb 12.835 oz Body Mass Index (BMI) 30.9 Intake & Output: Intake and Output for Last 24 Hours 05/26/24 05/27/24 05/28/24 23:59 23:59 23:59 Intake Total 3301.58 / 3301.58 Balance 3301.58 / 3301.58 Lab / Micro Data 05/28/24 05:58 05/28/24 05:58 Labs: Laboratory Results - last 24 hr 05/27/24 09:56: POC Glucose 116 H 05/27/24 10:20: PT 12.8, INR 1.0 05/28/24 05:58: WBC 12.3 H, RBC 3.45 L, Hgb 10.2 L, Hct 32.5 L, MCV 94.2, MCH 29.6, MCHC 31.4 L, RDW Std Deviation 46.8 H, RDW Coeff of Loan 13.8, Plt Count 347, MPV 10.1, Sodium 138, Potassium 4.7, Chloride 108 H, Carbon Dioxide 23.0, Anion Gap 7, BUN 24 H, Creatinine 1.12 H, Estim Creat Clear Calc 41.54, Est GFR (MDRD) Af Amer 60, Est GFR (MDRD) Non-Af 49 L, BUN/Creatinine Ratio 21.4 H, G lucose 144 H, Calcium 9.5 Micro: Microbiology 05/14/24 08:10 Swab (Method) Nasal Screen MRSA/MSSA - Final Radiography Diagnostic Testing: Radiology Impression Knee X-Ray 05/27/24 14:35 IMPRESSION: Satisfactory postop changes. Electronically Signed: Jamison Pineda MD at 15:34 EST , Physical Exam Const alert, oriented x3 and no apparent distress Extremity Extremity Narrative: Left knee dressing clean dry intact compartment soft neurovascular intact EHL tibialis anterior gastrocsoleus intact sensation light touch 2 out of 4 pedal pulse Assessment & Plan Assessment/Plan (1) S/P total knee arthroplasty: QUALIFIERS: Laterality: left Qualified Code(s): Z96.652 - Presence of left artificial knee joint PLAN: Plan Postop day #1 left total knee arthroplasty PT OT weightbearing as tolerated DVT prophylaxis SCDs GAVIN hose resume Eliquis 5 mg twice daily Pain control oxycodone Tylenol DC planning TCU versus rehab Patient has a large dog at home advanced age and lives alone does not feel safe DC home DC likely tomorrow.
--- NOTE | 2024-05-28 10:10 | CASEMGMT ---
Discharge Planning A list of?SNF providers including quality and resource use data and consistent with the patient's preferred geographic region, medical needs, and insurance network was created in [employer] Guide.? This list was provided to the SW. Jeanne Keene Discharge Planning Asst.
[2024-05-28 10:25] VITALS: O2SAT 97
--- NOTE | 2024-05-28 11:16 | CASEMGMT ---
Social Work SW received referral that pt is requesting SNF placement. SW met with pt and introduced self and role of SW. Pt confirms need for SNF placement prior to return home alone. a list of SNF providers including quality and resource use data and consistent with the patient?s preferred geographic region, medical needs, and insurance network were provided from the [employer] Guide. Pt preferred provider is [facility] TCU. Referral made to TCU. SW will await determination of acceptance. MACRINA Saldivar
[2024-05-28 14:01] VITALS: BP 125/65; PULSE 67; RESP 16; TEMP 36.9; O2SAT 97
[2024-05-28] MEDS: oxyCODONE 5 MG Tablet PO ×3 (14:04→22:32)
--- NOTE | 2024-05-28 15:44 | CASEMGMT ---
Social Work TCU is able to accept pt. Precert will be needed prior to admission. SW met with pt and notified. Pt agreeable. Plan: TCU, pending precert MACRINA Saldivar
--- NOTE | 2024-05-28 16:05 | CASEMGMT ---
Met with patient to complete NORRIS form. NORRIS form explained to patient who voiced understanding and signed form. Original form placed in pt?s chart and copy provided to patient. Jeanne Keene, Discharge Planning Asst
[2024-05-28 20:24] VITALS: BP 150/55; PULSE 70; RESP 18; TEMP 36.8; O2SAT 96
[2024-05-28] MEDS: Losartan Potassium 100 MG Tablet PO (20:34)
[2024-05-29 03:00] VITALS: BP 137/77; PULSE 97; RESP 18; TEMP 36.8; O2SAT 95
[2024-05-29 06:07] LABS: Hematocrit 29.3 % (37-47); Hemoglobin 9.4 g/dL (12.0-15.0); Mean Corp Hgb Conc 32.1 g/dL (32-36); Mean Corpuscular Hgb 29.8 pg (27.0-32.0); Platelet Count 267 K/mm3 (150-450); RBC Distribution Width SD 47.3 fl (35.1-43.9); Red Blood Count 3.15 M/mm3 (4.2-5.4); White Blood Count 10.3 K/mm3 (4.4-11.0)
[2024-05-29] MEDS: Levothyroxine 88 MCG Tablet PO (06:28)
[2024-05-29] MEDS: Acetaminophen 500 MG Tablet 1000 MG PO ×2 (06:29→13:45)
[2024-05-29 07:32] VITALS: BP 132/89; PULSE 100; RESP 18; TEMP 36.6; O2SAT 96
[2024-05-29] MEDS: Ascorbic Acid 500 MG Tablet 1000 MG PO ×2 (09:25→13:40)
[2024-05-29] MEDS: hydroCHLOROthiazide 25 MG Tablet PO (09:25)
[2024-05-29] MEDS: dilTIAZem CD 120 MG Capsule PO (09:25)
[2024-05-29] MEDS: oxyCODONE 5 MG Tablet PO ×2 (09:25→10:35)
[2024-05-29] MEDS: Senna/Docusate Sodium 1 Tablet 2 TABLET PO (09:25)
[2024-05-29] MEDS: APIXABAN 5 MG TABLET PO (09:25)
--- NOTE | 2024-05-29 10:05 | PCM.PN.ORT ---
Subjective Subjective Complain of pain left knee otherwise no complaints denies fevers chills nausea vomiting shortness of breath or chest pain Objective Data Objective Data Vital Signs: Vital Signs Temp Pulse Resp BP Pulse Ox O2 Del Method O2 Flow Rate 98 F 100 18 132/89 H 96 Room Air 4 05/29/24 07:32 05/29/24 07:32 05/29/24 07:32 05/29/24 07:32 05/29/24 07:32 05/29/24 07:32 05/27/24 16:15 Oxygen Flow Rate (L/min) 4 Oxygen Delivery Method Room Air Weight: 191 lb 12.835 oz Body Mass Index (BMI) 30.9 Intake & Output: Intake and Output for Last 24 Hours 05/27/24 05/28/24 05/29/24 23:59 23:59 23:59 Intake Total 3301.58 / 3301.58 1987.92 / 2287.92 600 / 600 Balance 3301.58 / 3301.58 1987.92 / 2287.92 600 / 600 Lab / Micro Data 05/29/24 05:13 05/28/24 05:58 Labs: Laboratory Results - last 24 hr 05/29/24 05:13: WBC 10.3, RBC 3.15 L, Hgb 9.4 L, Hct 29.3 L, MCV 93.0, MCH 29.8, MCHC 32.1, RDW Std Deviation 47.3 H, RDW Coeff of Loan 14.0, Plt Count 267, MPV 10.0 Micro: Microbiology 05/14/24 08:10 Swab (Method) Nasal Screen MRSA/MSSA - Final Physical Exam Const alert, oriented x3 and no apparent distress Extremity Extremity Narrative: Left knee dressing clean dry intact compartment soft neurovascular intact EHL tibialis anterior gastrocsoleus intact sensation light touch 2 out of 4 pedal pulse Assessment & Plan Assessment/Plan (1) S/P total knee arthroplasty: QUALIFIERS: Laterality: left Qualified Code(s): Z96.652 - Presence of left artificial knee joint PLAN: Plan Postop day #2 left total knee arthroplasty PT OT weightbearing as tolerated DVT prophylaxis SCDs GAVIN hose resume Eliquis 5 mg twice daily Pain control oxycodone Tylenol will increase oxycodone to 15 mg. DC to TCU
--- NOTE | 2024-05-29 10:08 | EX.PCM.DISCH ---
Discharge Instructions Diet Discharge Diet: No restrictions Activity Weight Bearing Status: Full weight bearing Dressing / Incision Call your doctor if you observe: Shortness of breath and Chest pain Additional Dressing/Incision Instructions:: Ice and elevate lower extremities 2 weeks while not ambulating. Ambulation is encouraged. Weight bearing as tolerated. Use assistive devise for stability. Encourage FULL knee extension and flexion 1 time EVERY time you get up and down and MULTIPLE times per day. No showering until 72 hours after surgery. May begin showering postop day #3. Remove the dressing prior to shower and gently wash with warm water and antibacterial soap then pat dry and place abdominal pad (or plain gauze) and GAVIN hose over top. This is to be done daily. Do not submerge for 3 weeks. If she wishes to sponge bath then the dressing may stay on undisturbed for 1 week postop. If not showering daily after the initial 72 hours then you must clean incision and change dressing daily after the dressing comes off, must come off by 7 days postop. Do not allow animals near the incision area. Keep clean. Follow anti-coagulation recommendations as prescribed. Do not take any NSAIDs while on blood thinner. Do not take any additional narcotic pain medication other than what was prescribed on your surgery day without discussing with physician. Narcotic medication can be addictive. Do not drink alcohol while taking narcotics. Supplement narcotic prescription with acetaminophen 1000 mg 4 times a day. Start physical therapy. If you are not currently scheduled for physical therapy or you are unsure of appointment time please call office [facility] to arrange. Call Dr. Aguilar with any concerns. Follow Up Care Please Follow Up With: Samson Aguilar DO When: 2 weeks Test Results: Test results from this visit will be discussed in further detail at your follow-up appointment, if applicable. Discharge Plan Admission Admit Date/Time: 05/27/24 14:18 Primary Reason for Your Visit: Left total knee arthroplasty Attending Provider: Samson Aguilar Primary Care Provider: Wendy Arguello Discharge Orders/Prescriptions Prescriptions: New acetaminophen 500 mg Tablet 1,000 mg PO Q8 Qty: 90 0RF oxycodone 5 mg Tablet 5 - 15 mg PO Q4H PRN PRN (Reason: Pain Score 4-10) 7 Days Qty: 60 0RF Continued Eliquis 5 mg tablet 5 mg PO BID Qty: 180 3RF diltiazem HCl 120 mg capsule,extended release 24 hr 120 mg PO BID Qty: 180 3RF hydrochlorothiazide 25 mg tablet 25 mg PO DAILY Qty: 90 3RF ascorbic acid (vitamin C) [C-1000] 1,000 mg tablet 1 g PO DAILY losartan 100 mg tablet 100 mg PO QHS levothyroxine 88 mcg tablet 88 mcg PO DAILY Qty: 90 3RF Referrals / Follow Up: Wendy Arguello MD [Primary Care Provider] - Disposition Disposition (needs filled in before D/C Order can be placed): [facility]
--- NOTE | 2024-05-29 10:15 | TREXTCAR_ITS ---
Diet Diet Order/Speech Therapy: 05/28/24 08:29 Diet: Regular - General DC O2, CPAP, BIPAP needs Additional Home O2 Discharge instructions: No Wound(s) LEFT KNEE: Wound Type: Surgical Incision Therapies Physical Therapy: Eval and Treat Occupational Therapy: Eval and Treat Problem/Diagnosis (1) S/P total knee arthroplasty: Status: Acute Code(s): Z96.659 - Presence of unspecified artificial knee joint Plan Postop day #2 left total knee arthroplasty PT OT weightbearing as tolerated DVT prophylaxis SCDs GAVIN hose resume Eliquis 5 mg twice daily Pain control oxycodone Tylenol will increase oxycodone to 15 mg. If patient wishes to shower she can remove her dressing beginning postop day #3 and begin showering over the incision with antibacterial soap and warm water. However if she prefers to sponge bathe then the dressing may remain undisturbed for 1 week postop after which he needs to come off and be clean to daily at that point and replaced daily with a clean dressing. DC to TCU Follow-up in the office 2 weeks postop if she is still in transitional care I can see her there Allergies/Procedures Done in Hospital Allergies metoprolol Adverse Reaction (Verified 05/27/24 10:05) Symptomatic Bradycardia only with certain doses Type of Care/Length of Stay Estimated LOS: Convalescent Care Less Than 30 days Type of Care Needed: Skilled Rehab Potential: Good Prognosis: Good Additional Orders/Day of Discharge Day of Discharge: 05/29/24 Follow Up Care Please Follow Up With: Samson Aguilar DO When: 2 weeks postop Discharge Plan Admission Admit Date/Time: 05/27/24 14:18 Primary Reason for Your Visit: Left total knee arthroplasty Attending Provider: Samson Aguilar Primary Care Provider: Wendy Arguello Discharge Orders/Prescriptions Prescriptions: New acetaminophen 500 mg Tablet 1,000 mg PO Q8 Qty: 90 0RF oxycodone 5 mg Tablet 5 - 15 mg PO Q4H PRN PRN (Reason: Pain Score 4-10) 7 Days Qty: 60 0RF Continued Eliquis 5 mg tablet 5 mg PO BID Qty: 180 3RF diltiazem HCl 120 mg capsule,extended release 24 hr 120 mg PO BID Qty: 180 3RF hydrochlorothiazide 25 mg tablet 25 mg PO DAILY Qty: 90 3RF ascorbic acid (vitamin C) [C-1000] 1,000 mg tablet 1 g PO DAILY losartan 100 mg tablet 100 mg PO QHS levothyroxine 88 mcg tablet 88 mcg PO DAILY Qty: 90 3RF Referrals / Follow Up: Wendy Arguello MD [Primary Care Provider] - Disposition Disposition (needs filled in before D/C Order can be placed): [facility] (1) S/P total knee arthroplasty Qualifiers: Laterality: left Qualified Code(s): Z96.652 - Presence of left artificial knee joint
--- NOTE | 2024-05-29 13:15 | CASEMGMT ---
Social Work Precert has been obtained for pt to go to TCU today. Physician feels pt is ready for discharge today. Pt notified and agreeable to discharge to TCU. Pt requesting SW notify her son Julián of discharge plan. VM left for Julián. TCU notified of discharge today and orders faxed. Disposition: TCU, skilled level of care MACRINA Saldivar
[2024-05-29] MEDS: oxyCODONE 5 MG Tablet 15 MG PO (13:42)
[2024-05-29 13:46] VITALS: BP 125/74; PULSE 85; RESP 16; TEMP 36.2; O2SAT 95
== END 2024-05-29 15:26 | disposition skilled nursing facility (03) ==
LOC: SDC 15:58 → MS3 15:58
PROVIDERS: Anesthesiology; Admitting Provider Orthopaedic Surgery; PCP Internal Medicine; Referring Provider Orthopaedic Surgery; Visit Provider Orthopaedic Surgery
PROC: 0SRD0JZ Replacement of Left Knee Joint with Synthetic Substitute, Open Approach (ICD-10-PCS; CPT 27447; principal; 2024-05-27 11:10)
DX: M17.12 Unilateral primary osteoarthritis, left knee (principal); I48.0 Paroxysmal atrial fibrillation; K57.32 Diverticulitis of large intestine without perforation or abscess without bleeding; I10 Essential (primary) hypertension; I65.23 Occlusion and stenosis of bilateral carotid arteries; M21.062 Valgus deformity, not elsewhere classified, left knee; K21.9 Gastro-esophageal reflux disease without esophagitis; E03.9 Hypothyroidism, unspecified; Z79.899 Other long term (current) drug therapy; Z79.01 Long term (current) use of anticoagulants; Z79.890 Hormone replacement therapy
CPT/HCPCS: 27447; S2900; 01402; 64447; 36415; 73560; 80048; 82962; 82985; 83036; 83735; 85027; 85610; 85730; 86850; 86900; 86901; 87081; 88305; 88311; 94668; 96361; 96374; 96376; 97110; 97116; 97162; 97166; 97535; 99221; C1776; A4216; G0378; J2405; J3475

== ENCOUNTER 2024-05-29 15:51 | Inpatient (IN) | payer MEDICARE, SELFPAY ==
[2024-05-29 16:07] VITALS: BP 122/74; PULSE 73; RESP 18; TEMP 36.4; O2SAT 94
--- NOTE | 2024-05-29 19:52 | PCM.HP.STD ---
HPI - General General Date of Admission: 05/29/24 Date of Service: 05/29/24 Chief Complaint: Here for rehabilitation. HPI Narrative YOSHI CAROLINA, is a 83 Female who presents with followin05/27/2024 Admit [facility]. 05/27/2024 Dr. Aguilar performed left total knee arthroplasty. 05/28/2024 Pain controlled, some dizziness with walking. PT/OT, WBAT. Eliquis 5mg twice daily for atrial fibrillation/DVT prophylaxis. Tylenol, Oxycodone for pain. Discharge to TCU. 05/29/2024 Admit to TCU with debility, here for rehabilitation, strengthening, prior to discharge home alone. [facility] Medical History (Updated 05/29/24 @ 19:[address] Nahum Rivera MD) Alcohol use Back pain History of diverticulitis Shortness of breath on exertion History of pain when walking History of Holter monitoring History of stress test Osteoarthritis Preop exam for internal medicine Right foot sprain Right ankle sprain Contact with and (suspected) exposure to other viral communicable diseases Left chest pressure Cough Wears contact lenses Post-menopausal Anxiety Thyroid disease Arthritis Gastric reflux Non-smoker History of echocardiogram Cardiology follow-up encounter History of atrial fibrillation Poison segundo dermatitis GERD (gastroesophageal reflux disease) Carotid artery disease Chronic anticoagulation Hydronephrosis History of Helicobacter pylori infection Cholelithiasis with chronic cholecystitis Ventral incisional hernia without obstruction or gangrene Abdominal pain Sigmoid diverticulitis History of rheumatic fever Gastric ulcer GERD (gastroesophageal reflux disease) Hypothyroidism Anemia Essential (primary) hypertension Fatigue Rapid heartbeat Atrial fibrillation with RVR Paroxysmal atrial fibrillation Home Medications ?Medication ?Instructions ?Recorded ?Last Taken ?Type apixaban 5 mg tablet (Eliquis) 5 mg PO BID afib #180 tabs 07/02/23 05/23/24 Rx diltiazem HCl 120 mg capsule,24 120 mg PO BID BP/heart rate #180 12/24/23 05/27/24 07:45 Rx hr,extended release caps hydrochlorothiazide 25 mg tablet 25 mg PO DAILY water pill #90 tabs 03/26/24 05/27/24 07:45 Rx levothyroxine 88 mcg tablet 88 mcg PO DAILY thyroid #90 tabs 04/24/24 05/27/24 07:45 Rx ascorbic acid (vitamin C) 1,000 mg 1 g PO DAILY Vitamin C 05/13/24 Unknown History tablet (C-1000) losartan 100 mg tablet 100 mg PO QHS BP 05/13/24 05/26/24 19:00 History acetaminophen 500 mg tablet 1,000 mg (2 x 500 mg) PO Q8 pain 05/29/24 Unknown Rx #90 tabs oxycodone 5 mg tablet 5 - 15 mg (1 - 3 x 5 mg) PO Q4H 05/29/24 Unknown Rx PRN PRN Pain Score 4-10 7 days #60 tabs Allergy/AdvReac Type Severity Reaction Status Date / Time metoprolol AdvReac Symptomatic Verified 05/27/24 10:05 Bradycardia Family History Mother Hypertension Father Colon cancer Surgical History (Updated 05/29/24 @ 19:[address] Nahum Rivera MD) History of total left knee replacement History of esophagogastroduodenoscopy (EGD) History of cardiac catheterization History of cholecystectomy (~05/2019) History of partial colectomy (~05/2019) Hx of tonsillectomy Hx of colonoscopy History of cardioversion (11/2017) History of hysterectomy Social History (Updated 05/29/24 @ 19:[address] Nahum Rivera MD) household members: none Smoking Status: Never smoker second hand exposure: No alcohol intake: current alcohol intake frequency: holidays/special occasions only substance use type: does not use caffeine: Yes what type of physical activity do you participate in: none frequency: does not exercise ROS Constitutional Constitutional: Denies chills, fever(s) or weight gain ENT HEENT: Denies headache(s), nasal congestion or nasal discharge Cardiovascular Cardiovascular: Denies chest pain or palpitations Respiratory/Chest Respiratory/Chest: Denies cough, excessive phlegm production or shortness of breath with exertion Gastrointestinal Gastrointestinal: Denies abdominal pain, nausea or vomiting Genitourinary Genitourinary: Denies dysuria Musculoskeletal Musculoskeletal: Reports joint pain and other Details: Left leg swelling. ; Denies joint swelling Integumentary Integumentary: Denies rash or wounds Neurologic Neurologic: Denies focal weakness, numbness or tingling Psychiatric Psychiatric: Denies anxiety, auditory hallucinations, depression, homicidal ideation or suicidal ideation Vital Signs Vital Signs Vital Signs: 05/29/24 16:07 Temperature 97.5 F L Temperature Source Temporal Pulse Rate 73 Respiratory Rate 18 Blood Pressure 122/74 H Blood Pressure Mean 90 Blood Pressure Source Monitor Pulse Ox 94 Oxygen Delivery Method Room Air Physical Exam Const alert General Appearance: cooperative HEENT normocephalic Eyes PERRL and EOMs intact bilaterally Neck supple, no JVD and no carotid bruits Resp normal respiratory effort, normal air movement and clear to auscultation bilaterally Cardio regular rate and regular rhythm GI normal to inspection, nondistended, normoactive bowel sounds, non-tender and non-distended Extremity normal capillary refill Extremity Narrative: [facility] left knee. General Extremity: Negative for edema Skin no rashes or lesions noted General Skin Exam: no breakdown Psych affect normal Appearance: appropriate Assessment & Plan Assessment/Plan (1) Debility: (2) Left knee DJD: QUALIFIERS: Osteoarthritis type: primary Qualified Code(s): M17.12 - Unilateral primary osteoarthritis, left knee (3) Status post total left knee replacement: (4) Atrial fibrillation: (5) Essential (primary) hypertension: (6) Hypothyroidism: (7) Left sided sciatica: PLAN: Plan 83 year old female with below past medical history underwent left total knee replacement 05/27/[address] Aguilar, admitted to TCU with debility, here for rehabilitation, strengthening, prior to discharge home alone. Debility - PT/OT. Pain - Tylenol 1000mg q8, Tramadol 50mg q6 prn pain (1-5), Oxycodone 15mg q4 prn pain (6-10). Bowel - senna/colace 2 tablets bid, Magnesium citrate 300mL daily prn. Adult immunization - Administer pneumonia vaccine, covid vaccine, flu vaccine as appropriate. DVT prophylaxis - on Eliquis. Atrial Fibrillation - Diltiazem 120mg bid, Eliquis 5mg bid. Vitamin C deficiency - Vitamin C 1000mg daily. Muscle spasm - Baclofen 10mg tid prn. Hypertension - Diltiazem 120mg bid, Losartan 100mg qhs, HCTZ 25mg daily. Left sciatica - Gabapentin 100mg tidcm. Hypothyroidism - Levothyroxine 88mcg daily.
[2024-05-29] MEDS: traMADol 50 MG Tablet PO (20:02)
[2024-05-29 21:45] VITALS: O2SAT 96
[2024-05-29] MEDS: APIXABAN 5 MG TABLET PO (22:15)
[2024-05-29] MEDS: dilTIAZem CD 120 MG Capsule PO (22:15)
[2024-05-29] MEDS: Senna/Docusate Sodium 1 Tablet 2 TABLET PO (22:15)
[2024-05-29] MEDS: Acetaminophen 500 MG Tablet 1000 MG PO (22:15)
[2024-05-29] MEDS: Losartan Potassium 100 MG Tablet PO (22:15)
[2024-05-29] MEDS: oxyCODONE 5 MG Tablet 15 MG PO (22:16)
[2024-05-30 01:30] VITALS: BP 114/92; PULSE 66; TEMP 37.1; O2SAT 97
--- NOTE | 2024-05-30 01:30 | NURSING ---
This nurse heard resident moaning in room. Upon entering room, resident in sitting in floor w/ BLE extended on the right side of the bed beside the wall. SCDs and polar care remain intact. Denies hitting head. Denies any c/o pain or discomfort and thinks she put her hand and wrist down w/ the fall. Verbalizes she was attempting to get up to go to the bathroom as she gets up nightly at home between [id number]. A&O x2- reoriented to place as resident thought she was at home. Night light was on in room as resident requested some light prior to going to sleep. Vitals obtained and recorded. Moves all extremities without difficulty. Assisted to standing x 3 staff utilizing gait belt. Placed in w/c and taken to bathroom. Continent of urine. Returned to bed x2 staff and positioned for comfort. SCDs and polar care reapplied. Bed and chair alarms applied. Room camera activated. Call light w/ in reach. Instructed to call staff for all needs and not to get up without assistance. Will continue to monitor.
[2024-05-30 02:07] LABS: Bedside Glucose 121 mg/dL (74-106)
[2024-05-30 05:45] LABS: Absolute Lymphocyte Count 2.16 X10^3/uL (0.83-4.51); Absolute Neutrophil Count 6.2 X10^3/uL (2.0-7.7); Basophil# 0.07 X10^3/uL; Basophil% 0.7 % (0-1); Eosinophil# 0.16 X10^3/uL; Eosinophils% 1.7 % (0-5); Hemoglobin 9.6 g/dL (12.0-15.0); Lymphocyte # 2.16 X10^3/ul (0.83-4.51); Lymphocyte % 22.4 % (19-41); Mean Corpuscular Hgb 29.8 pg (27.0-32.0); Mean Corpuscular Volume 93.2 fL (81-99); Mean Platelet Vol. 9.5 fl (6.2-12.0); Monocyte% 10.4 % (0-10); NRBC Flagged by Analyzer 0 % (0-5); Neutrophil % 64.1 % (47-70); Platelet Count 298 K/mm3 (150-450); RBC Distribution Width CV 14.3 % (11.6-14.6); RBC Distribution Width SD 48.6 fl (35.1-43.9); Red Blood Count 3.22 M/mm3 (4.2-5.4); White Blood Count 9.7 K/mm3 (4.4-11.0)
[2024-05-30 06:17] LABS: Anion Gap 5 (5-15); BUN 31 mg/dL (7-18); BUN/Creat Ratio 33.1 RATIO (10-20); Calcium,Total 9.5 mg/dL (8.5-10.1); Chloride 105 mmol/L (98-107); Creatinine, Serum 0.94 mg/dL (0.55-1.02); EST Glomerular Filtration Rate 61 mL/min (>60); Est Glom Filt Rate - Afr Amer 73 mL/min (>60); Glucose 111 mg/dL (74-106); Potassium 4.4 mmol/L (3.5-5.1); Sodium Level 138 mmol/L (136-145)
--- NOTE | 2024-05-30 07:30 | NURSING ---
Addendum entered by Jadyn Ding 06/01/24 18:11: Correction: left wrist pain. Original Note: Patient c/o right wrist pain. New order received 1) Xray right wrist. Patient updated on new order.
--- NOTE | 2024-05-30 07:40 | RAD_ITS ---
EXAM: XR LEFT WRIST COMPLETE, 3 OR MORE VIEWS CLINICAL INDICATION: Pain s/p fall TECHNIQUE: Frontal, lateral and oblique views of the left wrist. COMPARISON: No relevant prior studies available. FINDINGS: BONES/JOINTS: There are severe degenerative changes with narrowing and sclerosis at the first carpometacarpal joint. No acute fracture. No subluxation. Normal alignment. SOFT TISSUES: Unremarkable. No soft tissue swelling or gas. No radiopaque foreign body. RAD/Wrist min 3 Views IMPRESSION: 1. No acute osseous abnormalities. 2. Severe degenerative changes at the first carpometacarpal joint. Electronically Signed: Sb Sutton MD at 16:43 EST ,
[2024-05-30 08:00] VITALS: BP 122/64; PULSE 66; RESP 18; TEMP 36.6; O2SAT 93
[2024-05-30] MEDS: Levothyroxine 88 MCG Tablet PO (08:13)
[2024-05-30] MEDS: Ascorbic Acid 500 MG Tablet 1000 MG PO (08:13)
[2024-05-30] MEDS: Acetaminophen 500 MG Tablet 1000 MG PO ×3 (08:13→19:55)
[2024-05-30] MEDS: Senna/Docusate Sodium 1 Tablet 2 TABLET PO ×2 (08:14→19:55)
[2024-05-30] MEDS: APIXABAN 5 MG TABLET PO ×2 (08:14→19:55)
[2024-05-30] MEDS: hydroCHLOROthiazide 25 MG Tablet PO (08:14)
[2024-05-30] MEDS: dilTIAZem CD 120 MG Capsule PO ×2 (08:14→19:55)
[2024-05-30] MEDS: Gabapentin 100 MG Capsule PO ×3 (08:17→17:30)
[2024-05-30] MEDS: oxyCODONE 5 MG Tablet PO ×3 (08:17→19:55)
--- NOTE | 2024-05-30 10:26 | NURSING ---
Addendum entered by Jadyn Ding 06/01/24 18:11: Correction: left wrist. Original Note: Son, Jefferson, updated on patients fall this morning, C?O right wrist pain, and pending xray results. Thanked this nurse for update.
[2024-05-30] MEDS: Tuberculin,Purif.prot.deriv. 50 TU/ML Vial 0.1 ML ID (10:32)
--- NOTE | 2024-05-30 11:15 | NURSING ---
Tool Programmer Note; Activity Asset: Dorothy De Jesus is independent in her choice of daily activities. Her family, friends and quaker will visits weekly. She has her smartphone, watches tv, reads and welcomes visits from our theatrical performer when available. Staff will encourage social activities, remind her of weekly activities and respect her right to say no.
--- NOTE | 2024-05-30 11:16 | NURSING ---
New order received 1) Decrease Oxycodone to 5mg po every 4 hours PRN. Patient aware of above.
--- NOTE | 2024-05-30 15:32 | CASEMGMT ---
Social Work SW attempted to complete assessment this morning, but pt had a visitor and SW offered to return later - pt agreed. SW revisited pt but pt had another visitor and requested this worker return Sunday (following business day). SW agreed. Mary Rome, EMPLOYEE DEVELOPMENT MANAGER REAL ESTATE SALES AGENT
--- NOTE | 2024-05-30 17:58 | NURSING ---
Xray results received- negative for fracture. Patient aware of results.
[2024-05-30] MEDS: Losartan Potassium 100 MG Tablet PO (19:55)
[2024-05-31] MEDS: oxyCODONE 5 MG Tablet PO ×2 (05:42→11:39)
[2024-05-31] MEDS: Acetaminophen 500 MG Tablet 1000 MG PO ×3 (05:42→21:06)
[2024-05-31] MEDS: Levothyroxine 88 MCG Tablet PO (05:43)
[2024-05-31 07:45] VITALS: BP 118/56; PULSE 82; RESP 16; TEMP 36.7; O2SAT 96
[2024-05-31] MEDS: hydroCHLOROthiazide 25 MG Tablet PO (08:33)
[2024-05-31] MEDS: Gabapentin 100 MG Capsule PO ×3 (08:33→18:45)
[2024-05-31] MEDS: dilTIAZem CD 120 MG Capsule PO ×2 (08:33→21:04)
[2024-05-31] MEDS: APIXABAN 5 MG TABLET PO ×2 (08:34→21:05)
[2024-05-31] MEDS: Ascorbic Acid 500 MG Tablet 1000 MG PO (08:34)
--- NOTE | 2024-05-31 10:07 | PHA.CONS_ITS ---
Documented by User: Kwabena Dobbs 05/31/24 10:19 TCU RX Drug Regimen Review Subjective/Objective Subjective/Objective Subjective: TCU admission note. 83 year old female with below past medical history underwent left total knee replacement 05/27/[address] Aguilar, ad mitted to TCU with debility, here for rehabilitation, strengthening, prior to discharge home alone. Objective: Allergies metoprolol Adverse Reaction (Verified 05/27/24 10:05) Symptomatic Bradycardia only with certain doses Current Medications Generic Name Dose Route Start Last Admin Trade Name Freq PRN Reason Stop Dose Admin Acetaminophen 1,000 mg 05/29/24 22:00 05/31/24 05:42 Acetaminophen 500 Mg Tablet PO 1,000 mg Q8 ANTHONY Administration Apixaban 5 mg 05/29/24 22:00 05/31/24 08:34 Apixaban 5 Mg Tablet PO 5 mg BID ANTHONY Administration Ascorbic Acid 1,000 mg 05/30/24 10:00 05/31/24 08:34 Ascorbic Acid 500 Mg Tablet PO 1,000 mg DAILY ANTHONY Administration Baclofen 10 mg 05/29/24 17:57 Baclofen 10 Mg Tablet PO TID PRN MUSCLE SPASM Diltiazem HCl 120 mg 05/29/24 22:00 05/31/24 08:33 Diltiazem Cd 120 Mg Capsule PO 120 mg BID ANTHONY Administration Gabapentin 100 mg 05/30/24 07:45 05/31/24 08:33 Gabapentin 100 Mg Capsule PO 100 mg TIDCM ANTHONY Administration Hydrochlorothiazide 25 mg 05/30/24 10:00 05/31/24 08:33 Hydrochlorothiazide 25 Mg Tablet PO 25 mg DAILY ANTHONY Administration Protocol Levothyroxine Sodium 88 mcg 05/30/24 06:00 05/31/24 05:43 Levothyroxine 88 Mcg Tablet PO 88 mcg DAILY@0600 ANTHONY Administration Losartan Potassium 100 mg 05/29/24 22:00 05/30/24 19:55 Losartan Potassium 100 Mg Tablet PO 100 mg QHS ANTHONY Administration Protocol Magnesium Citrate 300 ml 05/29/24 20:04 Magnesium Citrate 300 Ml PO DAILY PRN Constipation Oxycodone HCl 5 mg 05/30/24 07:57 05/31/24 05:42 Oxycodone 5 Mg Tablet PO 5 mg Q4H PRN PRN Administration Pain Score 6-10 or Pre PT/OT Senna/Docusate Sodium 2 tablet 05/29/24 22:00 05/31/24 08:35 Senna/Docusate Sodium 1 Tablet PO Not Given BID ANTHONY Sodium Chloride 10 - 40 ml 05/29/24 16:14 0.9% Saline Lock 10 Ml Syringe IV UD PRN SALINE FLUSH Tramadol HCl 50 mg 05/29/24 17:57 05/29/24 20:02 Tramadol 50 Mg Tablet PO 50 mg Q6H PRN PRN Administration Pain Score 1-5 or Pre PT/OT Tuberculin PPD 0.1 ml 06/06/24 10:00 Tuberculin,Purif.Prot.Deriv. 50 Tu/Ml Vial ID 06/06/24 10:01 X1 ONE Problem List Left sided sciatica (Acute) Essential (primary) hypertension (Acute) Status post total left knee replacement (Acute) Debility (Acute) Left knee DJD (Acute) Hypothyroidism (Chronic) Vital Signs Temp Pulse Resp BP Pulse Ox O2 Del Method 97.9 F 66 18 122/64 H 93 Room Air 05/30/24 08:00 05/30/24 08:00 05/30/24 08:00 05/30/24 08:00 05/30/24 08:00 05/31/24 06:15 Oxygen Delivery Method Room Air Weight: 83.915 kg Sodium 138 mmol/L (136-145) 05/30/24 05:29 Potassium 4.4 mmol/L (3.5-5.1) 05/30/24 05:29 Chloride 105 mmol/L (98-107) 05/30/24 05:29 Carbon Dioxide 28.0 mmol/L (21.0-32.0) 05/30/24 05:29 Anion Gap 5 (5-15) 05/30/24 05:29 BUN 31 mg/dL (7-18) H 05/30/24 05:29 Creatinine 0.94 mg/dL (0.55-1.02) 05/30/24 05:29 Est GFR (MDRD) Af Amer 73 mL/min (>60) 05/30/24 05:29 Est GFR (MDRD) Non-Af 61 mL/min (>60) 05/30/24 05:29 BUN/Creatinine Ratio 33.1 RATIO (10-20) H 05/30/24 05:29 Glucose 111 mg/dL (74-106) H 05/30/24 05:29 Assessment/Plan: 1. Pain: acetaminophen 1000 mg PO Q8H, tramadol 50 mg PO Q6H PRN pain (1-5), oxycodone 5 mg PO Q4H PRN pain (6-10). The patient has used 4 doses of PRN oxycodone and 1 dose of PRN tramadol so far this admission. Please continue to monitor pain levels, PRN medication usage, LFTs (AST/ALT = 11/12 U/L on 04/24/24), for constipation, renal function (serum creatinine = 0.94 mg/dL with creatinine clearance ~ 47 mL/min on 05/30/24), for seizures, for respiratory depression, for dizziness/drowsiness, and for syncope/ataxia/falls. 2. Bowel: senna/docusate 2 tablets PO BID, magnesium citrate 300 mL PO daily PRN constipation. The patient has not required any PRN doses of magnesium citrate so far this admission, and the patient dose not have a documented bowel movement this admission. Please continue to monitor for constipation, diarrhea, bowel movements and PRN medication usage. 3. Atrial Fibrillation/hypertension: apixaban 5 mg PO BID, diltiazem 120 mg PO BID, hydrochlorothiazide 25 mg PO daily, losartan 100 mg PO QHS. Please continue to monitor for palpitations, heart rates (recent range = 60-100 beats/min), blood pressures (recent range = 111-157/55-95 mmHg), for s/s of stroke, for bleeding/excessive bruising, hemoglobin levels (Hgb = 9.6 g/dL on 05/30/24), platelet counts (Plt = 195 K/mm3 on 05/30/24), renal function (serum creatinine = 0.94 mg/dL with creatinine clearance ~ 47 mL/min on 05/30/24), for constipation, sodium levels (Na = 138 mmol/L on 05/30/24), potassium levels (K = 4.4 mmol/L on 05/30/24), and for s/s of orthostasis. 4. Left sciatica: gabapentin 100 mg PO TID with meals. Please continue to monitor for nerve pain, renal function (serum creatinine = 0.94 mg/dL with creatinine clearance ~ 47 mL/min on 05/30/24), and for drowsiness/dizziness. 5. Muscle spasms: baclofen 10 mg PO TID PRN muscle spasms. The patient has not required any PRN doses of baclofen so far this admission. Please continue to monitor for muscle spasms, nausea/vomiting, asthenia, confusion, dizziness/drowsiness, hypotonia, and dry mouth. 6. Hypothyroidism: levothyroxine 88 mcg PO daily. Please continue to monitor for hypo/hyperthyroidism, and thyroid hormone levels (TSH = 3.910 uIU/mL, and free T4 = 0.97 ng/dL on 04/24/24). 7. Vitamin C deficiency: ascorbic acid 1000 mg PO daily. Please continue to monitor for s/s of vitamin C deficiency. Assessment/Plan for indications treated with psychotropic medications: NA Medical chart and medication regimen reviewed. The following medication irregularities or issues were identified: NA Date Date of Note: 05/31/24 Documented by User: Dr. Nahum Rivera MD 05/31/24 11:52 TCU RX Drug Regimen Review Provider Comments Provider responsibility Provider Comments to Recommendations by Pharmacy Agree
[2024-05-31 21:03] VITALS: BP 109/71; PULSE 85
[2024-05-31] MEDS: Losartan Potassium 100 MG Tablet PO (21:04)
[2024-06-01] MEDS: Levothyroxine 88 MCG Tablet PO (05:40)
[2024-06-01] MEDS: Acetaminophen 500 MG Tablet 1000 MG PO ×3 (05:41→20:38)
[2024-06-01 07:21] LABS: Hematocrit 28.3 % (37-47); Hemoglobin 9.2 g/dL (12.0-15.0)
[2024-06-01 08:00] VITALS: BP 116/69; PULSE 52; RESP 18; TEMP 36.4; O2SAT 96
[2024-06-01] MEDS: Gabapentin 100 MG Capsule PO ×3 (08:39→17:04)
[2024-06-01] MEDS: oxyCODONE 5 MG Tablet PO ×4 (08:39→21:50)
[2024-06-01] MEDS: dilTIAZem CD 120 MG Capsule PO ×2 (08:41→20:39)
[2024-06-01] MEDS: Ascorbic Acid 500 MG Tablet 1000 MG PO (08:41)
[2024-06-01] MEDS: APIXABAN 5 MG TABLET PO ×2 (08:41→20:38)
[2024-06-01] MEDS: hydroCHLOROthiazide 25 MG Tablet PO (08:41)
[2024-06-01] MEDS: traMADol 50 MG Tablet PO (19:23)
[2024-06-01 20:00] VITALS: PULSE 66; RESP 16; O2SAT 94
[2024-06-01 20:34] VITALS: BP 110/57; PULSE 66; O2SAT 94
[2024-06-01] MEDS: Losartan Potassium 100 MG Tablet PO (20:39)
[2024-06-01] MEDS: Baclofen 10 MG Tablet PO (22:43)
[2024-06-02] MEDS: traMADol 50 MG Tablet PO ×2 (01:21→13:03)
[2024-06-02] MEDS: Acetaminophen 500 MG Tablet 1000 MG PO ×3 (05:02→20:23)
[2024-06-02] MEDS: Levothyroxine 88 MCG Tablet PO (05:02)
[2024-06-02 08:39] LABS: Hematocrit 30.1 % (37-47); Hemoglobin 9.6 g/dL (12.0-15.0)
[2024-06-02] MEDS: Gabapentin 100 MG Capsule PO ×3 (08:45→16:48)
[2024-06-02] MEDS: dilTIAZem CD 120 MG Capsule PO ×2 (08:45→20:24)
[2024-06-02] MEDS: hydroCHLOROthiazide 25 MG Tablet PO (08:46)
[2024-06-02] MEDS: APIXABAN 5 MG TABLET PO ×2 (08:46→20:23)
[2024-06-02] MEDS: Ascorbic Acid 500 MG Tablet 1000 MG PO (08:46)
[2024-06-02] MEDS: oxyCODONE 5 MG Tablet PO ×3 (10:47→20:24)
[2024-06-02 11:35] VITALS: BP 105/61; PULSE 100; RESP 19; TEMP 36.6; O2SAT 99
--- NOTE | 2024-06-02 15:51 | CASEMGMT ---
Social Work SW met with patient to complete initial assessment. Introduced self and role. Verified/updated contacts. Discussed code status and pt wishes to be DNR-CCA, no intubation. SW notified TANKER SERVICEMAN. SW educated to [facility] insurance with NRD 06/04 and insurance provides 3 day notice for DC date. Pt's goal is to return home alone. Pt stated her dtr, Emilie, is her HCPOA but the children do not have access to where the documents are located and is unable to provide copies. SW will continue to follow for DC planning. Mary Rome, APPLE CHECKER SUBACUTE NURSE
[2024-06-02 20:20] VITALS: BP 114/60; PULSE 68
[2024-06-02] MEDS: Losartan Potassium 100 MG Tablet PO (20:24)
[2024-06-03] MEDS: oxyCODONE 5 MG Tablet PO ×4 (02:48→20:04)
[2024-06-03] MEDS: Acetaminophen 500 MG Tablet 1000 MG PO ×3 (06:29→20:05)
[2024-06-03] MEDS: Levothyroxine 88 MCG Tablet PO (06:29)
[2024-06-03] MEDS: traMADol 50 MG Tablet PO (06:29)
[2024-06-03] MEDS: Gabapentin 100 MG Capsule PO ×3 (08:39→17:18)
[2024-06-03] MEDS: dilTIAZem CD 120 MG Capsule PO ×2 (08:43→20:05)
[2024-06-03] MEDS: hydroCHLOROthiazide 25 MG Tablet PO (08:43)
[2024-06-03] MEDS: APIXABAN 5 MG TABLET PO ×2 (08:43→20:04)
[2024-06-03] MEDS: Ascorbic Acid 500 MG Tablet 1000 MG PO (08:44)
[2024-06-03 08:55] VITALS: BP 117/47; PULSE 57; O2SAT 96
--- NOTE | 2024-06-03 08:56 | NURSING ---
SURGICAL DRESSING REMOVED FROM LEFT KNEE PER ORDER. 21 SABINA IN TACT, MINIMAL BLEEDING,NO S/S OF INFECTION. BRUISING AND SWELLING TO AREA. CLEANED AREA AND APPLIED ABD. PT TOLERATED WELL.
--- NOTE | 2024-06-03 10:43 | NURSING ---
Offered covid vaccine, VIS provided. Resident refuses at this time.
[2024-06-03 10:53] VITALS: BMI 31.6
[2024-06-03 11:45] VITALS: PULSE 65; RESP 18; O2SAT 97
--- NOTE | 2024-06-03 15:34 | CHAPLAIN ---
Type of Pastoral Visit _x__ Initial Visit ___ Follow-up Visit ___ On-call Visit ___ General Patient Visit ___ Spiritual Assessment ___ Family Conference ___ Bereavement ___ Rapid Response ___ Code Blue ___ Other (describe below) Pastoral Care Referral From _x__ Patient ___ Family ___ Nurse ___ Physician ___ Barrel Roller ___ Poultry Farm Manager ___ Other (describe below) Sacrament/Intervention _x__ Active listening ___ Anointing ___ Druze ___ Bereavement ___ Communion _x__ Susan exploration ___ _x__ Life review _x__ Prayer ___ Reconciliation ___ Sacrament of Sick _x__ Supportive presence ___ Wedding ___ Other (describe below) Pastoral Comments patient just finished a session of therapy; pt admits to some discomfort and is encouraged to call for the RN as instructed by OT; 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
[2024-06-03 16:00] VITALS: RESP 14; TEMP 36.4
[2024-06-03 20:00] VITALS: BP 111/57; PULSE 64; RESP 16; O2SAT 96
[2024-06-03] MEDS: Losartan Potassium 100 MG Tablet PO (20:05)
[2024-06-04] MEDS: traMADol 50 MG Tablet PO ×2 (05:29→22:59)
[2024-06-04] MEDS: Acetaminophen 500 MG Tablet 1000 MG PO ×3 (05:30→21:27)
[2024-06-04] MEDS: Levothyroxine 88 MCG Tablet PO (05:30)
[2024-06-04] MEDS: oxyCODONE 5 MG Tablet PO ×2 (08:05→20:40)
[2024-06-04] MEDS: Gabapentin 100 MG Capsule PO ×3 (08:05→17:19)
[2024-06-04] MEDS: hydroCHLOROthiazide 25 MG Tablet PO (08:06)
[2024-06-04] MEDS: dilTIAZem CD 120 MG Capsule PO ×2 (08:06→21:25)
[2024-06-04] MEDS: APIXABAN 5 MG TABLET PO ×2 (08:06→21:26)
[2024-06-04] MEDS: Ascorbic Acid 500 MG Tablet 1000 MG PO (08:08)
[2024-06-04] MEDS: Senna/Docusate Sodium 1 Tablet 2 TABLET PO ×2 (08:08→21:26)
[2024-06-04 08:13] VITALS: BP 119/54; PULSE 59; O2SAT 96
[2024-06-04] MEDS: Baclofen 10 MG Tablet PO ×2 (10:39→21:25)
--- NOTE | 2024-06-04 10:39 | CASEMGMT ---
Social Work IDT met with patient and son, Jefferson, then dtr Emilie, via conference call for care plan meeting. Discussed patient's progress in PT/OT/SN. Educated to [facility] insurance with NRD 06/04, with weekly updates and insurance will provide a 3-day notice for DC date. Provided pt with written communication on insurance process and copay coverage during stay. Pt's goal is to return home alone, however, pt expressed discouragement with pain and mobility. Pt noted to dietitian earlier that she had poor appetite. SW provided support and gently explained possibly situational depression with loss of independence. Discussed the lack of instant improvement/gratification with recovery, and the decline in mood can also impact low appetite. Pt expressed today having a shift in her feelings and be more optimistic and seeing the slight improvements. Pt is not ready for DC at this time, but motivated for ongoing therapy over the next week or so. SW validated pt's feelings and offered ongoing supportive visits or antidepressant, if needed. Pt denied medication at this time, but appreciative of positive conversation and ongoing encouragement from all staff. SW will continue to follow for DC planning. Mary Rome, FRANCISCO SCHRADER
[2024-06-04 13:10] VITALS: PULSE 62; RESP 18; O2SAT 95
[2024-06-04 16:00] VITALS: RESP 18; TEMP 36.7
[2024-06-04 21:23] VITALS: BP 128/58; PULSE 65
[2024-06-04] MEDS: Losartan Potassium 100 MG Tablet PO (21:26)
[2024-06-05] MEDS: oxyCODONE 5 MG Tablet PO ×4 (01:15→21:45)
[2024-06-05] MEDS: Levothyroxine 88 MCG Tablet PO (05:29)
[2024-06-05] MEDS: Acetaminophen 500 MG Tablet 1000 MG PO ×3 (05:29→21:41)
[2024-06-05 05:53] LABS: Hematocrit 25.7 % (37-47); Hemoglobin 8.1 g/dL (12.0-15.0)
[2024-06-05] MEDS: hydroCHLOROthiazide 25 MG Tablet PO (07:54)
[2024-06-05] MEDS: Senna/Docusate Sodium 1 Tablet 2 TABLET PO ×2 (07:54→21:41)
[2024-06-05] MEDS: Gabapentin 100 MG Capsule PO ×3 (07:54→17:00)
[2024-06-05] MEDS: dilTIAZem CD 120 MG Capsule PO ×2 (07:54→21:42)
[2024-06-05] MEDS: Ascorbic Acid 500 MG Tablet 1000 MG PO (07:55)
[2024-06-05 10:35] VITALS: BP 130/46; PULSE 61; RESP 16; TEMP 36.6; O2SAT 95
[2024-06-05] MEDS: Baclofen 10 MG Tablet PO (14:20)
--- NOTE | 2024-06-05 16:00 | CASEMGMT ---
BIMS () and PHQ2 (0) interviews completed on this date for MDS assessment. MACRINA Saldivar
[2024-06-05] MEDS: traMADol 50 MG Tablet PO (19:46)
[2024-06-05 20:00] VITALS: PULSE 60; O2SAT 95
[2024-06-05 21:40] VITALS: BP 140/56; PULSE 60; O2SAT 95
[2024-06-05] MEDS: Losartan Potassium 100 MG Tablet PO (21:42)
[2024-06-06] MEDS: Levothyroxine 88 MCG Tablet PO (05:12)
[2024-06-06] MEDS: Acetaminophen 500 MG Tablet 1000 MG PO ×3 (05:13→21:29)
[2024-06-06] MEDS: Baclofen 10 MG Tablet PO ×2 (05:15→21:33)
[2024-06-06 06:16] LABS: Absolute Lymphocyte Count 1.47 X10^3/uL (0.83-4.51); Absolute Neutrophil Count 3.9 X10^3/uL (2.0-7.7); Basophil# 0.06 X10^3/uL; Basophil% 0.9 % (0-1); Eosinophil# 0.26 X10^3/uL; Hematocrit 26.9 % (37-47); Hemoglobin 8.3 g/dL (12.0-15.0); Lymphocyte # 1.47 X10^3/ul (0.83-4.51); Lymphocyte % 22.9 % (19-41); Mean Corp Hgb Conc 30.9 g/dL (32-36); Mean Corpuscular Hgb 29.2 pg (27.0-32.0); Mean Corpuscular Volume 94.7 fL (81-99); Mean Platelet Vol. 9.2 fl (6.2-12.0); Monocyte# 0.65 X10^3/uL; Monocyte% 10.1 % (0-10); NRBC Flagged by Analyzer 0 % (0-5); Neutrophil # 3.93 X10^3/uL (2.7-7.7); Neutrophil % 61.2 % (47-70); Platelet Count 418 K/mm3 (150-450); RBC Distribution Width CV 14.1 % (11.6-14.6); RBC Distribution Width SD 48.2 fl (35.1-43.9); Red Blood Count 2.84 M/mm3 (4.2-5.4); White Blood Count 6.4 K/mm3 (4.4-11.0)
[2024-06-06 06:44] LABS: Anion Gap 5 (5-15); BUN 27 mg/dL (7-18); Calcium,Total 9.8 mg/dL (8.5-10.1); Chloride 104 mmol/L (98-107); Creatinine, Serum 0.75 mg/dL (0.55-1.02); EST Glomerular Filtration Rate 78 mL/min (>60); Est Glom Filt Rate - Afr Amer 94 mL/min (>60); Estimated Creatinine Clearance 58.91 ml/min; Glucose 104 mg/dL (74-106); Potassium 4.2 mmol/L (3.5-5.1); Sodium Level 137 mmol/L (136-145)
--- NOTE | 2024-06-06 07:53 | NURSING ---
NOTIFIED BY CORNELIUS DUE TO ORDER FOR CONSULT ON PT.
[2024-06-06] MEDS: traMADol 50 MG Tablet PO (08:50)
[2024-06-06] MEDS: Gabapentin 100 MG Capsule PO ×3 (08:51→17:06)
[2024-06-06] MEDS: Ascorbic Acid 500 MG Tablet 1000 MG PO (09:28)
[2024-06-06] MEDS: dilTIAZem CD 120 MG Capsule PO ×2 (09:28→21:28)
[2024-06-06] MEDS: hydroCHLOROthiazide 25 MG Tablet PO (09:28)
[2024-06-06] MEDS: Iron Polysaccharide Complex 150 MG CAPSULE PO (09:31)
[2024-06-06] MEDS: Tuberculin,Purif.prot.deriv. 50 TU/ML Vial 0.1 ML ID (09:34)
[2024-06-06 09:38] VITALS: BP 123/54; PULSE 65; O2SAT 95
--- NOTE | 2024-06-06 12:34 | NURSING ---
[employer] Plans Staff Officer Note; MDS for 06/05/2024 Complete
[2024-06-06] MEDS: oxyCODONE 5 MG Tablet PO ×2 (13:14→21:33)
[2024-06-06 15:26] VITALS: RESP 16; TEMP 36.7
[2024-06-06 20:00] VITALS: PULSE 64; RESP 18; O2SAT 95
[2024-06-06 21:23] VITALS: BP 140/54; PULSE 64; O2SAT 95
[2024-06-06] MEDS: Senna/Docusate Sodium 1 Tablet 2 TABLET PO (21:28)
[2024-06-06] MEDS: Losartan Potassium 100 MG Tablet PO (21:30)
[2024-06-07 04:44] LABS: Hematocrit 26.6 % (37-47); Hemoglobin 8.4 g/dL (12.0-15.0)
[2024-06-07] MEDS: Levothyroxine 88 MCG Tablet PO (05:04)
[2024-06-07] MEDS: Acetaminophen 500 MG Tablet 1000 MG PO ×3 (05:04→20:55)
[2024-06-07] MEDS: dilTIAZem CD 120 MG Capsule PO ×2 (08:19→20:55)
[2024-06-07] MEDS: Gabapentin 100 MG Capsule PO ×3 (08:19→17:06)
[2024-06-07] MEDS: oxyCODONE 5 MG Tablet PO ×4 (08:20→21:24)
[2024-06-07] MEDS: Iron Polysaccharide Complex 150 MG CAPSULE PO (08:20)
[2024-06-07] MEDS: Senna/Docusate Sodium 1 Tablet 2 TABLET PO (08:20)
[2024-06-07] MEDS: hydroCHLOROthiazide 25 MG Tablet PO (08:20)
[2024-06-07] MEDS: Ascorbic Acid 500 MG Tablet 1000 MG PO (08:20)
[2024-06-07] MEDS: traMADol 50 MG Tablet PO (09:28)
[2024-06-07 09:42] VITALS: BP 141/62; PULSE 60; RESP 18; TEMP 36.6; O2SAT 97
[2024-06-07 20:55] VITALS: BP 124/57; PULSE 60; O2SAT 94
[2024-06-07] MEDS: Losartan Potassium 100 MG Tablet PO (20:55)
[2024-06-08] MEDS: Acetaminophen 500 MG Tablet 1000 MG PO ×3 (06:06→21:23)
[2024-06-08] MEDS: Levothyroxine 88 MCG Tablet PO (06:06)
[2024-06-08] MEDS: hydroCHLOROthiazide 25 MG Tablet PO (07:54)
[2024-06-08] MEDS: oxyCODONE 5 MG Tablet PO ×4 (07:54→21:22)
[2024-06-08] MEDS: Senna/Docusate Sodium 1 Tablet 2 TABLET PO ×2 (07:54→21:23)
[2024-06-08] MEDS: dilTIAZem CD 120 MG Capsule PO ×2 (07:54→21:22)
[2024-06-08] MEDS: Ascorbic Acid 500 MG Tablet 1000 MG PO (07:54)
[2024-06-08] MEDS: Iron Polysaccharide Complex 150 MG CAPSULE PO (07:54)
[2024-06-08] MEDS: Gabapentin 100 MG Capsule PO ×3 (07:54→16:45)
[2024-06-08 09:25] VITALS: BP 124/46; PULSE 61; RESP 18; TEMP 36.8; O2SAT 98
[2024-06-08] MEDS: traMADol 50 MG Tablet PO (13:55)
[2024-06-08] MEDS: Losartan Potassium 100 MG Tablet PO (21:23)
[2024-06-09] MEDS: traMADol 50 MG Tablet PO ×2 (00:03→20:37)
[2024-06-09] MEDS: Baclofen 10 MG Tablet PO ×2 (00:03→20:37)
[2024-06-09 07:50] VITALS: BP 144/60; PULSE 58; RESP 18; O2SAT 97
--- NOTE | 2024-06-09 09:23 | NURSING ---
Updated María at Dr. Aguilar's office that resident still on TCU. She will update him and says he will probably come by tomorrow after surgery to do 2 week surgical follow-up.
[2024-06-09] MEDS: oxyCODONE 5 MG Tablet PO ×2 (09:25→18:26)
[2024-06-09 11:20] VITALS: PULSE 62; RESP 16; O2SAT 93
[2024-06-09] MEDS: Acetaminophen 500 MG Tablet 1000 MG PO ×2 (13:23→20:39)
--- NOTE | 2024-06-09 14:32 | MDS.RN ---
Information for the MDS was obtained from review of the clinical record, interview of resident, staff, and direct observation of resident?s care.
[2024-06-09 14:58] VITALS: BP 151/81; PULSE 64; RESP 16; TEMP 36.4; O2SAT 97
--- NOTE | 2024-06-09 15:11 | CASEMGMT ---
Addendum entered by Mary Rome 06/10/24 14:47: BANK CREDIT CARD COLLECTION CLERK recommending pt have own FWW vs borrowed from a friend. ALFRED spoke with pt and educated to insurance covering FWW for DC. Pt agreed. SW sent referral to [facility] via [facility] for FWW. Original Note: Social Work Insurance issued LCD 06/11, DC 06/12. SW spoke with pt at bedside, notified DC and explained appeal rights. Pt wants to go home, but is having increased sciatica pain, and concerned with improvement. Pt denied appealing and will go home, though. SW informed pt that Dr will visit pt this evening and can assist in addressing the pain. SW offered HHC vs OP therapy, though, educated that HHC can have SN to have pain oversight, then can transition to OP therapy. Pt agreed to that option. Pt inquired about [facility] Van for transportation. SW provided information to utilize with OP therapy, if elected. SW offered list of skilled C agencies with quality and resource data but pt denied and prefers [facility]. Pt denied any DME needs. ALFRED phoned referral to [facility] for PT/OT/SN Plan: DC home alone 06/12, [facility] PT/OT/SN FRANCISCO Brandt
--- NOTE | 2024-06-09 16:00 | NURSING ---
Addendum entered by Song Olson 06/09/24 19:37: PT RETURNED TO FLOOR BY BED AT 1830. NO NEW ORDERS. Original Note: PT TAKEN DOWN BY BED AT [address] LERNER.
--- NOTE | 2024-06-09 16:13 | PCM.HP.STD ---
HPI - General General Date of Admission: 05/29/24 Date of Service: 06/09/24 Chief Complaint: Anemia HPI Narrative YOSHI CAROLINA is a 83 year old F medical comorbidities including but not limited to carotid artery disease, atrial for fibrillation chronic anticoagulation, hydronephrosis , gastric ulcer , history of cardioversion hypothyroidism , diverticulitis who presented with left knee pain. After extensive evaluation it was determined that she needed a total left knee replacement. She underwent left knee replacement and is currently receiving therapy. I was called to see her due to decrease in hemoglobin and history of gastric ulcer while needing anticoagulation. She was discovered to have a decrease in hemoglobin. [facility] Medical History (Updated 06/09/24 @ 16:[address] Garcia Friend, DO) Anemia Alcohol use Back pain History of diverticulitis Shortness of breath on exertion History of pain when walking History of Holter monitoring History of stress test Osteoarthritis Preop exam for internal medicine Right foot sprain Right ankle sprain Contact with and (suspected) exposure to other viral communicable diseases Left chest pressure Cough Wears contact lenses Post-menopausal Anxiety Thyroid disease Arthritis Gastric reflux Non-smoker History of echocardiogram Cardiology follow-up encounter History of atrial fibrillation Poison segundo dermatitis GERD (gastroesophageal reflux disease) Carotid artery disease Chronic anticoagulation Hydronephrosis History of Helicobacter pylori infection Cholelithiasis with chronic cholecystitis Ventral incisional hernia without obstruction or gangrene Abdominal pain Sigmoid diverticulitis History of rheumatic fever Gastric ulcer GERD (gastroesophageal reflux disease) Hypothyroidism Anemia Essential (primary) hypertension Fatigue Rapid heartbeat Atrial fibrillation with RVR Paroxysmal atrial fibrillation Home Medications ?Medication ?Instructions ?Recorded ?Last Taken ?Type apixaban 5 mg tablet (Eliquis) 5 mg PO BID afib #180 tabs 07/02/23 05/23/24 Rx diltiazem HCl 120 mg capsule,24 120 mg PO BID BP/heart rate #180 12/24/23 05/27/24 07:45 Rx hr,extended release caps hydrochlorothiazide 25 mg tablet 25 mg PO DAILY water pill #90 tabs 03/26/24 05/27/24 07:45 Rx levothyroxine 88 mcg tablet 88 mcg PO DAILY thyroid #90 tabs 04/24/24 05/27/24 07:45 Rx ascorbic acid (vitamin C) 1,000 mg 1 g PO DAILY Vitamin C 05/13/24 Unknown History tablet (C-1000) losartan 100 mg tablet 100 mg PO QHS BP 05/13/24 05/26/24 19:00 History acetaminophen 500 mg tablet 1,000 mg (2 x 500 mg) PO Q8 pain 05/29/24 Unknown Rx #90 tabs oxycodone 5 mg tablet 5 - 15 mg (1 - 3 x 5 mg) PO Q4H 05/29/24 Unknown Rx PRN PRN Pain Score 4-10 7 days #60 tabs Allergy/AdvReac Type Severity Reaction Status Date / Time metoprolol AdvReac Symptomatic Verified 06/09/24 16:16 Bradycardia Family History Mother Hypertension Father Colon cancer Surgical History (Updated 06/06/24 @ 00:02 by Le Smiley) History of total left knee replacement History of esophagogastroduodenoscopy (EGD) History of cardiac catheterization History of cholecystectomy (~05/2019) History of partial colectomy (~05/2019) Hx of tonsillectomy Hx of colonoscopy History of cardioversion (11/2017) History of hysterectomy Social History (Updated 05/29/24 @ 19:[address] Nahum Rivera MD) household members: none Smoking Status: Never smoker second hand exposure: No alcohol intake: current alcohol intake frequency: holidays/special occasions only substance use type: does not use caffeine: Yes what type of physical activity do you participate in: none frequency: does not exercise ROS Constitutional Constitutional: Denies fatigue, fever(s), poor appetite, weight gain or weight loss Gastrointestinal Gastrointestinal: Denies belching, bloating, change in bowel habits, change in stool character, chewing difficulty, coffee ground emesis, constipation, cramping, diarrhea, dyspepsia, dysphagia, early satiety, excessive flatus, fecal incontinence, heartburn, hematemesis, hematochezia, hemorrhoids, loose stools, melena, nausea, odynophagia, rectal bleeding, tenesmus, vomiting or weight changes Vital Signs Vital Signs Vital Signs: 06/08/24 22:00 06/09/24 07:50 06/09/24 10:00 Temperature Temperature Source Pulse Rate 58 L Pulse Rhythm Pulse Strength Normal (2+) Normal (2+) Respiratory Rate 18 Respiratory Effort Respiratory Depth Respiratory Pattern Blood Pressure 144/60 H Blood Pressure Mean 88 Blood Pressure Source Monitor Blood Pressure Position Semi-Fowlers Blood Pressure Location Right Arm Pulse Ox 97 Oxygen Delivery Method Room Air 06/09/24 11:20 06/09/24 14:58 Temperature 97.6 F L Temperature Source Temporal Pulse Rate 62 64 Pulse Rhythm Regular Pulse Strength Normal (2+) Respiratory Rate 16 16 Respiratory Effort Normal Non-Labored Respiratory Depth Normal Respiratory Pattern Normal Blood Pressure 151/81 H Blood Pressure Mean 104 Blood Pressure Source Monitor Blood Pressure Position Semi-Fowlers Blood Pressure Location Right Arm Pulse Ox 93 97 Oxygen Delivery Method Room Air Room Air Weight Weight: 196 lb 12.801 oz Body Mass Index (BMI) 31.6 Physical Exam Const alert, oriented x3, no apparent distress and healthy appearing General Appearance: cooperative GI normal to inspection, nondistended, normoactive bowel sounds, soft to palpation, non-tender and non-distended Percussion: normal to percussion Rectal Exam: deferred Results Lab / Micro Data 06/07/24 04:10 06/06/24 05:45 Micro: Microbiology 06/09/24 09:53 Nasal Secretion SARS-CoV-2 Antigen (Rapid) - Final Assessment & Plan Assessment/Plan (1) Anemia: PLAN: 83-year-old with recent total left knee arthroplasty with total knee replacement on anticoagulation with worsening anemia and Hemoccult positive stools. She will undergo an upper endoscopy to evaluate upper GI tract. She was explained alternatives, risk and benefits include not withstanding bleeding, infection, sepsis, perforation, need for charge and . She will have an ASA of 3.
--- NOTE | 2024-06-09 18:18 | DS.PCM_ITS ---
Providers Date of Admission: 05/29/24 Primary Care Physician: Dr. Wendy Arguello MD Consultations 06/06/24 07:38 Consult: Gastroenterology Routine Consulting Provider: [facility] Reason for Consult: Anemia, +hemoccult. EMERGENT Consult: No MD Notified: Yes Date Notified: 06/06/24 Time Notified: 07:51 Method of Notification: Text Reason For Visit: L TOTAL KNEE/ WEAKNESS Diagnosis Discharge Diagnosis (1) Anemia: Status: Acute Code(s): D64.9 - Anemia, unspecified Plan 83 year old female with below past medical history underwent left total knee replacement 05/27/[address] Aguilar, admitted to TCU with debility, here for rehabilitation, strengthening, prior to discharge home alone. * Debility - PT/OT. * Pain - Tylenol 1000mg q8, Tramadol 50mg q6 prn pain (1-5), Oxycodone 15mg q4 prn pain (6-10). * Bowel - senna/colace 2 tablets bid, Magnesium citrate 300mL daily prn. * Adult immunization - Administer pneumonia vaccine, covid vaccine, flu vaccine as appropriate. * DVT prophylaxis - on Eliquis. * Atrial Fibrillation - Diltiazem 120mg bid, Eliquis 5mg bid. * Vitamin C deficiency - Vitamin C 1000mg daily. * Muscle spasm - Baclofen 10mg tid prn. * Hypertension - Diltiazem 120mg bid, Losartan 100mg qhs, HCTZ 25mg daily. * Left sciatica - Gabapentin 100mg tidcm. * Hypothyroidism - Levothyroxine 88mcg daily. Medications at Discharge Home Medications apixaban 5 mg tablet (Eliquis) 5 mg PO BID afib #180 tabs 07/02/23 diltiazem HCl 120 mg capsule,24 hr,extended release 120 mg PO BID BP/heart rate #180 caps 12/24/23 hydrochlorothiazide 25 mg tablet 25 mg PO DAILY water pill #90 tabs 03/26/24 levothyroxine 88 mcg tablet 88 mcg PO DAILY thyroid #90 tabs 04/24/24 ascorbic acid (vitamin C) 1,000 mg tablet (C-1000) 1 g PO DAILY Vitamin C 05/13/24 losartan 100 mg tablet 100 mg PO QHS BP 05/13/24 acetaminophen 500 mg tablet 1,000 mg (2 x 500 mg) PO Q8 #0 tabs 06/09/24 baclofen 10 mg tablet 10 mg PO TID PRN Muscle Spasm 30 days #90 tabs 06/09/24 gabapentin 100 mg capsule 100 mg PO TIDCM 30 days #90 caps 06/09/24 oxycodone 5 mg tablet 5 mg PO Q4H PRN PRN Pain Score 6-10 Or Pre Pt/Ot 7 days #42 tabs 06/09/24 polysaccharide iron complex 150 mg iron capsule (Ferrex) 150 mg PO 1000 30 days #30 caps 06/09/24 sennosides 8.6 mg-docusate sodium 50 mg tablet (Stimulant Laxative Plus) 2 tab PO BID 30 days #120 tabs 06/09/24 tramadol 50 mg tablet 50 mg PO Q6H PRN PRN Pain Score 1-5 Or Pre Pt/Ot 7 days #28 tabs 06/09/24 Hospital Course Operations total knee replacement (Left.) Procedures EGD Summary of Care Provided Minutes Spent on Discharge: 35 Hospital Course: 83 year old female with below past medical history underwent left total knee replacement 05/27/[address] Aguilar, admitted to TCU with debility, here for rehabilitation, strengthening, prior to discharge home alone. 06/09/2024 Dr. Fenton EGD: Impressions : - Normal esophagus. 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 Treated with a heater probe. - No gross lesions in the second portion of the duodenum. - No specimens collected. Discharge home alone 06/12/2024, [facility] PT/OT/SN. Physical Exam Const alert General Appearance: cooperative HEENT normocephalic Eyes PERRL and EOMs intact bilaterally Neck supple, no JVD and no carotid bruits Resp normal respiratory effort, normal air movement and clear to auscultation bilaterally Cardio regular rate and regular rhythm GI normal to inspection, nondistended, normoactive bowel sounds, non-tender and non-distended Extremity normal capillary refill General Extremity: Negative for edema Skin no rashes or lesions noted General Skin Exam: no breakdown Psych affect normal Appearance: appropriate Weight / BMI Weight Weight: 89.267 kg Body Mass Index (BMI) 31.6 ABG / Lab / Microbiology Data 06/07/24 04:10 06/06/24 05:45 Microbiology: Microbiology 06/09/24 09:53 Nasal Secretion SARS-CoV-2 Antigen (Rapid) - Final 06/05/24 16:15 Stool Stool Occult Blood (CEE) - Final Occult Blood Positive 06/02/24 05:30 Nasal Secretion SARS-CoV-2 Antigen (Rapid) - Final D/C Instructions Discharge Diet: No restrictions Discharge Activity: Return to Normal Activity, May Shower and Use Walker Weight Bearing Status: Weight bearing as tolerated Call your doctor if you observe: Fever of 101 or Higher, Inability to urinate, Inability to have a bowel movement, Shortness of breath, Dizziness, Fainting spells, Swelling in the ankles, Chest pain and Uncontrolled pain DC O2, CPAP, BIPAP Needs Additional Home O2 Discharge instructions: No DC home with Oxygen: No Additional Instructions: Discharge home alone 06/12/2024, [facility] PT/OT/SN. Please Follow Up With: Samson Aguilar DO When: As scheduled. Meaningful Use Info Meaningful Use Meaningful Use Diagnoses (Choose all that apply): None applicable Ischemic Stroke Statin Dosing Therapy Reference: STATIN DOSE THERAPY REFERENCE: * Patients > 75 years receive moderate or high dose statin therapy. * Patients 75 years or YOUNGER should receive HIGH intensity statin dose unless contraindicated. You will be required to document reason for non-treatment if statin daily dose does not meet guidelines. HIGH DOSE STATIN THERAPY DAILY Atorvastatin > than or = to 40 mg Rosuvastatin > than or = to 20 mg Amlodipine + Atorvastatin > than or = to 2.5/40 mg Ezetimibe + Simvastatin 10/80 mg Simvastatin 80mg Discharge Plan Admission Admit Date/Time: 05/29/24 15:51 Primary Reason for Your Visit: Debility. Attending Provider: Nahum Rivera Chi Primary Care Provider: Wendy Arguello Instructions Additional Instructions / Restrictions: Discharge home alone 06/12/2024, [facility] PT/OT/SN. Discharge Orders/Prescriptions Prescriptions: New polysaccharide iron complex [Ferrex 150] 150 mg iron Capsule 150 mg PO 1000 30 Days Qty: 30 0RF sennosides-docusate sodium [Stimulant Laxative Plus] 8.6-50 mg Tablet 2 tab PO BID 30 Days Qty: 120 0RF tramadol 50 mg Tablet 50 mg PO Q6H PRN PRN (Reason: Pain Score 1-5 Or Pre Pt/Ot) 7 Days Qty: 28 0RF acetaminophen 500 mg Tablet 1,000 mg PO Q8 Qty: 0 0RF baclofen 10 mg Tablet 10 mg PO TID PRN (Reason: Muscle Spasm) 30 Days Qty: 90 0RF gabapentin 100 mg Capsule 100 mg PO TIDCM 30 Days Qty: 90 0RF oxycodone 5 mg Tablet 5 mg PO Q4H PRN PRN (Reason: Pain Score 6-10 Or Pre Pt/Ot) 7 Days Qty: 42 0RF Continued Eliquis 5 mg tablet 5 mg PO BID Qty: 180 3RF diltiazem HCl 120 mg capsule,extended release 24 hr 120 mg PO BID Qty: 180 3RF hydrochlorothiazide 25 mg tablet 25 mg PO DAILY Qty: 90 3RF ascorbic acid (vitamin C) [C-1000] 1,000 mg tablet 1 g PO DAILY losartan 100 mg tablet 100 mg PO QHS levothyroxine 88 mcg tablet 88 mcg PO DAILY Qty: 90 3RF Discontinued tramadol 50 mg tablet 50 mg PO Q6H acetaminophen 500 mg Tablet 1,000 mg PO Q8 Qty: 90 0RF oxycodone 5 mg Tablet 5 - 15 mg PO Q4H PRN PRN (Reason: Pain Score 4-10) 7 Days Qty: 60 0RF Referrals / Follow Up: Wendy Arguello MD [Primary Care Provider] - Disposition Disposition (needs filled in before D/C Order can be placed): Home Health Service
[2024-06-09] MEDS: Iron Polysaccharide Complex 150 MG CAPSULE PO (18:23)
[2024-06-09] MEDS: hydroCHLOROthiazide 25 MG Tablet PO (18:23)
[2024-06-09] MEDS: Gabapentin 100 MG Capsule PO (18:25)
[2024-06-09 20:23] VITALS: BP 126/56; PULSE 61
[2024-06-09] MEDS: dilTIAZem CD 120 MG Capsule PO (20:37)
[2024-06-09] MEDS: Losartan Potassium 100 MG Tablet PO (20:38)
[2024-06-09] MEDS: Senna/Docusate Sodium 1 Tablet 2 TABLET PO (20:39)
[2024-06-10] MEDS: Levothyroxine 88 MCG Tablet PO (05:23)
[2024-06-10] MEDS: Acetaminophen 500 MG Tablet 1000 MG PO ×3 (05:24→20:49)
[2024-06-10 06:19] VITALS: PULSE 60; RESP 16; O2SAT 93
[2024-06-10] MEDS: Gabapentin 100 MG Capsule PO ×3 (09:18→17:59)
[2024-06-10] MEDS: oxyCODONE 5 MG Tablet PO ×3 (09:22→20:48)
[2024-06-10] MEDS: Iron Polysaccharide Complex 150 MG CAPSULE PO (09:22)
[2024-06-10] MEDS: dilTIAZem CD 120 MG Capsule PO ×2 (09:23→20:51)
[2024-06-10] MEDS: Ascorbic Acid 500 MG Tablet 1000 MG PO (09:24)
[2024-06-10] MEDS: APIXABAN 5 MG TABLET PO ×2 (09:29→20:50)
[2024-06-10] MEDS: hydroCHLOROthiazide 25 MG Tablet PO (09:29)
[2024-06-10 09:33] VITALS: BP 132/56; PULSE 73; O2SAT 96
[2024-06-10 11:41] VITALS: BMI 30.4
--- NOTE | 2024-06-10 12:16 | PCM.PN.ORT ---
Subjective Subjective Patient seen and examined. She is doing okay she does complain of sciatica which she had before surgery but seems to be aggravated after the surgery on her left side. Objective Data Objective Data Vital Signs: Vital Signs Temp Pulse Resp BP Pulse Ox O2 Del Method 97.6 F L 73 16 132/56 H 96 Room Air 06/09/24 14:58 06/10/24 09:33 06/10/24 06:19 06/10/24 09:33 06/10/24 09:33 06/10/24 09:33 Oxygen Delivery Method Room Air Weight: 188 lb 14.4 oz Body Mass Index (BMI) 30.4 Intake & Output: Intake and Output for Last 24 Hours 06/08/24 06/09/24 06/10/24 23:59 23:59 23:59 Intake Total 840 / 840 360 / 360 Balance 840 / 840 360 / 360 Lab / Micro Data 06/07/24 04:10 06/06/24 05:45 Micro: Microbiology 06/09/24 09:53 Nasal Secretion SARS-CoV-2 Antigen (Rapid) - Final 06/05/24 16:15 Stool Stool Occult Blood (CEE) - Final Occult Blood Positive 06/02/24 05:30 Nasal Secretion SARS-CoV-2 Antigen (Rapid) - Final Physical Exam Const alert, oriented x3 and no apparent distress General Appearance: cooperative Extremity Extremity Narrative: Left knee incision well-approximated no signs of infection or DVT she is neurovascular intact left lower extremity Assessment & Plan Assessment/Plan (1) S/P total knee arthroplasty: QUALIFIERS: Laterality: left Qualified Code(s): Z96.652 - Presence of left artificial knee joint PLAN: Plan 2 weeks status post left total knee arthroplasty Continue PT OT weightbearing as tolerated Left-sided sciatica will have nursing asked physical therapy to treat [place] to be removed today Continue daily incisional wash Liza had questions about continuing her Eliquis in light of her GI bleed I did defer this to GI and admitting physician I did let the nursing staff know that she had some questions about this to come relayed to her admitting physician as far as an orthopedic standpoint she does not need any further blood thinner Follow-up in the office in 4 weeks for her 6-week postop check. Call with any questions or concerns
--- NOTE | 2024-06-10 12:31 | NURSING ---
Dr Aguilar to unit, ordered for nursing to remove lydia, f/u in 4 weeks and start therapy for sciatic.
[2024-06-10] MEDS: traMADol 50 MG Tablet PO (13:49)
--- NOTE | 2024-06-10 14:26 | NURSING ---
REMOVED SABINA FROM PT LT KNEE PER ORDERS. CLEANED AREA AND APPLIED A FEW STERI STRIPS TO AREAS OF CONCERN. DRY STERILE DRESSING THEN APPLIED. PT TOLERATED WELL.
[2024-06-10 15:09] VITALS: RESP 18; TEMP 36.7
[2024-06-10] MEDS: Baclofen 10 MG Tablet PO (17:05)
--- NOTE | 2024-06-10 17:12 | NURSING ---
PT CANT SEEM TO GET MUCH RELEAF IN HER BACK AFTER THERAPY TODAY. PT HAS HAD ALL SCHEDULED AND PRN MEDS WITH HEAT. AND TRIED DIFFERENT POSITIONS. ASKED PT IF SHE WOULD LIKE ME TO ASK DOCTOR RACQUEL TO INCREASE HER OXY. PT STATED NO JUST KEEP GIVING ME MY 5MG OXY EVERY 4 HOURS. TOLD PT SHE WOULD HAVE TO ASK FOR IT DUE TO IT BEING PRN. PT STATED OK. WILL CONTINUE TO MONITOR.
[2024-06-10 20:45] VITALS: BP 124/53; PULSE 56; RESP 16
[2024-06-10] MEDS: Losartan Potassium 100 MG Tablet PO (20:50)
[2024-06-11] MEDS: oxyCODONE 5 MG Tablet PO ×4 (05:26→22:03)
[2024-06-11] MEDS: Acetaminophen 500 MG Tablet 1000 MG PO ×3 (05:26→22:05)
[2024-06-11] MEDS: Levothyroxine 88 MCG Tablet PO (05:26)
[2024-06-11] MEDS: Iron Polysaccharide Complex 150 MG CAPSULE PO (07:53)
[2024-06-11] MEDS: Ascorbic Acid 500 MG Tablet 1000 MG PO (07:53)
[2024-06-11] MEDS: hydroCHLOROthiazide 25 MG Tablet PO (07:53)
[2024-06-11] MEDS: Gabapentin 100 MG Capsule PO ×3 (07:53→17:22)
[2024-06-11] MEDS: APIXABAN 5 MG TABLET PO ×2 (07:53→22:06)
[2024-06-11] MEDS: dilTIAZem CD 120 MG Capsule PO ×2 (07:54→22:05)
[2024-06-11] MEDS: traMADol 50 MG Tablet PO ×2 (07:57→16:01)
[2024-06-11 08:00] VITALS: BP 118/56; PULSE 51; RESP 18; TEMP 36.3; O2SAT 97
--- NOTE | 2024-06-11 11:00 | NURSING ---
[facility] delivered patients personal FWW this morning to room. Name written on walker per patients request.
--- NOTE | 2024-06-11 14:26 | NURSING ---
Resident alert and oriented, consistently calling for assistance with transfers, to [place] home tomorrow. Alarms GERA'miguel.
[2024-06-11] MEDS: Baclofen 10 MG Tablet PO (17:22)
[2024-06-11 22:00] VITALS: BP 132/56; PULSE 58; RESP 16; RESP 18; O2SAT 97
[2024-06-11] MEDS: Losartan Potassium 100 MG Tablet PO (22:05)
[2024-06-12] MEDS: Acetaminophen 500 MG Tablet 1000 MG PO (05:28)
[2024-06-12] MEDS: Levothyroxine 88 MCG Tablet PO (05:28)
[2024-06-12] MEDS: oxyCODONE 5 MG Tablet PO (05:28)
[2024-06-12 05:33] VITALS: PULSE 61; RESP 16
[2024-06-12] MEDS: Gabapentin 100 MG Capsule PO (07:44)
[2024-06-12] MEDS: dilTIAZem CD 120 MG Capsule PO (07:45)
[2024-06-12] MEDS: APIXABAN 5 MG TABLET PO (07:45)
[2024-06-12] MEDS: Senna/Docusate Sodium 1 Tablet 2 TABLET PO (07:45)
[2024-06-12] MEDS: Iron Polysaccharide Complex 150 MG CAPSULE PO (07:45)
[2024-06-12] MEDS: hydroCHLOROthiazide 25 MG Tablet PO (07:45)
[2024-06-12] MEDS: Ascorbic Acid 500 MG Tablet 1000 MG PO (07:46)
[2024-06-12] MEDS: Baclofen 10 MG Tablet PO (07:50)
[2024-06-12 11:00] VITALS: BP 126/55; PULSE 66; RESP 16; TEMP 36.3; O2SAT 97
--- NOTE | 2024-06-12 11:54 | CASEMGMT ---
Social Work SW completed BIMS () and PHQ-2 () for MDS assessment. Mary Rome MSW CUT PLUG PACKER
== END 2024-06-12 11:39 | disposition home health service (06) | DRG 561 ==
PROVIDERS: Admitting Provider Family Medicine Geriatric Medicine; PCP Internal Medicine; Referring Provider Family Medicine Geriatric Medicine; Visit Provider Family Medicine Geriatric Medicine
DX: Z47.1 Aftercare following joint replacement surgery (principal); D64.9 Anemia, unspecified; E03.9 Hypothyroidism, unspecified; I10 Essential (primary) hypertension; I48.0 Paroxysmal atrial fibrillation; M17.12 Unilateral primary osteoarthritis, left knee; M54.32 Sciatica, left side; K21.9 Gastro-esophageal reflux disease without esophagitis; K31.819 Angiodysplasia of stomach and duodenum without bleeding; Z79.890 Hormone replacement therapy; Z96.652 Presence of left artificial knee joint; Z79.01 Long term (current) use of anticoagulants; Z79.899 Other long term (current) drug therapy
CPT/HCPCS: 36415; 73110; 80048; 82274; 82962; 85014; 85018; 85025; 87811; 92523; 97110; 97116; 97162; 97166; 97530; 97535

== ENCOUNTER 2024-06-09 16:36 | Day surgery (SDC) | payer MEDICARE, SELFPAY ==
--- NOTE | 2024-06-09 16:41 | PRE.ANES_ITS ---
ASA Classification* ASA Classification ASA Classification: 3 Assessment & Plan Anesthesia* Anesthesia Assessment Anesthesia Assessment: Discussed sedation and/or anesthesia options, risks, benefits, and alternatives with patient/parents/legal guardian/POA. Questions invited. The patient/parents/legal guardian/POA seems to understand and agrees to proceed with anesthesia plan. Reviewed the physical assessment, medical history, allergy history and patient home medications list prior to surgery/procedure/anesthetic and documented any changes. Performed airway and anesthesia risk assessments. Anesthesia Type Anesthesia Type: MAC History Source History Obtained from:: Patient and Chart Anesthesia Focused Assessment* Pulse Rate: 64 Blood Pressure: 151/81 Respiratory Rate: 16 Pulse Ox: 97 Oxygen Delivery Method: Room Air Airway Assessment Mouth opens: >3 cm Mallampati Score: II Teeth Condition: Missing (Multiple missing teeth. Top permanent bridge in place. Rest of the teeth are tight.) Neck Range of motion (ROM): Limited ROM (Somewhat decreased extension) Focused Labs Anesthesia Preop lab: CBC WBC 6.4 K/mm3 (4.4-11.0) 06/06/24 05:45 RBC 2.84 M/mm3 (4.2-5.4) L 06/06/24 05:45 Hgb 8.4 g/dL (12.0-15.0) L 06/07/24 04:10 Hct 26.6 % (37-47) L 06/07/24 04:10 Plt Count 418 K/mm3 (150-450) 06/06/24 05:45 CHEMISTRY Potassium 4.2 mmol/L (3.5-5.1) 06/06/24 05:45 Sodium 137 mmol/L (136-145) 06/06/24 05:45 Magnesium 2.4 mg/dL (1.6-2.6) 05/14/24 08:10 BUN 27 mg/dL (7-18) H 06/06/24 05:45 Creatinine 0.75 mg/dL (0.55-1.02) 06/06/24 05:45 Glucose 104 mg/dL (74-106) 06/06/24 05:45 POC Glucose 121 mg/dL (74-106) H 05/30/24 01:43 TSH 3.910 uIU/mL (0.358-3.740) H 04/24/24 08:20 COAG PT 12.8 SECONDS (11.7-14.9) 05/27/24 10:20 Pre-Assessment Diagnosis/Proposed Procedure Planned Operative Procedure(s): Esophagogastroduodenoscopy. Anesthesia History Anesthesia History - quality control chemist: Anesthesia History - quality control chemist Hx Hospitalization No 05/13/24 09:28 Any Problems With Anesthesia No 05/13/24 09:28 Cholinesterase deficiency No 05/13/24 09:28 You/Your Family Experience No 05/13/24 09:28 fever (hyperthermia) with Relationship Recent Exposure to Contagious No 05/27/24 10:08 Disease Does patient have nerve No 05/13/24 09:28 stimulator Patient instructed to have device shut off --Does patient have Pacemaker No 06/09/24 16:23 or ICD? When Was Last Pacemaker Check QUESTION #4 FULL TEXT: You/Your Family Experience fever (hyperthermia) with Anesthesia Last Oral Intake Last Oral intake: Last Oral Intake NPO since 00:00 06/09/24 16:23 Meds taken in AM with sips of water? Meds patient instructed to take am of surgery PONV PONV - quality control chemist: PONV - quality control chemist Female HX of Motion Sickness HX of N/V After Surgery Non-Smoker Duration of Surgery greater than 60 minutes Number of Risk Factors PONV Score Height & Weight Height & Weight: Anesthesia: Height & Weight Height 5 ft 6 in 06/09/24 16:23 Respiratory Assessment Respiratory Assessment - quality control chemist: Respiratory Tract Infection Hx - quality control chemist Hx Respiratory Tract Infection No 05/13/24 09:28 STOP Sleep Apnea STOP Sleep Apnea - quality control chemist: STOP Sleep Apnea - quality control chemist Hx Hypertension Yes 05/30/24 11:45 Hx Sleep Apnea No 05/29/24 16:07 CPAP No 05/27/24 14:30 BIPAP No 05/22/23 10:16 Do you snore loudly (louder than talking or can be heard Do you often feel tired/ fatigued/ sleepy during daytime? Has anyone observed you stop breathing during sleep? STOP Results QUESTION #5 FULL TEXT : Do you snore loudly (louder than talking or can be heard through closed doors)? 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 Specify any problems Hx of Preganancy in last 3 Months Nurse Filling Out Transfusion & Questions: Date: Time: Patient unable to answer at this time (ie. confused, unrespo /Reproduction History /Reproductive History - quality control chemist: /Reproductive Hx- quality control chemist Hx Now Gestational Age (in weeks): EDC: Hx Hx Para Hx Section SAB No 05/13/24 09:28 [facility] Medical History Anemia Alcohol use Back pain History of diverticulitis Shortness of breath on exertion History of pain when walking History of Holter monitoring History of stress test Osteoarthritis Preop exam for internal medicine Right foot sprain Right ankle sprain Contact with and (suspected) exposure to other viral communicable diseases Left chest pressure Cough Wears contact lenses Post-menopausal Anxiety Thyroid disease Arthritis Gastric reflux Non-smoker History of echocardiogram Cardiology follow-up encounter History of atrial fibrillation Poison segundo dermatitis GERD (gastroesophageal reflux disease) Carotid artery disease Chronic anticoagulation Hydronephrosis History of Helicobacter pylori infection Cholelithiasis with chronic cholecystitis Ventral incisional hernia without obstruction or gangrene Abdominal pain Sigmoid diverticulitis History of rheumatic fever Gastric ulcer GERD (gastroesophageal reflux disease) Hypothyroidism Anemia Essential (primary) hypertension Fatigue Rapid heartbeat Atrial fibrillation with RVR Paroxysmal atrial fibrillation Home Medications ?Medication ?Instructions ?Recorded ?Last Taken ?Type apixaban 5 mg tablet (Eliquis) 5 mg PO BID afib #180 tabs 07/02/23 06/05/24 Rx diltiazem HCl 120 mg capsule,24 120 mg PO BID BP/heart rate #180 12/24/23 05/27/24 07:45 Rx hr,extended release caps hydrochlorothiazide 25 mg tablet 25 mg PO DAILY water pill #90 tabs 03/26/24 05/27/24 07:45 Rx levothyroxine 88 mcg tablet 88 mcg PO DAILY thyroid #90 tabs 04/24/24 05/27/24 07:45 Rx ascorbic acid (vitamin C) 1,000 mg 1 g PO DAILY Vitamin C 05/13/24 Unknown History tablet (C-1000) losartan 100 mg tablet 100 mg PO QHS BP 05/13/24 05/26/24 19:00 History acetaminophen 500 mg tablet 1,000 mg (2 x 500 mg) PO Q8 pain 05/29/24 06/09/24 Rx #90 tabs oxycodone 5 mg tablet 5 - 15 mg (1 - 3 x 5 mg) PO Q4H 05/29/24 06/09/24 Rx PRN PRN Pain Score 4-10 7 days #60 tabs tramadol 50 mg tablet 50 mg PO Q6H 06/09/24 06/09/24 History Allergy/AdvReac Type Severity Reaction Status Date / Time metoprolol AdvReac Symptomatic Verified 06/09/24 16:16 Bradycardia Family History Mother Hypertension Father Colon cancer Surgical History History of total left knee replacement History of esophagogastroduodenoscopy (EGD) History of cardiac catheterization History of cholecystectomy (~05/2019) History of partial colectomy (~05/2019) Hx of tonsillectomy Hx of colonoscopy History of cardioversion (11/2017) History of hysterectomy Social History household members: none Smoking Status: Never smoker second hand exposure: No alcohol intake: current alcohol intake frequency: holidays/special occasions only substance use type: does not use caffeine: Yes what type of physical activity do you participate in: none frequency: does not exercise Review of Systems (Anesthesia) ROS Narrative System reviewed and no additional complaints, except as documented.
[2024-06-09 16:53] VITALS: BP 151/81; PULSE 64; RESP 16; O2SAT 97
--- NOTE | 2024-06-09 17:05 | PCM.HP.STD ---
HPI - General General Date of Admission: 06/09/24 Date of Service: 06/09/24 Chief Complaint: Anemia HPI Narrative YOSHI CAROLINA, is a 83 F who presentsHPI - General General Date of Admission: 05/29/24 Date of Service: 06/09/24 Chief Complaint: Anemia HPI Narrative YOSHI CAROLINA is a 83 year old F medical comorbidities including but not limited to carotid artery disease, atrial for fibrillation chronic anticoagulation, hydronephrosis , gastric ulcer , history of cardioversion hypothyroidism , diverticulitis who presented with left knee pain. After extensive evaluation it was determined that she needed a total left knee replacement. She underwent left knee replacement and is currently receiving therapy. I was called to see her due to decrease in hemoglobin and history of gastric ulcer while needing anticoagulation. She was discovered to have a decrease in hemoglobin. [facility] Medical History Anemia Alcohol use Back pain History of diverticulitis Shortness of breath on exertion History of pain when walking History of Holter monitoring History of stress test Osteoarthritis Preop exam for internal medicine Right foot sprain Right ankle sprain Contact with and (suspected) exposure to other viral communicable diseases Left chest pressure Cough Wears contact lenses Post-menopausal Anxiety Thyroid disease Arthritis Gastric reflux Non-smoker History of echocardiogram Cardiology follow-up encounter History of atrial fibrillation Poison segundo dermatitis GERD (gastroesophageal reflux disease) Carotid artery disease Chronic anticoagulation Hydronephrosis History of Helicobacter pylori infection Cholelithiasis with chronic cholecystitis Ventral incisional hernia without obstruction or gangrene Abdominal pain Sigmoid diverticulitis History of rheumatic fever Gastric ulcer GERD (gastroesophageal reflux disease) Hypothyroidism Anemia Essential (primary) hypertension Fatigue Rapid heartbeat Atrial fibrillation with RVR Paroxysmal atrial fibrillation Home Medications ?Medication ?Instructions ?Recorded ?Last Taken ?Type apixaban 5 mg tablet (Eliquis) 5 mg PO BID afib #180 tabs 07/02/23 06/05/24 Rx diltiazem HCl 120 mg capsule,24 120 mg PO BID BP/heart rate #180 12/24/23 05/27/24 07:45 Rx hr,extended release caps hydrochlorothiazide 25 mg tablet 25 mg PO DAILY water pill #90 tabs 03/26/24 05/27/24 07:45 Rx levothyroxine 88 mcg tablet 88 mcg PO DAILY thyroid #90 tabs 04/24/24 05/27/24 07:45 Rx ascorbic acid (vitamin C) 1,000 mg 1 g PO DAILY Vitamin C 05/13/24 Unknown History tablet (C-1000) losartan 100 mg tablet 100 mg PO QHS BP 05/13/24 05/26/24 19:00 History acetaminophen 500 mg tablet 1,000 mg (2 x 500 mg) PO Q8 pain 05/29/24 06/09/24 Rx #90 tabs oxycodone 5 mg tablet 5 - 15 mg (1 - 3 x 5 mg) PO Q4H 05/29/24 06/09/24 Rx PRN PRN Pain Score 4-10 7 days #60 tabs tramadol 50 mg tablet 50 mg PO Q6H 06/09/24 06/09/24 History Allergy/AdvReac Type Severity Reaction Status Date / Time metoprolol AdvReac Symptomatic Verified 06/09/24 16:16 Bradycardia Family History Mother Hypertension Father Colon cancer Surgical History History of total left knee replacement History of esophagogastroduodenoscopy (EGD) History of cardiac catheterization History of cholecystectomy (~05/2019) History of partial colectomy (~05/2019) Hx of tonsillectomy Hx of colonoscopy History of cardioversion (11/2017) History of hysterectomy Social History household members: none Smoking Status: Never smoker second hand exposure: No alcohol intake: current alcohol intake frequency: holidays/special occasions only substance use type: does not use caffeine: Yes what type of physical activity do you participate in: none frequency: does not exercise ROS Constitutional Constitutional: Denies fatigue, fever(s), poor appetite, weight gain or weight loss Gastrointestinal Gastrointestinal: Denies belching, bloating, change in bowel habits, change in stool character, chewing difficulty, coffee ground emesis, constipation, cramping, diarrhea, dyspepsia, dysphagia, early satiety, excessive flatus, fecal incontinence, heartburn, hematemesis, hematochezia, hemorrhoids, loose stools, melena, nausea, odynophagia, rectal bleeding, tenesmus, vomiting or weight changes Vital Signs Vital Signs Vital Signs: 06/09/24 16:25 06/09/24 16:53 Pulse Rate 64 Respiratory Rate 16 Respiratory Pattern Normal Blood Pressure 151/81 H Pulse Ox 97 Oxygen Delivery Method Room Air Physical Exam Const alert, oriented x3, no apparent distress and healthy appearing General Appearance: cooperative GI normal to inspection, nondistended, normoactive bowel sounds, soft to palpation, non-tender and non-distended Percussion: normal to percussion Rectal Exam: deferred Assessment & Plan Assessment/Plan (1) Anemia: PLAN: PLAN: 83-year-old with recent total left knee arthroplasty with total knee replacement on anticoagulation with worsening anemia and Hemoccult positive stools. She will undergo an upper endoscopy to evaluate upper GI tract. She was explained alternatives, risk and benefits include not withstanding bleeding, infection, sepsis, perforation, need for charge and . She will have an ASA of 3.
[2024-06-09 17:23] VITALS: BP 155/63; PULSE 71; RESP 16; TEMP 36.1; O2SAT 100
--- NOTE | 2024-06-09 17:23 | POSTOPAN2_ITS ---
Anesthesia Postop Eval I Sum Postop Eval Completion status Anesthesia document: Postop Eval 1 completed: Yes Anesthesia Postop Eval I Summary Anesthesia Postop Eval I Summary: Anesthesia Postop Eval I: Assessment Summary Airway patent Yes 06/09/24 17:23 [email or web address] Spontaneous unlabored Yes 06/09/24 17:23 [email or web address] respirations Mental status Awake,Calm 06/09/24 17:23 [email or web address] nausea No 06/09/24 17:23 [email or web address] [email or web address] Vomiting No 06/09/24 17:23 [email or web address] Anesthesia Postop Eval I: Fluid Summary Crystalloid volume administer 10 06/09/24 17:23 [email or web address] [email or web address] (ml) Colloids volume administered ( ml) Blood Product volume administered (ml) Total IV fluid infused 10 06/09/24 17:23 [email or web address] [email or web address] Anesthesia Postop Eval I: Summary Notes Anesthesia Complication No 06/09/24 17:23 [email or web address] Anesthesia Complication Comment: Post-operative progress note Anesthesia: Postop Eval II Evaluation Mental status: Awake and Calm Pain Level: 0 nausea: No Vomiting: No Complications Anesthesia Complication: No
--- NOTE | 2024-06-09 17:23 | PCM.POST.ANE ---
Anesthesia: Postop Eval I Current Vital Signs Temperature: 97 F Pulse Rate: 71 Blood Pressure: 155/63 Respiratory Rate: 16 Pulse Ox: 100 Oxygen Delivery Method: Nasal Cannula Assessment Airway patent: Yes Spontaneous unlabored respirations: Yes Mental status: Awake and Calm nausea: No Vomiting: No Anesthesia Complication: No Fluid Hydration Crystalloid volume administer (ml): 10 Total IV fluid infused: 10 Progress Note Anesthesia document: Postop Eval 1 completed: Yes
--- NOTE | 2024-06-09 17:23 | PCM.POSTANE2 ---
Anesthesia Postop Eval I Sum Postop Eval Completion status Anesthesia document: Postop Eval 1 completed: Yes Anesthesia Postop Eval I Summary Anesthesia Postop Eval I Summary: Anesthesia Postop Eval I: Assessment Summary Airway patent Yes 06/09/24 17:23 [email or web address] Spontaneous unlabored Yes 06/09/24 17:23 [email or web address] respirations Mental status Awake,Calm 06/09/24 17:23 [email or web address] nausea No 06/09/24 17:23 [email or web address] Vomiting No 06/09/24 17:23 [email or web address] Anesthesia Postop Eval I: Fluid Summary Crystalloid volume administer 10 06/09/24 17:23 [email or web address] (ml) Colloids volume administered ( ml) Blood Product volume administered (ml) Total IV fluid infused 10 06/09/24 17:23 [email or web address] Anesthesia Postop Eval I: Summary Notes Anesthesia Complication No 06/09/24 17:23 [email or web address] Anesthesia Complication Comment: Post-operative progress note Anesthesia: Postop Eval II Evaluation Mental status: Awake and Calm Pain Level: 0 nausea: No Vomiting: No Complications Anesthesia Complication: No
--- NOTE | 2024-06-09 17:27 | OP.CCLET_ITS ---
06/09/2024 Wendy Arguello [facility] [address] [place] [address] Re : Upper GI endoscopy procedure for Liza Monroe Dear Dr. Arguello This procedure was performed on Sunday, June 09, 2024. My impressions and recommendations are as follows: Impressions : - Normal esophagus. 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 Treated with a heater probe. - No gross lesions in the second portion of the duodenum. - No specimens collected. Recommendations : - Return patient to referring hospital for ongoing care. - Resume previous diet. - Continue present medications. My findings are described in the full procedure note, which is enclosed. If I can be of further assistance, please feel free to contact me at . Sincerely, Jose Fenton, 06/09/2024 5:27:26 PM This report has been signed electronically.
--- NOTE | 2024-06-09 17:27 | OP.EGD_ITS ---
Patient Name: Liza Monroe Procedure Date: 06/09/2024 5:05 PM Date of : 1940 Age: 83 Procedure: Upper GI endoscopy Indications: Iron deficiency anemia Providers: Jose Fenton DO Medicines: Monitored Anesthesia Care Patient Profile: This is an 83 year old female. Refer to note in patient chart for documentation of history and physical. Patient has symptoms. Complications: No immediate complications. Procedure: Pre-Anesthesia Assessment: - Prior to the procedure, a History and Physical was performed, and patient medications and allergies were reviewed. The patient is competent. The risks and benefits of the procedure and the sedation options and risks were discussed with the patient. All questions were answered and informed consent was obtained. Patient identification and proposed procedure were verified by the physician in the pre-procedure area. Mental Status Examination: alert and oriented. Airway Examination: normal oropharyngeal airway and neck mobility. Respiratory Examination: clear to auscultation. CV Examination: normal. Prophylactic Antibiotics: The patient does not require prophylactic antibiotics. Prior Anticoagulants: The patient has taken no anticoagulant or antiplatelet agents. ASA Grade Assessment: III - A patient with severe systemic disease. After reviewing the risks and benefits, the patient was deemed in satisfactory condition to undergo the procedure. The anesthesia plan was to use monitored anesthesia care (MAC). Immediately prior to administration of medications, the patient was re-assessed for adequacy to receive sedatives. The heart rate, respiratory rate, oxygen saturations, blood pressure, adequacy of pulmonary ventilation, and response to care were monitored throughout the procedure. The physical status of the patient was re-assessed after the procedure. After obtaining informed consent, the endoscope was passed under direct vision. Throughout the procedure, the patient's blood pressure, pulse, and oxygen saturations were monitored continuously. The gastroscope was introduced through the mouth, and advanced to the second part of duodenum. The upper GI endoscopy was accomplished without difficulty. The patient tolerated the procedure well. Scope In: 5:16:35 PM Scope Out: 5:20:22 PM Total Procedure Duration Time 0 hours 3 minutes 47 seconds Findings: The examined esophagus was normal. One 5 mm angiodysplastic lesion with no bleeding was found in the gastric body. Coagulation for hemostasis using heater probe was successful. Estimated blood loss was minimal. No gross lesions were noted in the second portion of the duodenum. Impression: - Normal esophagus. 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 Treated with a heater probe. - No gross lesions in the second portion of the duodenum. - No specimens collected. Recommendation: - Return patient to referring hospital for ongoing care. - Resume previous diet. - Continue present medications. Procedure Code(s): --- Professional --- 04771, Esophagogastroduodenoscopy, flexible, transoral; with control of bleeding, any method CPT copyright 2021 [employer]. All rights reserved. The codes documented in this report are preliminary and upon medical record coder review may be revised to meet current compliance requirements. Jose Fenton DO 06/09/2024 5:27:26 PM This report has been signed electronically. Number of Addenda: 0 Note Initiated On: 06/09/2024 5:05 PM
[2024-06-09 17:30] VITALS: BP 132/59; BP 151/81; PULSE 64; RESP 16; TEMP 36.9; O2SAT 94
[2024-06-09 17:35] VITALS: BP 138/57; BP 151/81; PULSE 62; RESP 16; O2SAT 98
[2024-06-09 17:40] VITALS: BP 138/57; BP 151/81; PULSE 61; RESP 16; TEMP 37.1; O2SAT 97
[2024-06-09 18:20] VITALS: BP 151/81
== END 2024-06-09 18:27 | disposition home or self-care (01) ==
LOC: EN 16:36 → AC 16:38
PROVIDERS: PCP Internal Medicine; Referring Provider Internal Medicine; Visit Provider Internal Medicine Gastroenterology
PROC: 0DJ08ZZ Inspection of Upper Intestinal Tract, Via Natural or Artificial Opening Endoscopic (ICD-10-PCS; CPT 43235; principal; 2024-06-09 16:25)
DX: K31.819 Angiodysplasia of stomach and duodenum without bleeding (principal); D64.9 Anemia, unspecified; I10 Essential (primary) hypertension; Z96.652 Presence of left artificial knee joint; Z90.710 Acquired absence of both cervix and uterus; Z79.01 Long term (current) use of anticoagulants; Z90.49 Acquired absence of other specified parts of digestive tract; E03.9 Hypothyroidism, unspecified; K21.9 Gastro-esophageal reflux disease without esophagitis; Z87.19 Personal history of other diseases of the digestive system
CPT/HCPCS: 43255

== ENCOUNTER → 2024-07-23 | Outpatient (CLI) | payer MEDICARE, SELFPAY ==
[2024-07-23 16:15] LABS: Absolute Lymphocyte Count 1.29 X10^3/uL (0.83-4.51); Absolute Neutrophil Count 5.2 X10^3/uL (2.0-7.7); Basophil# 0.08 X10^3/uL; Basophil% 1.1 % (0-1); Eosinophil# 0.06 X10^3/uL; Eosinophils% 0.8 % (0-5); Hematocrit 32.8 % (37-47); Hemoglobin 10.6 g/dL (12.0-15.0); Lymphocyte # 1.29 X10^3/ul (0.83-4.51); Lymphocyte % 17.9 % (19-41); Mean Corp Hgb Conc 32.3 g/dL (32-36); Mean Corpuscular Hgb 29.7 pg (27.0-32.0); Mean Corpuscular Volume 91.9 fL (81-99); Mean Platelet Vol. 9.4 fl (6.2-12.0); Monocyte# 0.59 X10^3/uL; Monocyte% 8.2 % (0-10); NRBC Flagged by Analyzer 0 % (0-5); Neutrophil # 5.18 X10^3/uL (2.7-7.7); Neutrophil % 71.7 % (47-70); Platelet Count 444 K/mm3 (150-450); RBC Distribution Width CV 13.7 % (11.6-14.6); RBC Distribution Width SD 46.4 fl (35.1-43.9); Red Blood Count 3.57 M/mm3 (4.2-5.4); White Blood Count 7.2 K/mm3 (4.4-11.0)
[2024-07-23 17:09] LABS: ALB/GLOB Ratio 0.9 RATIO (0.9-2.4); AST(SGOT) 10 U/L (15-37); Alanine Aminotransfer ALT/SGPT 16 U/L (13-56); Albumin, Serum 3.4 g/dL (3.2-5.0); Alkaline Phosphatase 79 U/L (45-117); Anion Gap 5 (5-15); BUN 19 mg/dL (7-18); Calcium,Total 10.8 mg/dL (8.5-10.1); Chloride 106 mmol/L (98-107); EST Glomerular Filtration Rate 56 mL/min (>60); Est Glom Filt Rate - Afr Amer 68 mL/min (>60); Free T3 2.2 pg/mL (2.18-3.98); Globulin 3.8 g/dL (2.2-4.2); Glucose 81 mg/dL (74-106); Iron 38 ug/dL (50-170); Iron Binding Capacity,Total 351 ug/dL (250-450); PERCENT IRON SATURATION 10.8 % (15.0-55.0); Potassium 4.2 mmol/L (3.5-5.1); Protein, Total 7.2 g/dL (6.4-8.2); Sodium Level 139 mmol/L (136-145); T4 Free Direct 0.97 ng/dL (0.76-1.46)
== END | disposition home or self-care (01) ==
LOC: LAB 15:40
PROVIDERS: PCP Internal Medicine; Referring Provider Internal Medicine; Visit Provider Internal Medicine
DX: D64.9 Anemia, unspecified (principal); I48.0 Paroxysmal atrial fibrillation; I10 Essential (primary) hypertension; Z96.652 Presence of left artificial knee joint; M19.90 Unspecified osteoarthritis, unspecified site; Z79.01 Long term (current) use of anticoagulants; E03.9 Hypothyroidism, unspecified
CPT/HCPCS: 36415; 80053; 83540; 83550; 84439; 84443; 84481; 85025

== ENCOUNTER 2024-08-22 14:30 | Outpatient (RCR) | payer MEDICARE, SELFPAY ==
--- NOTE | 2024-07-16 14:53 | HP.PTEVAL ---
Patient's Visit Information Visit Information Visit Information: YOSHI CAROLINA is a 83 year old F referred to Physical Therapy by Dr. Samson Aguilar DO with a diagnosis of R tka and sciatic pain.. Date of Evaluation: 07/16/24 Physical Therapist: Kem Perez, DPT, OCS, CSCS Visit Plan Frequency: 3x /Week Duration: 4-6 Weeks Plan: 3x/week for 4-6 weeks 1. LB ROM to HEP, emphasize movement and eventual core strength. 2. LE strength to HEP, Knee flexion ROM with patellar mobs. 3. ITB rollout and quad rollout and stretch both. L MH to muscle. MH on muscles and ice to knee. Gait training with decreasing device and progress to gym ex instruction for discharge to as pain improved leg ITB and LB. Eventual trasnfer off floor when feeling well. Subjective Subjective: 05/27/24 L TKA after a long time of leg and knee pain. Surgery went well. had pain in upper thigh maybe due to tourniquet. Lateral leg pain and into calf and LB was bad and getting better. Knee is sore at time. using cane to get around much of time but not at home in kitchen but hangs onto things. Has to hold on due to insecurity. 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 Has a big shower at home but enjoys a nice bath and did that once gingerly. Had a hard time getting out. Needed help to call someone. Exercises at home: Heel slides for ROm, standing side walk, heel raises, hip ext, abd, august, Lives alone one story with no steps. Dress self, cooks meals. Goal is more flexibility to get out of bathtub and sciatic pain to go away. Hobbies: gail bushes and esquivel. Prior exercises: None. Pain L leg and LB: Pain Intensity (Out of 10): 1 Pain Intensity Range: 0 and 8 Comment: sharp at times but sore much of time. L knee.: Pain Intensity (Out of 10): 1 Pain Intensity Range: 0 and 6 Objective Objective: L knee AROM -3 to 100 and painful end range, R is 0-120. Tender PA pressure lumbar, L/S AROM ext mod limited and deviates R, L SB mod limited, R SB not limited, flexion painful. Extension is most painful in back. patella min deficits in mobiliity on L Tightness obvious in L quad and ITB with pain with stretching and max tender L ITB. ankle and hip AROM otherwise WFL. Strength L hip 3 abd and ext and 3+ flexion, R is 3+. knee flex ext L 3+ adn R 4-, ankle is 4- B. Hesitant to move L LE at knee. not overly painful. - slump, - SLR, SLR is painful in back and lateral leg but able with 5 degree lag. TUG is 22 seconds. Transfer chair and bed I but slow and painful bed trasnfers to sit. Walks with cane in R UE mod I but slow and hesitant to trust L LE and painful LB, much less pain with wh walker. can ambulate without AD but painful, slow and not overly fuincitonal at this point. Incision is healed and mild scarring but no excessive redness heat or swelling. Balance/Special Test Scores Functional Gait Assessment Score: 20 % Disability: 33.3400 WOMAC Total Score: 66 WOMAC Percentatge: 28.2700 Goals Goal 1:: 0-115 AROM L knee to walk without antalgia Goal Time Frame: 4-6 Weeks Goal 2:: Walk household without need for cane or walker without increased pain Goal Time Frame: 4-6 Weeks Goal 3:: Pain in back and lateral leg 90% better and 1/10 at worst. Goal Time Frame: 4-6 Weeks Goal 4:: womac score 15 or less Goal Time Frame: 4-6 Weeks Goal 5:: I apporpriate HEP itb stretch, LB ROM and strength and LE strength home and gym to manage situation Goal Time Frame: 4-6 Weeks Goal 6:: Trasnfer off floor I with UE support to get out of tub I. Goal Time Frame: 4-6 Weeks Rehabilitation Potential Physical Therapy Diagnosis: Pain back lateral leg adn limited ROM and strength in knee and leg limtiing comfortable funciton. Rehabilitation Potential: Fair Anticipated Interventions Patient/Client Instruction: Educate patient on: Condition and Risk Factors For the Purpose of:: To decrease pain, To increase ROM, To improve nutrient delivery to tissue, To improve muscle performance and motor function, To increase tolerance to activity/condition/position, To improve gait and locomotor functions and To increase flexibility/ROM Therapeutic Exercise to Include: Strength training, Coordination, Postural training, Flexibilty training, Gait and locomotor training, Passive ROM and Active ROM For the Purpose of:: To decrease pain, To increase ROM, To improve nutrient delivery to tissue, To improve muscle performance and motor function, To increase tolerance to activity/condition/position, To improve ability of physical actions for home/community/work/leisure and To improve gait and locomotor functions Manual Therapy Techniques to Include: Mobilization, Passive ROM and Soft tissue mobilization For the Purpose of:: To decrease pain, To increase ROM and To improve nutrient delivery to tissue Cryotherapy (ice pack, ice massage): Yes Thermo therapy (hot pack): Yes For the Purpose of:: To decrease pain, To decrease swelling/inflammation and To improve nutrient delivery to tissue Text: Thank you for the opportunity to evaluate your patient. For Medicare and Medicare HMO plans, please review the plan of care and approve it. It will need to be FAXED BACK to us at [phone] for Medicare purposes. For Medicare only, by signing this I certify the plan of care. Please let me know if there are questions or concerns regarding this plan of care. Physician Signature: Date:
--- NOTE | 2024-09-26 14:38 | HP.PT.NRP ---
Patient Information Patient Information: YOSHI CAROLINA was seen in my office for initial evaluation on 07/16/24. The following Plan of Care was established for this patient: POC Established Initial Frequency: 3x /Week Initial Duration: 4-6 Weeks Anticipated Interventions Patient/Client Instruction: Educate patient on: Condition and Risk Factors For the Purpose of:: To decrease pain, To increase ROM, To improve nutrient delivery to tissue, To improve muscle performance and motor function, To increase tolerance to activity/condition/position, To improve gait and locomotor functions and To increase flexibility/ROM Therapeutic Exercise to Include: Strength training, Coordination, Postural training, Flexibilty training, Gait and locomotor training, Passive ROM and Active ROM For the Purpose of:: To decrease pain, To increase ROM, To improve nutrient delivery to tissue, To improve muscle performance and motor function, To increase tolerance to activity/condition/position, To improve ability of physical actions for home/community/work/leisure and To improve gait and locomotor functions Manual Therapy Techniques to Include: Mobilization, Passive ROM and Soft tissue mobilization For the Purpose of:: To decrease pain, To increase ROM and To improve nutrient delivery to tissue Cryotherapy (ice pack, ice massage): Yes Thermo therapy (hot pack): Yes For the Purpose of:: To decrease pain, To decrease swelling/inflammation and To improve nutrient delivery to tissue Last Seen Last Seen: This patient was last seen in our office 08/22/24. Pertinent comments regarding their Physical therapy will appear below: Pt seen 16 visits of total POC and cancelled the last couple and has not rescheduled. At this point, it has been over 4 weeks and I will discontinue from my care. At this point I will be discontinuing this patient from physical therapy. I would be happy to see this patient again in the future if found appropriate by the physician. Thank you! Kem Perez, DPT, OCS, CSCS Balance/Gait/Functional tests Balance/Special Test Scores Functional Gait Assessment Score: 20 % Disability: 33.3400 WOMAC Total Score: 48 WOMAC Percentage: 50.0000
== END 2024-08-22 19:00 | disposition home or self-care (01) ==
LOC: PT 14:30
PROVIDERS: PCP Internal Medicine; Referring Provider Orthopaedic Surgery; Visit Provider Orthopaedic Surgery
DX: Z96.652 Presence of left artificial knee joint (principal); M54.32 Sciatica, left side
CPT/HCPCS: 97110; 97140; 97162; 97530

== ENCOUNTER 2024-08-25 15:29 | Emergency (ER) | payer MEDICARE, SELFPAY ==
[2024-08-25 15:29] VITALS: BP 119/108; PULSE 71; RESP 16; TEMP 36.7; O2SAT 99
--- NOTE | 2024-08-25 15:41 | EKG12_ITS ---
Test Reason : CP Blood Pressure : */* mmHG Vent. Rate : 65 BPM Atrial Rate : 65 BPM P-R Int : 186 ms QRS Dur : 98 ms QT Int : 396 ms P-R-T Axes : 46 -35 27 degrees QTcB Int : 411 ms Normal sinus rhythm Left axis deviation Minimal voltage criteria for LVH, may be normal variant ( R in aVL ) Anterolateral infarct , age undetermined Abnormal ECG Confirmed by Lukasz Mariee ([id number]), editor book YONI WILLIAMSON ([id number]) on 08/26/2024 10:41:58 AM Referred By: Confirmed By: Lukasz Mariee
[2024-08-25 16:23] LABS: Absolute Lymphocyte Count 1.58 X10^3/uL (0.83-4.51); Absolute Neutrophil Count 4.8 X10^3/uL (2.0-7.7); Basophil# 0.07 X10^3/uL; Eosinophil# 0.13 X10^3/uL; Eosinophils% 1.8 % (0-5); Hematocrit 34.8 % (37-47); Hemoglobin 11.2 g/dL (12.0-15.0); Lymphocyte # 1.58 X10^3/ul (0.83-4.51); Lymphocyte % 21.6 % (19-41); Mean Corp Hgb Conc 32.2 g/dL (32-36); Mean Corpuscular Hgb 28.6 pg (27.0-32.0); Mean Platelet Vol. 9.4 fl (6.2-12.0); Monocyte# 0.74 X10^3/uL; Monocyte% 10.1 % (0-10); NRBC Flagged by Analyzer 0 % (0-5); Neutrophil # 4.76 X10^3/uL (2.7-7.7); Neutrophil % 65.1 % (47-70); Platelet Count 389 K/mm3 (150-450); RBC Distribution Width CV 13.8 % (11.6-14.6); RBC Distribution Width SD 44.8 fl (35.1-43.9); Red Blood Count 3.91 M/mm3 (4.2-5.4); White Blood Count 7.3 K/mm3 (4.4-11.0)
--- NOTE | 2024-08-25 16:36 | ED.VIS.CHEST ---
HPI History of Present Illness Chief Complaint: Chest Pain [facility] Medical History Bacterial sinusitis Anemia Alcohol use Back pain History of diverticulitis Shortness of breath on exertion History of pain when walking History of Holter monitoring History of stress test Osteoarthritis Preop exam for internal medicine Right foot sprain Right ankle sprain Contact with and (suspected) exposure to other viral communicable diseases Left chest pressure Cough Wears contact lenses Post-menopausal Anxiety Thyroid disease Arthritis Gastric reflux Non-smoker History of echocardiogram Cardiology follow-up encounter History of atrial fibrillation Poison segundo dermatitis GERD (gastroesophageal reflux disease) Carotid artery disease Chronic anticoagulation Hydronephrosis History of Helicobacter pylori infection Cholelithiasis with chronic cholecystitis Ventral incisional hernia without obstruction or gangrene Abdominal pain Sigmoid diverticulitis History of rheumatic fever Gastric ulcer GERD (gastroesophageal reflux disease) Hypothyroidism Anemia Essential (primary) hypertension Fatigue Rapid heartbeat Atrial fibrillation with RVR Paroxysmal atrial fibrillation Home Medications ?Medication ?Instructions ?Recorded ?Last Taken ?Type apixaban 5 mg tablet (Eliquis) 5 mg PO BID afib #180 tabs 07/02/23 06/05/24 Rx diltiazem HCl 120 mg capsule,24 120 mg PO BID BP/heart rate #180 12/24/23 05/27/24 07:45 Rx hr,extended release caps hydrochlorothiazide 25 mg tablet 25 mg PO DAILY water pill #90 tabs 03/26/24 05/27/24 07:45 Rx levothyroxine 88 mcg tablet 88 mcg PO DAILY thyroid #90 tabs 04/24/24 05/27/24 07:45 Rx ascorbic acid (vitamin C) 1,000 mg 1 g PO DAILY Vitamin C 05/13/24 Unknown History tablet (C-1000) losartan 100 mg tablet 100 mg PO QHS BP 05/13/24 05/26/24 19:00 History acetaminophen 500 mg tablet 1,000 mg (2 x 500 mg) PO Q8 #0 tabs 06/09/24 Unknown Rx gabapentin 100 mg capsule 100 mg PO TIDCM 30 days #90 caps 06/09/24 Unknown Rx polysaccharide iron complex 150 mg 150 mg PO 1000 60 days #60 caps 07/25/24 Unknown Rx iron capsule (Ferrex) doxycycline monohydrate 100 mg 100 mg PO BID 7 days #14 caps 08/25/24 Unknown Rx capsule Allergy/AdvReac Type Severity Reaction Status Date / Time metoprolol AdvReac Symptomatic Verified 08/25/24 10:43 Bradycardia Family History Mother Hypertension Father Colon cancer Surgical History History of total left knee replacement History of esophagogastroduodenoscopy (EGD) History of cardiac catheterization History of cholecystectomy (~05/2019) History of partial colectomy (~05/2019) Hx of tonsillectomy Hx of colonoscopy History of cardioversion (11/2017) History of hysterectomy Social History household members: none Smoking Status: Never smoker second hand exposure: No alcohol intake: never substance use type: does not use caffeine: Yes what type of physical activity do you participate in: none frequency: does not exercise EXAM Physical Exam Const Vital Signs: 08/25/24 15:29 08/25/24 16:44 08/25/24 16:44 Temperature 98.1 F Temperature Source Temporal Pulse Rate 71 60 Respiratory Rate 16 20 H Blood Pressure 119/108 H 138/70 H Blood Pressure Mean 111 92 Pulse Ox 99 96 Oxygen Delivery Method Room Air Room Air Room Air MDM MDM MDM Narrative Medical decision making narrative: HISTORY OF PRESENT ILLNESS: 83 F here with CP/SOB. Patient endorses chest pain increased shortness of breath. She notes pain radiates to her back under her shoulder blade. Notes 1 to 2 days of symptoms. Notes recent runny nose and transient ear pain as well. No other sick contacts. No cough fever or chills endorsed. No leg swelling, orthopnea endorsed. No bleeding diathesis. She notes compliance with home Eliquis. The pain in her chest is not exertional.. It is worse with a deep breath. Denies any trauma or falls. Denies any syncope The patient denies recent surgery in the last 4 weeks or immobilization in the last 3 days, denies previous diagnosis of DVT or PE, hemoptysis, unilateral leg swelling or malignancy with treatment the last 6 months or palliative. No estrogen use noted. Patient denies sudden onset of pain, no tearing sensation, no migratory symptoms, no new numbness, weakness or loss of sensation. Patient denies family history or personal history of Connective tissue disorders (Marfan's Syndrome, Adolph Danlos etc) REVIEW OF SYSTEMS: Pertinent positives: Chest pain, shortness of breath Pertinent negatives: Syncope, leg swelling, bleeding diathesis PHYSICAL EXAM: Nursing triage notes reviewed, Vital signs reviewed Constitutional: please see [facility] HENT: MMM Eyes: Pupils equal round and reactive to light, Extraocular muscles intact Neck: No stridor, no JVD, full neck ROM Lungs: Clear to auscultation, No wheezing or rales. No increased work of breathing, no conversational dyspnea, no accessory muscle use, no nasal flaring. No respiratory distress noted Heart: Regular rate and rhythm, No murmurs, No rubs and No gallops, 2+ distal pulses (radial, femoral, posterior tibial) in all extremities Abdomen: Soft, there is no tenderness, rigidity, rebound or guarding, no obvious peritoneal signs, no palpable pulsatile abdominal masses, no auscultated abdominal bruit : No CVAT Extremities: No edema Neuro: No new focal neurological deficits, cranial nerves II through XII intact, 5/5 strength in all present extremities. Intact sensation to light touch in all present extremities, 2+ reflexes bilateral patella tendons. Skin: No rash or lesions noted MEDICAL DECISION MAKING: Chief Complaint: Chest pain, shortness of External records reviewed: Reviewed echocardiogram from 2023 showed ejection fraction 65% Factors affecting care: Paroxysmal A-fib (on Eliquis), hypertension, history of cardioversion, GERD Social determinants of health: none History obtained from others: the patient's son Consults: none [facility] Narrative: Patient was initially hemodynamically stable, afebrile and nontoxic-appearing. Exam with coarse breath sounds but otherwise a nonfocal cardiopulmonary exam. The patient appeared comfortable in no acute distress. Vitals were within normal limits. I considered the following differential diagnosis: ACS, arrhythmia, anemia, electrolyte disturbance, pneumothorax, pericarditis, pneumonia, PE, aortic dissection Initially triage labs were placed including BMP, troponin, CBC, chest x-ray, EKG, athletic monitor. These orders were placed per protocol secondary to poor department of dynamics including high volume and high acuity After I evaluated the patient may no additional laboratory orders per ALL IMAGES (IF OBTAINED) HAVE BEEN PERSONALLY REVIEWED AND INTERPRETED BY MYSELF. EKG showed normal sinus rhythm rate of 65, left axis deviation, QT interval 411, no STEMI initial troponin negative Making ACS less likely. Will await delta CBC with no leukocytosis, noted mild anemia which is improved from prior, no thrombocytopenia The patient and/or family, caregivers express understanding. The patient and/or family, caregivers agrees with the plan. Shared decision making: I will have a discussion with the patient and or visitors regarding risk/benefits of further testing or admission. They will be made aware of of the risk/benefits inherent in this decision they will be given the opportunity to voice understanding. Total critical care time today provided was at least 0 minutes. This excludes separately billable procedures. Critical care time (if documented) is secondary to the patient having high probability of clinically significant/life threatening deterioration in the patient's condition which required my urgent intervention. Impression: [] Dispo: [] This note was generated with [employer] dictation software. It may contain incorrect words, spelling, and punctuation that were not noted in review of the chart prior to signing. Lab Data Labs: Laboratory Results - last 24 hr 08/25/24 16:17 WBC 7.3 RBC 3.91 L Hgb 11.2 L Hct 34.8 L MCV 89.0 MCH 28.6 MCHC 32.2 RDW Std Deviation 44.8 H RDW Coeff of Loan 13.8 Plt Count 389 MPV 9.4 Immature Gran % (Auto) 0.400 Neut % (Auto) 65.1 Lymph % (Auto) 21.6 Appling % (Auto) 10.1 H Eos % (Auto) 1.8 Baso % (Auto) 1.0 Absolute Neuts (auto) 4.8 Absolute Lymphs (auto) 1.58 Nucleated RBC % 0 BUN 22 H Creatinine 0.80 Est GFR (MDRD) Non-Af 73 BUN/Creatinine Ratio 27.7 H Glucose 96 Troponin T High Sens 10 Discharge Plan Triage Chief Complaint: Chest Pain ED Provider: Viraj Garcia Dx/Rx/DC Orders Prescriptions: No Action Eliquis 5 mg tablet 5 mg PO BID Qty: 180 3RF diltiazem HCl 120 mg capsule,extended release 24 hr 120 mg PO BID Qty: 180 3RF hydrochlorothiazide 25 mg tablet 25 mg PO DAILY Qty: 90 3RF doxycycline monohydrate 100 mg capsule 100 mg PO BID 7 Days Qty: 14 0RF acetaminophen 500 mg Tablet 1,000 mg PO Q8 Qty: 0 0RF gabapentin 100 mg Capsule 100 mg PO TIDCM 30 Days Qty: 90 0RF ascorbic acid (vitamin C) [C-1000] 1,000 mg tablet 1 g PO DAILY losartan 100 mg tablet 100 mg PO QHS levothyroxine 88 mcg tablet 88 mcg PO DAILY Qty: 90 3RF polysaccharide iron complex [Ferrex 150] 150 mg iron capsule 150 mg PO 1000 60 Days Qty: 60 0RF Primary Care Provider: Wendy Arguello Referrals: Wendy Arguello MD [Primary Care Provider] - Print Language: Irish
[2024-08-25 16:43] LABS: BUN 22 mg/dL (4-19); BUN/Creat Ratio 27.7 RATIO (10-20); EST Glomerular Filtration Rate 73 (>60); Glucose 96 mg/dL (70-99); Troponin T High Sensitivity 10 ng/L (<=14)
[2024-08-25 16:44] VITALS: BP 138/70; PULSE 60; RESP 20; O2SAT 96
[2024-08-25 17:00] VITALS: BP 126/78; PULSE 63; RESP 20; O2SAT 96
--- NOTE | 2024-08-25 17:30 | RAD_ITS ---
PROCEDURE: CHEST 1 VIEW (PORTABLE) REASON FOR EXAM: Chest pain TECHNIQUE: Frontal view of the chest. COMPARISON: 08/28/2022 FINDINGS: The heart size is normal. The lungs are clear. Degenerative changes are identified within the thoracic spine. RAD/Chest 1 View (Portable) IMPRESSION: NO ACUTE FINDINGS. Reading Location: [facility]
[2024-08-25 18:00] VITALS: BP 169/76; PULSE 65; RESP 16; O2SAT 98
[2024-08-25 18:53] LABS: TROPONIN VARIANCE 2 HR 3; Troponin T High Sens 2 HR 13 ng/L (<=14)
[2024-08-25 18:53] LABS: Anion Gap 13 (5-15); Calcium,Total 10.6 mg/dL (7.6-11.0); Carbon Dioxide 23.6 mmol/L (21.0-32.0); Chloride 99 mmol/L (98-108); Potassium 4.4 mmol/L (3.3-5.1); Sodium Level 136 mmol/L (133-145)
[2024-08-25 19:00] VITALS: BP 104/59; PULSE 66; RESP 20; O2SAT 93
== END 2024-08-25 19:57 | disposition home or self-care (01) ==
PROVIDERS: Emergency Provider Emergency Medicine; PCP Internal Medicine; Visit Provider Emergency Medicine
DX: R07.9 Chest pain, unspecified (principal); I48.0 Paroxysmal atrial fibrillation; Z90.710 Acquired absence of both cervix and uterus; R06.02 Shortness of breath; I10 Essential (primary) hypertension; M54.9 Dorsalgia, unspecified; Z79.01 Long term (current) use of anticoagulants; Z90.49 Acquired absence of other specified parts of digestive tract; E03.9 Hypothyroidism, unspecified; Z87.19 Personal history of other diseases of the digestive system; K21.9 Gastro-esophageal reflux disease without esophagitis
CPT/HCPCS: 71045; 80048; 84484; 85025; 87631; 93005; 99283; A4216

== ENCOUNTER → 2025-01-30 | Outpatient (CLI) | payer MEDICARE, SELFPAY | END | disposition home or self-care (01) | LOC: LABSPEC 16:01 | PROVIDERS: PCP Internal Medicine; Visit Provider Physician Assistant Surgical | DX: R30.0 Dysuria (principal) | CPT/HCPCS: 87086; 87088 ==

== ENCOUNTER → 2025-02-11 | Outpatient (CLI) | payer MEDICARE, SELFPAY ==
[2025-02-11 10:51] LABS: Hematocrit 36.9 % (37-47); Hemoglobin 12.1 g/dL (12.0-15.0); Immature Granulocytes Count 0.020 X10^3/uL (0.0-0.0); Mean Corp Hgb Conc 32.8 g/dL (32-36); Mean Corpuscular Volume 90.0 fL (81-99); Mean Platelet Vol. 9.5 fl (6.2-12.0); NRBC Flagged by Analyzer 0 % (0-5); Platelet Count 319 K/mm3 (150-450); RBC Distribution Width CV 14.1 % (11.6-14.6); RBC Distribution Width SD 46.2 fl (35.1-43.9); Red Blood Count 4.10 M/mm3 (4.2-5.4); White Blood Count 5.6 K/mm3 (4.4-11.0)
[2025-02-11 11:55] LABS: AST(SGOT) 16 U/L (<=31); Alanine Aminotransfer ALT/SGPT 10 U/L (<=34); Albumin, Serum 4.0 g/dL (3.4-4.8); Alkaline Phosphatase 75 U/L (35-104); Anion Gap 9 (5-15); BUN 21 mg/dL (4-19); BUN/Creat Ratio 24.1 RATIO (10-20); Calcium,Total 10.4 mg/dL (7.6-11.0); Carbon Dioxide 25.4 mmol/L (21.0-32.0); Chloride 103 mmol/L (98-108); Cholesterol 230 mg/dL (<=200); Free T3 2.6 pg/mL (2.18-3.98); Globulin 2.9 g/dL (2.2-4.2); Glucose 99 mg/dL (70-99); Low Density Lipoprotein Calc. 118 mg/dL; Potassium 4.6 mmol/L (3.3-5.1); Triglycerides 126 mg/dL; Very Low Density Lipoprotein 25 mg/dL (5-40); Vitamin D,25 Hydroxy 25.6 ng/mL (30-100); cholesterol:hdl ratio screen 2.66
[2025-02-11 12:09] LABS: Iron 77 ug/dL (50-170); Iron Binding Capacity,Total 340 ug/dL (250-450); Iron Binding Capacity,Unsat 263 ug/dL (228-428); Magnesium 2.1 mg/dL (1.5-2.2)
== END | disposition home or self-care (01) ==
LOC: LAB 10:30
PROVIDERS: PCP Internal Medicine; Referring Provider Internal Medicine; Visit Provider Internal Medicine
DX: I10 Essential (primary) hypertension (principal); I48.0 Paroxysmal atrial fibrillation; D64.9 Anemia, unspecified; E03.9 Hypothyroidism, unspecified; Z79.01 Long term (current) use of anticoagulants; R73.9 Hyperglycemia, unspecified; E55.9 Vitamin D deficiency, unspecified
CPT/HCPCS: 36415; 80053; 80061; 82306; 83036; 83540; 83550; 83735; 84439; 84443; 84481; 85025

== ENCOUNTER → 2025-02-12 | Outpatient (CLI) | payer MEDICARE, SELFPAY ==
[2025-02-12 15:31] LABS: Mucous, Urine 0 SEEN /hpf (<or=2+)
[2025-02-12 16:22] LABS: Color, Urine Yellow (Yellow); Glucose, Dipstick Normal (Normal); Ketone-Dipstick Negative (Negative); Leukocyte Esterase-Dipstick Negative /ul (Negative); Nitrite-Dipstick Negative (Negative); Occult Blood-Urine 25 /ul (Negative); Protein-Dipstick 15 mg/dl (Negative); Specific Gravity, Urine 1.020 (1.002-1.030); Urine Bilirubin Dipstick Negative (Negative)
[2025-02-12 17:21] LABS: Red Blood Cells-Urine 5-10 SEEN /hpf (0-5); Squamous Epithelial Cells - UA 0-5 SEEN /hpf (5-10)
== END | disposition home or self-care (01) ==
LOC: LAB 15:27
PROVIDERS: PCP Internal Medicine; Referring Provider Internal Medicine; Visit Provider Internal Medicine
DX: N39.0 Urinary tract infection, site not specified (principal); R30.0 Dysuria
CPT/HCPCS: 81001; 87086; 87088